=== PATIENT | male | born 1955 | race Caucasian/White ===

== ENCOUNTER 2018-01-27 13:59 | Inpatient (IN) | payer OTHER ==
[2018-01-27] MEDS: NS 0.9% 1000 ML*IV.FLUID IV ONE ×2 (15:03→18:14)
[2018-01-27] MEDS ORDERED: Ondansetron INJ* 2 MG/ML VIAL IV ONE (15:08)
[2018-01-27] MEDS ORDERED: HYDROmorphone INJ* 1 MG/ML CARPUJECT SYRINGE IV ONE ×2 (15:08→17:27)
[2018-01-27 15:37] LABS: Hematocrit 39 % (42-52); Hemoglobin 13.3 g/dl (14.0-18.0); Mean Corpuscular HGB Conc 34 g/dl (31-36); Mean Corpuscular Hemoglobin 31 pg (27-31); Mean Corpuscular Volume 93 fL (80-94); Mean Platelet Volume 9 um3 (7.4-10.4); Platelet Count 391 10^3/ul (150-450); Red Blood Count 4.25 10^6/ul (4.0-5.4); Red Cell Distribution Width 14 % (10.5-15); White Blood Count 11.9 10^3/ul (3.5-10.8)
[2018-01-27] MEDS ORDERED: cefTRIAXone 1000 MG SYRINGE IVPB ONCE IVPB ONE ×2 (15:40)
--- NOTE | 2018-01-27 15:41 | RAD ---
INDICATION: Fever. COMPARISON: There are no prior studies available for comparison. TECHNIQUE: A portable view of the chest was obtained. FINDINGS: Cardiac and mediastinal contours appear to be within normal limits. The lungs are clear. No pleural effusion is seen. IMPRESSION: NO EVIDENCE FOR ACUTE DISEASE.
[2018-01-27 15:50] LABS: INR 1.2 (0.77-1.02)
[2018-01-27 15:58] LABS: EGFR Non-African American 92.9 (>60)
[2018-01-27 16:01] LABS: ABS Basophils 0.1 10^3/ul (0-0.2); ABS Eosinophils 0.1 10^3/ul (0-0.6); ABS Lymphocytes 1.2 10^3/ul (1.0-4.8); ABS Monocytes 2.6 10^3/ul (0-0.8); ABS Nucleated RBC 0 10^3/ul; Eosinophil % 0.5 % (0-6); Lymphocyte % 9.9 % (25-47); Nucleated Red Blood Cells % 0.1
[2018-01-27] MEDS: cefTRIAXone(*) 1 GM in NS 0.9% 50 ML* 50 ML IVPB ONE ×2 (16:02→18:57)
--- NOTE | 2018-01-27 16:11 | RAD ---
Indication: Right hand and elbow swelling. Real-time sonography of the right elbow was performed. The area of the soft tissue swelling complex fluid collection is noted measuring 3.0 x 1.0 x 4.2 cm. Ill-defined borders are noted. I cannot totally exclude olecranon bursitis. Evaluation of the dorsum of the hand demonstrates trace amount of fluid in the dorsal aspect of the hand IMPRESSION: Fluid collection presumably in the dorsal elbow measuring 3.0 x 1.0 x 4.2 cm with ill-defined borders. The possibility of olecranon bursitis should be considered although clinical correlation is suggested. Trace amount of fluid is noted in the dorsal right hand.
--- NOTE | 2018-01-27 16:13 | RAD ---
Indication: Right hand pain. 4 views of the right hand demonstrates ulnar positive variance. Degenerative changes of the radiocarpal joint is noted. No definite fracture is noted. IMPRESSION: Ulnar positive variance with radial carpal joint arthritis. No fracture is noted.
--- NOTE | 2018-01-27 16:14 | RAD ---
INDICATION: Pain and swelling COMPARISON: None TECHNIQUE: AP and lateral views were obtained. FINDINGS: There is no acute bony change. There are advanced osteocytic/post matter changes about the wrist and there are degenerative changes about the elbow with post matter changes with open reduction and internal fixation of mid shaft radial and ulnar fractures. No additional findings. IMPRESSION: DEGENERATIVE, POST TRAUMATIC, AND POSTSURGICAL CHANGES. NO ACUTE FINDINGS
[2018-01-27] MEDS: Mometasone/Formoter 100/5 MDI INH SCH (20:52)
[2018-01-27] MEDS: Methocarbamol TAB* 500 MG PO SCH (21:15)
[2018-01-27] MEDS: Gabapentin CAP(*) 300 MG PO SCH (21:16)
[2018-01-27] MEDS: Amitriptyline TAB* 25 MG PO SCH (21:16)
[2018-01-27] MEDS: HYDROmorphone INJ* 2 MG/ML CARPUJECT SYRINGE IV SLOW PU PRN (21:16)
--- NOTE | 2018-01-27 22:54 | HP ---
HISTORY AND PHYSICAL: DATE OF ADMISSION: 01/27/18 ADMITTING PROVIDER: Catracho Khoury MD PRIMARY CARE PHYSICIAN: Nasra Bradley MD CHIEF COMPLAINT: Three days of progressive right elbow and hand pain, erythema , stiffness. 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 He worked overnight Thursday night 3 days prior to admission and had to lift twice as heavy trash cans than he usually he has to do. He started to develop fevers and pain for the past next 3 days prior to admission, which has been progressive. He occasionally does get swelling in his right elbow every 6 to 12 months, which typically does resolve. This has now returned, but now he has also developed swelling and stiffness in the right hand along with erythema and warmth, which is completely new. He followed with Dr. Nasra Bradley, his primary care physician, was noted to have fever of either 101 or 102 degrees and was sent directly for admission for concern for cellulitis, sepsis versus septic joints. He was afebrile in the emergency room , but with a white count of 11.9 and imaging including soft tissue ultrasound suggestive of a 3.0 x 1.0 x 4.2 cm complex fluid collection with ill-defined borders in the dorsal elbow of the right side with question of possible olecranon bursitis. There was also trace amount of fluid noted in the dorsal right hand. Dr. Manuel of Orthopedics was consulted by Dr. Levine of emergency room, who recommended hospitalist service admission with orthopedic consultation services available. He also had a hand x-ray with no fracture noted in the forearm x-ray, which demonstrated degenerative posttraumatic and postsurgical changes, but no acute findings. He was started on ceftriaxone and IV fluids along with IV Dilaudid for pain control. He reports that he has also had increased neck stiffness for the last few days after the IV lifting, which is actually somewhat improved currently. He denies any shortness of breath, coughing, chest pain, chest tightness, pain in the right hand is 8.5/10. He is actually somewhat ambidextrous given the numerous surgeries including one on his right forearm. PAST MEDICAL HISTORY: Includes: 1. Hypertension. 2. GERD. 3. Chronic back pains, on muscle relaxers and p.r.n. opioids. 4. Depression. 5. Anxiety. 6. Hepatitis C status post treatment. 7. History of ischemic colitis. PAST SURGICAL HISTORY: Includes: 1. Intramedullary nail to left tibia fracture. 2. Hardware in the right forearm 30 years ago, which also necessitated a bone graft from his left hip. 3. Multiple surgeries on his bilateral rotator cuffs and knees. MEDICATIONS: Include: 1. Methocarbamol 500 mg p.o. q.6 hours. 2. Amlodipine 5 mg p.o. daily. 3. Gabapentin 300 mg p.o. t.i.d. 4. Amitriptyline 25 mg p.o. at bedtime. 5. Losartan 50 mg p.o. daily. 6. Advair 1 puff inhaled b.i.d. 7. Diflunisal 500 mg p.o. daily. 8. Bupropion 300 mg p.o. daily. 9. Omeprazole 20 mg p.o. daily. 10. Oxycodone 15 mg p.r.n. nightly (he received 10 pills per month limit). ALLERGIES: Include SULFA, gives hives; LISINOPRIL, gives itchy throat; and MORPHINE, gives nausea and vomiting. SOCIAL HISTORY: The patient is a self admitted former alcoholic for about 10 years, but not recently. He attests to two 6-packs a week currently of beer. He is a former smoker of 8-pack years, quit 39 years ago. No other drug use. Medical surrogate is his , Manisha Johnson. He is a full code. FAMILY HISTORY: Dad with hypertension, of melanoma. Mother with hepatitis C and heart attack. REVIEW OF SYSTEMS: A complete 14-point review of systems was negative except as per HPI. He denies any abdominal pain, nausea, vomiting, diarrhea, constipation, or headaches. PHYSICAL EXAMINATION GENERAL APPEARANCE: No acute distress, sitting in the hospital bed. VITAL SIGNS: Temperature 98.4, reportedly either 101 or 102 at outpatient office, blood pressure 149/85, satting 95% to 100% on room air, respiratory rate 19 to 20, pulse mid 80s. HEENT: Normocephalic, atraumatic. Pupils are equal, round, and reactive to light. Extraocular motions are intact. No scleral icterus. Moist mucous membranes. No oropharynx lesions. NECK: Supple, but with reduced range of motion to either side approximately 35 degrees bilaterally. PULMONARY: Clear to auscultation bilaterally with no wheezing, rales, or rhonchi. CARDIOVASCULAR: Regular rate and rhythm. No murmurs, rubs, or gallops. ABDOMEN: Soft, nontender, nondistended, though slightly obese (BMI of 35.2). EXTREMITIES: Warm, well perfused. No peripheral edema. Right foot with some plantar deviated toes and flat foot. Right forearm with scar with no drainage, but slight erythema and reduced range of motion at the right elbow. Also significant erythema and swelling of the right dorsum of the hand. NEUROLOGIC: Cranial nerves II through XII intact. Moving all extremities. LABORATORY DATA: White count 11.9, hemoglobin 13.3, hematocrit 39, MCV 93, platelets 391, neutrophils 67.3%. INR 1.20. Sodium 130, potassium 2.7, chloride 96, carbon dioxide 23, BUN 19, creatinine 0.84, glucose of 120, lactic acid 1.7. Total bili 1.50. Troponin 0.01. AST 24, ALT 22, alk phos 44. CRP 204. Albumin 4.0. IMAGING: As per HPI. EKG with poor R-wave progression, normal sinus rhythm. ASSESSMENT AND PLAN: Ang Johnson is a 62-year-old male with past medical history of chronic back pain, hypertension, multiple fractures and hardware most prominently in his right forearm, presenting with concern for cellulitis of the right hand with trace dorsal hand fluid as well as a 3 x 1 x 4.2 cm complex fluid collection of the right elbow with inability to rule out olecranon bursitis versus septic joint. Dr. Manuel of orthopedics was consulted , who recommended IV antibiotics and will be seen in the maintenance worker swimming pool for further evaluation if need for drainage. The patient's pain will be controlled with Dilaudid IV. I started her on ceftriaxone. We will continue that versus switch to cefazolin. Does not have risk factors for methicillin-resistant Staphylococcus aureus, though with the retained hardware, we will have to keep a close eye on nonprogression and consider an ID consult in the morning. He is getting IV fluids per sepsis protocol, though currently afebrile and his lactic acid was within normal limits at 1.7, CRP was 204. We will continue his antihypertensives for now, losartan 50 and amlodipine 5 at low threshold, to stop if his blood pressures falls overnight. Continue his gabapentin 300 mg t.i.d., his amitriptyline 25 mg q.h.s., his bupropion 300 mg daily, his omeprazole 20 mg daily, and Advair 2 puffs inhaled b.i.d. His neck pain seems secondary to the heavy lifting, low threshold to get additional imaging if it does not continue to progress. He is a full code. Medical surrogate is Manisha Johnson, his . He can eat a heart healthy diet with decaf coffee. He is being admitted to observation status on medical service. [id number]/[facility] #: [id number] ANYI
--- NOTE | 2018-01-27 23:01 | ED ---
Milton Lawton Gabriel, scribed for Manoj Levine MD on 01/27/18 at 1509 . Upper Extremity Pain - HPI Summary HPI Summary: This patient is a 62 year old M presenting to [facility] with a chief complaint of RUE pain that began 3 days ago. Pt saw his PCP today and they sent him here with a concern of a septic joint. The patient rates the pain 7/10 in severity Patient reports mild neck pain, elbow swelling that limits ROM, and a fever of 102. Patient denies CP, SOB, and congestion. The patient had surgery in this same wrist in 1972. - History of Current Complaint Chief Complaint: EDExtremityUpper Stated Complaint: RT WRIST PAIN Time Seen by Provider: 01/27/18 14:56 Hx Obtained From: Patient Onset/Duration: Started Days Ago - 3, Still Present Timing: Constant Severity Initially: Moderate Severity Currently: Moderate Pain Location: Elbow, Wrist, Hand Associated Signs & Symptoms: Positive: Swelling, Redness, Other - mild neck pain , elbow swelling that limits ROM, and a fever of 102 - Allergies/Home Medications Allergies/Adverse Reactions: Allergies Allergy/AdvReac Type Severity Reaction Status Date / Time lisinopril Allergy Coughing Verified 01/27/18 15:36 Sulfa (Sulfonamide Allergy Hives Verified 01/27/18 15:36 Antibiotics) morphine AdvReac Nausea And Verified 01/27/18 15:37 Vomiting Home Medications: Home Medications Amitriptyline TAB* [Elavil TAB*] 25 mg PO BEDTIME 01/27/18 [History Confirmed ] Gabapentin 300 mg PO TID 01/27/18 [History Confirmed 01/27/18] Methocarbamol 500 mg PO Q6H 01/27/18 [History Confirmed 01/27/18] amLODIPine TAB* [Norvasc 5 mg TAB*] 5 mg PO DAILY 01/27/18 [History Confirmed ] PMH/Surg Hx/FS Hx/Imm Hx Endocrine/Hematology History: Denies: Hx Sickle Cell Disease Cardiovascular History: Reports: Hx Hypertension - WELL CONTROLLED WITH MEDICATION Respiratory History: Reports: Hx Asthma - ASTHMATIC ALLERGY UNKNOWN TO WHAT TAKES ADVAIR GI History: Reports: Hx Gastroesophageal Reflux Disease - TAKES MEDICATION ONLY HAPPENS WHEN OVER FULL History: Denies: Other Problems/Disorders Musculoskeletal History: Denies: Other Musculoskeletal History Sensory History: Reports: Hx Contacts or Glasses - READING Denies: Hx Cataracts, Hx Glaucoma, Hx Hearing Aid Opthamlomology History: Reports: Hx Contacts or Glasses - READING Denies: Hx Cataracts, Hx Glaucoma Neurological History: Denies: Other Neuro Impairments/Disorders - Cancer History Hx Chemotherapy: No - Surgical History Surgery Procedure, Year, and Place: RIGHT SHOULDER - 2012 [employer]. RIGHT KNEE. BACK. RIGHT ARM. LEFT SHOULDER Hx Anesthesia Reactions: No - WAKES UP VERY FAST, WOKE UP IN MIDDLE OF OPERATION - Immunization History Date of Tetanus Vaccine: 03/2017 Date of Influenza Vaccine: never Infectious Disease History: No Infectious Disease History: Denies: Traveled Outside the [place] in Last 30 Days - Family History Known Family History: Negative: Blood Disorder - Social History Alcohol Use: Rare Substance Use Type: Reports: None Smoking Status (MU): Former Smoker Review of Systems Positive: Fever Cardiovascular: Negative Respiratory: Negative Gastrointestinal: Negative Genitourinary: Negative Positive: Other - RUE pain and swelling, mild neck pain, elbow pain and swelling Positive: Other - RT HAND AND ELBOW ERYHEMA Neurological: Negative Psychological: Normal All Other Systems Reviewed And Are Negative: Yes Physical Exam - Summary Physical Exam Summary: General: mildly ill appearing. Skin: warm, color reflects adequate perfusion, dry Head: normal Eyes: EOMI, SARY ENT: normal Neck: supple, nontender Respiratory: CTA, breath sounds present Cardiovascular: RRR Abdomen: soft, nontender Bowel: present Musculoskeletal: strength/ROM intact, the right hand and wrist are erythematous , swollen and TTP. The lateral aspect of the right elbow is erythematous. Neurological: normal, sensory/motor intact, A&O x3 Psychological: affect/mood appropriate Triage Information Reviewed: Yes Vital Signs On Initial Exam: Initial Vitals Pulse Pulse Ox 96 94 01/27/18 14:11 01/27/18 14:11 Vital Signs Reviewed: Yes Diagnostics - Vital Signs Vital Signs Temp Pulse Resp BP Pulse Ox 01/27/18 14:13 95 149/85 98 01/27/18 14:12 98.4 F 89 14 149/85 95 01/27/18 14:11 96 94 - Laboratory Lab Results: Lab Results 01/27/18 01/27/18 01/27/18 Range/Units 15:13 15:13 15:13 WBC 11.9 H (3.5-10.8) 10^3/ul RBC 4.25 (4.0-5.4) 10^6/ul Hgb 13.3 L (14.0-18.0) g/dl Hct 39 L (42-52) % MCV 93 (80-94) fL MCH 31 (27-31) pg MCHC 34 (31-36) g/dl RDW 14 (10.5-15) % Plt Count 391 (150-450) 10^3/ul MPV 9 (7.4-10.4) um3 Neut % (Auto) 67.3 (38-83) % Lymph % (Auto) 9.9 L (25-47) % [place] % (Auto) 21.8 H (0-7) % Eos % (Auto) 0.5 (0-6) % Baso % (Auto) 0.5 (0-2) % Absolute Neuts (auto) 8.0 H (1.5-7.7) 10^3/ul Absolute Lymphs (auto) 1.2 (1.0-4.8) 10^3/ul Absolute Monos (auto) 2.6 H (0-0.8) 10^3/ul Absolute Eos (auto) 0.1 (0-0.6) 10^3/ul Absolute Basos (auto) 0.1 (0-0.2) 10^3/ul Absolute Nucleated RBC 0 10^3/ul Nucleated RBC % 0.1 INR (Anticoag Therapy) 1.20 H (0.77-1.02) APTT 29.3 (26.0-36.3) seconds Sodium 130 L (133-145) mmol/L Potassium 3.7 (3.5-5.0) mmol/L Chloride 96 L (101-111) mmol/L Carbon Dioxide 23 (22-32) mmol/L Anion Gap 11 (2-11) mmol/L BUN 19 (6-24) mg/dL Creatinine 0.84 (0.67-1.17) mg/dL Est GFR ( Amer) 119.5 (>60) Est GFR (Non-Af Amer) 92.9 (>60) BUN/Creatinine Ratio 22.6 H (8-20) Glucose 120 H (70-100) mg/dL Lactic Acid (0.5-2.0) mmol/L Calcium 9.6 (8.6-10.3) mg/dL Total Bilirubin 1.50 H (0.2-1.0) mg/dL AST 24 (13-39) U/L ALT 22 (7-52) U/L Alkaline Phosphatase 44 (34-104) U/L Troponin I 0.01 (<0.04) ng/mL C-Reactive Protein 204.47 H (< 5.00) mg/L Total Protein 7.8 (6.4-8.9) g/dL Albumin 4.0 (3.2-5.2) g/dL Globulin 3.8 (2-4) g/dL Albumin/Globulin Ratio 1.1 (1-3) 03//18 Range/Units 15:13 WBC (3.5-10.8) 10^3/ul RBC (4.0-5.4) 10^6/ul Hgb (14.0-18.0) g/dl Hct (42-52) % MCV (80-94) fL MCH (27-31) pg MCHC (31-36) g/dl RDW (10.5-15) % Plt Count (150-450) 10^3/ul MPV (7.4-10.4) um3 Neut % (Auto) (38-83) % Lymph % (Auto) (25-47) % [place] % (Auto) (0-7) % Eos % (Auto) (0-6) % Baso % (Auto) (0-2) % Absolute Neuts (auto) (1.5-7.7) 10^3/ul Absolute Lymphs (auto) (1.0-4.8) 10^3/ul Absolute Monos (auto) (0-0.8) 10^3/ul Absolute Eos (auto) (0-0.6) 10^3/ul Absolute Basos (auto) (0-0.2) 10^3/ul Absolute Nucleated RBC 10^3/ul Nucleated RBC % INR (Anticoag Therapy) (0.77-1.02) APTT (26.0-36.3) seconds Sodium (133-145) mmol/L Potassium (3.5-5.0) mmol/L Chloride (101-111) mmol/L Carbon Dioxide (22-32) mmol/L Anion Gap (2-11) mmol/L BUN (6-24) mg/dL Creatinine (0.67-1.17) mg/dL Est GFR ( Amer) (>60) Est GFR (Non-Af Amer) (>60) BUN/Creatinine Ratio (8-20) Glucose (70-100) mg/dL Lactic Acid 1.7 (0.5-2.0) mmol/L Calcium (8.6-10.3) mg/dL Total Bilirubin (0.2-1.0) mg/dL AST (13-39) U/L ALT (7-52) U/L Alkaline Phosphatase (34-104) U/L Troponin I (<0.04) ng/mL C-Reactive Protein (< 5.00) mg/L Total Protein (6.4-8.9) g/dL Albumin (3.2-5.2) g/dL Globulin (2-4) g/dL Albumin/Globulin Ratio (1-3) Result Diagrams: 01/27/18 15:13 01/27/18 15:13 Lab Statement: Any lab studies that have been ordered have been reviewed, and results considered in the medical decision making process. - Radiology CXR Radiology Interpretation Completed By: Radiologist - NO EVIDENCE FOR ACUTE DISEASE. ED physician has reviewed this radiology report. forearm xray Radiology Interpretation Completed By: Radiologist - DEGENERATIVE, POST TRAUMATIC, AND POSTSURGICAL CHANGES. NO ACUTE FINDINGS. ED physician has reviewed this report hand xray Radiology Interpretation Completed By: Radiologist - Ulnar positive variance with radial carpal joint arthritis. No fracture is noted. ED physician has reviewed this report - EKG 1 EKG Interpretation: 14:46 - SR @ [address], no ectopy - Additional Comments Diagnostic Additional Comments: Soft tissue US reveals, Fluid collection presumably in the dorsal elbow measuring 3.0 x 1.0 x 4.2 cm with ill-defined borders. The possibility of olecranon bursitis should be considered although clinical correlation is suggested. Trace amount of fluid is noted in the dorsal right hand. ED physician has reviewed this report Course/Dx - Course Course Of Treatment: Dr. Manuel 17:45 - will consult admission. Dr. Khoury 17:53 - agrees to admit. - Diagnoses Provider Diagnoses: Cellulitis of right arm - Physician Notifications Discussed Care of Patient With: Catracho Khoury Time Discussed With Above Provider: 17:37 Instructed by Provider To: Other - call ortho Discharge - Discharge Plan Condition: Stable Disposition: ADMITTED TO [facility] The documentation as recorded by the Milton root Gabriel accurately reflects the service I personally performed and the decisions made by me, Manoj Levine MD.
[2018-01-28] MEDS: Methocarbamol TAB* 500 MG PO SCH ×4 (01:24→23:06)
[2018-01-28] MEDS: HYDROmorphone INJ* 2 MG/ML CARPUJECT SYRINGE IV SLOW PU PRN ×9 (01:32→23:05)
[2018-01-28 06:10] LABS: Hematocrit 38 % (42-52); Hemoglobin 13.1 g/dl (14.0-18.0); Mean Corpuscular HGB Conc 34 g/dl (31-36); Mean Corpuscular Hemoglobin 32 pg (27-31); Mean Corpuscular Volume 93 fL (80-94); Mean Platelet Volume 8 um3 (7.4-10.4); Platelet Count 344 10^3/ul (150-450); Red Blood Count 4.09 10^6/ul (4.0-5.4); Red Cell Distribution Width 14 % (10.5-15); White Blood Count 7.5 10^3/ul (3.5-10.8)
[2018-01-28 06:12] LABS: ABS Basophils 0.1 10^3/ul (0-0.2); ABS Eosinophils 0.2 10^3/ul (0-0.6); ABS Lymphocytes 1.5 10^3/ul (1.0-4.8); ABS Monocytes 1.7 10^3/ul (0-0.8); ABS Neutrophils 4.1 10^3/ul (1.5-7.7); ABS Nucleated RBC 0 10^3/ul; Eosinophil % 2.2 % (0-6); Lymphocyte % 19.5 % (25-47); Nucleated Red Blood Cells % 0.1
[2018-01-28 06:27] LABS: EGFR Non-African American 105.9 (>60)
[2018-01-28] MEDS: Mometasone/Formoter 100/5 MDI INH SCH ×2 (07:38→19:34)
[2018-01-28] MEDS: Losartan TAB* 25 MG PO SCH (08:31)
[2018-01-28] MEDS: Gabapentin CAP(*) 300 MG PO SCH ×3 (08:31→23:07)
[2018-01-28] MEDS: amLODIPine TAB* 5 MG PO SCH (08:32)
[2018-01-28] MEDS: BuPROPion XL* 300 MG TAB.XL PO SCH (08:32)
[2018-01-28] MEDS: Omeprazole CAP* 20 MG PO SCH (08:32)
[2018-01-28] MEDS ORDERED: BuPROPion XL* 300 MG TAB.XL PO SCH (09:00)
[2018-01-28] MEDS ORDERED: DIFLUNISAL 500 MG PO SCH (09:00)
[2018-01-28 13:16] LABS: Urine Appearance Clear; Urine Blood Negative (Negative); Urine Color Yellow; Urine Ketones Negative (Negative); Urine Protein Negative (Negative); Urine Specific Gravity 1.025 (1.010-1.030); Urine Urobilinogen Positive (Negative)
--- NOTE | 2018-01-28 13:28 | RAD ---
Indication: Pain and swelling at the RIGHT wrist and elbow. Question infection. Remote previous internal fixation for diaphyseal fractures of the radius and ulna. Comparison: January 27, 2018 radiographs. Technique: Le[employer] [place] 1.5 Tracey [id number] with GEM suite. Noncontrast MRI RIGHT elbow and wrist including T1 and inversion recovery series as well as [place] SL metallic artifact suppression technique. Report: RIGHT elbow: Artifact from the cortical plates at the forearm. No compelling bone marrow edema to raise concern for osteomyelitis. Negative for fracture. Large joint effusion without fat fluid level. Suggestion of synovitis. Diffuse osteophytosis. Advanced partial and full-thickness degeneration of the hyaline articular cartilage most prominent at the humeral radial articulation. Subcutaneous edema and interstitial edema at the distal upper arm and proximal forearm skeletal musculature without significant focality. No loculated soft tissue plane fluid collection evident. RIGHT wrist: Diffuse advanced osteoarthritis. Osteophytosis is marked at the distal radioulnar joint. Diffuse advanced high-grade partial and full-thickness degeneration of the hyaline articular cartilage. Mild scapholunate diastases with suggestion of tear of the scapholunate ligament. Associated increased scapholunate angle. Mild bone marrow edema at the distal pole of the scaphoid, throughout the trapezium, and volar distal aspect of the capitate without discrete macroscopic fracture plane most likely reflecting reactive edema secondary to degenerative arthropathy. Mild proximal migration of the capitate consistent with early scapholunate advanced collapse. Moderate distal radial ulnar and mild radiocarpal and midcarpal joint effusions. Significant fluid within the flexor tendon sheaths of the fourth and fifth fingers at the distal forearm and metacarpal level. Diffuse soft tissue edema. IMPRESSION: 1. No compelling evidence for osteomyelitis at the wrist or elbow. 2. 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 3. Severe tenosynovitis at the flexor tendons of the fourth and fifth fingers. 4. 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 Associated large elbow joint effusion. 5. If there is high clinical index of suspicion based on clinical presentation and laboratory data for infection then consider elbow joint aspiration and potential aspiration of fluid from the flexor tendon sheaths.
--- NOTE | 2018-01-28 13:28 | RAD ---
Indication: Pain and swelling at the RIGHT wrist and elbow. Question infection. Remote previous internal fixation for diaphyseal fractures of the radius and ulna. Comparison: January 27, 2018 radiographs. Technique: Tier[employer] [place] 1.5 Tracey [id number] with GEM suite. Noncontrast MRI RIGHT elbow and wrist including T1 and inversion recovery series as well as [place] SL metallic artifact suppression technique. Report: RIGHT elbow: Artifact from the cortical plates at the forearm. No compelling bone marrow edema to raise concern for osteomyelitis. Negative for fracture. Large joint effusion without fat fluid level. Suggestion of synovitis. Diffuse osteophytosis. Advanced partial and full-thickness degeneration of the hyaline articular cartilage most prominent at the humeral radial articulation. Subcutaneous edema and interstitial edema at the distal upper arm and proximal forearm skeletal musculature without significant focality. No loculated soft tissue plane fluid collection evident. RIGHT wrist: Diffuse advanced osteoarthritis. Osteophytosis is marked at the distal radioulnar joint. Diffuse advanced high-grade partial and full-thickness degeneration of the hyaline articular cartilage. Mild scapholunate diastases with suggestion of tear of the scapholunate ligament. Associated increased scapholunate angle. Mild bone marrow edema at the distal pole of the scaphoid, throughout the trapezium, and volar distal aspect of the capitate without discrete macroscopic fracture plane most likely reflecting reactive edema secondary to degenerative arthropathy. Mild proximal migration of the capitate consistent with early scapholunate advanced collapse. Moderate distal radial ulnar and mild radiocarpal and midcarpal joint effusions. Significant fluid within the flexor tendon sheaths of the fourth and fifth fingers at the distal forearm and metacarpal level. Diffuse soft tissue edema. IMPRESSION: 1. No compelling evidence for osteomyelitis at the wrist or elbow. 2. 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 3. Severe tenosynovitis at the flexor tendons of the fourth and fifth fingers. 4. 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 Associated large elbow joint effusion. 5. If there is high clinical index of suspicion based on clinical presentation and laboratory data for infection then consider elbow joint aspiration and potential aspiration of fluid from the flexor tendon sheaths.
--- NOTE | 2018-01-28 15:47 | CONS ---
CONSULTATION REPORT: DATE OF CONSULTATION: 01/28/18 Thank you for this orthopedic consultation. CHIEF COMPLAINT: Right hand and elbow pain. HISTORY OF PRESENT ILLNESS: Mr. Johnson is 62-year-old right-hand dominant male who notes 3 days of increasingly severe right hand and elbow pain with warmth and redness. 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 He was lifting more items than usual. He is unsure whether he scraped his arm. He is unaware of any open wounds. He started to develop redness and warmth along his dorsal hand and elbow. This redness increased, then he went to his primary care doctor who thought he was febrile and sent him to the emergency room for further evaluation. Patient was admitted for cellulitis and I am consulted to evaluate further for a possible septic joint. He has been on IV ceftriaxone and has had 2 doses. Patient reports he occasionally develops what sounds like olecranon bursitis every 6 to 12 months, but it resolves on its own without treatment. Patient reports some recent fever. He reports 6/10 pain in the dorsal hand and wrist. He notes decreased movement in the wrist and increased pain when he tries to move the wrist. He reports a loss of extension in the elbow due to pain and swelling. PAST MEDICAL HISTORY: Hepatitis C status post treatment, ischemic colitis, depression, anxiety, chronic back pain, GERD, hypertension, history of multiple fractures including right forearm and left tibia. PAST SURGICAL HISTORY: IM nail of the left tibia. ORIF of the right forearm fracture. Multiple surgeries on his knees and bilateral rotator cuffs. HOME MEDICATIONS: 1. Methocarbamol 500 mg p.o. q.6 hours. 2. Amlodipine 5 mg p.o. daily. 3. Gabapentin 300 mg p.o. t.i.d. 4. Amitriptyline 25 mg p.o. q.h.s. 5. Losartan 50 mg p.o. daily. 6. Advair 1 puff inhaled b.i.d. 7. Diflunisal 500 mg p.o. daily. 8. Bupropion 300 mg p.o. daily. 9. Omeprazole 20 mg p.o. daily. 10. Oxycodone 50 mg p.r.n. q.h.s. ALLERGIES: SULFA, LISINOPRIL and MORPHINE. FAMILY HISTORY: Paternal, melanoma and hypertension. Maternal, heart disease and hepatitis C. 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 He has a remote history of tobacco use. He drinks 2 six packs of beer per week, but is a self- admitted former alcoholic. No recreational drug use. Lives with his . REVIEW OF SYSTEMS: Fourteen systems are reviewed with the patient. Positive for right wrist pain, right forearm pain, right elbow pain, right elbow stiffness, right wrist stiffness, recent fevers. Negative for chest pain, shortness of breath, nausea, vomiting, headache, dizziness, diarrhea or constipation. Otherwise, review of systems is negative or not relevant. PHYSICAL EXAMINATION: Vitals: Temperature 98.1, pulse 84, blood pressure 134/ 58. General: Patient is a well-nourished male in no apparent distress, alert and oriented x3. Pleasant mood and appropriate affect. HEENT: Atraumatic, normocephalic. Pupils are equal and reactive to light. Chest: Unlabored breathing. Abdomen: Soft, nontender, nondistended. Right upper extremity: Patient's skin is intact. No visible abrasion or open wound. He has arrhythmia and warmth along the entire upper extremity up to his mid upper arm. At the elbow, there is minimal pain with range of motion. He is locked and lacks 30 degrees from full extension. Flexion to 120 degrees with minimal pain. I cannot palpate if he has a localized olecranon bursitis. He does have an effusion at the elbow. Forearm is relatively nontender to palpation. At his wrist, he is swollen generally, but no palpable fluid collections. He has no pain with passive stretch of his fingers. He has full range of motion of the fingers except lacking 20 degrees from full extension due to swelling. He has 2 + palpable radial pulse. Full sensation to light touch in all nerve distributions. Limited wrist motion because of pain and swelling. LABORATORY VALUES: Show white blood cell 11.1, decreased this morning to 7.8; hematocrit 39; platelets 391. Sodium 130, up to 134 this morning; potassium 3.7 , up to 4.5 this morning. BUN and creatinine 14 and 0.75 respectively. Glucose 104, lactic acid 1.7 and CRP 204. RADIOGRAPHS: Multiple radiographs were reviewed on the PACS system. 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 He has plate and screws on both the radius and ulna in the forearm. No obvious signs of osteomyelitis. Soft tissue ultrasound read by Dr. Alas on 01/27/18 shows trace amount of fluid in the dorsal right hand as well as a fluid collection in the region of the olecranon bursa 3 x 1 x 4 cm. ASSESSMENT AND PLAN: Mr. Johnson is a 62-year-old gentleman with 3 days of increasingly severe erythema, warmth and developing cellulitis in the right upper extremity. I am not seeing the discrete olecranon bursitis at this point. I am concerned about a septic wrist or elbow. I would consider adding a broader spectrum antibiotic at this point in addition to ceftriaxone. I recommend an MRI of the right upper extremity to look for significant effusion in the wrist or elbow. He should continue on IV antibiotics. He is no longer febrile. He does not appear to be septic. Ortho to follow and we will obtain the MRI this morning. [id number]/[id number] #: [id number] MTDD
[2018-01-28] MEDS ORDERED: cefTRIAXone 1000 MG SYRINGE IVPB Q24H IVPB SCH ×2 (16:00)
[2018-01-28] MEDS ORDERED: cefTRIAXone(*) 1 GM in NS 0.9% 50 ML* 50 ML IVPB SCH (16:00)
[2018-01-28] MEDS: STERILE WATER FOR INJ IVPB SCH (16:28)
[2018-01-28] MEDS: CEFTRIAXONE IVPB SCH (16:28)
--- NOTE | 2018-01-28 17:53 | PN ---
Subjective Date of Service: 01/28/18 Interval History: MRI with significant fluid in the 4th and 5th flexor tendon sheaths. Discussed with Dr. Manuel. Dr. Joyce to see patient today. elbow feeling improved but lateral right wrist started to have worsened shooting pains this afternoon. Diluadid had been changed from 1 q3 to 2 q2 this AM. neck range of motion improved. Objective Active Medications: Acetaminophen (Tylenol Tab*) 650 mg PO Q6H PRN PRN Reason: FEVER/HEADACHE Amitriptyline HCl (Elavil Tab*) 25 mg PO BEDTIME [facility] Last Admin: 01/27/18 21:16 Dose: 25 mg Amlodipine Besylate (Norvasc Tab*) 5 mg PO DAILY [facility] Last Admin: 01/28/18 08:32 Dose: 5 mg Bupropion HCl (Bupropion Xl*) 300 mg PO DAILY [facility] Last Admin: 01/28/18 08:32 Dose: 300 mg Diflunisal (Dolobid Tab*) 500 mg PO DAILY [facility] Last Admin: 01/28/18 08:31 Dose: 500 mg Gabapentin (Neurontin Cap(*)) 300 mg PO TID [facility] Last Admin: 01/28/18 14:39 Dose: 300 mg Hydromorphone HCl (Dilaudid Inj*) 2 mg IV SLOW PU Q2H PRN PRN Reason: PAIN Last Admin: 01/28/18 16:34 Dose: 2 mg Ceftriaxone Sodium 2,000 mg/ (Sterile Water) 20 mls @ 80 mls/hr IVPB Q24H [facility] Last Admin: 01/28/18 16:28 Dose: 80 mls/hr Losartan Potassium (Cozaar Tab*) 50 mg PO DAILY [facility] Last Admin: 01/28/18 08:31 Dose: 50 mg Methocarbamol (Robaxin Tab*) 500 mg PO Q6H [facility] Last Admin: 01/28/18 14:39 Dose: 500 mg Mometasone Furoate/Formoterol Fumar (Dulera 100/5 Mdi*) 2 puff INH BID [facility] Last Admin: 01/28/18 07:38 Dose: 2 puff Omeprazole (Prilosec Cap*) 20 mg PO DAILY@0800 [facility] Last Admin: 01/28/18 08:32 Dose: 20 mg Vital Signs - 8 hr 01/28/18 01/28/18 01/28/18 10:36 12:35 14:37 Respiratory 18 16 16 Rate 01/28/18 01/28/18 01/28/18 14:38 14:39 16:34 Respiratory 16 16 16 Rate 01/28/18 17:25 Respiratory 16 Rate Oxygen Devices in Use Now: None Appearance: NAD Eyes: No Scleral Icterus, PERRLA Neck: NL Appearance and Movements; NL JVP Respiratory: Symmetrical Chest Expansion and Respiratory Effort, Clear to Auscultation Cardiovascular: NL Sounds; No Murmurs; No JVD, RRR Extremities: No Edema, No Clubbing, Cyanosis, - - right wrist with resolved erythema but continued induration and warmth. range of motion right elbow improved. Neurological: Alert and Oriented x 3, NL Sensation, NL Muscle Strength and Tone Result Diagrams: 01/28/18 05:58 01/28/18 05:58 Additional Lab and Data: Laboratory Results - last 24 hr 01/28/18 01/28/18 01/28/18 05:58 05:58 12:40 WBC 7.5 RBC 4.09 Hgb 13.1 L Hct 38 L MCV 93 MCH 32 H MCHC 34 RDW 14 Plt Count 344 MPV 8 Neut % (Auto) 55.4 Lymph % (Auto) 19.5 L [place] % (Auto) 22.2 H Eos % (Auto) 2.2 Baso % (Auto) 0.7 Absolute Neuts (auto) 4.1 Absolute Lymphs (auto) 1.5 Absolute Monos (auto) 1.7 H Absolute Eos (auto) 0.2 Absolute Basos (auto) 0.1 Absolute Nucleated RBC 0 Nucleated RBC % 0.1 Sodium 134 Potassium 4.5 Chloride 102 Carbon Dioxide 26 Anion Gap 6 BUN 14 Creatinine 0.75 Est GFR ( Amer) 136.2 Est GFR (Non-Af Amer) 105.9 BUN/Creatinine Ratio 18.7 Glucose 104 H Calcium 8.9 Magnesium 2.2 Urine Color Yellow Urine Appearance Clear Urine pH 5.0 Ur Specific [place] 1.025 Urine Protein Negative Urine Ketones Negative Urine Blood Negative Urine Nitrate Negative Urine Bilirubin Negative Urine Urobilinogen Positive A Ur Leukocyte Esterase Negative Urine Glucose Negative Microbiology and Other Data: Microbiology 01/27/18 15:13 Blood Venous Aerobic Blood Culture - Preliminary No Growth Day 1 01/27/18 15:13 Blood Venous Anaerobic Blood Culture - Preliminary No Growth Day 1 Assess/Plan/Problems-Billing Assessment: 62 yo male PMH right forearm fracture w/ hardware, multiple joint surgeries, HTN , anxiety, depression, Hepatitis C s/p tx presenting with right wrist and elbow pain, swelling, erythema, loss of range of motion. soft tissue US with wrist fluid and MRI with significant 4th and 5th tendon flexor sheath fluid. Ortho hand to evaluate. on ceftriaxone and diluadid. - Patient Problems (1) Cellulitis of right hand Current Visit: Yes Status: Acute Code(s): L03.113 - CELLULITIS OF RIGHT UPPER LIMB SNOMED Code(s): 15467550 Comment: change ceftriaxone to 2g q24 from 1g given 109kg. improving erythema but concern for tendon sheath infection given MRI findings. Discussed with Dr. Manuel. Dr. Joyce to see. pt made npo. BCx BGTD. (2) Tenosynovitis of right hand Current Visit: Yes Status: Acute Code(s): M65.9 - SYNOVITIS AND TENOSYNOVITIS, UNSPECIFIED SNOMED Code(s): 2729528327141118 Comment: plan as above. likely will need OR. (3) Effusion of elbow joint, right Current Visit: Yes Status: Acute Code(s): M25.421 - EFFUSION, RIGHT ELBOW SNOMED Code(s): 652759684 Comment: continue cftx. pt chronically gets swelling q6-12 months in this joint. ROM improving. f/u ortho recs. consideration for arthrocentesis. (4) HTN (hypertension) Current Visit: Yes Status: Acute Code(s): I10 - ESSENTIAL (PRIMARY) HYPERTENSION SNOMED Code(s): 71964121 Comment: amlodipine 5mg losartan 50mg (5) Anxiety and depression Current Visit: Yes Status: Acute Code(s): F41.9 - ANXIETY DISORDER, UNSPECIFIED; F32.9 - MAJOR DEPRESSIVE DISORDER, SINGLE EPISODE, UNSPECIFIED SNOMED Code(s): 752114750 Comment: buproprion 300mg amitriptyline (6) Chronic joint pain Current Visit: Yes Status: Acute Code(s): M25.50 - PAIN IN UNSPECIFIED JOINT ; G89.29 - OTHER CHRONIC PAIN SNOMED Code(s): 07675693 Comment: was using oxycodone 15mg prn qhs (but only is allowed 15 pills a month). currently on dilaudid continue other home meds for muscle/nerve pain(robaxin, gabapentin). (7) GERD (gastroesophageal reflux disease) Current Visit: Yes Status: Acute Code(s): K21.9 - GASTRO-ESOPHAGEAL REFLUX DISEASE WITHOUT ESOPHAGITIS SNOMED Code(s): 341080374 Comment: omeprazole Status and Disposition: medicine inpatient.
[2018-01-28] MEDS ORDERED: Bupivacaine 0.25% SDV* 30 ML ONE (19:26)
[2018-01-28] MEDS ORDERED: KETAMINE HCL* 50 MG/ML 10 ML VIAL ONE (20:05)
[2018-01-28] MEDS ORDERED: fentaNYL* 50 MCG/ML 2 ML VIAL (100 MCG VIAL) ONE ×3 (20:05→21:47)
[2018-01-28] MEDS ORDERED: Midazolam* 1 MG/ML 5 ML VIAL (5 MG) ONE (20:05)
[2018-01-28] MEDS ORDERED: Dexamethasone IV* 4 MG/ML 1 ML (4 MG) ONE (20:31)
[2018-01-28] MEDS ORDERED: Ondansetron INJ* 2 MG/ML VIAL ONE (20:31)
[2018-01-28] MEDS ORDERED: Propofol* 10 MG/ML 20 ML BTL IV PUSH ONE (20:31)
[2018-01-28] MEDS ORDERED: HYDROmorphone INJ* 1 MG/ML CARPUJECT SYRINGE ONE (20:36)
[2018-01-28] MEDS ORDERED: oxyCODONE/Acetamin 5/325 MG* TAB PO PRN (20:40)
[2018-01-28] MEDS ORDERED: HYDROmorphone INJ* 1 MG/ML CARPUJECT SYRINGE IV PRN (20:40)
[2018-01-28] MEDS ORDERED: diPHENhydraMINE IV* 50 MG/ML 1 ml VIAL (BENADRYL) IV PRN (20:40)
[2018-01-28] MEDS ORDERED: DiMENhydriNATE IV* 50 MG/ML VIAL IV PUSH PRN (20:40)
[2018-01-28] MEDS ORDERED: Naloxone* 0.4 MG/ML 1 ML VIAL IV PRN (20:40)
[2018-01-28] MEDS: fentaNYL* 50 MCG/ML 2 ML VIAL (100 MCG VIAL) IV PRN ×4 (21:48→21:57)
[2018-01-28] MEDS: Amitriptyline TAB* 25 MG PO SCH (23:07)
[2018-01-28] MEDS: Acetaminophen TAB* 325 MG PO PRN (23:08)
[2018-01-29] MEDS: HYDROmorphone INJ* 2 MG/ML CARPUJECT SYRINGE IV SLOW PU PRN ×9 (00:50→21:35)
[2018-01-29] MEDS: Methocarbamol TAB* 500 MG PO SCH ×4 (00:51→19:19)
[2018-01-29] MEDS: Acetaminophen TAB* 325 MG PO PRN ×2 (04:54→21:35)
[2018-01-29 07:29] LABS: ABS Basophils 0 10^3/ul (0-0.2); ABS Eosinophils 0 10^3/ul (0-0.6); ABS Lymphocytes 0.5 10^3/ul (1.0-4.8); ABS Monocytes 0.5 10^3/ul (0-0.8); ABS Nucleated RBC 0 10^3/ul; Eosinophil % 0 % (0-6); Hematocrit 37 % (42-52); Hemoglobin 12.8 g/dl (14.0-18.0); Lymphocyte % 7.7 % (25-47); Mean Corpuscular HGB Conc 35 g/dl (31-36); Mean Corpuscular Hemoglobin 32 pg (27-31); Mean Corpuscular Volume 93 fL (80-94); Mean Platelet Volume 9 um3 (7.4-10.4); Nucleated Red Blood Cells % 0.1; Platelet Count 385 10^3/ul (150-450); Red Blood Count 3.98 10^6/ul (4.0-5.4); Red Cell Distribution Width 14 % (10.5-15)
[2018-01-29 07:49] LABS: EGFR Non-African American 104.3 (>60)
[2018-01-29] MEDS: Mometasone/Formoter 100/5 MDI INH SCH ×2 (08:09→20:25)
[2018-01-29] MEDS: Losartan TAB* 25 MG PO SCH (08:28)
[2018-01-29] MEDS: DIFLUNISAL 500 MG PO SCH ×2 (08:28→20:57)
[2018-01-29] MEDS: Gabapentin CAP(*) 300 MG PO SCH ×3 (08:29→20:56)
[2018-01-29] MEDS: Omeprazole CAP* 20 MG PO SCH (08:29)
[2018-01-29] MEDS: BuPROPion XL* 300 MG TAB.XL PO SCH (08:30)
[2018-01-29] MEDS: amLODIPine TAB* 5 MG PO SCH (08:30)
--- NOTE | 2018-01-29 09:24 | PN ---
Subjective Date of Service: 01/29/18 Interval History: Pt is feeling ok. Pain in his wrist is his biggest complaint today. He states he always feels the worse on the day after surgery. He states his elbow discomfort is improved some today but he still feels like he can not fully extend his arm. Objective Active Medications: Acetaminophen (Tylenol Tab*) 650 mg PO Q6H PRN PRN Reason: FEVER/HEADACHE Last Admin: 01/29/18 04:54 Dose: 650 mg Amitriptyline HCl (Elavil Tab*) 25 mg PO BEDTIME [facility] Last Admin: 01/28/18 23:07 Dose: 25 mg Amlodipine Besylate (Norvasc Tab*) 5 mg PO DAILY [facility] Last Admin: 01/29/18 08:30 Dose: 5 mg Bupropion HCl (Bupropion Xl*) 300 mg PO DAILY [facility] Last Admin: 01/29/18 08:30 Dose: 300 mg Diflunisal (Dolobid Tab*) 500 mg PO BID [facility] Last Admin: 01/29/18 08:28 Dose: 500 mg Gabapentin (Neurontin Cap(*)) 300 mg PO TID [facility] Last Admin: 01/29/18 08:29 Dose: 300 mg Hydromorphone HCl (Dilaudid Inj*) 2 mg IV SLOW PU Q2H PRN PRN Reason: PAIN Last Admin: 01/29/18 07:13 Dose: 2 mg Ceftriaxone Sodium 2,000 mg/ (Sterile Water) 20 mls @ 80 mls/hr IVPB Q24H [facility] Last Admin: 01/28/18 16:28 Dose: 80 mls/hr Losartan Potassium (Cozaar Tab*) 50 mg PO DAILY [facility] Last Admin: 01/29/18 08:28 Dose: 50 mg Methocarbamol (Robaxin Tab*) 500 mg PO Q6H [facility] Last Admin: 01/29/18 08:30 Dose: 500 mg Mometasone Furoate/Formoterol Fumar (Dulera 100/5 Mdi*) 2 puff INH BID [facility] Last Admin: 01/29/18 08:09 Dose: 2 puff Omeprazole (Prilosec Cap*) 20 mg PO DAILY@0800 [facility] Last Admin: 01/29/18 08:29 Dose: 20 mg Vital Signs - 8 hr 01/29/18 01/29/18 01/29/18 01:19 02:16 02:28 Temperature 97.5 F Pulse Rate 36 Respiratory 18 18 Rate Blood Pressure 130/63 (mmHg) O2 Sat by Pulse 92 93 Oximetry 01/29/18 01/29/18 01/29/18 03:57 04:52 06:26 Temperature Pulse Rate 69 Respiratory 16 18 18 Rate Blood Pressure 144/69 (mmHg) O2 Sat by Pulse 100 Oximetry 01/29/18 01/29/18 01/29/18 07:13 07:22 08:11 Temperature 97.7 F Pulse Rate 31 63 Respiratory 18 18 16 Rate Blood Pressure 158/72 (mmHg) O2 Sat by Pulse 100 98 Oximetry 01/29/18 01/29/18 01/29/18 08:13 08:29 08:30 Temperature Pulse Rate 60 Respiratory 16 18 Rate Blood Pressure (mmHg) O2 Sat by Pulse Oximetry Oxygen Devices in Use Now: Nasal Cannula - 98%-2L Appearance: Middle aged male sitting up in bed, eating breakfast, NAD Eyes: No Scleral Icterus Ears/Nose/Mouth/Throat: Mucous Membranes Moist Respiratory: Symmetrical Chest Expansion and Respiratory Effort, Clear to Auscultation Cardiovascular: NL Sounds; No Murmurs; No JVD, RRR, No Edema Abdominal: NL Sounds; No Tenderness; No Distention Extremities: No Clubbing, Cyanosis, - - R forearm/hand in surgical cast/dressing Skin: No Nodules or Sclerosis Neurological: Alert and Oriented x 3 Result Diagrams: 01/29/18 06:49 01/29/18 06:48 Additional Lab and Data: Laboratory Results - last 24 hr 01/28/18 01/28/18 01/28/18 05:58 05:58 12:40 WBC 7.5 RBC 4.09 Hgb 13.1 L Hct 38 L MCV 93 MCH 32 H MCHC 34 RDW 14 Plt Count 344 MPV 8 Neut % (Auto) 55.4 Lymph % (Auto) 19.5 L [place] % (Auto) 22.2 H Eos % (Auto) 2.2 Baso % (Auto) 0.7 Absolute Neuts (auto) 4.1 Absolute Lymphs (auto) 1.5 Absolute Monos (auto) 1.7 H Absolute Eos (auto) 0.2 Absolute Basos (auto) 0.1 Absolute Nucleated RBC 0 Nucleated RBC % 0.1 Sodium 134 Potassium 4.5 Chloride 102 Carbon Dioxide 26 Anion Gap 6 BUN 14 Creatinine 0.75 Est GFR ( Amer) 136.2 Est GFR (Non-Af Amer) 105.9 BUN/Creatinine Ratio 18.7 Glucose 104 H Calcium 8.9 Magnesium 2.2 Urine Color Yellow Urine Appearance Clear Urine pH 5.0 Ur Specific [place] 1.025 Urine Protein Negative Urine Ketones Negative Urine Blood Negative Urine Nitrate Negative Urine Bilirubin Negative Urine Urobilinogen Positive A Ur Leukocyte Esterase Negative Urine Glucose Negative Microbiology and Other Data: Microbiology 01/27/18 15:13 Blood Venous Aerobic Blood Culture - Preliminary No Growth Day 1 01/27/18 15:13 Blood Venous Anaerobic Blood Culture - Preliminary No Growth Day 1 Assess/Plan/Problems-Billing Mr Johnson is a 62 yo M with a PMHx of right forearm fracture w/ hardware, multiple joint surgeries, HTN, anxiety, depression, Hepatitis C s/p tx presenting with right wrist and elbow pain, swelling, erythema, loss of range of motion. - Patient Problems (1) Cellulitis of right hand Current Visit: Yes Status: Acute Code(s): L03.113 - CELLULITIS OF RIGHT UPPER LIMB SNOMED Code(s): 21585772 Comment: The patient remains on ceftriaxone 2g IV daily. His hand is now wrapped and I can not inspect for erythema. ID consult today. (2) Tenosynovitis of right hand Current Visit: Yes Status: Acute Code(s): M65.9 - SYNOVITIS AND TENOSYNOVITIS, UNSPECIFIED SNOMED Code(s): 9872410598994460 Comment: Pt is s/p debridement in the OR yesterday. ID consult today. For now continue ceftriaxone . (3) Olecranon bursitis Current Visit: Yes Status: Acute Code(s): M70.20 - OLECRANON BURSITIS, UNSPECIFIED ELBOW SNOMED Code(s): 045138782 Comment: Dr. Manuel did not think the patient had a septic olecranon bursitis. The patient states that when he overuses the arm he will develop swelling and pain in the R elbow. (4) HTN (hypertension) Current Visit: Yes Status: Acute Code(s): I10 - ESSENTIAL (PRIMARY) HYPERTENSION SNOMED Code(s): 29259508 Comment: BP has been moderately elevated. Continue amlodipine 5mg daily and losartan 50mg daily. (5) GERD (gastroesophageal reflux disease) Current Visit: Yes Status: Acute Code(s): K21.9 - GASTRO-ESOPHAGEAL REFLUX DISEASE WITHOUT ESOPHAGITIS SNOMED Code(s): 234201339 Comment: Continue omeprazole. (6) Anxiety and depression Current Visit: Yes Status: Acute Code(s): F41.9 - ANXIETY DISORDER, UNSPECIFIED; F32.9 - MAJOR DEPRESSIVE DISORDER, SINGLE EPISODE, UNSPECIFIED SNOMED Code(s): 747874170 Comment: Continue buproprion and amitriptyline. (7) DVT prophylaxis Current Visit: Yes Status: Acute Code(s): [id number] - SNOMED Code(s): 581003596 Comment: SCDs-will need to discuss with ortho about starting SQ heparin (8) Full code status Current Visit: Yes Status: Acute Code(s): Z78.9 - OTHER SPECIFIED HEALTH STATUS SNOMED Code(s): 261444568 Status and Disposition: .
[2018-01-29] MEDS ORDERED: oxyCODONE TAB* 5 MG TAB PO PRN (10:04)
[2018-01-29] MEDS: oxyCODONE TAB* 5 MG TAB PO PRN ×3 (11:14→20:55)
--- NOTE | 2018-01-29 14:41 | PN ---
Progress Note - Progress Note Date of Service: 01/29/18 SOAP: Subjective: Patient reports having pain, controlled mildly with pain medication however discussing with hospiatlists need for increased amounts due to prior use of narcotics. no questions re: surgery Objective: General- Well appearing, NAD, AO MSK- spint intact, no drainage noted, full ROM or fingers, thumbs, cap refill < 2secs. Vital Signs Temp 97.7 F 01/29/18 07:22 Pulse 60 01/29/18 08:13 Resp 18 01/29/18 14:31 BP 158/72 01/29/18 07:22 Pulse Ox 98 01/29/18 08:11 Intake & Output 01/28/18 01/29/18 01/29/18 18:59 06:59 18:59 Intake Total 360 0 1510 Output Total 200 Balance 360 0 1310 Intake: Oral 360 0 1510 Output: Urine 200 Other: Estimated Void Medium # Bowel Movements 0 # Voids 1 3 Assessment: Stablet s/p washout L wrist 01/28 Plan: - ABX per ID- no cindy prulence infection seen on washout. - Follow up with DR. Joyce within 10 days, dressing to remain until that time - pin controll per hospitalists. Acetaminophen (Tylenol Tab*) 650 mg PO Q6H PRN PRN Reason: FEVER/HEADACHE Last Admin: 01/29/18 04:54 Dose: 650 mg Amitriptyline HCl (Elavil Tab*) 25 mg PO BEDTIME [facility] Last Admin: 01/28/18 23:07 Dose: 25 mg Amlodipine Besylate (Norvasc Tab*) 5 mg PO DAILY [facility] Last Admin: 01/29/18 08:30 Dose: 5 mg Bupropion HCl (Bupropion Xl*) 300 mg PO DAILY [facility] Last Admin: 01/29/18 08:30 Dose: 300 mg Diflunisal (Dolobid Tab*) 500 mg PO BID [facility] Last Admin: 01/29/18 08:28 Dose: 500 mg Gabapentin (Neurontin Cap(*)) 300 mg PO TID [facility] Last Admin: 01/29/18 14:31 Dose: 300 mg Hydromorphone HCl (Dilaudid Inj*) 2 mg IV SLOW PU Q2H PRN PRN Reason: PAIN Last Admin: 01/29/18 14:31 Dose: 2 mg Ceftriaxone Sodium 2,000 mg/ (Sterile Water) 20 mls @ 80 mls/hr IVPB Q24H [facility] Last Admin: 01/28/18 16:28 Dose: 80 mls/hr Losartan Potassium (Cozaar Tab*) 50 mg PO DAILY [facility] Last Admin: 01/29/18 08:28 Dose: 50 mg Methocarbamol (Robaxin Tab*) 500 mg PO Q6H [facility] Last Admin: 01/29/18 14:31 Dose: 500 mg Mometasone Furoate/Formoterol Fumar (Dulera 100/5 Mdi*) 2 puff INH BID [facility] Last Admin: 01/29/18 08:09 Dose: 2 puff Omeprazole (Prilosec Cap*) 20 mg PO DAILY@0800 [facility] Last Admin: 01/29/18 08:29 Dose: 20 mg Oxycodone HCl (Roxycodone Tab*) 5 mg PO Q4H PRN PRN Reason: pain 1-5 Oxycodone HCl (Roxycodone Tab*) 10 mg PO Q4H PRN PRN Reason: pain 6-10 Last Admin: 01/29/18 11:14 Dose: 10 mg
--- NOTE | 2018-01-29 16:27 | CONS ---
CONSULTATION REPORT: DATE OF CONSULTATION: 01/29/18 REQUESTING PHYSICIAN: Dr. Harden. CONSULTING SERVICE: Infectious Disease. REASON FOR CONSULTATION: Suppurative tenosynovitis. IMPRESSION: 1. Suppurative tenosynovitis of the flexor tendons of the right wrist, status post incision and debridement, usually staph and strep. He does have a history of fixation and bone graft of the right wrist, but did not look to be an abscess on MRI at least extending from the flexor tendons to the area of the hardware. 2. SULFA allergy. 3. Obesity. RECOMMENDATIONS: Continue ceftriaxone. We will add a dose of vancomycin while waiting for the culture results. Unfortunately, there is some relapse when using oral antibiotics for suppurative tenosynovitis, so we will likely plan on a short course of IV antibiotics. The Gram stain was negative. Cultures pending. I asked microbiology to add a PCR to the specimen they have which they will do today. We will await the cultures and the PCR result. HISTORY OF PRESENT ILLNESS: This is a 62-year-old male with obesity, history of right forearm fixation in the , who developed a few days of right wrist pain, swelling and immobility started last weekend. 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 It became progressively more swollen, painful and to the point that he could not move his arm, so he came to the emergency room last night because his pain medicine was not helping, he had a white blood cell count 12,000, CRP of 200 and MRI that showed suppurative tenosynovitis of the flexor tendons 4th and 5th fingers. There was no evidence of osteomyelitis. There was also an elbow joint effusion with osteoarthritis of the elbow. He was taken by Dr. Joyce to the OR last night for incision and debridement. The wound cultures showed 4+ polys, no organisms. The blood cultures are negative. He does not have pain elsewhere. He has had no fever, chills or sweats at home. PAST MEDICAL HISTORY: 1. Hypertension. 2. Gastroesophageal reflux disease. 3. Chronic back pain. 4. Depression. 5. Anxiety. 6. Obesity. 7. Cured hepatitis C. 8. History of ischemic colitis. 9. Intramedullary nail to left tibia fracture. 10. Status post right forearm fixation and subsequent bone graft from left hip. MEDICATIONS: 1. Tylenol. 2. Amitriptyline. 3. Amlodipine. 4. Bupropion. 5. Ceftriaxone 2 g a day. 6. Diflunisal. 7. Gabapentin. 8. Losartan. 9. Methocarbamol. 10. Omeprazole. 11. Oxycodone. ALLERGIES: SULFA, LISINOPRIL, MORPHINE. FAMILY HISTORY: No recurrent infections. SOCIAL HISTORY: He lives in [place]. 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 He had no glassware injuries or exposures there. REVIEW OF SYSTEMS: All negatives to 14-point review of systems except as noted above. PHYSICAL EXAM: Vital Signs: Temperature 36.5, heart rate is 60, respiratory rate 18, blood pressure 158/72, oxygen saturation 98% on room air. In general, he is awake, not in distress. Neurologic: He is oriented x3, follows all commands. HEENT: There is no conjunctival hemorrhage. Oropharynx without lesions. Neck: Supple without mass. Lymph Nodes: There is no cervical, supraclavicular, inguinal, axillary or epitrochlear lymphadenopathy. Heart is regular rate and rhythm without rubs or gallops. Lungs are clear to auscultation bilaterally. Abdomen is soft, nontender, nondistended. There are bowel sounds present. Skin: There is no rash or splinter hemorrhages. Musculoskeletal: Right wrist is casted. He can move his fingers, they are warm. LABORATORY DATA: Creatinine 0.7, white blood cell count 6, hemoglobin 12, platelets 385,000. Urinalysis; no protein or red cells. INR 1.2. Please see impressions and recommendations outlined above which I have discussed with Dr. Harden. Thank you for asking me to see Mr. Johnson in consultation. [id number]/[facility] #: [id number] [facility]
[2018-01-29] MEDS: CEFTRIAXONE IVPB SCH (16:40)
[2018-01-29] MEDS: STERILE WATER FOR INJ IVPB SCH (16:40)
[2018-01-29] MEDS: Amitriptyline TAB* 25 MG PO SCH (20:56)
[2018-01-30] MEDS: HYDROmorphone INJ* 2 MG/ML CARPUJECT SYRINGE IV SLOW PU PRN ×8 (00:15→23:01)
[2018-01-30] MEDS: Methocarbamol TAB* 500 MG PO SCH ×4 (04:00→20:07)
[2018-01-30 07:03] LABS: ABS Basophils 0 10^3/ul (0-0.2); ABS Eosinophils 0.1 10^3/ul (0-0.6); ABS Lymphocytes 1.5 10^3/ul (1.0-4.8); ABS Monocytes 1.3 10^3/ul (0-0.8); ABS Neutrophils 5.1 10^3/ul (1.5-7.7); ABS Nucleated RBC 0 10^3/ul; Eosinophil % 1.4 % (0-6); Hematocrit 36 % (42-52); Hemoglobin 12.5 g/dl (14.0-18.0); Lymphocyte % 18.7 % (25-47); Mean Corpuscular HGB Conc 34 g/dl (31-36); Mean Corpuscular Hemoglobin 32 pg (27-31); Mean Corpuscular Volume 93 fL (80-94); Mean Platelet Volume 8 um3 (7.4-10.4); Nucleated Red Blood Cells % 0.1; Platelet Count 397 10^3/ul (150-450); Red Blood Count 3.93 10^6/ul (4.0-5.4); Red Cell Distribution Width 14 % (10.5-15)
[2018-01-30] MEDS: Acetaminophen TAB* 325 MG PO PRN (07:15)
[2018-01-30] MEDS: oxyCODONE TAB* 5 MG TAB PO PRN ×3 (07:16→21:59)
[2018-01-30 07:19] LABS: EGFR Non-African American 120.6 (>60)
[2018-01-30] MEDS: amLODIPine TAB* 5 MG PO SCH (07:44)
[2018-01-30] MEDS: Losartan TAB* 25 MG PO SCH (07:44)
[2018-01-30] MEDS: Gabapentin CAP(*) 300 MG PO SCH ×3 (07:44→21:58)
[2018-01-30] MEDS: Omeprazole CAP* 20 MG PO SCH (07:45)
[2018-01-30] MEDS: BuPROPion XL* 300 MG TAB.XL PO SCH (07:45)
[2018-01-30] MEDS: DIFLUNISAL 500 MG PO SCH ×2 (07:46→22:00)
[2018-01-30] MEDS: Mometasone/Formoter 100/5 MDI INH SCH ×2 (07:53→20:08)
--- NOTE | 2018-01-30 12:04 | PN ---
Subjective Date of Service: 01/30/18 Interval History: Pt is feeling ok. He states his pain is minimally less today. He states he has been trying to space out his use of his pain medications today. He denies any constipation, diarrhea or abdominal pain. No CP or SOB. Objective Active Medications: Acetaminophen (Tylenol Tab*) 650 mg PO Q6H PRN PRN Reason: FEVER/HEADACHE Last Admin: 01/30/18 07:15 Dose: 650 mg Amitriptyline HCl (Elavil Tab*) 25 mg PO BEDTIME [facility] Last Admin: 01/29/18 20:56 Dose: 25 mg Amlodipine Besylate (Norvasc Tab*) 5 mg PO DAILY [facility] Last Admin: 01/30/18 07:44 Dose: 5 mg Bupropion HCl (Bupropion Xl*) 300 mg PO DAILY [facility] Last Admin: 01/30/18 07:45 Dose: 300 mg Diflunisal (Dolobid Tab*) 500 mg PO BID [facility] Last Admin: 01/30/18 07:46 Dose: 500 mg Gabapentin (Neurontin Cap(*)) 300 mg PO TID [facility] Last Admin: 01/30/18 07:44 Dose: 300 mg Hydromorphone HCl (Dilaudid Inj*) 2 mg IV SLOW PU Q3H PRN PRN Reason: PAIN Ceftriaxone Sodium 2,000 mg/ (Sterile Water) 20 mls @ 80 mls/hr IVPB Q24H [facility] Last Admin: 01/29/18 16:40 Dose: 80 mls/hr Losartan Potassium (Cozaar Tab*) 50 mg PO DAILY [facility] Last Admin: 01/30/18 07:44 Dose: 50 mg Methocarbamol (Robaxin Tab*) 500 mg PO Q6H [facility] Last Admin: 01/30/18 07:45 Dose: 500 mg Mometasone Furoate/Formoterol Fumar (Dulera 100/5 Mdi*) 2 puff INH BID [facility] Last Admin: 01/30/18 07:53 Dose: 2 puff Omeprazole (Prilosec Cap*) 20 mg PO DAILY@0800 [facility] Last Admin: 01/30/18 07:45 Dose: 20 mg Oxycodone HCl (Roxycodone Tab*) 5 mg PO Q4H PRN PRN Reason: pain 1-5 Oxycodone HCl (Roxycodone Tab*) 10 mg PO Q4H PRN PRN Reason: pain 6-10 Last Admin: 01/30/18 07:16 Dose: 10 mg Vital Signs - 8 hr 01/30/18 01/30/18 01/30/18 04:00 05:33 07:16 Temperature Pulse Rate Respiratory 18 18 18 Rate Blood Pressure (mmHg) O2 Sat by Pulse Oximetry 01/30/18 01/30/18 01/30/18 07:27 07:44 07:45 Temperature 97.6 F Pulse Rate 62 Respiratory 16 16 18 Rate Blood Pressure 168/88 (mmHg) O2 Sat by Pulse 100 Oximetry 01/30/18 01/30/18 01/30/18 07:54 07:56 10:16 Temperature Pulse Rate Respiratory 18 18 Rate Blood Pressure (mmHg) O2 Sat by Pulse 99 95 Oximetry 01/30/18 01/30/18 10:40 11:37 Temperature 97.8 F Pulse Rate 69 Respiratory 18 Rate Blood Pressure 161/92 (mmHg) O2 Sat by Pulse 100 Oximetry Oxygen Devices in Use Now: None Appearance: Middle aged male sitting up in bed, NAD Eyes: No Scleral Icterus Ears/Nose/Mouth/Throat: Mucous Membranes Moist Respiratory: Symmetrical Chest Expansion and Respiratory Effort, Clear to Auscultation Cardiovascular: NL Sounds; No Murmurs; No JVD, RRR, No Edema Abdominal: NL Sounds; No Tenderness; No Distention Extremities: No Clubbing, Cyanosis Skin: No Nodules or Sclerosis, - - R forearm/hand in post op dressing Neurological: Alert and Oriented x 3 Result Diagrams: 01/30/18 06:49 01/30/18 06:49 Additional Lab and Data: Laboratory Results - last 24 hr 01/28/18 01/28/18 01/28/18 05:58 05:58 12:40 WBC 7.5 RBC 4.09 Hgb 13.1 L Hct 38 L MCV 93 MCH 32 H MCHC 34 RDW 14 Plt Count 344 MPV 8 Neut % (Auto) 55.4 Lymph % (Auto) 19.5 L [place] % (Auto) 22.2 H Eos % (Auto) 2.2 Baso % (Auto) 0.7 Absolute Neuts (auto) 4.1 Absolute Lymphs (auto) 1.5 Absolute Monos (auto) 1.7 H Absolute Eos (auto) 0.2 Absolute Basos (auto) 0.1 Absolute Nucleated RBC 0 Nucleated RBC % 0.1 Sodium 134 Potassium 4.5 Chloride 102 Carbon Dioxide 26 Anion Gap 6 BUN 14 Creatinine 0.75 Est GFR ( Amer) 136.2 Est GFR (Non-Af Amer) 105.9 BUN/Creatinine Ratio 18.7 Glucose 104 H Calcium 8.9 Magnesium 2.2 Urine Color Yellow Urine Appearance Clear Urine pH 5.0 Ur Specific [place] 1.025 Urine Protein Negative Urine Ketones Negative Urine Blood Negative Urine Nitrate Negative Urine Bilirubin Negative Urine Urobilinogen Positive A Ur Leukocyte Esterase Negative Urine Glucose Negative Microbiology and Other Data: Microbiology 01/27/18 15:13 Blood Venous Aerobic Blood Culture - Preliminary No Growth Day 1 01/27/18 15:13 Blood Venous Anaerobic Blood Culture - Preliminary No Growth Day 1 Assess/Plan/Problems-Billing Mr Johnson is a 62 yo M with a PMHx of right forearm fracture w/ hardware, multiple joint surgeries, HTN, anxiety, depression, Hepatitis C s/p tx presenting with right wrist and elbow pain, swelling, erythema, loss of range of motion. - Patient Problems (1) Cellulitis of right hand Current Visit: Yes Status: Acute Code(s): L03.113 - CELLULITIS OF RIGHT UPPER LIMB SNOMED Code(s): 18838925 Comment: The patient remains on ceftriaxone 2g IV daily. As of now the plan will be for 2-3 weeks of IV Abx. (2) Tenosynovitis of right hand Current Visit: Yes Status: Acute Code(s): M65.9 - SYNOVITIS AND TENOSYNOVITIS, UNSPECIFIED SNOMED Code(s): 1122131837108840 Comment: Pt is s/p debridement in the OR 01/28/18. ID consult recommended continuing the IV Abx now. Await final decision on Thursday about how long to stay on the IV abx. (3) Olecranon bursitis Current Visit: Yes Status: Acute Code(s): M70.20 - OLECRANON BURSITIS, UNSPECIFIED ELBOW SNOMED Code(s): 835593469 Comment: Improving but likely not a septic bursitis. (4) HTN (hypertension) Current Visit: Yes Status: Acute Code(s): I10 - ESSENTIAL (PRIMARY) HYPERTENSION SNOMED Code(s): 21565117 Comment: BP moderately elevated. Increase amlodipine to 10mg daily. Continue losartan. (5) GERD (gastroesophageal reflux disease) Current Visit: Yes Status: Acute Code(s): K21.9 - GASTRO-ESOPHAGEAL REFLUX DISEASE WITHOUT ESOPHAGITIS SNOMED Code(s): 860932218 Comment: Continue omeprazole. (6) Anxiety and depression Current Visit: Yes Status: Acute Code(s): F41.9 - ANXIETY DISORDER, UNSPECIFIED; F32.9 - MAJOR DEPRESSIVE DISORDER, SINGLE EPISODE, UNSPECIFIED SNOMED Code(s): 227899079 Comment: Continue buproprion and amitriptyline. (7) DVT prophylaxis Current Visit: Yes Status: Acute Code(s): RUK7248 - SNOMED Code(s): 542503042 Comment: SCDs/ambulation (8) Full code status Current Visit: Yes Status: Acute Code(s): Z78.9 - OTHER SPECIFIED HEALTH STATUS SNOMED Code(s): 178775388 Status and Disposition: .
[2018-01-30] MEDS ORDERED: amLODIPine TAB* 5 MG PO ONE (12:10)
--- NOTE | 2018-01-30 13:35 | PN ---
Progress Note - Progress Note Date of Service: 01/30/18 SOAP: Subjective: Pt resting comfortably in bed. Complaint of pain in left wrist. Pain controlled with pain meds. No new issues overnight. Denies F/C. Vital Signs: Temp Pulse Resp BP Pulse Ox 97.8 F 69 18 161/92 100 01/30/18 11:37 01/30/18 11:37 01/30/18 12:20 01/30/18 11:37 01/30/18 11:37 Laboratory Last Values WBC 8.0 10^3/ul (3.5-10.8) 01/30/18 06:49 RBC 3.93 10^6/ul (4.0-5.4) L 01/30/18 06:49 Hgb 12.5 g/dl (14.0-18.0) L 01/30/18 06:49 Hct 36 % (42-52) L 01/30/18 06:49 MCV 93 fL (80-94) 01/30/18 06:49 MCH 32 pg (27-31) H 01/30/18 06:49 MCHC 34 g/dl (31-36) 01/30/18 06:49 RDW 14 % (10.5-15) 01/30/18 06:49 Plt Count 397 10^3/ul (150-450) 01/30/18 06:49 MPV 8 um3 (7.4-10.4) 01/30/18 06:49 Neut % (Auto) 63.4 % (38-83) 01/30/18 06:49 Lymph % (Auto) 18.7 % (25-47) L 01/30/18 06:49 [place] % (Auto) 15.9 % (0-7) H 01/30/18 06:49 Eos % (Auto) 1.4 % (0-6) 01/30/18 06:49 Baso % (Auto) 0.6 % (0-2) 01/30/18 06:49 Absolute Neuts (auto) 5.1 10^3/ul (1.5-7.7) 01/30/18 06:49 Absolute Lymphs (auto) 1.5 10^3/ul (1.0-4.8) 01/30/18 06:49 Absolute Monos (auto) 1.3 10^3/ul (0-0.8) H 01/30/18 06:49 Absolute Eos (auto) 0.1 10^3/ul (0-0.6) 01/30/18 06:49 Absolute Basos (auto) 0 10^3/ul (0-0.2) 01/30/18 06:49 Absolute Nucleated RBC 0 10^3/ul 01/30/18 06:49 Nucleated RBC % 0.1 01/30/18 06:49 INR (Anticoag Therapy) 1.20 (0.77-1.02) H 01/27/18 15:13 APTT 29.3 seconds (26.0-36.3) 01/27/18 15:13 Sodium 137 mmol/L (133-145) 01/30/18 06:49 Potassium 4.2 mmol/L (3.5-5.0) 01/30/18 06:49 Chloride 102 mmol/L (101-111) 01/30/18 06:49 Carbon Dioxide 30 mmol/L (22-32) 01/30/18 06:49 Anion Gap 5 mmol/L (2-11) 01/30/18 06:49 BUN 15 mg/dL (6-24) 01/30/18 06:49 Creatinine 0.67 mg/dL (0.67-1.17) 01/30/18 06:49 Est GFR ( Amer) 155.1 (>60) 01/30/18 06:49 Est GFR (Non-Af Amer) 120.6 (>60) 01/30/18 06:49 BUN/Creatinine Ratio 22.4 (8-20) H 01/30/18 06:49 Glucose 132 mg/dL (70-100) H 01/30/18 06:49 Lactic Acid 1.7 mmol/L (0.5-2.0) 01/27/18 15:13 Calcium 9.1 mg/dL (8.6-10.3) 01/30/18 06:49 Magnesium 2.1 mg/dL (1.9-2.7) 01/30/18 06:49 Total Bilirubin 1.50 mg/dL (0.2-1.0) H 01/27/18 15:13 AST 24 U/L (13-39) 01/27/18 15:13 ALT 22 U/L (7-52) 01/27/18 15:13 Alkaline Phosphatase 44 U/L (34-104) 01/27/18 15:13 Troponin I 0.01 ng/mL (<0.04) 01/27/18 15:13 C-Reactive Protein 61.79 mg/L (< 5.00) H 01/30/18 06:49 Total Protein 7.8 g/dL (6.4-8.9) 01/27/18 15:13 Albumin 4.0 g/dL (3.2-5.2) 01/27/18 15:13 Globulin 3.8 g/dL (2-4) 01/27/18 15:13 Albumin/Globulin Ratio 1.1 (1-3) 01/27/18 15:13 Urine Color Yellow 01/28/18 12:40 Urine Appearance Clear 01/28/18 12:40 Urine pH 5.0 (5-9) 01/28/18 12:40 Ur Specific [place] 1.025 (1.010-1.030) 01/28/18 12:40 Urine Protein Negative (Negative) 01/28/18 12:40 Urine Ketones Negative (Negative) 01/28/18 12:40 Urine Blood Negative (Negative) 01/28/18 12:40 Urine Nitrate Negative (Negative) 01/28/18 12:40 Urine Bilirubin Negative (Negative) 01/28/18 12:40 Urine Urobilinogen Positive (Negative) A 01/28/18 12:40 Ur Leukocyte Esterase Negative (Negative) 01/28/18 12:40 Urine Glucose Negative (Negative) 01/28/18 12:40 Objective: Splint intact LUE. No drainage noted. Able to flex and extend fingers. Sensation intact. Assessment: 62 yo male s/p left wrist washout 01/28/[address] Joyce Plan: Abx per ID Pain control per Hospitalists
[2018-01-30] MEDS: STERILE WATER FOR INJ IVPB SCH (15:16)
[2018-01-30] MEDS: CEFTRIAXONE IVPB SCH (15:16)
[2018-01-30] MEDS: Amitriptyline TAB* 25 MG PO SCH (21:58)
[2018-01-31] MEDS: Methocarbamol TAB* 500 MG PO SCH ×4 (03:12→19:22)
[2018-01-31] MEDS: HYDROmorphone INJ* 2 MG/ML CARPUJECT SYRINGE IV SLOW PU PRN ×6 (03:13→22:19)
[2018-01-31] MEDS: oxyCODONE TAB* 5 MG TAB PO PRN ×3 (05:16→14:52)
[2018-01-31 05:46] LABS: ABS Basophils 0.1 10^3/ul (0-0.2); ABS Eosinophils 0.4 10^3/ul (0-0.6); ABS Lymphocytes 2.1 10^3/ul (1.0-4.8); ABS Monocytes 1.2 10^3/ul (0-0.8); ABS Neutrophils 3.9 10^3/ul (1.5-7.7); ABS Nucleated RBC 0 10^3/ul; Eosinophil % 4.6 % (0-6); Hematocrit 39 % (42-52); Hemoglobin 13.1 g/dl (14.0-18.0); Lymphocyte % 27.5 % (25-47); Mean Corpuscular HGB Conc 34 g/dl (31-36); Mean Corpuscular Hemoglobin 31 pg (27-31); Mean Corpuscular Volume 92 fL (80-94); Mean Platelet Volume 8 um3 (7.4-10.4); Nucleated Red Blood Cells % 0.2; Platelet Count 445 10^3/ul (150-450); Red Blood Count 4.18 10^6/ul (4.0-5.4); Red Cell Distribution Width 14 % (10.5-15); White Blood Count 7.6 10^3/ul (3.5-10.8)
[2018-01-31 05:56] LABS: EGFR Non-African American 104.3 (>60)
[2018-01-31] MEDS: Mometasone/Formoter 100/5 MDI INH SCH ×2 (07:36→19:20)
--- NOTE | 2018-01-31 07:55 | PN ---
Subjective Date of Service: 01/31/18 Interval History: Pt is feeling well. He states with spacing out the dilaudid yesterday he did have periods of increased pain but overall they were manageable. He denies any CP, SOB, constipation or diarrhea. Objective Active Medications: Acetaminophen (Tylenol Tab*) 650 mg PO Q6H PRN PRN Reason: FEVER/HEADACHE Last Admin: 01/30/18 07:15 Dose: 650 mg Amitriptyline HCl (Elavil Tab*) 25 mg PO BEDTIME [facility] Last Admin: 01/30/18 21:58 Dose: 25 mg Amlodipine Besylate (Norvasc Tab*) 10 mg PO DAILY [facility] Bupropion HCl (Bupropion Xl*) 300 mg PO DAILY [facility] Last Admin: 01/30/18 07:45 Dose: 300 mg Diflunisal (Dolobid Tab*) 500 mg PO BID [facility] Last Admin: 01/30/18 22:00 Dose: 500 mg Gabapentin (Neurontin Cap(*)) 300 mg PO TID [facility] Last Admin: 01/30/18 21:58 Dose: 300 mg Hydromorphone HCl (Dilaudid Inj*) 2 mg IV SLOW PU Q3H PRN PRN Reason: PAIN Last Admin: 01/31/18 07:33 Dose: 2 mg Ceftriaxone Sodium 2,000 mg/ (Sterile Water) 20 mls @ 80 mls/hr IVPB Q24H [facility] Last Admin: 01/30/18 15:16 Dose: 80 mls/hr Losartan Potassium (Cozaar Tab*) 50 mg PO DAILY [facility] Last Admin: 01/30/18 07:44 Dose: 50 mg Methocarbamol (Robaxin Tab*) 500 mg PO Q6H [facility] Last Admin: 01/31/18 03:12 Dose: 500 mg Mometasone Furoate/Formoterol Fumar (Dulera 100/5 Mdi*) 2 puff INH BID [facility] Last Admin: 01/31/18 07:36 Dose: 2 puff Omeprazole (Prilosec Cap*) 20 mg PO DAILY@0800 [facility] Last Admin: 01/30/18 07:45 Dose: 20 mg Oxycodone HCl (Roxycodone Tab*) 5 mg PO Q4H PRN PRN Reason: pain 1-5 Oxycodone HCl (Roxycodone Tab*) 10 mg PO Q4H PRN PRN Reason: pain 6-10 Last Admin: 01/31/18 05:16 Dose: 10 mg Vital Signs - 8 hr 01/31/18 01/31/18 01/31/18 03:12 03:13 03:23 Temperature Pulse Rate Respiratory 16 16 15 Rate Blood Pressure (mmHg) O2 Sat by Pulse Oximetry 01/31/18 01/31/18 01/31/18 03:24 03:25 04:15 Temperature Pulse Rate Respiratory 15 15 15 Rate Blood Pressure (mmHg) O2 Sat by Pulse Oximetry 01/31/18 01/31/18 01/31/18 05:15 05:16 05:30 Temperature Pulse Rate 95 Respiratory 16 16 16 Rate Blood Pressure 149/90 (mmHg) O2 Sat by Pulse 96 Oximetry 01/31/18 01/31/18 01/31/18 07:07 07:24 07:33 Temperature 97.7 F Pulse Rate 30 62 Respiratory 18 18 Rate Blood Pressure 162/87 (mmHg) O2 Sat by Pulse 100 Oximetry 01/31/18 07:36 Temperature Pulse Rate Respiratory 18 Rate Blood Pressure (mmHg) O2 Sat by Pulse Oximetry Oxygen Devices in Use Now: None Appearance: Middle aged male sitting up in bed, NAD Eyes: No Scleral Icterus Ears/Nose/Mouth/Throat: Mucous Membranes Moist Respiratory: Symmetrical Chest Expansion and Respiratory Effort, Clear to Auscultation Cardiovascular: NL Sounds; No Murmurs; No JVD, RRR, No Edema Abdominal: NL Sounds; No Tenderness; No Distention Extremities: No Clubbing, Cyanosis, - - able to wiggle R fingers, R forearm/ hand in post surgical dressing Skin: No Nodules or Sclerosis Neurological: Alert and Oriented x 3 Result Diagrams: 01/31/18 05:11 01/31/18 05:11 Additional Lab and Data: Laboratory Results - last 24 hr 01/28/18 01/28/18 01/28/18 05:58 05:58 12:40 WBC 7.5 RBC 4.09 Hgb 13.1 L Hct 38 L MCV 93 MCH 32 H MCHC 34 RDW 14 Plt Count 344 MPV 8 Neut % (Auto) 55.4 Lymph % (Auto) 19.5 L [place] % (Auto) 22.2 H Eos % (Auto) 2.2 Baso % (Auto) 0.7 Absolute Neuts (auto) 4.1 Absolute Lymphs (auto) 1.5 Absolute Monos (auto) 1.7 H Absolute Eos (auto) 0.2 Absolute Basos (auto) 0.1 Absolute Nucleated RBC 0 Nucleated RBC % 0.1 Sodium 134 Potassium 4.5 Chloride 102 Carbon Dioxide 26 Anion Gap 6 BUN 14 Creatinine 0.75 Est GFR ( Amer) 136.2 Est GFR (Non-Af Amer) 105.9 BUN/Creatinine Ratio 18.7 Glucose 104 H Calcium 8.9 Magnesium 2.2 Urine Color Yellow Urine Appearance Clear Urine pH 5.0 Ur Specific [place] 1.025 Urine Protein Negative Urine Ketones Negative Urine Blood Negative Urine Nitrate Negative Urine Bilirubin Negative Urine Urobilinogen Positive A Ur Leukocyte Esterase Negative Urine Glucose Negative Microbiology and Other Data: Microbiology 01/27/18 15:13 Blood Venous Aerobic Blood Culture - Preliminary No Growth Day 1 01/27/18 15:13 Blood Venous Anaerobic Blood Culture - Preliminary No Growth Day 1 Assess/Plan/Problems-Billing Mr Johnson is a 62 yo M with a PMHx of right forearm fracture w/ hardware, multiple joint surgeries, HTN, anxiety, depression, Hepatitis C s/p tx presenting with right wrist and elbow pain, swelling, erythema, loss of range of motion. - Patient Problems (1) Cellulitis of right hand Current Visit: Yes Status: Acute Code(s): L03.113 - CELLULITIS OF RIGHT UPPER LIMB SNOMED Code(s): 69126979 Comment: The patient remains on ceftriaxone 2g IV daily. As of now the plan will be for 2-3 weeks of IV Abx. Will discuss with Dr. Harrington 02/01/18. (2) Tenosynovitis of right hand Current Visit: Yes Status: Acute Code(s): M65.9 - SYNOVITIS AND TENOSYNOVITIS, UNSPECIFIED SNOMED Code(s): 3831695278354992 Comment: Pt is s/p debridement in the OR 01/28/18. ID consult recommended continuing the IV Abx now. Await final decision on Thursday about how long to stay on the IV abx. Overall pt appears to be improving. His CRP has decreased dramatically. (3) Olecranon bursitis Current Visit: Yes Status: Acute Code(s): M70.20 - OLECRANON BURSITIS, UNSPECIFIED ELBOW SNOMED Code(s): 141249025 Comment: Improving but likely not a septic bursitis. (4) HTN (hypertension) Current Visit: Yes Status: Acute Code(s): I10 - ESSENTIAL (PRIMARY) HYPERTENSION SNOMED Code(s): 81893300 Comment: BP remains elevated. Will monitor today on increased amlodipine dose and if no better will increase losartan. (5) GERD (gastroesophageal reflux disease) Current Visit: Yes Status: Acute Code(s): K21.9 - GASTRO-ESOPHAGEAL REFLUX DISEASE WITHOUT ESOPHAGITIS SNOMED Code(s): 057783764 Comment: Continue omeprazole. (6) Anxiety and depression Current Visit: Yes Status: Acute Code(s): F41.9 - ANXIETY DISORDER, UNSPECIFIED; F32.9 - MAJOR DEPRESSIVE DISORDER, SINGLE EPISODE, UNSPECIFIED SNOMED Code(s): 828026035 Comment: Continue buproprion and amitriptyline. (7) DVT prophylaxis Current Visit: Yes Status: Acute Code(s): KRK3857 - SNOMED Code(s): 875839234 Comment: SCDs/ambulation (8) Full code status Current Visit: Yes Status: Acute Code(s): Z78.9 - OTHER SPECIFIED HEALTH STATUS SNOMED Code(s): 788432245 Status and Disposition: .
[2018-01-31] MEDS: amLODIPine TAB* 5 MG PO SCH (07:58)
[2018-01-31] MEDS: DIFLUNISAL 500 MG PO SCH ×2 (07:58→20:47)
[2018-01-31] MEDS: Gabapentin CAP(*) 300 MG PO SCH ×3 (07:59→20:47)
[2018-01-31] MEDS: Losartan TAB* 25 MG PO SCH (07:59)
[2018-01-31] MEDS: Omeprazole CAP* 20 MG PO SCH (08:00)
[2018-01-31] MEDS: BuPROPion XL* 300 MG TAB.XL PO SCH (08:00)
[2018-01-31] MEDS: STERILE WATER FOR INJ IVPB SCH (15:49)
[2018-01-31] MEDS: CEFTRIAXONE IVPB SCH (15:49)
[2018-01-31] MEDS: Amitriptyline TAB* 25 MG PO SCH (20:47)
--- NOTE | 2018-01-31 22:43 | PN ---
Progress Note - Progress Note Date of Service: 01/31/18 SOAP: Subjective: Pt lying comfortably in bed. Reports less pain today. No new complaints or questions. Vital Signs: Temp Pulse Resp BP Pulse Ox 97.8 F 64 18 164/85 100 01/31/18 19:28 01/31/18 19:28 01/31/18 22:19 01/31/18 19:28 01/31/18 20:00 Laboratory Last Values WBC 7.6 10^3/ul (3.5-10.8) 01/31/18 05:11 RBC 4.18 10^6/ul (4.0-5.4) 01/31/18 05:11 Hgb 13.1 g/dl (14.0-18.0) L 01/31/18 05:11 Hct 39 % (42-52) L 01/31/18 05:11 MCV 92 fL (80-94) 01/31/18 05:11 MCH 31 pg (27-31) 01/31/18 05:11 MCHC 34 g/dl (31-36) 01/31/18 05:11 RDW 14 % (10.5-15) 01/31/18 05:11 Plt Count 445 10^3/ul (150-450) 01/31/18 05:11 MPV 8 um3 (7.4-10.4) 01/31/18 05:11 Neut % (Auto) 50.7 % (38-83) 01/31/18 05:11 Lymph % (Auto) 27.5 % (25-47) 01/31/18 05:11 [place] % (Auto) 16.0 % (0-7) H 01/31/18 05:11 Eos % (Auto) 4.6 % (0-6) 01/31/18 05:11 Baso % (Auto) 1.2 % (0-2) 01/31/18 05:11 Absolute Neuts (auto) 3.9 10^3/ul (1.5-7.7) 01/31/18 05:11 Absolute Lymphs (auto) 2.1 10^3/ul (1.0-4.8) 01/31/18 05:11 Absolute Monos (auto) 1.2 10^3/ul (0-0.8) H 01/31/18 05:11 Absolute Eos (auto) 0.4 10^3/ul (0-0.6) 01/31/18 05:11 Absolute Basos (auto) 0.1 10^3/ul (0-0.2) 01/31/18 05:11 Absolute Nucleated RBC 0 10^3/ul 01/31/18 05:11 Nucleated RBC % 0.2 01/31/18 05:11 INR (Anticoag Therapy) 1.20 (0.77-1.02) H 01/27/18 15:13 APTT 29.3 seconds (26.0-36.3) 01/27/18 15:13 Sodium 134 mmol/L (133-145) 01/31/18 05:11 Potassium 4.2 mmol/L (3.5-5.0) 01/31/18 05:11 Chloride 99 mmol/L (101-111) L 01/31/18 05:11 Carbon Dioxide 30 mmol/L (22-32) 01/31/18 05:11 Anion Gap 5 mmol/L (2-11) 01/31/18 05:11 BUN 16 mg/dL (6-24) 01/31/18 05:11 Creatinine 0.76 mg/dL (0.67-1.17) 01/31/18 05:11 Est GFR ( Amer) 134.1 (>60) 01/31/18 05:11 Est GFR (Non-Af Amer) 104.3 (>60) 01/31/18 05:11 BUN/Creatinine Ratio 21.1 (8-20) H 01/31/18 05:11 Glucose 102 mg/dL (70-100) H 01/31/18 05:11 Lactic Acid 1.7 mmol/L (0.5-2.0) 01/27/18 15:13 Calcium 9.6 mg/dL (8.6-10.3) 01/31/18 05:11 Magnesium 2.1 mg/dL (1.9-2.7) 01/31/18 05:11 Total Bilirubin 1.50 mg/dL (0.2-1.0) H 01/27/18 15:13 AST 24 U/L (13-39) 01/27/18 15:13 ALT 22 U/L (7-52) 01/27/18 15:13 Alkaline Phosphatase 44 U/L (34-104) 01/27/18 15:13 Troponin I 0.01 ng/mL (<0.04) 01/27/18 15:13 C-Reactive Protein 61.79 mg/L (< 5.00) H 01/30/18 06:49 Total Protein 7.8 g/dL (6.4-8.9) 01/27/18 15:13 Albumin 4.0 g/dL (3.2-5.2) 01/27/18 15:13 Globulin 3.8 g/dL (2-4) 01/27/18 15:13 Albumin/Globulin Ratio 1.1 (1-3) 01/27/18 15:13 Urine Color Yellow 01/28/18 12:40 Urine Appearance Clear 01/28/18 12:40 Urine pH 5.0 (5-9) 01/28/18 12:40 Ur Specific [place] 1.025 (1.010-1.030) 01/28/18 12:40 Urine Protein Negative (Negative) 01/28/18 12:40 Urine Ketones Negative (Negative) 01/28/18 12:40 Urine Blood Negative (Negative) 01/28/18 12:40 Urine Nitrate Negative (Negative) 01/28/18 12:40 Urine Bilirubin Negative (Negative) 01/28/18 12:40 Urine Urobilinogen Positive (Negative) A 01/28/18 12:40 Ur Leukocyte Esterase Negative (Negative) 01/28/18 12:40 Urine Glucose Negative (Negative) 01/28/18 12:40 Objective: Splint intact RUE. Sensation intact. Able to flex and extend fingers. Assessment: 62 yo male s/p right wrist washout by Dr. Joyce on 01/28/18 Plan: Iv abx per ID Pain control per Hospitalist
[2018-02-01] MEDS: HYDROmorphone INJ* 2 MG/ML CARPUJECT SYRINGE IV SLOW PU PRN ×2 (02:11→09:03)
[2018-02-01] MEDS: Methocarbamol TAB* 500 MG PO SCH ×2 (02:11→07:59)
[2018-02-01] MEDS: oxyCODONE TAB* 5 MG TAB PO PRN (05:45)
[2018-02-01 05:59] LABS: ABS Basophils 0.1 10^3/ul (0-0.2); ABS Eosinophils 0.5 10^3/ul (0-0.6); ABS Lymphocytes 2.2 10^3/ul (1.0-4.8); ABS Monocytes 1.1 10^3/ul (0-0.8); ABS Neutrophils 3.3 10^3/ul (1.5-7.7); ABS Nucleated RBC 0 10^3/ul; Eosinophil % 7.3 % (0-6); Hematocrit 40 % (42-52); Hemoglobin 13.5 g/dl (14.0-18.0); Lymphocyte % 30.8 % (25-47); Mean Corpuscular HGB Conc 34 g/dl (31-36); Mean Corpuscular Hemoglobin 32 pg (27-31); Mean Corpuscular Volume 92 fL (80-94); Mean Platelet Volume 8 um3 (7.4-10.4); Nucleated Red Blood Cells % 0.1; Platelet Count 473 10^3/ul (150-450); Red Cell Distribution Width 14 % (10.5-15); White Blood Count 7.2 10^3/ul (3.5-10.8)
[2018-02-01 06:17] LABS: EGFR Non-African American 99.7 (>60)
[2018-02-01] MEDS: BuPROPion XL* 300 MG TAB.XL PO SCH (07:58)
[2018-02-01] MEDS: Losartan TAB* 25 MG PO SCH (07:58)
[2018-02-01] MEDS: Omeprazole CAP* 20 MG PO SCH (07:58)
[2018-02-01] MEDS: amLODIPine TAB* 5 MG PO SCH (07:58)
[2018-02-01] MEDS: DIFLUNISAL 500 MG PO SCH (07:59)
[2018-02-01] MEDS: Gabapentin CAP(*) 300 MG PO SCH (07:59)
[2018-02-01] MEDS: Mometasone/Formoter 100/5 MDI INH SCH (08:29)
--- NOTE | 2018-02-01 10:30 | PN ---
Progress Note - Progress Note Date of Service: 02/01/18 SOAP: Subjective: 62 y/o male s/p L wrist washout by Dr. Joyce 01/28. Patient feeling well, pain improved, able to move fingers well. Eager for D/C. VSS, afebrile. Objective: General- Well appearing, resting in bed comfortably. MSK- L wrist- Dressing intact, no drainage, odor noted. fingers + flexion, extension. no erythema. Vital Signs Temp 97.5 F 02/01/18 07:17 Pulse 84 02/01/18 08:29 Resp 18 02/01/18 10:02 BP 152/78 02/01/18 07:17 Pulse Ox 97 02/01/18 08:00 Intake & Output 01/31/18 02/01/18 02/01/18 18:59 06:59 18:59 Intake Total 3010 680 Balance 3010 680 Intake: Oral 3010 680 Other: # Voids 1 Assessment: Stable s/p washout L wrist 01/28 Plan: - Cultures--> negative - IV ABX- Per ID Ceftriaxone. ? 2 weeks IV ABX - Likely D/C to home- Dressing to be removed 7-10 days post-op - Follow up with DR. Joyce this week if D/C'd - Pain control per hospitalists Acetaminophen (Tylenol Tab*) 650 mg PO Q6H PRN PRN Reason: FEVER/HEADACHE Last Admin: 01/30/18 07:15 Dose: 650 mg Amitriptyline HCl (Elavil Tab*) 25 mg PO BEDTIME [facility] Last Admin: 01/31/18 20:47 Dose: 25 mg Amlodipine Besylate (Norvasc Tab*) 10 mg PO DAILY [facility] Last Admin: 02/01/18 07:58 Dose: 10 mg Bupropion HCl (Bupropion Xl*) 300 mg PO DAILY [facility] Last Admin: 02/01/18 07:58 Dose: 300 mg Diflunisal (Dolobid Tab*) 500 mg PO BID [facility] Last Admin: 02/01/18 07:59 Dose: 500 mg Gabapentin (Neurontin Cap(*)) 300 mg PO TID [facility] Last Admin: 02/01/18 07:59 Dose: 300 mg Hydromorphone HCl (Dilaudid Inj*) 2 mg IV SLOW PU Q3H PRN PRN Reason: PAIN Last Admin: 02/01/18 09:03 Dose: 2 mg Ceftriaxone Sodium 2,000 mg/ (Sterile Water) 20 mls @ 80 mls/hr IVPB 1030 [facility] Losartan Potassium (Cozaar Tab*) 50 mg PO DAILY [facility] Last Admin: 02/01/18 07:58 Dose: 50 mg Methocarbamol (Robaxin Tab*) 500 mg PO Q6H [facility] Last Admin: 02/01/18 07:59 Dose: 500 mg Mometasone Furoate/Formoterol Fumar (Dulera 100/5 Mdi*) 2 puff INH BID [facility] Last Admin: 02/01/18 08:29 Dose: 2 puff Omeprazole (Prilosec Cap*) 20 mg PO DAILY@0800 [facility] Last Admin: 02/01/18 07:58 Dose: 20 mg Oxycodone HCl (Roxycodone Tab*) 5 mg PO Q4H PRN PRN Reason: pain 1-5 Oxycodone HCl (Roxycodone Tab*) 10 mg PO Q4H PRN PRN Reason: pain 6-10 Last Admin: 02/01/18 05:45 Dose: 10 mg
[2018-02-01 11:15] VITALS: BP 160/87
--- NOTE | 2018-02-01 11:32 | PN ---
Progress Note - Progress Note Date of Service: 02/01/18 SOAP: Subjective: CC: tenosynovitis HPI: 62 year old man with right forearm tenosysnovitis s/p I&D; pain and swelling are improved, no fever, rash or diarrhea. Objective: Vital Signs Temp 36.8 C 02/01/18 10:36 Pulse 70 02/01/18 10:36 Resp 16 02/01/18 10:36 BP 160/87 02/01/18 10:36 Pulse Ox 95 02/01/18 10:36 Intake & Output 01/31/18 02/01/18 02/01/18 18:59 06:59 18:59 Intake Total 3010 680 Balance 3010 680 Intake: Oral 3010 680 Other: # Voids 1 Gen:awake, no distress HEENT:PERRL, MMM Heart:RRR no murmur Lungs:CTA BL Abd:+BS NTND soft Skin: no rash MSK: no spine tenderness; R forearm wrapped; decr finger edema Microbiology 01/28/18 20:39 Skin and Soft Tissue MRSA/MSSA (PCR - Final Wrist Right Mrsa Negative S.aureus Negative Gram Stain - Final Wound Culture - Final No Growth Day 4 01/28/18 20:39 Anaerobic Culture - Final Wound - Wrist Right No Growth Day 4 01/28/18 00:08 Aerobic Blood Culture - Preliminary Blood Venous No Growth Day 4 Anaerobic Blood Culture - Preliminary No Growth Day 4 01/27/18 15:13 Aerobic Blood Culture - Preliminary Blood Venous No Growth Day 4 Anaerobic Blood Culture - Preliminary No Growth Day 4 Assessment: 1. R forearm tenosynovitis, culture negative, was not on antibiotics before procedure 2. obesity 3. sulfa allergy Plan: 1. doxycycline 100 mg po bid for 14 days, fu with me 1-2 week; add crystal studies to fluid if available
--- NOTE | 2018-02-02 01:44 | OP ---
DATE OF OPERATION: 01/28/18 - ROOM #414 DATE OF : 57 SURGEON: Natividad Joyce MD ANESTHESIOLOGIST: Calvin Aguilar MD ANESTHESIA: General. PRE-OP DIAGNOSIS: Cellulitis and rule out abscess of the right wrist. POST-OP DIAGNOSIS: Tenosynovitis of the right wrist. OPERATIVE PROCEDURE: Extensive tenosynovectomy of flexor tendons of the right wrist. ESTIMATED BLOOD LOSS: Zero. TOURNIQUET TIME: About 30 minutes. INDICATIONS FOR PROCEDURE: Ang is a 62-year-old male who has developed severe swelling, pain and redness in his right upper extremity. This has responded somewhat to IV antibiotics; however, he has persistent significant swelling on the volar ulnar aspect of his right wrist and MRI shows a large fluid collection running through the carpal tunnel and along the flexor tendon in the right wrist up into the flexor tendon sheath of the small and ring finger. He also has a fluid collection of his right elbow joint; however, is having much less pain in his elbow and moving his elbow well. 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 These to me are consistent with an inflammatory arthritis. DESCRIPTION OF PROCEDURE: The patient was brought to the operating room, was given general anesthetic, placed in supine position on the operating table with tourniquet around his right upper arm. Skin of his right upper extremity was prepped and draped in usual sterile fashion. The hand and forearm were exsanguinated and the tourniquet elevated to 250 mmHg. An extensile incision was made from the center aspect of the palm across the wrist creases in zig-zag fashion and up along the obviously swollen flexor tendon sheath. There was no purulent material; however, cultures were obtained. We dissected sharply through the transverse carpal ligament exposing all of the flexor tendons. There was abundant tenosynovitis surrounding the flexor tendons from the distal aspect of the forearm all the way into the center of the palm. This was carefully debrided protecting the median nerve during the procedure. The wound was copiously irrigated with saline. A [place] drain was placed and the skin edges were reapproximated with 4-0 nylon suture. The wound was dressed with Xeroform, 4x4, Webril, ABD and an Scotty wrap. The patient tolerated the procedure well and was brought to the recovery room in good condition. [id number]/[facility] #: [id number] ANYI
[2018-02-02] MEDS ORDERED: CEFTRIAXONE IVPB SCH (10:30)
[2018-02-02] MEDS ORDERED: STERILE WATER FOR INJ IVPB SCH (10:30)
--- NOTE | 2018-02-02 13:06 | DS ---
CC: Dr. Bradley * DISCHARGE SUMMARY: DATE OF ADMISSION: 01/27/18 DATE OF DISCHARGE: 02/01/18 PRIMARY CARE PROVIDER: Dr. Bradley. INFECTIOUS DISEASE SPECIALIST: Dr. Harrington. ORTHOPEDIC SURGEON: Dr. Joyce. PRINCIPAL DIAGNOSIS: Right hand tenosynovitis and associated cellulitis. SECONDARY DIAGNOSES: 1. Hypertension. 2. Gastroesophageal reflux disease. 3. Depression/anxiety. DISCHARGE MEDICATIONS: 1. Methocarbamol 500 mg p.o. q. 6 hours. 2. Amlodipine 5 mg p.o. daily. 3. Gabapentin 300 mg p.o. t.i.d. 4. Amitriptyline 25 mg p.o. q.h.s. 5. Losartan 50 mg p.o. daily. 6. Advair 150/50 one puff inhaled twice daily. 7. Dolobid 500 mg p.o. daily. 8. Bupropion XL 300 mg p.o. daily. 9. Omeprazole 20 mg p.o. daily. 10. Oxycodone 5 to 10 mg p.o. q. 4 hours p.r.n. pain, dispensed 60 tablets. 11. Doxycycline 100 mg p.o. twice daily x14 days. HOSPITAL COURSE: Mr. Johnson is a 62-year-old male who presented to the emergency room on 01/27/18 with complaints of 3 days of progressive right elbow and right hand pain with associated stiffness and erythema. The patient was found to have cellulitis of the right hand and concern for tenosynovitis involving the hand and possible olecranon bursitis versus septic joint about the elbow. The patient was seen in consultation by Dr. Manuel who recommended MRI. 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 Severe tenosynovitis at the flexor tendons of the 4th and 5th digits. 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 The patient was ultimately taken to the OR on the evening of 01/28/18 where severe tenosynovitis was noted. Dr. Harrington saw the patient in consultation on . He recommended IV antibiotics through the weekend while awaiting cultures from the OR. Ultimately, the cultures were negative and the patient was felt to be able to be discharged on doxycycline 100 mg p.o. twice daily for another 14 days. Of note, there was concern by Dr. Joyce that the patient had signs of rheumatoid arthritis or inflammatory arthritis when she was performing the operation. He has not had any workup for this as far as I can tell. This can be done as an outpatient. In terms of the elbow, this began to resolve on its own. The patient had much more ability to extend the elbow fully. No aspiration was ever performed. I questioned if the effusion was secondary to overuse. At this time, the patient was felt to be stable for discharge home. Of note, his blood pressure is now under optimal control. He will need further management of his blood pressure by his primary care provider. PHYSICAL EXAMINATION: On the day of discharge, the patient is awake, alert, and oriented, walking around in his room in no acute distress. Cardiac exam reveals a normal S1, S2 with a regular rate rhythm. Lungs are clear. Abdomen is soft, nontender, and nondistended. The right forearm and hand are in postsurgical dressing. FOLLOWUP CONCERNS: The patient is being discharged home today, 02/01/18. He is to follow up with Dr. Bradley at his already scheduled appointment. He is also to follow up with Dr. Joyce in the next 7 to 10 days. The patient will be contacted by Dr. Harrington's office for reevaluation in the next couple of weeks. ACTIVITY LEVEL: As tolerated. DIET: Regular. CONDITION ON DISCHARGE: Stable. TIME SPENT: Thirty-five minutes was spent discharging this patient. [id number]/[facility] #: [id number] MTDD
== END 2018-02-01 11:25 | disposition home or self-care (01) | DRG 513 ==
LOC: ED 13:59 → MED 17:55 → OBSVTOIN 18:55
PROVIDERS: ADMIT Internal Medicine; ATTEND Hospitalist
PROC: 0LB70ZZ Excision of Right Hand Tendon, Open Approach (ICD-10-PCS; principal; 2018-01-28 19:47)
DX: M65.841 Other synovitis and tenosynovitis, right hand (principal); L03.113 Cellulitis of right upper limb; E66.9 Obesity, unspecified; F10.21 Alcohol dependence, in remission; M70.21 Olecranon bursitis, right elbow; M25.421 Effusion, right elbow; I10 Essential (primary) hypertension; K21.9 Gastro-esophageal reflux disease without esophagitis; M19.031 Primary osteoarthritis, right wrist; F41.9 Anxiety disorder, unspecified; F32.9 Major depressive disorder, single episode, unspecified; M19.021 Primary osteoarthritis, right elbow; M54.9 Dorsalgia, unspecified; J45.909 Unspecified asthma, uncomplicated; Z79.891 Long term (current) use of opiate analgesic; Z79.899 Other long term (current) drug therapy; Z88.5 Allergy status to narcotic agent; Z88.0 Allergy status to penicillin; Z88.8 Allergy status to other drugs, medicaments and biological substances; Z87.891 Personal history of nicotine dependence; Z82.49 Family history of ischemic heart disease and other diseases of the circulatory system; Z80.8 Family history of malignant neoplasm of other organs or systems; Z68.34 Body mass index [BMI] 34.0-34.9, adult; Z87.81 Personal history of (healed) traumatic fracture
CPT/HCPCS: 36415; 71045; 80048; 80053; 81003; 83605; 83735; 84484; 85025; 85610; 85730; 86140; 87040; 87070; 87073; 87205; 87640; 87641; 88304; 93005; 94640; 94760; 99285; A9270-GY; J0696; J1100; J1170; J2250; J2405; J2704; J3010

== ENCOUNTER 2018-04-12 12:27 | Emergency (ER) | payer OTHER ==
[2018-04-12] MEDS ORDERED: HYDROcodone/ACETAMIN 5-325 MG* 1 TAB PO ONE (13:04)
[2018-04-12] MEDS ORDERED: Cyclobenzaprine TAB* 10 MG PO ONE (13:04)
--- NOTE | 2018-04-12 13:22 | ED ---
Back Pain - HPI Summary HPI Summary: patient is a 62-year-old male presenting to the ED with a chief complaint of right-sided low back pain. He states the ipsilateral leg is numb and tingling without feeling in his foot. He strained the back at work 2 days ago. Denies any bladder or bowel dysfunction. He endorses 10/10 pain, constant and stabbing. He endorses a herniated disc with back surgery 20 years ago and states this feels similar. Denies any pain directly over the spine however. He endorses weakness to the right leg and states he has difficulty walking. He has not been taking anything [id number] for relief and states he has been lying flat in bed to try to alleviate the symptoms but this has not helped. He has not tried stretching. - History of Current Complaint Chief Complaint: EDBackInjuryPain Stated Complaint: RT HIP PAIN Time Seen by Provider: 04/12/18 12:34 Hx Obtained From: Patient Onset/Duration: Sudden Onset Onset/Duration: Started Days Ago Timing: Constant Back Pain Location: Is Discrete @ - R low back pain over the SI joint Severity Initially: Severe Severity Currently: Severe Pain Intensity: 10 Pain Scale Used: 0-10 Numeric Character: Sharp Aggravating Symptom(s): Movement Alleviating Symptom(s): Rest Associated Signs And Symptoms: Positive: Weakness, Numbness, Tingling, Pain with Weight Bearing. Negative: Bladder Incontinence, Bowel Incontinence - Risk Factors AAA Risk Factors: Negative TAD Risk Factors: Negative Cauda Equina Risk Factors: Negative Epidural Abscess Risk Factors: Negative - Allergies/Home Medications Allergies/Adverse Reactions: Allergies Allergy/AdvReac Type Severity Reaction Status Date / Time lisinopril Allergy Coughing Verified 01/27/18 15:36 Sulfa (Sulfonamide Allergy Hives Verified 01/27/18 15:36 Antibiotics) morphine AdvReac Nausea And Verified 01/27/18 15:37 Vomiting PMH/Surg Hx/FS Hx/Imm Hx Previously Healthy: Yes Cardiovascular History: Reports: Hx Hypertension - WELL CONTROLLED WITH MEDICATION Respiratory History: Reports: Hx Asthma - ASTHMATIC ALLERGY UNKNOWN TO WHAT TAKES ADVAIR GI History: Reports: Hx Gastroesophageal Reflux Disease - TAKES MEDICATION ONLY HAPPENS WHEN OVER FULL History: Denies: Other Problems/Disorders Musculoskeletal History: Denies: Other Musculoskeletal History Sensory History: Reports: Hx Contacts or Glasses - READING Denies: Hx Cataracts, Hx Glaucoma, Hx Hearing Aid Opthamlomology History: Reports: Hx Contacts or Glasses - READING Denies: Hx Cataracts, Hx Glaucoma Neurological History: Denies: Other Neuro Impairments/Disorders - Cancer History Hx Chemotherapy: No - Surgical History Surgery Procedure, Year, and Place: RIGHT SHOULDER - 2012 [employer]. RIGHT KNEE. LUMBAR SX. RIGHT ARM. LEFT SHOULDER Hx Anesthesia Reactions: No - WAKES UP VERY FAST, WOKE UP IN MIDDLE OF OPERATION - Immunization History Date of Tetanus Vaccine: 03/2017 Date of Influenza Vaccine: never Hx Pertussis Vaccination: No Immunizations Up to Date: No Infectious Disease History: No Infectious Disease History: Denies: Traveled Outside the [place] in Last 30 Days - Family History Known Family History: Negative: Blood Disorder - Social History Occupation: Employed Full-time Lives: With Family Alcohol Use: Rare Hx Substance Use: No Substance Use Type: Reports: None Hx Tobacco Use: Yes Smoking Status (MU): Former Smoker Review of Systems Constitutional: Negative Negative: Fever, Chills, Fatigue Negative: Palpitations, Chest Pain Negative: Shortness Of Breath, Cough Negative: Abdominal Pain, Vomiting, Diarrhea Genitourinary: Negative Positive: no symptoms reported, see HPI Positive: Arthralgia, Myalgia Positive: Weakness, Paresthesia Psychological: Normal All Other Systems Reviewed And Are Negative: Yes Physical Exam Triage Information Reviewed: Yes Vital Signs On Initial Exam: Initial Vitals Temp Pulse Resp BP Pulse Ox 98.2 F 77 16 174/120 98 04/12/18 12:31 04/12/18 12:31 04/12/18 12:31 04/12/18 12:31 04/12/18 12:31 Vital Signs Reviewed: Yes Appearance: Positive: Well-Appearing, Well-Nourished Skin: Positive: Warm, Skin Color Reflects Adequate Perfusion Head/Face: Positive: Normal Head/Face Inspection Eyes: Positive: EOMI, SARY, Conjunctiva Clear Neck: Positive: Supple, No Lymphadenopathy Respiratory/Lung Sounds: Positive: Clear to Auscultation, Breath Sounds Present Cardiovascular: Positive: RRR, Pulses are Symmetrical in both Upper and Lower Extremities Musculoskeletal: Positive: Pain @ - R sided low back pain over SI joint. Negative: Basilia Sign Left, Basilia Sign Right, Edema Left, Edema Right Neurological: Positive: Speech Normal Psychiatric: Positive: Normal, Affect/Mood Appropriate Diagnostics - Vital Signs Vital Signs Temp Pulse Resp BP Pulse Ox 04/12/18 12:37 82 164/122 98 04/12/18 12:31 98.2 F 77 16 174/120 98 - Laboratory Lab Statement: Any lab studies that have been ordered have been reviewed, and results considered in the medical decision making process. Back Pain Course/Dx - Course Course Of Treatment: Patient is a 62-year-old male presenting to the ED with right-sided low back pain after he strained it at work 2 days ago. Endorses 10/ 10 pain. He is in severe distress on arrival and appears very anxious. He is requesting pain medications. He states he had a herniated disc with surgery several years ago and states this feels similar. IMPRESSION: 1. DEGENERATIVE DISC DISEASE AND OSTEOARTHRITIS. 2. THERE IS MODERATE NARROWING OF CENTRAL CANAL AT L2-L3, L3-L4, WITH MILD NARROWING AT. L4-L5. 3. THERE IS MULTILEVEL NEURAL FORAMINAL NARROWING DESCRIBED ABOVE. - Diagnoses Provider Diagnoses: Sciatica Discharge - Sign-Out/Discharge Documenting (check all that apply): Discharge/Admit/Transfer - Discharge Plan Condition: Stable Disposition: HOME Prescriptions: Cyclobenzaprine TAB* [Flexeril TAB*] 10 mg PO BID PRN #14 tab PRN Reason: Spasms Hydrocodone/Acetamin 10/325(NF [[place] 10/325 (NF)] 1 tab PO Q6H #16 tab MDD 4 predniSONE TAB* [Deltasone TAB*] 50 mg PO DAILY #5 tab MDD 1 Patient Education Materials: Sciatica (ED), Lower Back Exercises (ED) Forms: *Work Release Referrals: Nasra Bradley MD [Primary Care Provider] - Additional Instructions: Ibuprofen 600 mg 3 times daily For pain not well controlled on ibuprofen, use hydrocodone/acetaminophen 1 tab every 6 hours Use alongside ibuprofen, however intermittently Heat to the area as much as possible Low back exercises Flexeril should be taken morning and night as needed for any muscle pain/spasms Prednisone once daily in the morning - Billing Disposition and Condition Condition: STABLE Disposition: HOME
--- NOTE | 2018-04-12 13:47 | RAD ---
HISTORY: Pain lumbar spine, right-sided COMPARISONS: CT abdomen and pelvis dated May 27, 2010 TECHNIQUE: Multiple contiguous axial CT scans were obtained of the lumbar spine without intravenous contrast, with coronal and sagittal multiplanar reformations. FINDINGS: SPINAL CANAL: Evaluation of the central canal is limited on CT technique; however, there is no obvious canalicular mass or epidural hemorrhage. ALIGNMENT: There is mild scoliotic curvature of the spine. VERTEBRAL BODIES: There is diffuse osteopenia. There is multilevel anterolateral marginal osteophyte formation. The vertebral bodies are preserved in height. JOINTS: There is diffuse facet osteoarthritis. MUSCULATURE: There is mild fatty infiltration. INTERVERTEBRAL DISCS: There is diffuse loss of intervertebral disc height throughout the spine. AXIAL IMAGES: T10-T11: There is no osseous neural foraminal narrowing or central canal stenosis. T11-T12: There is no osseous neural foraminal narrowing or central canal stenosis. T12-L1: There is no osseous neural foraminal narrowing or central canal stenosis. L1-L2: There is mild disc bulge. There is no osseous neural foraminal narrowing or central canal stenosis. L2-L3: There is posterior osteophytic ridging. There is bilateral facet hypertrophy. There is moderate bilateral neural foraminal narrowing. There is moderate narrowing of the central canal. L3-L4: There is mild disc bulge. There is marginal osteophyte formation at the neural foramina bilaterally. There is mild right and moderate left neural foraminal narrowing. There is moderate narrowing of the central canal. L4-L5: There is broad-based disc bulge with facet hypertrophy. There is moderate right neural foraminal narrowing. There is mild narrowing of the central canal. L5-S1: There is bilateral facet hypertrophy. There is marginal osteophyte formation at the neural foramina bilaterally. There is severe bilateral neural foraminal narrowing. There is no osseous central canal stenosis. SOFT TISSUES: The visualized soft tissues of the abdomen are unremarkable. OTHER: None IMPRESSION: 1. DEGENERATIVE DISC DISEASE AND OSTEOARTHRITIS. 2. THERE IS MODERATE NARROWING OF CENTRAL CANAL AT L2-L3, L3-L4, WITH MILD NARROWING AT L4-L5. 3. THERE IS MULTILEVEL NEURAL FORAMINAL NARROWING DESCRIBED ABOVE.
[2018-04-12 15:05] VITALS: BP 135/85
== END 2018-04-12 15:04 | disposition home or self-care (01) ==
LOC: ED 12:27
DX: M54.41 Lumbago with sciatica, right side (principal); I10 Essential (primary) hypertension; J45.909 Unspecified asthma, uncomplicated; Z88.5 Allergy status to narcotic agent; Z88.2 Allergy status to sulfonamides; Z88.8 Allergy status to other drugs, medicaments and biological substances; K21.9 Gastro-esophageal reflux disease without esophagitis; Z87.891 Personal history of nicotine dependence
CPT/HCPCS: 72131; 99283; A9270-GY

== ENCOUNTER 2018-09-24 15:46 | Emergency (ER) | payer OTHER ==
[2018-09-24 21:43] LABS: Hematocrit 43 % (42-52); Hemoglobin 14.7 g/dl (14.0-18.0); Mean Corpuscular HGB Conc 34 g/dl (31-36); Mean Corpuscular Hemoglobin 33 pg (27-31); Mean Corpuscular Volume 95 fL (80-94); Mean Platelet Volume 8.2 fL (7.4-10.4); Platelet Count 297 10^3/ul (150-450); Red Blood Count 4.53 10^6/ul (4.00-5.40); Red Cell Distribution Width 14 % (10.5-15); White Blood Count 13.7 10^3/ul (3.5-10.8)
[2018-09-24 23:10] LABS: ABS Basophils 0.1 10^3/ul (0-0.2); ABS Eosinophils 0 10^3/ul (0-0.6); ABS Lymphocytes 1.8 10^3/ul (1.0-4.8); ABS Monocytes 2.4 10^3/ul (0-0.8); ABS Neutrophils 9.4 10^3/ul (1.5-7.7); ABS Nucleated RBC 0 10^3/ul; Eosinophil % 0.2 % (0-6); Lymphocyte % 12.8 % (25-47); Nucleated Red Blood Cells % 0.2
[2018-09-24] MEDS ORDERED: HYDROcodone/ACETAMIN 5-325 MG* 1 TAB PO ONE (23:30)
[2018-09-24] MEDS ORDERED: cefTRIAXone(*) 1 GM in NS 0.9% 50 ML* 50 ML IVPB ONE (23:30)
--- NOTE | 2018-09-25 00:50 | ED ---
Upper Extremity Pain - HPI Summary HPI Summary: Patient is 63-year-old male presenting to the ED with right wrist tenderness. 2 previous surgeries on the ipsilateral wrist. He also had an extensive tenosynovectomy of the flexor tendons of the right wrist approximately [address] Joyce after enduring 1 week worsening redness, warmth, pain and swelling with elbow swelling as well. He returns today feeling similar symptoms from when this started with slight erythema and pain, however no swelling. Slight warmth is noted. He states it was much worse last time and wanted to come to get antibiotics early. He denies any fevers, sweats, chills. He denies any forearm pain. Pain is located both over the volar and dorsal aspect of the wrist without radiation into the forearm and fingertips. - History of Current Complaint Chief Complaint: EDExtremityUpper Stated Complaint: POSS INFECTION Time Seen by Provider: 09/24/18 21:10 Hx Obtained From: Patient Onset/Duration: Started Hours Ago Timing: Constant Severity Initially: Moderate Severity Currently: Moderate Pain Location: Wrist Character: Throbbing Aggravating Factor(s): Movement, Lifting, Flexion, Extension Alleviating Factor(s): Rest, Ice Associated Signs & Symptoms: Positive: Swelling, Redness. Negative: Weakness, Numbness/Tingling Related History: Dominant Hand Right - Risk Factors Non-Orthopedic Risk Factor: Negative DVT Risk Factors: Negative Septic Arthritis Risk Factor: Negative Compartment Syndrome Risk Factors: Pain - Allergies/Home Medications Allergies/Adverse Reactions: Allergies Allergy/AdvReac Type Severity Reaction Status Date / Time lisinopril Allergy Coughing Verified 01/27/18 15:36 Sulfa (Sulfonamide Allergy Hives Verified 01/27/18 15:36 Antibiotics) morphine AdvReac Nausea And Verified 01/27/18 15:37 Vomiting PMH/Surg Hx/FS Hx/Imm Hx Previously Healthy: Yes Endocrine/Hematology History: Denies: Hx Sickle Cell Disease Cardiovascular History: Reports: Hx Hypertension - WELL CONTROLLED WITH MEDICATION Respiratory History: Reports: Hx Asthma - ASTHMATIC ALLERGY UNKNOWN TO WHAT TAKES ADVAIR GI History: Reports: Hx Gastroesophageal Reflux Disease - TAKES MEDICATION ONLY HAPPENS WHEN OVER FULL History: Denies: Other Problems/Disorders Musculoskeletal History: Denies: Other Musculoskeletal History Sensory History: Reports: Hx Contacts or Glasses - READING Denies: Hx Cataracts, Hx Glaucoma, Hx Hearing Aid Opthamlomology History: Reports: Hx Contacts or Glasses - READING Denies: Hx Cataracts, Hx Glaucoma Neurological History: Denies: Other Neuro Impairments/Disorders - Cancer History Hx Chemotherapy: No - Surgical History Surgery Procedure, Year, and Place: RIGHT SHOULDER - 2012 [employer]. RIGHT KNEE. BACK. RIGHT ARM. LEFT SHOULDER Hx Anesthesia Reactions: No - WAKES UP VERY FAST, WOKE UP IN MIDDLE OF OPERATION - Immunization History Date of Tetanus Vaccine: 03/2017 Date of Influenza Vaccine: never Hx Pertussis Vaccination: No Immunizations Up to Date: Yes Infectious Disease History: No Infectious Disease History: Denies: Traveled Outside the [place] in Last 30 Days - Family History Known Family History: Negative: Blood Disorder - Social History Occupation: Unemployed Lives: With Family Alcohol Use: Rare Hx Substance Use: No Substance Use Type: Reports: None Hx Tobacco Use: Yes Smoking Status (MU): Former Smoker Review of Systems Negative: Fever, Chills, Fatigue, Skin Diaphoresis Negative: Palpitations, Chest Pain Negative: Shortness Of Breath, Cough Genitourinary: Negative Positive: no symptoms reported, see HPI Positive: Myalgia. Negative: Arthralgia Positive: Other - erythema, warmth Negative: Headache, Weakness Psychological: Normal All Other Systems Reviewed And Are Negative: Yes Physical Exam Triage Information Reviewed: Yes Vital Signs On Initial Exam: Initial Vitals Temp Pulse Resp BP Pulse Ox 98.1 F 82 20 160/98 98 09/24/18 16:00 09/24/18 16:00 09/24/18 16:00 09/24/18 16:00 09/24/18 16:00 Vital Signs Reviewed: Yes Appearance: Positive: Well-Appearing, Well-Nourished Skin: Positive: Skin Color Reflects Adequate Perfusion, Other - erythema and warmth Eyes: Positive: EOMI, SARY, Conjunctiva Clear Neck: Positive: Supple, No Lymphadenopathy Respiratory/Lung Sounds: Positive: Clear to Auscultation, Breath Sounds Present Cardiovascular: Positive: RRR, Pulses are Symmetrical in both Upper and Lower Extremities Musculoskeletal: Positive: Pain @ - volar and dorsal wrist pain Neurological: Positive: Speech Normal Psychiatric: Positive: Normal, Affect/Mood Appropriate AVPU Assessment: Alert Diagnostics - Vital Signs Vital Signs Temp Pulse Resp BP Pulse Ox 09/24/18 23:13 164/82 09/24/18 22:43 86 169/86 97 09/24/18 22:13 87 145/85 99 09/24/18 22:00 89 99 09/24/18 21:43 88 158/93 98 09/24/18 21:13 88 140/92 100 09/24/18 21:12 86 99 09/24/18 20:24 99.7 F 96 18 148/89 99 09/24/18 18:00 99.6 F 86 16 138/76 100 09/24/18 16:00 98.1 F 82 20 160/98 98 - Laboratory Lab Results: Lab Results 09/24/18 09/24/18 Range/Units 21:26 21:26 WBC 13.7 H (3.5-10.8) 10^3/ul RBC 4.53 (4.00-5.40) 10^6/ul Hgb 14.7 (14.0-18.0) g/dl Hct 43 (42-52) % MCV 95 H (80-94) fL MCH 33 H (27-31) pg MCHC 34 (31-36) g/dl RDW 14 (10.5-15) % Plt Count 297 (150-450) 10^3/ul MPV 8.2 (7.4-10.4) fL Neut % (Auto) 68.5 (38-83) % Lymph % (Auto) 12.8 L (25-47) % Towner % (Auto) 17.8 H (0-7) % Eos % (Auto) 0.2 (0-6) % Baso % (Auto) 0.7 (0-2) % Absolute Neuts (auto) 9.4 H (1.5-7.7) 10^3/ul Absolute Lymphs (auto) 1.8 (1.0-4.8) 10^3/ul Absolute Monos (auto) 2.4 H (0-0.8) 10^3/ul Absolute Eos (auto) 0 (0-0.6) 10^3/ul Absolute Basos (auto) 0.1 (0-0.2) 10^3/ul Absolute Nucleated RBC 0 10^3/ul Nucleated RBC % 0.2 ESR 24 H (0-20) mm/Hr C-Reactive Protein 105.14 H (<8.01) mg/L Result Diagrams: 09/24/18 21:26 Lab Statement: Any lab studies that have been ordered have been reviewed, and results considered in the medical decision making process. Course/Dx - Course Course Of Treatment: During the course treatment, the patient's evaluated for a possible wrist cellulitis versus septic bursitis versus other etiology. He has had surgeries to the right wrist 2 with hardware placed. He has also had a tenosynovectomy of the flexor tendons of the right wrist approximately [address] Joyce. He is endorsing some volar and dorsal right wrist tenderness with a small amount of erythema and warmth. Denies any fevers, chills sweats, chills. He is able to flex and extend to about the wrist. Denies any numbness or tingling. Denies any color temperature changes. Refill is somewhat diminished, however radial pulses intact bilaterally. He is given ceftriaxone IM in the ED as well as doxycycline 100 mg twice a day 10 days is given. He is also encouraged his at home medications of oxycodone as well as ibuprofen and ice. He will call Dr. Joyce on Thursday and follow-up right away. He is also given strict return precautions as this may be an early tenosynovitis again. He will return if he has any streaking up the arm, worsening erythema or warmth or he develops any fevers. - Diagnoses Differential Diagnosis/HQI/PQRI: Positive: Osteomyelitis, Septic Arthritis Provider Diagnoses: Cellulitis Discharge - Sign-Out/Discharge Documenting (check all that apply): Patient Departure - Discharge Plan Condition: Stable Disposition: HOME Prescriptions: DOXYcycline CAP(*) [DOXYcycline 100MG CAP(*)] 100 mg PO BID #20 cap Patient Education Materials: Cellulitis (ED) Referrals: Nasra Bradley MD [Primary Care Provider] - Natividad Joyce MD [Medical Doctor] - Additional Instructions: If you develop any worsening redness or swelling, return to the ED immediately If you develop any streaking to the arm, return to the ED immediately Please call Dr. Jyoce on Thursday to make an appointment May continue your at home pain medication Doxycycline 100 mg twice daily - Billing Disposition and Condition Condition: STABLE Disposition: Home
[2018-09-25 00:54] VITALS: BP 153/83
== END 2018-09-25 00:50 | disposition home or self-care (01) ==
LOC: ED 15:46
DX: L03.113 Cellulitis of right upper limb (principal); Z87.891 Personal history of nicotine dependence; I10 Essential (primary) hypertension
CPT/HCPCS: 36415; 85025; 85652; 86140; 96365; 99283; J0696

== ENCOUNTER 2019-04-09 14:37 | Inpatient (IN) | payer OTHER ==
[2019-04-09] MEDS ORDERED: Propofol* 500 MG/50 ML BTL ONE (14:44)
[2019-04-09] MEDS ORDERED: NS 0.9% 1000 ML** 1,000 ML IV ONE (14:52)
--- NOTE | 2019-04-09 14:52 | ED ---
Cardiac Resuscitation - HPI Summary HPI Summary: LEVEL 5 CAVEAT The patient is a 63 y/o M presenting to [facility] arriving by ambulance with a chief complaint of becoming unresponsive with cardiac arrest activity occurring before EMS arrival. Pt had ROSC by EMS before presentation to ED. Bystanders who witnessed the unconscious patient reported that the patient had no recent hx of heroin abuse, but is a former user, so it was a possible cause of the arrest.Pt was reortedly down for about 25 minutes prior to CPR. EMS reports that one epi was administered, then 4mg of Narcan with no response, then two more epi, one round of bicarb, intubation, 2.5mg Versed for sedation. CPR was given for about 15-20 minutes on scene as he had no pulse and wasn't breathing. No shock was administered. Per EMS the initial rhythm was asystole, but after epinephrine x 3 and above medications, patient was in sinus rhythm and had BP of 155/49. 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 Hx is limited but known hx of HTN, GERD, asthma. Home medications reviewed from previous hx and allergies noted. Vital signs while in room: HR 100 bpm, BP 132/110, O2 sat 100%, RR 28. Pt is intubated. Dr. Randy Latham is present in the room, and confirms tube placement by auscultation and oximetry and capnography. No family members or friends are present for additional history. Home Medications Medication Instructions Recorded Confirmed Type Bupropion HCl [Bupropion HCl Xl] 300 mg PO DAILY 09/08/13 01/27/18 History Diflunisal TAB* [Dolobid TAB*] 500 mg PO DAILY 09/08/13 01/27/18 History Fluticasone-Salmeterol 100-50* 1 puff INH BID 09/08/13 01/27/18 History [Advair Diskus 100-50*] Losartan Potassium 50 mg PO DAILY 09/08/13 01/27/18 History Omeprazole 20 mg PO DAILY 09/08/13 01/27/18 History Amitriptyline TAB* [Elavil TAB*] 25 mg PO BEDTIME 01/27/18 01/27/18 History Gabapentin 300 mg PO TID 01/27/18 01/27/18 History Methocarbamol 500 mg PO Q6H 01/27/18 01/27/18 History amLODIPine TAB* [Norvasc 5 mg TAB*] 5 mg PO DAILY 01/27/18 01/27/18 History DOXYcycline CAP(*) [DOXYcycline 100 mg PO BID #28 cap 02/01/18 Rx 100MG CAP(*)] oxyCODONE TAB* [Roxycodone TAB 5 5 - 10 mg PO Q4H PRN #60 tab MDD 02/01/18 Rx mg*] 12 tabs Cyclobenzaprine TAB* [Flexeril 10 mg PO BID PRN #14 tab 04/12/18 Rx TAB*] Hydrocodone/Acetamin 10/325(NF 1 tab PO Q6H #16 tab MDD 4 04/12/18 Rx [Bend 10/325 (NF)] predniSONE TAB* [Deltasone TAB*] 50 mg PO DAILY #5 tab MDD 1 04/12/18 Rx DOXYcycline CAP(*) [DOXYcycline 100 mg PO BID #20 cap 09/24/18 Rx 100MG CAP(*)] - History of Current Complaint Chief Complaint: EDCardiacArrest Stated Complaint: OVERDOSE/CARDIAC ARREST PER EMS Hx Obtained From: EMS Hx From Patient Unobtainable Due To: Extremis - patient is unresponsive, S/P cardiac arrest with ROSC at time of arrival Arrest Witnessed: Yes Down-time Before Basic Life Support Initiated: Down-time before BLS initiated: - 25 minutes Was AED Placed on Patient: No - Prehospital Findings Airway: Gag Reflex Absent Breathing: Apnea Circulation/Rhythm: Asystole Disability/Neurologic: Unresponsive - Prehospital Intervention Breathing: ETT Cuffed, Intubation: Circulation/Rhythm: Chest Compressions, Epinephrine: - Prehospital Response Airway: Gag Reflex Absent Breathing: ETT in Airway: Circulation/Rhythm: Sinus - after asystole, then epinephrine - Additional Pertinent History Primary Care Physician: [id number] - Allergies/Home Medications Allergies/Adverse Reactions: Allergies Allergy/AdvReac Type Severity Reaction Status Date / Time lisinopril Allergy Coughing Verified 01/27/18 15:36 Sulfa (Sulfonamide Allergy Hives Verified 01/27/18 15:36 Antibiotics) morphine AdvReac Nausea And Verified 01/27/18 15:37 Vomiting - Past Medical History Past Medical History: Unobtainable Due to Extremis, Other: - HTN, asthma, GERD, alcohol abuse from [facility] records - Family History Family History: Unobtainable Due to Extremis - Social History Social History: Unobtainable Due to Extremis - Review of Systems Review of Systems: Unobtainable Due to Extremis - level 5 caveat, unresponsive after cardiac arrest and ROSC Physical Examination - Summary Physical Exam Summary: Appearance: Ill-appearing, moderate pain distress, well-nourished, unresponsive and intubated Skin: Warm, color reflects adequate perfusion, dry Head: Normal Head/Face inspection, atraumatic Eyes: Conjunctiva clear ENT: Normal inspection Neck: Supple, no nodes, no JVD Respiratory: Lungs clear, decreased breath sounds, no respiratory distress Cardio: RRR, No murmur, pulses normal, brisk capillary refill Abdomen: Soft, nontender, protuberant abdomen that is not distended, no guarding Bowel sounds: Present Musculoskeletal: Strength Intact/ROM intact, no calf tenderness, no edema. Psychological: Normal Neuro: Unresponsive, muscle tone normal, no focal deficit - Physical Examination Triage Information Reviewed: Yes Resuscitation: Successful - ED Findings Airway: Patent Breathing: Breath Sounds Equal - with ET tube in place Circulation/Rhythm: Sinus Tachycardia, Spontaneous Pulses Present Disability/Neurological: Unresponsive, Pupils Reactive - not pinpoint or dilated - ED Intervention Breathing: Intubation: - continued, done by EMS - ED Response Airway: Patent Breathing: ETT in Airway:, Placement Confirmed by Auscultation, Placement Confirmed by Capnometer, Other: - CXR done Circulation/Rhythm: Sinus, Spontaneous Pulses Present - ED Additional Pertinent Findings Additional Pertinent Findings: Other: - no evidence of trauma, no puncture pierce or tracks to indicate recent IV drug injection - Glascow Coma Score Eye Openin - To Pain Motor: 4 - Withdraws Verbal: 1 - Intubated Coma Scale Total: 7 T Diagnostics - Vital Signs Vital Signs Temp Pulse Resp BP Pulse Ox 04/09/19 14:39 96.2 F 103 23 132/110 100 - Laboratory Result Diagrams: 04/11/19 22:48 04/11/19 22:48 Lab Statement: Any lab studies that have been ordered have been reviewed, and results considered in the medical decision making process. - Radiology CXR Radiology Interpretation Completed By: Radiologist Summary of Radiographic Findings: 1. Pulmonary vascular congestion and mild interstitial edema. 2. The endotracheal tube needs to be pulled back approximately 4 cm. ED physician has reviewed this report. - CT Brain CT CT Interpretation Completed By: Radiologist Summary of CT Findings: No CT evidence for intracranial hemorrhage or other acute intracranial process. ED physician has reviewed this report. - EKG 1432 Cardiac Rate: Tachycardia - 102 BPM EKG Rhythm: Sinus Tachycardia Cardiac Resus. Course/Dx - Course Course Of Treatment: LEVEL 5 CAVEAT. The patient is a 63 y/o M [facility] arriving by ambulance with a chief complaint of becoming unresponsive with cardiac arrest activity occurring before EMS arrival. Bystanders who witnessed the unconscious patient reported that the patient had no recent hx of heroin abuse, but is a former user, so it was a possible cause of the arrest. He was down for about 25 minutes. EMS reports that one epi was administered, then 4mg of Narcan with no response, two more epi, one round of bicarb, intubation, 2.5mg Versed for sedation. CPR was given for about 15-20 minutes on scene as he had no pulse and wasn't breathing. No shock was administered. On arrival, the patient was in asystole, but after epis, patient was in sinus rhythm and had BP of 155/49. 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 Hx is limited but known hx of HTN, GERD, asthma, alcohol abuse per [facility] records. No family or friends accompanied pt to the ED. Home medications reviewed from previous hx and allergies noted. Vital signs while in room: HR 100 bpm, BP 132/110, O2 sat 100% , RR 28. Nurses notes reviewed. Physical exam in the ED, the patient is unresponsive and intubated with decreased breath sounds, and protuberant abdomen that is not distended without guarding. Pupils are not pinpoint or dilated. Pt has pulses, and BP. Pt has no track pierce or injection pierce. Pt withdraws to pain. Eyes open to pain. In the ED course, the patient was administered 1L Ns, 500mg Propofol, 50mg Rocuronium [place], and Famotidine 20mg. Blood work reveals abnormalities of WBC of 13.6, Hgb of 13.3, Hct of 41, RDW of 19, abs monos (auto) of 1.5, abs eos of 1.1, nucleated RBCs of 1.0, INR of 1.12, potassium of 3.3, carbon dioxide of 20, anion gap of 15, glucose of 233 , lactic acid of 5.4, and TSH of 7.85, and otherwise levels are in the normal range. UA reveals protein of 1+, squamous epithelial cells, hyaline casts, and ascorbic acid. EKG reveals sinus tachycardia of [address] is negative for intracranial hemorrhage or other acute intracranial process. CXR reveals pulmonary vascular congestion and mild interstitial edema with need for endotracheal tube to be moved approximately 4cm. Dr. Randy Latham, cold mill operator, was present upon patient arrival at 1440, and he accepts the patient for admission at this time. The patient is diagnosed with ROSC after cardiac arrest , and will be cooled in the ICU. Pt was taken from the ED to CT and then ICU. - Cardiac Resuscitation Differential Dx/HPI/PQRI: Acute Myocardial Infarct, Asystole, Drug Overdose, Respiratory Failure - Diagnoses Provider Diagnoses: Signs of return of spontaneous circulation, Cardiac arrest, Asystole During the Visit The Following Alert/Code Occurred: ABC Alert - Called at 1440 - Provider Notifications Discussed Care Of Patient With: Randy Latham - cold mill operator Time Discussed With Above Provider: 14:40 Instructed by Provider To: Other - Dr. Randy Latham was in the ED upon patient arrival. The patient is accepted for admission at 1450. Discharge - Sign-Out/Discharge Documenting (check all that apply): Patient Departure - Patient is admitted to ICU by Dr. Randy Latham for further evaluation and treatment. He will be cooled per protocol after ROSC. Patient Received Moderate/Deep Sedation with Procedure: No - Discharge Plan Condition: Stable Disposition: ADMITTED TO [facility] - Billing Disposition and Condition Condition: STABLE Disposition: Admitted to [facility] - Attestation Statements Document Initiated by Scribe: Yes Documenting Scribe: Lynette Cheema Provider For Whom Braeden is Documenting (Include Credential): Dr. Alea Archibald MD Scribe Attestation: Lynette Lawton scribed for Dr. Alea Archibald MD on 04/12/19 at 0005. Scribe Documentation Reviewed: Yes Provider Attestation: The documentation as recorded by the Lynette root accurately reflects the service I personally performed and the decisions made by me, Dr. Alea Archibald MD Status of Scribe Document: Viewed
[2019-04-09 15:07] LABS: Hematocrit 41 % (42-52); Hemoglobin 13.3 g/dL (14.0-18.0); Mean Corpuscular HGB Conc 32 g/dL (31-36); Mean Corpuscular Hemoglobin 29 pg (27-31); Mean Corpuscular Volume 89 fL (80-94); Platelet Count 415 10^3/uL (150-450); Red Blood Count 4.59 10^6 /uL (4.18-5.48); Red Cell Distribution Width 19 % (10.5-15); White Blood Count 13.6 10^3/uL (3.5-10.8)
[2019-04-09] MEDS ORDERED: Rocuronium* 10 MG/ML VIAL IV ONE (15:10)
[2019-04-09 15:18] LABS: Activated Partial Thrombo Time 28.7 seconds (26.0-36.3); INR 1.12 (0.82-1.09)
[2019-04-09 15:23] LABS: Albumin 3.9 g/dL (3.2-5.2); Albumin/Globulin Ratio 1.1 (1-3); BUN/Creatinine Ratio 14.9 (8-20); Calcium 8.6 mg/dL (8.6-10.3); EGFR African American 78.8 (>60); EGFR Non-African American 65.1 (>60); Globulin 3.6 g/dL (2-4); Magnesium 2.2 mg/dL (1.9-2.7); Potassium 3.3 mmol/L (3.5-5.0); Total Bilirubin 0.8 mg/dL (0.2-1.0); Total Protein 7.5 g/dL (6.4-8.9)
[2019-04-09 15:25] LABS: Troponin I 0.03 ng/mL (<0.04)
[2019-04-09 15:26] LABS: CKMB ng/mL 5.3 ng/mL (0.6-6.3)
[2019-04-09 15:32] LABS: ABS Basophils 0.1 10^3/ul (0-0.2); ABS Eosinophils 1.1 10^3/ul (0-0.6); ABS Lymphocytes 4.1 10^3/ul (1.0-4.8); ABS Monocytes 1.5 10^3/ul (0-0.8); ABS Neutrophils 6.8 10^3/ul (1.5-7.7); ABS Nucleated RBC 0.1 10^3/ul; Nucleated Red Blood Cells % 0.6; Polychromasia 1+
[2019-04-09 15:58] LABS: TSH (Thyroid Stimulating Horm) 7.85 mcIU/mL (0.34-5.60)
[2019-04-09 16:10] LABS: Urine Appearance Clear; Urine Bacteria Absent (Absent); Urine Bilirubin Negative (Negative); Urine Blood Negative (Negative); Urine Color Yellow; Urine Glucose Negative (Negative); Urine Ketones Negative (Negative); Urine Nitrite Negative (Negative); Urine Protein 1+(30 mg/dL) (Negative); Urine Red Blood Cell Trace(0-2/hpf) (Absent); Urine Squamous Epithelial Cell Present (Absent); Urine Urobilinogen Negative (Negative); Urine White Blood Cell Trace(0-5/hpf) (Absent)
[2019-04-09] MEDS: Propofol* 100 ML IV SCH ×2 (16:11→22:04)
[2019-04-09] MEDS ORDERED: Lorazepam PYXIS KEY ONE (16:48)
[2019-04-09] MEDS ORDERED: LORazepam INJ* 2 MG/ML 1 ML VIAL ONE (16:49)
[2019-04-09] MEDS: Chlorhexidine MOUTHWASH 0.12%* 15 ML UDC TOPICAL SCH ×2 (17:00→21:57)
[2019-04-09 17:11] LABS: Urine Benzodiazepine Screen Presumptive Positive (None Detect); Urine Opiates Screen Presumptive Positive (None Detect)
--- NOTE | 2019-04-09 18:14 | HP ---
ADMISSION HISTORY AND PHYSICAL: DATE OF ADMISSION: 04/09/19 REASON FOR ADMISSION: Cardiac arrest. HISTORY OF PRESENT ILLNESS: 63 Y/O male brought to the emergency department by EMS after suffering an asystolic cardiac arrest in the field, which was successfully resuscitated after only a few minutes. EMS was also told that patient had been using heroin, and he was then given narcan (4 mg) without a response. In the ED, the patient was unresponsive, but pupils were not pinpoint , and there were no puncture pierce. ECG showed no ST elevations, and CT scan of the head revealed no active hemorrhage. Recent history per EMS only (no one came to ED with patient). Only other Hx available is a [place] [facility] [place] for tenosynovitis of the right elbow - at that time, there was a history of hypertension and alcohol abuse. MEDICATIONS: Discharge medications after the last hospitalization [place] [facility] included: 1. Amlodipine 5 mg daily. 2. Gabapentin 300 mg 3 times daily. 3. Amitriptyline 25 mg at bedtime. 4. Losartan 50 mg daily. 5. Advair 1 puff b.i.d. 6. Bupropion 300 mg daily. 7. Omeprazole 20 mg daily. 8. Oxycodone 15 mg p.r.n. pain. 9. Methocarbamol 500 mg q.6 hours. DRUG ALLERGIES: SULFA, which produces hives; LISINOPRIL, which produces an itchy throat; and MORPHINE, which causes nausea and vomiting. 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 He is currently on disability. He is a former smoker and has Hx ETOH abuse. REVIEW OF SYSTEMS: Unobtainable. PHYSICAL EXAMINATION GENERAL: The patient was intubated and unresponsive on propofol sedation. VITAL SIGNS: Temp 96.9, heart rate 102 and regular, respirations 14, O2 sat 100 % on mechanical ventilation with an FiO2 of 40%, blood pressure 147/95. HEENT: Pupils were mid position and reactive. Corneal reflexes were intact. There was no facial asymmetry. NECK: Supple. CHEST: The lungs were clear. CARDIAC: Exam revealed no murmurs or rubs. ABDOMEN: Nondistended. EXTREMITIES: Warm. Not cyanotic and not edematous. DIAGNOSTIC STUDIES/LAB DATA: Admission laboratory data: White count was 13.6 , hemoglobin 13.3, hematocrit 41, platelet count 415. Electrolytes were normal except for a potassium of 3.3, CO2 of 20, anion gap of 15, glucose 233, lactic acid of 5.4, and TSH = 7.85. INR was normal. Urine tox screen is positive for opiates, cocaine, and benzodiazepines. Chest x-ray showed presence of an endotracheal tube with a tip in the right mainstem bronchus and the tip was pulled back 3 cm. EKG showed sinus tachycardia with no acute ST or T-wave changes. IMPRESSION: 1. Asystolic cardiac arrest in the field with continuing coma after ROSC. Is hemodynamically stable post-arrest. 2. Possible drug overdose (opiates, benzos, cocaine) as a precipitating event for the cardiac arrest. 3. History of ETOH abuse. MANAGEMENT PLAN: Will institute targeted temperature management (at 36 degrees Celsius) for 24 hours, and keep sedated with propofol during this time. Hemodynamic support is not necessary at this time, but will monitor serum lactate levels for prognostic purposes. CRITICAL CARE TIME: 70 minutes. [id number]/[facility] #: [id number] ANYI
[2019-04-09] MEDS ORDERED: fentaNYL* 50 MCG/ML 2 ML VIAL (100 MCG VIAL) IV SLOW PU ONE (19:21)
[2019-04-09] MEDS: fentaNYL INFUSION 50 MCG/ML* 2,500 MCG/50 ML BAG IV SCH (19:32)
[2019-04-09] MEDS: Lactated Ringers 1000 ML Bag* 1,000 ML IV SCH (19:48)
--- NOTE | 2019-04-09 20:00 | PRO ---
PROCEDURE NOTE: DATE OF PROCEDURE: 04/09/19 PROCEDURE: Insertion of triple-lumen central venous catheter. INDICATIONS: This patient is a 63-year-old male, who was admitted following an asystolic cardiac arr est in the field and is presently on propofol and requiring targeted temperature management. A centr al line was deemed necessary. DESCRIPTION OF PROCEDURE: Under ultrasound guidance, a catheter was inserted in the right internal j ugular vein and advanced 20 cm without difficulty and sutured into the skin. There were no apparent adverse effects and a post-insertion chest x- ray has been ordered. [id number]/[facility] #: [id number]
[2019-04-09] MEDS: Norepinephrine 16MCG/ML IVPRE* 4,000 MCG/250 ML BAG IV SCH (20:02)
[2019-04-09] MEDS: Heparin VIAL(*) 5000 UNITS/ML VIAL (FIVE THOUSAND) SUBCUT SCH (21:57)
[2019-04-10] MEDS: Chlorhexidine MOUTHWASH 0.12%* 15 ML UDC TOPICAL SCH ×6 (00:20→20:18)
[2019-04-10] MEDS: Propofol* 100 ML IV SCH ×10 (00:23→23:41)
[2019-04-10 05:48] LABS: Hematocrit 36 % (42-52); Hemoglobin 11.9 g/dL (14.0-18.0); Mean Corpuscular HGB Conc 33 g/dL (31-36); Mean Corpuscular Hemoglobin 29 pg (27-31); Mean Corpuscular Volume 88 fL (80-94); Mean Platelet Volume 7.9 fL (7.4-10.4); Platelet Count 352 10^3/uL (150-450); Red Blood Count 4.11 10^6 /uL (4.18-5.48); Red Cell Distribution Width 19 % (10.5-15); White Blood Count 9.1 10^3/uL (3.5-10.8)
[2019-04-10 06:53] LABS: Potassium 3.8 mmol/L (3.5-5.0)
[2019-04-10 06:54] LABS: BUN/Creatinine Ratio 16.7 (8-20); Calcium 8.3 mg/dL (8.6-10.3); EGFR African American 133.8 (>60); EGFR Non-African American 110.6 (>60)
[2019-04-10] MEDS: Heparin VIAL(*) 5000 UNITS/ML VIAL (FIVE THOUSAND) SUBCUT SCH ×2 (08:45→20:18)
[2019-04-10] MEDS: Famotidine IV* 10 MG/ML 2 ML (20 mg) IV SCH (08:45)
[2019-04-10] MEDS ORDERED: Famotidine IV * 20 MG in NS 0.9% 100 ML* 100 ML IVPB SCH (09:00)
[2019-04-10] MEDS: Norepinephrine 16MCG/ML IVPRE* 4,000 MCG/250 ML BAG IV SCH (10:41)
--- NOTE | 2019-04-10 12:57 | PN ---
Date of Service: 04/10/19 Critical Care Services: Continues on targeted temp management at 36 degrees Celsius. No shivering. Is sedated with propofol. Vital Signs: Temp Pulse Resp BP SpO2 FiO2 97.7 F 63 14 113/61 98 30 Physical Exam: Gen:Unresponsive HEENT:Pupils midposition and reactive Lungs: Clear Cardiac: Reg rhythm Extremities:Cool. No cyanosis or edema. Fluid Balance (Past 24 Hours): 04/10/19 06:59 Intake Total 1695 Output Total 1935 Balance -240 Weight 251 lb Intake: IV Fluids 1010 LR 1010 Medicated IV 685 levophed 186 propofol 499 Output: [place] 193 Labs: 04/09/19 04/09/19 04/09/19 14:40 14:40 14:40 WBC 13.6 H RBC 4.59 Hgb 13.3 L Hct 41 L MCV 89 MCH 29 MCHC 32 RDW 19 H Plt Count 415 MPV 8.0 Absolute Neuts (auto) 6.8 Absolute Lymphs (auto) 4.1 Absolute Monos (auto) 1.5 H Absolute Eos (auto) 1.1 H Absolute Basos (auto) 0.1 Absolute Nucleated RBC 0.1 Immature Gran % 3.0 Neutrophils % 48.0 Band Neutrophils % 1.0 Lymphocytes % 30.0 Monocytes % 10.0 Eosinophils % 8.0 Basophils % 1.0 Metamyelocytes % 1.0 Myelocytes % 1.0 Nucleated RBC % 0.6 Nucleated RBCs/100 WBC 1.0 H Sodium 136 Potassium 3.3 L Chloride 101 Carbon Dioxide 20 L Anion Gap 15 H BUN 17 Creatinine 1.14 Est GFR ( Amer) 78.8 Est GFR (Non-Af Amer) 65.1 BUN/Creatinine Ratio 14.9 Glucose 233 H Lactic Acid 5.4 Calcium 8.6 Magnesium 2.2 Total Bilirubin 0.80 AST 27 ALT 19 Alkaline Phosphatase 90 Total Creatine Kinase 198 CK-MB (CK-2) 5.3 Troponin I 0.03 B-Natriuretic Peptide Total Protein 7.5 Albumin 3.9 Globulin 3.6 Albumin/Globulin Ratio 1.1 TSH 7.85 H Urine Color Urine Appearance Urine pH Ur Specific [place] Urine Protein Urine Ketones Urine Blood Urine Nitrate Urine Bilirubin Urine Urobilinogen Ur Leukocyte Esterase Urine WBC (Auto) Urine RBC (Auto) Ur Squamous Epith Cells Urine Bacteria Hyaline Casts Urine Glucose Urine Ascorbic Acid Urine Opiates Screen Ur Barbiturates Screen Ur Phencyclidine Scrn Ur Amphetamines Screen U Benzodiazepines Scrn Urine Cocaine Screen U Cannabinoids Screen 04/09/19 04/09/19 04/09/19 14:40 14:40 15:58 WBC RBC Hgb Hct MCV MCH MCHC RDW Plt Count MPV Neut % (Auto) Lymph % (Auto) [place] % (Auto) Eos % (Auto) Baso % (Auto) Absolute Neuts (auto) Absolute Lymphs (auto) Absolute Monos (auto) Absolute Eos (auto) Absolute Basos (auto) Absolute Nucleated RBC Immature Gran % Neutrophils % Band Neutrophils % Lymphocytes % Monocytes % Eosinophils % Basophils % Metamyelocytes % Myelocytes % Nucleated RBC % Nucleated RBCs/100 WBC Normal RBC Morphology Polychromasia Anisocytosis INR (Anticoag Therapy) 1.12 H APTT 28.7 Sodium Potassium Chloride Carbon Dioxide Anion Gap BUN Creatinine Est GFR ( Amer) Est GFR (Non-Af Amer) BUN/Creatinine Ratio Glucose Lactic Acid Calcium Magnesium Total Bilirubin AST ALT Alkaline Phosphatase Total Creatine Kinase CK-MB (CK-2) Troponin I B-Natriuretic Peptide 79 Total Protein Albumin Globulin Albumin/Globulin Ratio TSH Urine Color Yellow Urine Appearance Clear Urine pH 5.0 Ur Specific [place] 1.020 Urine Protein 1+(30 mg/dl) A Urine Ketones Negative Urine Blood Negative Urine Nitrate Negative Urine Bilirubin Negative Urine Urobilinogen Negative Ur Leukocyte Esterase Negative Urine WBC (Auto) Trace(0-5/hpf) Urine RBC (Auto) Trace(0-2/hpf) Ur Squamous Epith Cells Present A Urine Bacteria Absent Hyaline Casts Present A Urine Glucose Negative Urine Ascorbic Acid * A Urine Opiates Screen Ur Barbiturates Screen Ur Phencyclidine Scrn Ur Amphetamines Screen U Benzodiazepines Scrn Urine Cocaine Screen U Cannabinoids Screen 04/09/19 04/10/19 04/10/19 16:33 05:38 05:38 WBC 9.1 Hgb 11.9 L Hct 36 L Plt Count 352 Sodium 138 Potassium 3.8 Chloride 106 Carbon Dioxide 25 Anion Gap 7 BUN 12 Creatinine 0.72 Glucose 126 H Lactic Acid 1.1 Calcium 8.3 L Magnesium Total Bilirubin AST ALT Alkaline Phosphatase Total Creatine Kinase CK-MB (CK-2) Troponin I B-Natriuretic Peptide Total Protein Albumin Globulin Albumin/Globulin Ratio TSH Urine Color Urine Appearance Urine pH Ur Specific [place] Urine Protein Urine Ketones Urine Blood Urine Nitrate Urine Bilirubin Urine Urobilinogen Ur Leukocyte Esterase Urine WBC (Auto) Urine RBC (Auto) Ur Squamous Epith Cells Urine Bacteria Hyaline Casts Urine Glucose Urine Ascorbic Acid Urine Opiates Screen Presumptive positive Ur Barbiturates Screen None detected Ur Phencyclidine Scrn None detected Ur Amphetamines Screen None detected U Benzodiazepines Scrn Presumptive positive Urine Cocaine Screen Presumptive positive U Cannabinoids Screen None detected Studies: CXR: NAD Nutrition: None Impression: Clinically stable. Lactic acidosis has resolved, which is encouraging. Plan: Complete 24 hours of TTM and rewarm passively, then d/c propofol and assess mental status. in earlier today, and is aware of the current situation. Critical Care Time: 35 minutes
[2019-04-10] MEDS: Lactated Ringers 1000 ML Bag* 1,000 ML IV SCH ×2 (13:12→23:08)
[2019-04-10] MEDS ORDERED: Meperidine Ampule* 100 MG/2 ML AMPUL IV SLOW PU PRN (18:09)
[2019-04-11] MEDS: Chlorhexidine MOUTHWASH 0.12%* 15 ML UDC TOPICAL SCH ×6 (00:52→20:31)
[2019-04-11] MEDS: Propofol* 100 ML IV SCH ×6 (02:41→18:38)
[2019-04-11] MEDS: Famotidine IV* 10 MG/ML 2 ML (20 mg) IV SCH (09:30)
[2019-04-11] MEDS: fentaNYL INFUSION 50 MCG/ML* 2,500 MCG/50 ML BAG IV SCH (09:30)
[2019-04-11] MEDS: Heparin VIAL(*) 5000 UNITS/ML VIAL (FIVE THOUSAND) SUBCUT SCH ×2 (09:30→20:30)
[2019-04-11] MEDS ORDERED: oxyCODONE ORAL.SOLN* 5 MG/5 ML UDC PO SCH ×2 (10:00→14:00)
[2019-04-11] MEDS: Dexmedetomidine* 1,000 MCG in NS 0.9% 250 ML* 240 ML IVPB SCH ×2 (10:17→20:26)
--- NOTE | 2019-04-11 12:51 | PN ---
Date of Service: 04/11/19 Critical Care Services: 63 yo M being managed in the ICU after suffering cardiac arrest s/p ACLS and ROSC and TTM, intubated and mechanically ventilated during the course of event Patient seen and evaluated at the bedside -able to maintain on PS of 10 with good volumes - unable to weane off sedation due to agitation - currently on propofol and fentanyl. Precedex started today Vital Signs: Temp Pulse Resp BP SpO2 FiO2 98.8 F 83 12 92/43 95 30 04/11/19 11:00 04/11/19 11:00 04/11/19 11:04 04/11/19 11:00 04/11/19 11:00 04/11 08:00 Physical Exam: Gen:Sedated, intubated/mechanically ventilated, NAD HEENT:NCAT, PERRL, neck supple, no thyromegaly, ETT in oral orifice Lungs:CTAB Cardiac: +S1, S2, RRR Abdomen:obese, soft NT/ND Extremities:no edema, cyanosis, or clubbing Neuro:non focal, on sedation Fluid Balance (Past 24 Hours): I= O= Net Intake & Output 04/09/19 04/10/19 04/11/19 04/12/19 06:59 06:59 06:59 06:59 Intake Total 1695 2665 Output Total 1935 1083 140 Balance -240 1582 -140 Weight 251 lb 15.814 oz 246 lb 14.684 oz Intake: IV Fluids 1010 924 LR 1010 924 IVPB 760 LR 760 Medicated IV 685 968 levophed 186 88 propofol 499 880 IV Narcotic Infusion 13 Fentanyl 13 Output: [place] 1935 1083 140 ADLs: Meal Record Start: 04/09/19 15: 27 Freq: Status: Active Protocol: Created 04/09/19 15:27 System (Rec: 04/09/19 15:27 System ICU-C25) Document 04/09/19 18:00 [id number] (Rec: 04/09/19 18:35 VNK0068 ICU-L03) Document 04/10/19 09:00 EOO9859 (Rec: 04/10/19 11:10 ZNN0751 ICU-C15) Document 04/10/19 13:00 BWT1299 (Rec: 04/10/19 14:06 BRB2099 ICU-C15) Document 04/10/19 18:00 IFD1261 (Rec: 04/10/19 18:10 [id number] ICU-C15) Intake and Output Start: 04/09/19 14: 42 Freq: Status: Active Protocol: Created 04/09/19 14:42 System (Rec: 04/09/19 14:42 System EDRM-C14) Intake and Output Start: 04/09/19 15: 27 Freq: Q1HR Status: Active Protocol: Created 04/09/19 15:27 System (Rec: 04/09/19 15:27 System ICU-C25) Document 04/09/19 18:32 [id number] (Rec: 04/09/19 18:32 [id number] ICU-L03) Document 04/09/19 19:00 VEW8594 (Rec: 04/09/19 19:45 PDR2147 ICU-M33) Document 04/09/19 20:00 HQQ9084 (Rec: 04/09/19 21:30 RKE3615 ICU-C15) Document 04/09/19 21:00 YKO1824 (Rec: 04/09/19 21:30 ILI1927 ICU-C15) Document 04/09/19 22:00 JRC3601 (Rec: 04/09/19 22:03 QMA9206 ICU-M33) Document 04/09/19 23:00 HMJ9645 (Rec: 04/10/19 00:28 QEC2158 ICU-M33) Document 04/10/19 00:00 SES8948 (Rec: 04/10/19 00:28 YUD7759 ICU-M33) Document 04/10/19 01:00 FLX9797 (Rec: 04/10/19 03:05 HAJ9030 ICU-M33) Document 04/10/19 02:00 FMJ7275 (Rec: 04/10/19 03:05 BJS6152 ICU-M33) Document 04/10/19 03:00 WXP1481 (Rec: 04/10/19 03:05 KQQ8594 ICU-M33) Document 04/10/19 04:00 XID7935 (Rec: 04/10/19 05:56 IZT4899 ICU-C15) Document 04/10/19 05:00 PSO2869 (Rec: 04/10/19 05:56 EMG8702 ICU-C15) Document 04/10/19 06:00 AXC3513 (Rec: 04/10/19 06:49 DBD6285 ICU-M33) Document 04/10/19 06:48 YKQ4501 (Rec: 04/10/19 06:48 DEW9858 ICU-M33) Document 04/10/19 08:00 FQC6075 (Rec: 04/10/19 08:57 VRW1795 ICU-C15) Document 04/10/19 08:57 TVE5587 (Rec: 04/10/19 08:57 SGV3577 ICU-C15) Document 04/10/19 10:00 PJW4905 (Rec: 04/10/19 11:19 AAI8517 ICU-C15) Document 04/10/19 11:00 MVV3804 (Rec: 04/10/19 11:19 DWR2843 ICU-C15) Document 04/10/19 12:00 PNC5175 (Rec: 04/10/19 13:17 FMP9774 ICU-C15) Document 04/10/19 13:00 LVL5721 (Rec: 04/10/19 13:17 RSN7634 ICU-C15) Document 04/10/19 14:00 DFI3106 (Rec: 04/10/19 14:13 IRC2703 ICU-M33) Document 04/10/19 15:00 MJQ0904 (Rec: 04/10/19 16:19 JEQ8553 ICU-M33) Document 04/10/19 16:00 LFN0752 (Rec: 04/10/19 16:19 YUS6258 ICU-M33) Document 04/10/19 17:00 ZHM9540 (Rec: 04/10/19 18:05 DMZ4535 ICU-M33) Document 04/10/19 18:00 DWZ2181 (Rec: 04/10/19 18:05 POG7864 ICU-M33) Document 04/10/19 19:26 KCC5765 (Rec: 04/10/19 19:26 URJ7011 ICU-M33) Document 04/10/19 20:55 WIH0166 (Rec: 04/10/19 20:55 QCL7519 ICU-M33) Document 04/10/19 22:00 ZCG3465 (Rec: 04/10/19 22:21 MTK7999 ICU-L03) Document 04/10/19 22:59 NGC6339 (Rec: 04/10/19 22:59 OHV0130 ICU-M33) Document 04/11/19 00:00 OEM8543 (Rec: 04/11/19 00:04 YCS1843 ICU-L03) Document 04/11/19 03:00 KVJ2376 (Rec: 04/11/19 03:03 KTM5791 ICU-L03) Document 04/11/19 04:00 EID8067 (Rec: 04/11/19 04:17 BEY5989 ICU-L03) Document 04/11/19 05:00 BIE3206 (Rec: 04/11/19 05:05 JGJ5062 ICU-L03) Document 04/11/19 06:00 UZI3927 (Rec: 04/11/19 06:01 WHS4553 ICU-M33) Document 04/11/19 07:00 DBE7332 (Rec: 04/11/19 08:20 RHC2902 ICU-C15) Document 04/11/19 08:00 OIP9595 (Rec: 04/11/19 08:20 KLT7016 ICU-C15) Document 04/11/19 09:00 OJK7800 (Rec: 04/11/19 09:34 UWV4154 ICU-M33) Document 04/11/19 10:00 YVB7995 (Rec: 04/11/19 10:37 XON8727 ICU-C15) Document 04/11/19 11:00 UBM1078 (Rec: 04/11/19 11:26 QRC5925 ICU-M33) Nutrition: Promote at goal of 60cc/h Impression: 63 yo M being managed in the ICU after suffering cardiac arrest s/p ACLS and ROSC and TTM, intubated and mechanically ventilated during the course of event Plan: # Cardiac arrest- asystole # Polysubstance abuse- opiate, BZD, cocaine, heroine # hx/o mood d/o # chronic pain syndrome # acute respiratory failure requiring acute ventilator dependance # systemic steroid chronic vs acute # acute encephalopathy- r/o ICU delirium vs acute alcohol withdrawal - status post ACLS with ROSC - s/p TTM and rewarming 04/10 - suspect cardiac arrest by cocaine and heroine use - Resumed home meds for mood d/o, pain at lower or home doses: bupropion, amitriptyline, diflunisal, gabapentin - prn oxycodone scheduled - start seroquel 25 mg BID for ICU delirium - maintain RASS 0- -1 with propofol, precedex, fentanyl - bowel regimen with colace - banana bag - alcohol withdrawal precautions - restarted prednisone at 40 mg daily for now - home med reconcilation pending - started tube feeds PPX -DVT- SQH -GI- H2B Prognosis: critical Dispo: monitor in the ICU Discussed plan with nurse, and daughter Critical care issues: s/p cardiac arrest, acute respiratory failure, mechanical ventilation, AMS Critical Care Time: 45 MINUTES
[2019-04-11] MEDS ORDERED: Thiamine IV 100 MG, Folic Acid IV* 1 MG, Multiple Vitamin IV ADULT* 10 ML in D5NS 0.9% ... IV ONE (13:29)
[2019-04-11] MEDS ORDERED: Gabapentin CAP(*) 100 MG PO SCH (14:00)
[2019-04-11] MEDS: Gabapentin CAP(*) 100 MG SCH ×2 (16:09→20:30)
[2019-04-11] MEDS: oxyCODONE ORAL.SOLN* 5 MG/5 ML UDC SCH ×3 (16:10→23:51)
[2019-04-11] MEDS ORDERED: NS 0.9% 500 ML* 500 ML IV ONE (20:14)
[2019-04-11] MEDS ORDERED: NS 0.9% 1000 ML** 1,000 ML IV SCH (20:15)
[2019-04-11] MEDS: Amitriptyline TAB* 25 MG G TUBE SCH (20:30)
[2019-04-11] MEDS: Docusate LIQ* 100 MG/10 ML UDC G TUBE SCH (20:30)
[2019-04-11] MEDS: QUEtiapine TAB* 25 MG G TUBE SCH (20:30)
[2019-04-11] MEDS: DIFLUNISAL 500 MG G TUBE SCH (20:30)
[2019-04-11] MEDS: buPROPion TAB* 100 MG G TUBE SCH (20:30)
[2019-04-11] MEDS ORDERED: NS 0.9% 1000 ML** 1,000 ML IV ONE ×2 (22:34→23:30)
[2019-04-11 22:59] LABS: Hematocrit 33 % (42-52); Hemoglobin 10.8 g/dL (14.0-18.0); Mean Corpuscular HGB Conc 33 g/dL (31-36); Mean Corpuscular Hemoglobin 29 pg (27-31); Mean Corpuscular Volume 88 fL (80-94); Mean Platelet Volume 8.3 fL (7.4-10.4); Platelet Count 269 10^3/uL (150-450); Red Blood Count 3.73 10^6 /uL (4.18-5.48); Red Cell Distribution Width 18 % (10.5-15); White Blood Count 8.5 10^3/uL (3.5-10.8)
[2019-04-11 23:15] LABS: ALT 11 U/L (7-52); AST 16 U/L (13-39); Albumin 3.1 g/dL (3.2-5.2); Albumin/Globulin Ratio 1.1 (1-3); Alkaline Phosphatase 61 U/L (34-104); Anion Gap 5 mmol/L (2-11); BUN/Creatinine Ratio 11.1 (8-20); Blood Urea Nitrogen 8 mg/dL (6-24); CO2 Carbon Dioxide 27 mmol/L (22-32); Calcium 8.1 mg/dL (8.6-10.3); Chloride 105 mmol/L (101-111); Creatine Kinase 200 U/L (10-223); EGFR African American 133.8 (>60); EGFR Non-African American 110.6 (>60); Globulin 2.9 g/dL (2-4); Glucose 113 mg/dL (70-100); Phosphorus 3.4 mg/dL (2.5-5.0); Potassium 3.8 mmol/L (3.5-5.0); Sodium 137 mmol/L (135-145)
[2019-04-11 23:20] LABS: CKMB ng/mL 1.5 ng/mL (0.6-6.3)
[2019-04-11 23:21] LABS: Troponin I 0.04 ng/mL (<0.04)
[2019-04-12] MEDS: Propofol* 100 ML IV SCH ×4 (00:57→21:35)
[2019-04-12] MEDS: Chlorhexidine MOUTHWASH 0.12%* 15 ML UDC TOPICAL SCH ×6 (01:21→20:26)
[2019-04-12] MEDS ORDERED: Norepinephrine 16MCG/ML IVPRE* 4,000 MCG/250 ML BAG IV ONE (01:53)
--- NOTE | 2019-04-12 01:54 | PN ---
Hospitalist Progress Note Date of Service: 04/12/19 Pt bolused total of 2 L. No change in CXR and EKG only mild saadia. Bolused w/ 2L total and currently on IVF. BP improved but after a few hours, MAP started to decrease. Concern for pulmonary edema in the setting of recent cardiac arrest is concerning for possible cardiogenic shock. Previously on Levophed. Will place pt back on low dose Levophed and titrate to MAP >/=65. 2D echo ordered in AM. Mildly elevated troponins noted possibly due to demand. 2D echo pending as described.
[2019-04-12] MEDS ORDERED: Norepinephrine 16MCG/ML IVPRE* 4,000 MCG/250 ML BAG IV SCH ×2 (02:00→13:00)
[2019-04-12] MEDS: oxyCODONE ORAL.SOLN* 5 MG/5 ML UDC SCH ×6 (03:15→21:10)
[2019-04-12 05:02] LABS: ABS Basophils 0.1 10^3/ul (0-0.2); ABS Eosinophils 0.3 10^3/ul (0-0.6); ABS Lymphocytes 1.3 10^3/ul (1.0-4.8); ABS Monocytes 1.5 10^3/ul (0-0.8); ABS Neutrophils 6.1 10^3/ul (1.5-7.7); ABS Nucleated RBC 0.1 10^3/ul; Eosinophil % 3.4 %; Hematocrit 32 % (42-52); Hemoglobin 10.6 g/dL (14.0-18.0); Lymphocyte % 13.6 %; Mean Corpuscular HGB Conc 33 g/dL (31-36); Mean Corpuscular Hemoglobin 29 pg (27-31); Mean Corpuscular Volume 89 fL (80-94); Mean Platelet Volume 8.4 fL (7.4-10.4); Nucleated Red Blood Cells % 0.6; Platelet Count 286 10^3/uL (150-450); Red Blood Count 3.64 10^6 /uL (4.18-5.48); Red Cell Distribution Width 18 % (10.5-15); White Blood Count 9.2 10^3/uL (3.5-10.8)
[2019-04-12 05:13] LABS: BUN/Creatinine Ratio 12.3 (8-20); Calcium 7.9 mg/dL (8.6-10.3); EGFR African American 150.6 (>60); EGFR Non-African American 124.5 (>60); Phosphorus 3.1 mg/dL (2.5-5.0)
[2019-04-12 05:17] LABS: Troponin I 0.03 ng/mL (<0.04)
[2019-04-12 05:19] LABS: CKMB ng/mL 1.2 ng/mL (0.6-6.3)
[2019-04-12] MEDS: Dexmedetomidine* 1,000 MCG in NS 0.9% 250 ML* 240 ML IVPB SCH ×5 (06:02→22:41)
[2019-04-12] MEDS: Docusate LIQ* 100 MG/10 ML UDC G TUBE SCH ×2 (08:11→20:27)
[2019-04-12] MEDS: DIFLUNISAL 500 MG G TUBE SCH ×2 (08:11→20:27)
[2019-04-12] MEDS: Famotidine IV* 10 MG/ML 2 ML (20 mg) IV SCH (08:11)
[2019-04-12] MEDS: Heparin VIAL(*) 5000 UNITS/ML VIAL (FIVE THOUSAND) SUBCUT SCH ×2 (08:11→20:28)
[2019-04-12] MEDS: QUEtiapine TAB* 25 MG G TUBE SCH ×2 (08:11→20:29)
[2019-04-12] MEDS: Gabapentin CAP(*) 100 MG SCH ×3 (08:11→20:25)
[2019-04-12] MEDS: predniSONE TAB* 20 MG G TUBE SCH (08:11)
[2019-04-12] MEDS: buPROPion TAB* 100 MG G TUBE SCH ×2 (08:11→21:10)
[2019-04-12] MEDS ORDERED: QUEtiapine TAB* 25 MG PO ONE (09:54)
[2019-04-12] MEDS ORDERED: Calcium Gluconate INJ* 1 GM in NS 0.9% 50 ML* 50 ML IVPB ONE (10:30)
[2019-04-12] MEDS ORDERED: Perflutren Lipid Microsphere* 3 ML VIAL ONE (11:05)
[2019-04-12] MEDS: Polyethylene Glycol 3350* 17 GM PACKET PO SCH (11:46)
--- NOTE | 2019-04-12 13:05 | PN ---
Date of Service: 04/12/19 Critical Care Services: 63 yo M being managed in the ICU after suffering cardiac arrest s/p ACLS and ROSC and TTM, intubated and mechanically ventilated during the course of event Patient seen and evaluated at the bedside -able to maintain on PS of 10 with good volumes - unable to weane off sedation due to agitation - currently on propofol and fentanyl. Precedex started 04/12 Vital Signs: Temp Pulse Resp BP SpO2 FiO2 100.4 F 65 18 138/75 95 30 04/12/19 12:30 04/12/19 12:30 04/12/19 11:46 04/12/19 12:30 04/12/19 12:30 04/12 11:27 Physical Exam: Gen:Sedated, intubated/mechanically ventilated, NAD HEENT:NCAT, PERRL, neck supple, no thyromegaly, ETT in oral orifice Lungs:CTAB Cardiac: +S1, S2, RRR Abdomen:obese, soft NT/ND Extremities:no edema, cyanosis, or clubbing Neuro:non focal, on sedation Fluid Balance (Past 24 Hours): I= O= Net Intake & Output 04/10/19 04/11/19 04/12/19 04/13/19 06:59 06:59 06:59 06:59 Intake Total 1695 2665 5825 242 Output Total 1935 1083 1965 765 Balance -240 1582 3860 -523 Weight 251 lb 15.814 oz 246 lb 14.684 oz 252 lb 10.396 oz Intake: IV Fluids 0665 046 0100 LR 1010 924 322 NS (0.9%) 3012 IVPB 760 1023 LR 760 VITAMIN BAG 1023 Medicated IV 685 968 810 CC - Dexmedetomidine/ 182 Precedex levophed 186 88 22 propofol 499 880 606 IV Narcotic Infusion 13 Fentanyl 13 Tube Feeding 368 192 Tube Feeding Flush Amount 290 50 Output: [place] 1934 1083 1965 765 ADLs: Meal Record Start: 04/09/19 15: 27 Freq: Status: Active Protocol: Created 04/09/19 15:27 System (Rec: 04/09/19 15:27 System ICU-C25) Document 04/09/19 18:00 [id number] (Rec: 04/09/19 18:35 WAJ5722 ICU-L03) Document 04/10/19 09:00 LIM6955 (Rec: 04/10/19 11:10 LAI3616 ICU-C15) Document 04/10/19 13:00 PHM5228 (Rec: 04/10/19 14:06 WRG8433 ICU-C15) Document 04/10/19 18:00 ZMH5930 (Rec: 04/10/19 18:10 RSF2393 ICU-C15) Intake and Output Start: 04/09/19 14: 42 Freq: Status: Active Protocol: Created 04/09/19 14:42 System (Rec: 04/09/19 14:42 System EDRM-C14) Intake and Output Start: 04/09/19 15: 27 Freq: Q1HR Status: Active Protocol: Created 04/09/19 15:27 System (Rec: 04/09/19 15:27 System ICU-C25) Document 04/09/19 18:32 QOR1381 (Rec: 04/09/19 18:32 LFR0409 ICU-L03) Document 04/09/19 19:00 LLF9258 (Rec: 04/09/19 19:45 PKJ3857 ICU-M33) Document 04/09/19 20:00 IDC4505 (Rec: 04/09/19 21:30 MXP2745 ICU-C15) Document 04/09/19 21:00 TIW2912 (Rec: 04/09/19 21:30 OOQ4793 ICU-C15) Document 04/09/19 22:00 AAY7483 (Rec: 04/09/19 22:03 VSW0969 ICU-M33) Document 04/09/19 23:00 MMW7061 (Rec: 04/10/19 00:28 RGK1361 ICU-M33) Document 04/10/19 00:00 CFZ3832 (Rec: 04/10/19 00:28 ZYA6306 ICU-M33) Document 04/10/19 01:00 RPD1053 (Rec: 04/10/19 03:05 XLD3409 ICU-M33) Document 04/10/19 02:00 AQR3561 (Rec: 04/10/19 03:05 NFH9464 ICU-M33) Document 04/10/19 03:00 ALR4244 (Rec: 04/10/19 03:05 TKK4436 ICU-M33) Document 04/10/19 04:00 JNE2001 (Rec: 04/10/19 05:56 PYV5543 ICU-C15) Document 04/10/19 05:00 CKK2884 (Rec: 04/10/19 05:56 TGD8220 ICU-C15) Document 04/10/19 06:00 YRL9657 (Rec: 04/10/19 06:49 KVW0995 ICU-M33) Document 04/10/19 06:48 CMD4905 (Rec: 04/10/19 06:48 IQO3727 ICU-M33) Document 04/10/19 08:00 VTG6221 (Rec: 04/10/19 08:57 BUY5960 ICU-C15) Document 04/10/19 08:57 LYU2059 (Rec: 04/10/19 08:57 MAJ5908 ICU-C15) Document 04/10/19 10:00 VMZ2207 (Rec: 04/10/19 11:19 FHT3931 ICU-C15) Document 04/10/19 11:00 QUI2887 (Rec: 04/10/19 11:19 RGF6084 ICU-C15) Document 04/10/19 12:00 KRT5091 (Rec: 04/10/19 13:17 OUT6525 ICU-C15) Document 04/10/19 13:00 ZOA2846 (Rec: 04/10/19 13:17 MLE4282 ICU-C15) Document 04/10/19 14:00 HJP8010 (Rec: 04/10/19 14:13 WLS8751 ICU-M33) Document 04/10/19 15:00 BET3128 (Rec: 04/10/19 16:19 BBT4414 ICU-M33) Document 04/10/19 16:00 UQM9714 (Rec: 04/10/19 16:19 JAO8977 ICU-M33) Document 04/10/19 17:00 QOG3686 (Rec: 04/10/19 18:05 IGM0240 ICU-M33) Document 04/10/19 18:00 AJK9043 (Rec: 04/10/19 18:05 VBD7094 ICU-M33) Document 04/10/19 19:26 HNI1853 (Rec: 04/10/19 19:26 OAQ7306 ICU-M33) Document 04/10/19 20:55 ODK1166 (Rec: 04/10/19 20:55 VFK8180 ICU-M33) Document 04/10/19 22:00 VTT6153 (Rec: 04/10/19 22:21 KGB7810 ICU-L03) Document 04/10/19 22:59 AFP9188 (Rec: 04/10/19 22:59 JEC3220 ICU-M33) Document 04/11/19 00:00 NJH7974 (Rec: 04/11/19 00:04 BBT8465 ICU-L03) Document 04/11/19 03:00 YXP3642 (Rec: 04/11/19 03:03 JDS3732 ICU-L03) Document 04/11/19 04:00 QBE9376 (Rec: 04/11/19 04:17 FKH5245 ICU-L03) Document 04/11/19 05:00 UIR7255 (Rec: 04/11/19 05:05 YKK1880 ICU-L03) Document 04/11/19 06:00 JTY4355 (Rec: 04/11/19 06:01 FMP9057 ICU-M33) Document 04/11/19 07:00 HWB1642 (Rec: 04/11/19 08:20 SJR8146 ICU-C15) Document 04/11/19 08:00 DZS5468 (Rec: 04/11/19 08:20 FNG6178 ICU-C15) Document 04/11/19 09:00 KHD7508 (Rec: 04/11/19 09:34 TFP5605 ICU-M33) Document 04/11/19 10:00 RUJ2392 (Rec: 04/11/19 10:37 XWP4824 ICU-C15) Document 04/11/19 11:00 BYC0639 (Rec: 04/11/19 11:26 PSN0039 ICU-M33) Document 04/11/19 11:00 KDR0985 (Rec: 04/11/19 15:02 PVS0711 ICU-C15) Document 04/11/19 12:00 DVY6297 (Rec: 04/11/19 14:25 BUC3133 ICU-C15) Document 04/11/19 13:00 ANL3826 (Rec: 04/11/19 14:25 WTR3001 ICU-C15) Document 04/11/19 14:00 YRG8368 (Rec: 04/11/19 14:25 DOT7215 ICU-C15) Document 04/11/19 15:00 RGP3156 (Rec: 04/11/19 15:00 SAF5023 ICU-C15) Document 04/11/19 16:00 WLG2121 (Rec: 04/11/19 16:17 PAU5030 ICU-M33) Document 04/11/19 17:00 UWQ0978 (Rec: 04/11/19 17:30 JBZ3163 ICU-M33) Document 04/11/19 18:00 FBY2432 (Rec: 04/11/19 18:35 NMT3219 ICU-M33) Document 04/11/19 19:00 CAU1037 (Rec: 04/11/19 19:03 YSW1257 ICU-C15) Document 04/11/19 20:00 SPJ1034 (Rec: 04/11/19 20:01 KKQ3546 ICU-M33) Document 04/11/19 20:56 VUS3776 (Rec: 04/11/19 20:56 XVT6904 ICU-M33) Document 04/11/19 21:55 XDF3417 (Rec: 04/11/19 21:55 VOQ4696 ICU-M33) Document 04/11/19 23:00 QAN2934 (Rec: 04/11/19 23:13 SWV2221 ICU-L03) Document 04/12/19 00:00 YBE3345 (Rec: 04/12/19 00:04 MME7464 ICU-M33) Document 04/12/19 01:00 TAC1747 (Rec: 04/12/19 01:20 AUK9409 ICU-M33) Document 04/12/19 02:00 DCM2389 (Rec: 04/12/19 02:11 IMO6703 ICU-M33) Document 04/12/19 03:00 PWV4678 (Rec: 04/12/19 03:02 FJK9046 ICU-M33) Document 04/12/19 04:00 EWH3073 (Rec: 04/12/19 04:05 PVO2897 ICU-L03) Document 04/12/19 04:56 QBS0915 (Rec: 04/12/19 04:56 JDX4228 ICU-M33) Document 04/12/19 05:18 UKY2847 (Rec: 04/12/19 05:18 DHD2118 ICU-M33) Document 04/12/19 06:00 QAS4944 (Rec: 04/12/19 06:03 AEM6955 ICU-M33) Document 04/12/19 07:00 TYN6919 (Rec: 04/12/19 07:13 RGQ1898 ICU-M33) Document 04/12/19 08:00 QES4230 (Rec: 04/12/19 08:10 WCD3157 ICU-M33) Document 04/12/19 09:00 OMW1893 (Rec: 04/12/19 09:07 PBL8932 ICU-C15) Document 04/12/19 10:00 LEN3260 (Rec: 04/12/19 12:32 MHZ2848 ICU-C15) Document 04/12/19 11:00 QDL9880 (Rec: 04/12/19 12:32 PUC4613 ICU-C15) Document 04/12/19 12:00 KWO1081 (Rec: 04/12/19 12:32 GFM2882 ICU-C15) Labs: Laboratory Results - last 24 hr 04/11/19 04/11/19 04/11/19 22:47 22:48 22:48 WBC RBC Hgb Hct MCV MCH MCHC RDW Plt Count MPV Neut % (Auto) Lymph % (Auto) [place] % (Auto) Eos % (Auto) Baso % (Auto) Absolute Neuts (auto) Absolute Lymphs (auto) Absolute Monos (auto) Absolute Eos (auto) Absolute Basos (auto) Absolute Nucleated RBC Nucleated RBC % Patient Temperature Not Reportable ABG pH 7.39 ABG pH (Temp Correct) Not Reportable ABG pCO2 45 ABG pCO2 (Temp Corrct Not Reportable ABG pO2 82 ABG pO2 (Temp Correct Not Reportable ABG HCO3 26.2 ABG O2 Saturation 98.0 ABG Base Excess 1.7 Respiration Rate Not Reportable O2 Delivery Device vent Ventilator Type Not Reportable Vent Mode spont FiO2 30 Inspiratory Time Not Reportable PEEP 8 Pressure Support 10 Pressure Control Not Reportable EPAP Not Reportable IPAP Not Reportable BiPAP Not Reportable Sodium 137 Potassium 3.8 Chloride 105 Carbon Dioxide 27 Anion Gap 5 BUN 8 Creatinine 0.72 Est GFR ( Amer) 133.8 Est GFR (Non-Af Amer) 110.6 BUN/Creatinine Ratio 11.1 Glucose 113 H Lactic Acid 0.6 Uric Acid 4.0 L Calcium 8.1 L Phosphorus 3.4 Magnesium 2.0 Total Bilirubin 0.60 AST 16 ALT 11 Alkaline Phosphatase 61 Total Creatine Kinase 200 CK-MB (CK-2) 1.5 Troponin I 0.04 H* Total Protein 6.0 L Albumin 3.1 L Globulin 2.9 Albumin/Globulin Ratio 1.1 04/11/19 04/12/19 04/12/19 22:48 04:45 04:45 WBC 8.5 9.2 RBC 3.73 L 3.64 L Hgb 10.8 L 10.6 L Hct 33 L 32 L MCV 88 89 MCH 29 29 MCHC 33 33 RDW 18 H 18 H Plt Count 269 286 MPV 8.3 8.4 Neut % (Auto) 66.4 Lymph % (Auto) 13.6 [place] % (Auto) 15.8 Eos % (Auto) 3.4 Baso % (Auto) 0.8 Absolute Neuts (auto) 6.1 Absolute Lymphs (auto) 1.3 Absolute Monos (auto) 1.5 H Absolute Eos (auto) 0.3 Absolute Basos (auto) 0.1 Absolute Nucleated RBC 0.1 Nucleated RBC % 0.6 Patient Temperature ABG pH ABG pH (Temp Correct) ABG pCO2 ABG pCO2 (Temp Corrct ABG pO2 ABG pO2 (Temp Correct ABG HCO3 ABG O2 Saturation ABG Base Excess Respiration Rate O2 Delivery Device Ventilator Type Vent Mode FiO2 Inspiratory Time PEEP Pressure Support Pressure Control EPAP IPAP BiPAP Sodium 138 Potassium 4.0 Chloride 109 Carbon Dioxide 26 Anion Gap 3 BUN 8 Creatinine 0.65 L Est GFR ( Amer) 150.6 Est GFR (Non-Af Amer) 124.5 BUN/Creatinine Ratio 12.3 Glucose 118 H Lactic Acid Uric Acid Calcium 7.9 L Phosphorus 3.1 Magnesium 2.0 Total Bilirubin AST ALT Alkaline Phosphatase Total Creatine Kinase 164 CK-MB (CK-2) 1.2 Troponin I 0.03 Total Protein Albumin Globulin Albumin/Globulin Ratio 04/12/19 11:30 WBC RBC Hgb Hct MCV MCH MCHC RDW Plt Count MPV Neut % (Auto) Lymph % (Auto) [place] % (Auto) Eos % (Auto) Baso % (Auto) Absolute Neuts (auto) Absolute Lymphs (auto) Absolute Monos (auto) Absolute Eos (auto) Absolute Basos (auto) Absolute Nucleated RBC Nucleated RBC % Patient Temperature Not Reportable ABG pH 7.36 ABG pH (Temp Correct) Not Reportable ABG pCO2 44 ABG pCO2 (Temp Corrct Not Reportable ABG pO2 106 H ABG pO2 (Temp Correct Not Reportable ABG HCO3 24.3 ABG O2 Saturation 99.7 H ABG Base Excess -0.8 Respiration Rate Not Reportable O2 Delivery Device Ventilator Type Not Reportable Vent Mode Not Reportable FiO2 30 Inspiratory Time Not Reportable PEEP 8 Pressure Support 10 Pressure Control Not Reportable EPAP Not Reportable IPAP Not Reportable BiPAP Not Reportable Sodium Potassium Chloride Carbon Dioxide Anion Gap BUN Creatinine Est GFR ( Amer) Est GFR (Non-Af Amer) BUN/Creatinine Ratio Glucose Lactic Acid Uric Acid Calcium Phosphorus Magnesium Total Bilirubin AST ALT Alkaline Phosphatase Total Creatine Kinase CK-MB (CK-2) Troponin I Total Protein Albumin Globulin Albumin/Globulin Ratio Nutrition: Promote at goal of 60cc/h-->Jevity Impression: 63 yo M being managed in the ICU after suffering cardiac arrest s/p ACLS and ROSC and TTM, intubated and mechanically ventilated during the course of event Plan: # Cardiac arrest- asystole # Polysubstance abuse- opiate, BZD, cocaine, heroine # hx/o mood d/o # chronic pain syndrome # acute respiratory failure requiring acute ventilator dependance # systemic steroid chronic vs acute # acute encephalopathy- r/o ICU delirium vs acute alcohol withdrawal # Constipation - status post ACLS with ROSC - s/p TTM and rewarming 04/10 - suspect cardiac arrest by cocaine and heroine use - Resumed home meds for mood d/o, pain at lower or home doses: bupropion, amitriptyline, diflunisal, gabapentin - prn oxycodone scheduled - Seroquel 25 mg BID for ICU delirium. Increase dose of seroquel to 50 mg BID - maintain RASS 0- -1 with propofol, precedex, fentanyl - bowel regimen with colace, Senna, miralax - banana bag - alcohol withdrawal precautions - prednisone at 40 mg daily for now - home med reconcilation pending PPX -DVT- SQH -GI- H2B Prognosis: critical Dispo: monitor in the ICU Discussed plan with nurse, and daughter Critical care issues: s/p cardiac arrest, acute respiratory failure, mechanical ventilation, AMS Critical Care Time: 40 MINUTES
--- NOTE | 2019-04-12 13:42 | ECHO ---
*[facility]* [place] [address] Fax #: [phone] Transthoracic Echocardiogram Patient: Alex, Height: 60 in / Ang Rojas 152.4 cm : 1955 Weight: 245.5 lb / Study Date: 04/12/2019 111.6 kg Age: 63 BP: 104 / 65 Gender: M BMI/BSA: 48 kg/m^2 HR: 65 bpm / 2.25 m^2 *Bank Secrecy Act Officer: * Iqra Rosario RDCS RN *Referring Physician: * Nghia Wooten *Reading Physician: * Gordo Arvizu MD Indications: Cardiac Arrest. Hypotension. History: Risk factors: Former tobacco use. Obese. ETOH use. Conclusions Summary: 1. Left ventricle: Wall thickness is mildly increased. The estimated ejection fraction is 50-55%. 2. Left atrium: The atrium is mildly dilated. 3. Mitral valve: There is mild regurgitation. 4. Tricuspid valve: There is trace regurgitation. 5. Pulmonary arteries: The PAP is estimated at 39mmHg. There is mild pulmonary hypertension. 6. No previous echocardiogram available. Study data: Transthoracic echocardiogram. Procedure: Transthoracic echocardiography was performed. Image quality was fair. The study was technically limited due to body habitus and Patient on ventilator. A total of 4 ml of Definity was administered IV. Image enhancement administered by Antonietta Kebede RN. Complete 2D, spectral Doppler, and color flow Doppler. Patient status: Inpatient. Patient room number: ICU 3. Rhythm: Normal sinus rhythm with PAC's. Findings Left ventricle: Wall thickness is mildly increased. The estimated ejection fraction is 50-55%. There are no regional wall motion abnormalities. There is no consistent Doppler evidence of clinically significant diastolic dysfunction. Right ventricle: The cavity size is normal. Systolic function is low normal. Left atrium: The atrium is mildly dilated. Right atrium: The atrium is normal in size. Mitral valve: The leaflets are mildly thickened. There is no evidence of stenosis. There is mild regurgitation. Aortic valve: The leaflets are normal thickness. There is no evidence of stenosis. There is no regurgitation. Tricuspid valve: The valve is structurally normal. There is no evidence of stenosis. There is trace regurgitation. Pulmonic valve: The valve is structurally normal. There is no evidence of stenosis. There is trivial regurgitation. Aorta: Aortic root: The aortic root is not dilated. Ascending aorta: The ascending aorta is not dilated. Aortic arch: The aortic arch is not dilated. Pericardium: There is no pericardial effusion. Pulmonary arteries: The main pulmonary artery is normal-sized. The PAP is estimated at 39mmHg. There is mild pulmonary hypertension. Systemic veins: Inferior vena cava: The vessel cannot be well evaluated since the patient is on mechanical ventilation. Measurements Left ventricle Value Ref Right atrium Value Ref MUSTAPHA, LAX 4.9 cm 4.2 - ML dim, ES, A4C (H) 4.7 cm 2.6 - 4.4 5.8 SI dim, ES, A4C 5.1 cm 3.4 - 5.3 ESD, LAX 3.7 cm 2.5 - 4.0 Aortic valve Value Ref FS, LAX 25 % 25 - 43 Peak v, S 1.07 m/sec --------- PW, ED, LAX (H) 1.1 cm 0.6 - VTI, S 21.7 cm --------- 1.0 Mean grad, S 3.0 mm Hg --------- PW, ED (H) 1.1 cm 0.6 - Peak grad, S 4.6 mm Hg --------- 1.0 LVOT/AV, VTI ratio 0.88 --------- IVS/PW, ED 0.97 -------- PW/ID, ED 0.22 -------- Mitral valve Value Ref E', lat ross, TDI 11.9 cm/sec >=10.0 Peak E 1.2 m/sec --- ------ E/e', lat ross, 10 -------- Peak A 0.77 m/sec ------ --- TDI Decel time 153 ms --------- E', med ross, TDI 13.7 cm/sec >=7.0 Peak grad, D 5.7 mm Hg --- ------ E/e', med ross, 9 -------- Peak E/A ratio 1.56 ------ --- TDI E', avg, TDI 12.8 cm/sec -------- Pulmonic valve Value Ref E/e', avg, TDI 9 <=14 Peak v, S 0.79 m/sec --- ------ Peak grad, S 2.5 mm Hg --------- LVOT Value Ref Peak kaitlin, S 0.95 m/sec -------- Tricuspid valve Value Ref VTI, S 19.1 cm -------- TR peak v 2.8 m/sec <=2.8 Peak grad, S 4 mm Hg -------- Peak RV-RA grad, S 31 mm Hg --------- Mean grad, S 2 mm Hg -------- Aortic root Value Ref Ventricular septum Value Ref Root diam 3.3 cm <4.3 IVS, ED (H) 1.1 cm 0.6 - 1.0 Ascending aorta Value Ref AAo AP diam, S 3.3 cm --------- Right ventricle Value Ref MUSTAPHA, LAX 3.5 cm -------- Inferior vena cava Value Ref MUSTAPHA major ax, A4C (L) 3.9 cm 5.9 - Diam 2.4 cm --------- 8.3 Left atrium Value Ref LA ID 4.7 cm -------- SI dim ES, LAX 4.7 cm -------- ML dim, A4C 4.6 cm -------- SI dim, A4C 5.9 cm -------- Vol, ES, 2-p 82 ml -------- Vol/bsa, ES, 2-p (H) 36 ml/m^2 16 - 34 Legend: (L) and (H) taniya values outside specified reference range. Prepared and electronically signed by Gordo Arvizu MD 04/12/2019 13:42
[2019-04-12] MEDS: Diazepam TAB(*) 5 MG PO SCH (15:57)
[2019-04-12] MEDS: Senna TAB PO SCH (20:26)
[2019-04-12] MEDS: Amitriptyline TAB* 25 MG G TUBE SCH (20:26)
[2019-04-12] MEDS: hydrALAZINE IV* 20 MG/ML VIAL IV SLOW PU PRN (21:07)
[2019-04-13] MEDS: Chlorhexidine MOUTHWASH 0.12%* 15 ML UDC TOPICAL SCH ×4 (00:01→13:13)
[2019-04-13] MEDS: oxyCODONE ORAL.SOLN* 5 MG/5 ML UDC SCH ×2 (02:15→05:58)
[2019-04-13] MEDS: Dexmedetomidine* 1,000 MCG in NS 0.9% 250 ML* 240 ML IVPB SCH ×4 (05:08→23:06)
[2019-04-13] MEDS: Propofol* 100 ML IV SCH (05:49)
[2019-04-13] MEDS: fentaNYL INFUSION 50 MCG/ML* 2,500 MCG/50 ML BAG IV SCH (07:12)
[2019-04-13] MEDS: Heparin VIAL(*) 5000 UNITS/ML VIAL (FIVE THOUSAND) SUBCUT SCH ×2 (08:28→21:09)
[2019-04-13] MEDS: Famotidine IV* 10 MG/ML 2 ML (20 mg) IV SCH (08:28)
[2019-04-13] MEDS: Diazepam TAB(*) 5 MG PO SCH ×3 (08:28→16:11)
[2019-04-13] MEDS: Docusate LIQ* 100 MG/10 ML UDC G TUBE SCH ×2 (08:28→21:08)
[2019-04-13] MEDS: buPROPion TAB* 100 MG G TUBE SCH ×2 (08:29→21:08)
[2019-04-13] MEDS: predniSONE TAB* 20 MG G TUBE SCH (08:29)
[2019-04-13] MEDS: Gabapentin CAP(*) 100 MG SCH ×3 (08:29→21:09)
[2019-04-13] MEDS: Polyethylene Glycol 3350* 17 GM PACKET PO SCH (08:29)
[2019-04-13] MEDS: QUEtiapine TAB* 25 MG G TUBE SCH (08:29)
[2019-04-13] MEDS: DIFLUNISAL 500 MG G TUBE SCH ×2 (08:53→21:08)
[2019-04-13] MEDS ORDERED: Piperacillin/Tazobac ADVAN(*) 3.375 GM in NS 0.9% 100 ML* 100 ML IVPB ONE (09:02)
--- NOTE | 2019-04-13 09:14 | PN ---
Date of Service: 04/13/19 Critical Care Services: 63 yo M being managed in the ICU after suffering cardiac arrest s/p ACLS and ROSC and TTM, intubated and mechanically ventilated during the course of event Patient seen and evaluated at the bedside -able to maintain on PS of 10 with good volumes X >24 hours - unable to weane off sedation due to agitation, yesterday. Off propofol and precedex since this AM. Fentanyl turned off yesterday afternoon. Receiving oral scheduled valium and oxycodone since yesterday. No BM since hospitalization. Unknown last BM. - Persistently febrile since noon yesterday. Stable hemodynamics - Purulent sputum, now Vital Signs: Temp Pulse Resp BP SpO2 FiO2 100.4 F 86 21 131/74 95 40 04/13/19 07:31 04/13/19 07:31 04/13/19 08:28 04/13/19 07:31 04/13/19 07:31 04/13 07:47 Physical Exam: Gen:Sedated, intubated/mechanically ventilated, NAD HEENT:NCAT, PERRL, neck supple, no thyromegaly, ETT in oral orifice Lungs:CTAB Cardiac: +S1, S2, RRR Abdomen:obese, soft NT/ND Extremities:no edema, cyanosis, or clubbing Neuro:Unable to access optimally but grossly nonfocal, sedated Fluid Balance (Past 24 Hours): I= O= Net Intake & Output 04/11/19 04/12/19 04/13/19 04/14/19 06:59 06:59 06:59 06:59 Intake Total 2665 5825 2733 Output Total 1081964 2368 90 Balance 1582 3860 365 -90 Weight 246 lb 14.684 oz 252 lb 10.396 oz 253 lb 4.978 oz Intake: IV Fluids 924 3334 130 LR 924 322 NS (0.9%) 3012 130 IVPB 760 1023 65 LR 760 PB - Calcium G 65 VITAMIN BAG 1023 Medicated IV 675 132 7987 CC - Dexmedetomidine/ 182 863 Precedex levophed 88 22 propofol 880 606 231 IV Narcotic Infusion 13 31 Fentanyl 13 31 Tube Feeding 368 923 Tube Feeding Flush Amount 290 490 Output: [place] 1083 1965 2368 90 ADLs: Meal Record Start: 04/09/19 15: 27 Freq: Status: Active Protocol: Created 04/09/19 15:27 System (Rec: 04/09/19 15:27 System ICU-C25) Document 04/09/19 18:00 [id number] (Rec: 04/09/19 18:35 FFT1374 ICU-L03) Document 04/10/19 09:00 GMN3591 (Rec: 04/10/19 11:10 WUV1583 ICU-C15) Document 04/10/19 13:00 CUG9457 (Rec: 04/10/19 14:06 ERT0944 ICU-C15) Document 04/10/19 18:00 FTS9455 (Rec: 04/10/19 18:10 WKP5545 ICU-C15) Intake and Output Start: 04/09/19 14: 42 Freq: Status: Active Protocol: Created 04/09/19 14:42 System (Rec: 04/09/19 14:42 System EDRM-C14) Intake and Output Start: 04/09/19 15: 27 Freq: Q1HR Status: Active Protocol: Created 04/09/19 15:27 System (Rec: 04/09/19 15:27 System ICU-C25) Document 04/09/19 18:32 NUI7193 (Rec: 04/09/19 18:32 ECU2633 ICU-L03) Document 04/09/19 19:00 BNP2342 (Rec: 04/09/19 19:45 RVW7737 ICU-M33) Document 04/09/19 20:00 BBA8710 (Rec: 04/09/19 21:30 DTG6146 ICU-C15) Document 04/09/19 21:00 GTT2919 (Rec: 04/09/19 21:30 LNB4598 ICU-C15) Document 04/09/19 22:00 UTL9810 (Rec: 04/09/19 22:03 BPV4964 ICU-M33) Document 04/09/19 23:00 CZC0238 (Rec: 04/10/19 00:28 QIR8744 ICU-M33) Document 04/10/19 00:00 YFP4172 (Rec: 04/10/19 00:28 BQD6856 ICU-M33) Document 04/10/19 01:00 OCZ4216 (Rec: 04/10/19 03:05 BQX0384 ICU-M33) Document 04/10/19 02:00 FYC0343 (Rec: 04/10/19 03:05 XDT2501 ICU-M33) Document 04/10/19 03:00 MBM7984 (Rec: 04/10/19 03:05 NPL7959 ICU-M33) Document 04/10/19 04:00 YMP3791 (Rec: 04/10/19 05:56 XVG2388 ICU-C15) Document 04/10/19 05:00 HQC8015 (Rec: 04/10/19 05:56 LHZ0917 ICU-C15) Document 04/10/19 06:00 NDK4455 (Rec: 04/10/19 06:49 UYU4567 ICU-M33) Document 04/10/19 06:48 TMX1563 (Rec: 04/10/19 06:48 SER7068 ICU-M33) Document 04/10/19 08:00 WJE7845 (Rec: 04/10/19 08:57 HTU6678 ICU-C15) Document 04/10/19 08:57 LLR9965 (Rec: 04/10/19 08:57 KQU4754 ICU-C15) Document 04/10/19 10:00 BME6011 (Rec: 04/10/19 11:19 FCZ1535 ICU-C15) Document 04/10/19 11:00 KHP0624 (Rec: 04/10/19 11:19 WSE4644 ICU-C15) Document 04/10/19 12:00 YWM7144 (Rec: 04/10/19 13:17 GUX7843 ICU-C15) Document 04/10/19 13:00 YUA9204 (Rec: 04/10/19 13:17 SZM4809 ICU-C15) Document 04/10/19 14:00 ZZF9071 (Rec: 04/10/19 14:13 OGE5717 ICU-M33) Document 04/10/19 15:00 BBU5402 (Rec: 04/10/19 16:19 FLP3591 ICU-M33) Document 04/10/19 16:00 ZZP4138 (Rec: 04/10/19 16:19 KWR3839 ICU-M33) Document 04/10/19 17:00 AUU3787 (Rec: 04/10/19 18:05 HIV4316 ICU-M33) Document 04/10/19 18:00 VPR3178 (Rec: 04/10/19 18:05 LXP8029 ICU-M33) Document 04/10/19 19:26 GLR1630 (Rec: 04/10/19 19:26 UYB9433 ICU-M33) Document 04/10/19 20:55 YRG7061 (Rec: 04/10/19 20:55 MVW2234 ICU-M33) Document 04/10/19 22:00 ARZ3576 (Rec: 04/10/19 22:21 YFT2325 ICU-L03) Document 04/10/19 22:59 FET5392 (Rec: 04/10/19 22:59 DWR1259 ICU-M33) Document 04/11/19 00:00 HEW3811 (Rec: 04/11/19 00:04 YQP2208 ICU-L03) Document 04/11/19 03:00 NLF3988 (Rec: 04/11/19 03:03 JWS1676 ICU-L03) Document 04/11/19 04:00 VEL9305 (Rec: 04/11/19 04:17 TZX3561 ICU-L03) Document 04/11/19 05:00 RDT0441 (Rec: 04/11/19 05:05 FPF4736 ICU-L03) Document 04/11/19 06:00 JQV1541 (Rec: 04/11/19 06:01 HXP9065 ICU-M33) Document 04/11/19 07:00 HGQ7572 (Rec: 04/11/19 08:20 IET4278 ICU-C15) Document 04/11/19 08:00 VBQ8471 (Rec: 04/11/19 08:20 NEB8889 ICU-C15) Document 04/11/19 09:00 VAO6836 (Rec: 04/11/19 09:34 YCZ4883 ICU-M33) Document 04/11/19 10:00 JNU1938 (Rec: 04/11/19 10:37 YPY2182 ICU-C15) Document 04/11/19 11:00 VXX5694 (Rec: 04/11/19 11:26 ZXF9511 ICU-M33) Document 04/11/19 11:00 EPF7435 (Rec: 04/11/19 15:02 CFN3969 ICU-C15) Document 04/11/19 12:00 XTG7773 (Rec: 04/11/19 14:25 DHU8300 ICU-C15) Document 04/11/19 13:00 BVB6777 (Rec: 04/11/19 14:25 UQE5832 ICU-C15) Document 04/11/19 14:00 WXT5348 (Rec: 04/11/19 14:25 FME1770 ICU-C15) Document 04/11/19 15:00 HDE1642 (Rec: 04/11/19 15:00 OLD2944 ICU-C15) Document 04/11/19 16:00 PCZ2044 (Rec: 04/11/19 16:17 FLV6915 ICU-M33) Document 04/11/19 17:00 TOT1912 (Rec: 04/11/19 17:30 PYC6011 ICU-M33) Document 04/11/19 18:00 IWW8053 (Rec: 04/11/19 18:35 GPS0784 ICU-M33) Document 04/11/19 19:00 PWT1719 (Rec: 04/11/19 19:03 BDR2026 ICU-C15) Document 04/11/19 20:00 YAZ4820 (Rec: 04/11/19 20:01 OTH8023 ICU-M33) Document 04/11/19 20:56 CUA3812 (Rec: 04/11/19 20:56 VEB3797 ICU-M33) Document 04/11/19 21:55 HSB3549 (Rec: 04/11/19 21:55 GIK3637 ICU-M33) Document 04/11/19 23:00 QPU9713 (Rec: 04/11/19 23:13 GRW9271 ICU-L03) Document 04/12/19 00:00 JMU6336 (Rec: 04/12/19 00:04 UKQ4136 ICU-M33) Document 04/12/19 01:00 NSD3459 (Rec: 04/12/19 01:20 PYK9549 ICU-M33) Document 04/12/19 02:00 TWB9283 (Rec: 04/12/19 02:11 WMQ6692 ICU-M33) Document 04/12/19 03:00 SIF6812 (Rec: 04/12/19 03:02 CFA9200 ICU-M33) Document 04/12/19 04:00 CAY7654 (Rec: 04/12/19 04:05 DOV7153 ICU-L03) Document 04/12/19 04:56 PQC8797 (Rec: 04/12/19 04:56 DKM9447 ICU-M33) Document 04/12/19 05:18 EED3139 (Rec: 04/12/19 05:18 IUL0093 ICU-M33) Document 04/12/19 06:00 NQO1921 (Rec: 04/12/19 06:03 IXY9855 ICU-M33) Document 04/12/19 07:00 DEA5877 (Rec: 04/12/19 07:13 FDE7775 ICU-M33) Document 04/12/19 08:00 GFO8272 (Rec: 04/12/19 08:10 HWI9038 ICU-M33) Document 04/12/19 09:00 CDC7249 (Rec: 04/12/19 09:07 FSZ1955 ICU-C15) Document 04/12/19 10:00 OGE4830 (Rec: 04/12/19 12:32 GLR7243 ICU-C15) Document 04/12/19 11:00 AIZ6316 (Rec: 04/12/19 12:32 FYE8095 ICU-C15) Document 04/12/19 12:00 UGF9387 (Rec: 04/12/19 12:32 HGA5579 ICU-C15) Document 04/12/19 13:00 LEL6934 (Rec: 04/12/19 14:08 LUR1777 ICU-M33) Document 04/12/19 14:00 NMP6136 (Rec: 04/12/19 14:08 TUC7272 ICU-M33) Document 04/12/19 15:12 JPP0593 (Rec: 04/12/19 15:12 SXR6569 ICU-C15) Document 04/12/19 17:00 SEP8822 (Rec: 04/12/19 17:56 RIB1456 ICU-C15) Document 04/12/19 17:58 OCM6842 (Rec: 04/12/19 17:58 ACD9126 ICU-C15) Document 04/12/19 19:00 RNB8288 (Rec: 04/12/19 20:13 OQI9825 ICU-C15) Document 04/12/19 20:00 MFQ6677 (Rec: 04/12/19 21:45 HAS9268 ICU-M33) Document 04/12/19 21:00 NQK5864 (Rec: 04/12/19 21:46 DEG6242 ICU-M33) Document 04/12/19 21:48 ZPS0136 (Rec: 04/12/19 21:48 PLA6589 ICU-M33) Document 04/12/19 22:00 YIZ5034 (Rec: 04/13/19 00:04 OZI1832 ICU-M33) Document 04/12/19 22:45 ZDC8825 (Rec: 04/12/19 22:47 CRY7162 ICU-M33) Document 04/13/19 00:00 MCO0327 (Rec: 04/13/19 00:05 YCT4911 ICU-M33) Document 04/13/19 00:50 NSB2179 (Rec: 04/13/19 00:51 PKU0560 ICU-M33) Document 04/13/19 02:00 ZNE2595 (Rec: 04/13/19 02:09 AKK9459 ICU-M33) Document 04/13/19 03:00 APQ4832 (Rec: 04/13/19 03:11 QNS5281 ICU-M33) Document 04/13/19 04:00 GHH1206 (Rec: 04/13/19 05:35 MRE6003 ICU-M33) Document 04/13/19 05:00 XYG4610 (Rec: 04/13/19 05:35 KUK9639 ICU-M33) Document 04/13/19 05:35 WFI2646 (Rec: 04/13/19 05:36 TWC1479 ICU-M33) Document 04/13/19 07:00 FGK8894 (Rec: 04/13/19 09:00 KQW5274 ICU-C15) Document 04/13/19 08:00 GAK8226 (Rec: 04/13/19 09:01 HGE6893 ICU-C15) Document 04/13/19 09:00 BQW0085 (Rec: 04/13/19 09:01 WOH4719 ICU-C15) Labs: Laboratory Results - last 24 hr 04/12/19 11:30 Patient Temperature Not Reportable ABG pH 7.36 ABG pH (Temp Correct) Not Reportable ABG pCO2 44 ABG pCO2 (Temp Corrct Not Reportable ABG pO2 106 H ABG pO2 (Temp Correct Not Reportable ABG HCO3 24.3 ABG O2 Saturation 99.7 H ABG Base Excess -0.8 Respiration Rate Not Reportable Ventilator Type Not Reportable Vent Mode Not Reportable FiO2 30 Inspiratory Time Not Reportable PEEP 8 Pressure Support 10 Pressure Control Not Reportable EPAP Not Reportable IPAP Not Reportable BiPAP Not Reportable Studies: IV. Image enhancement administered by Antonietta Kebede RN. Complete 2D, spectral Doppler, and color flow Doppler. Patient status: Inpatient. Patient room number: ICU 3. Rhythm: Normal sinus rhythm with PAC's. Findings Left ventricle: Wall thickness is mildly increased. The estimated ejection fraction is 50-55%. There are no regional wall motion abnormalities. There is no consistent Doppler evidence of clinically significant diastolic dysfunction. Right ventricle: The cavity size is normal. Systolic function is low normal. Left atrium: The atrium is mildly dilated. Right atrium: The atrium is normal in size. Mitral valve: The leaflets are mildly thickened. There is no evidence of stenosis. There is mild regurgitation. Aortic valve: The leaflets are normal thickness. There is no evidence of stenosis. There is no regurgitation. Tricuspid valve: The valve is structurally normal. There is no evidence of stenosis. There is trace regurgitation. Pulmonic valve: The valve is structurally normal. There is no evidence of stenosis. There is trivial regurgitation. Aorta: Aortic root: The aortic root is not dilated. Ascending aorta: The ascending aorta is not dilated. Aortic arch: The aortic arch is not dilated. Pericardium: There is no pericardial effusion. Pulmonary arteries: The main pulmonary artery is normal-sized. The PAP is estimated at 39mmHg. There is mild pulmonary hypertension. Systemic veins: Inferior vena cava: The vessel cannot be well evaluated since the patient is on mechanical ventilation. Measurements Left ventricle Value Ref Right atrium Value Ref MUSTAPHA, LAX 4.9 cm 4.2 - ML dim, ES, A4C (H) 4.7 cm 2.6 - 4.4 5.8 SI dim, ES, A4C 5.1 cm 3.4 - 5.3 ESD, LAX 3.7 cm 2.5 - 4.0 Aortic valve Value Ref FS, LAX 25 % 25 - 43 Peak v, S 1.07 m/sec --------- PW, ED, LAX (H) 1.1 cm 0.6 - VTI, S 21.7 cm --------- 1.0 Mean grad, S 3.0 mm Hg --------- PW, ED (H) 1.1 cm 0.6 - Peak grad, S 4.6 mm Hg --------- This report is only to be considered final once signed by the Provider(s) as displayed in the "<Electronically Signed by >" field (s). Absence of a signature indicates the report is in a draft status and still needs to be finalized. In the event this document was created by someone other than the signing Provider, the individual initiating the document will be listed in the "Entered by:" or "Dictated by:" davis. Patient Name: MAURISIO BOLES Medical Record#: [id number] Ordering Physician: Mayela Sellers MD Acct.#: [id number] : 1955 Age: 63 Sex: M Location: [facility] Exam Date: 04/12/19599 ADM Status: ADM IN Order Information: CHEST AP OR PORT Accession Number: [id number] CPT: 13006 HISTORY: intubated, acute respiratory failure COMPARISONS: April 11, 2019 VIEWS: 1: frontal AP view of the chest at 6:05 AM FINDINGS: LINES AND TUBES: An endotracheal tube is noted with the tip overlying the trachea between the clavicles and the miguel angel. A gastric tube is noted, with the tip in a postpyloric position.. A right internal jugular venous catheter is noted with the tip overlying the right atrium. CARDIOMEDIASTINAL SILHOUETTE: The cardiac silhouette is enlarged. The cardiomediastinal silhouette is otherwise normal for portable technique. PLEURA: There is blunting of the left costophrenic angle. LUNG PARENCHYMA: The lung volumes are low. The lungs are clear accounting for the phase of respiration. There is prominence of the central pulmonary vasculature. ABDOMEN: The upper abdomen is clear. There is no subphrenic gas. BONES AND SOFT TISSUES: No bone or soft tissue abnormalities are noted. IMPRESSION: 1. LINES AND TUBES ABOVE. 2. CARDIOMEGALY. 3. SMALL LEFT PLEURAL EFFUSION. 4. PULMONARY VASCULAR CONGESTION R1NF Preliminary Imaging Read R1NF <Electronically signed by Max Bacon MD in [facility]> 04/12/19732 Dictated By: Max Bacon MD Dictated Date/Time: 04/12/19732 Transcribed Date/Time: 04/12/19730 Copy to: CC:Mayela Sellers MD; Randy Latham MD; Nasra Bradley MD This report is only to be considered final once signed by the Provider(s) as displayed in the "<Electronically Signed by >" field (s). Absence of a signature indicates the report is in a draft status and still needs to be finalized. In the event this document was created by someone other than the signing Provider, the individual initiating the document will be listed in the "Entered by:" or "Dictated by:" davis. 1 of 2 Nutrition: TF Jevity at 20cc/h. Impression: 63 yo M being managed in the ICU after suffering cardiac arrest s/p ACLS and ROSC and TTM, intubated and mechanically ventilated during the course of event Plan: # Cardiac arrest- asystole # Polysubstance abuse- opiate, BZD, cocaine, heroine # hx/o mood d/o # chronic pain syndrome # acute respiratory failure requiring acute ventilator dependance # systemic steroid chronic vs acute # acute encephalopathy- r/o ICU delirium vs acute alcohol withdrawal # Constipation, likely opiate induced # Pneumonia with fever # Pulmonary edema - status post ACLS with ROSC 04/09 - s/p TTM and rewarming 04/10 - suspect cardiac arrest by cocaine and heroine use - Resumed home meds for mood d/o, pain at lower or home doses: bupropion, amitriptyline, diflunisal, gabapentin - prn oxycodone scheduled but due to constipation with change from q4h to q6h - Started on scheduled Valium for possible ETOH w/d - Seroquel 25 mg BID for ICU delirium. - maintain RASS 0- -1 if needed with propofol, precedex, fentanyl - daily SWT/SBT - bowel regimen with colace, Senna, miralax. Started lactulose - KUB to rule out ileus/obstruction - ammonia level pending - banana bag - alcohol withdrawal precautions - prednisone at 40 mg daily. Will lower to 30 mg and taper by 10 mg every 3 days and maintain at 10 mg daily. - home med reconciliation pending - Blood cultures x 2, RCx - Start Vanc and Zosyn 04/13 empirically for PNA - Lasix 40 mg x 1 PPX -DVT- SQH -GI- H2B Prognosis: critical Dispo: monitor in the ICU Discussed plan with nurse and Critical care issues: s/p cardiac arrest, acute respiratory failure, mechanical ventilation, AMS Critical Care Time: 40 MINUTES
[2019-04-13] MEDS ORDERED: Vancomycin(*) 1,000 MG in NS 0.9% 250 ML* 250 ML IVPB ONE (09:30)
[2019-04-13] MEDS ORDERED: Furosemide IV* 10 MG/ML VIAL (40 MG) IV ONE (09:45)
[2019-04-13] MEDS ORDERED: Bisacodyl SUPP* 10 MG SUPP ONE (09:50)
[2019-04-13] MEDS: Bisacodyl SUPP* 10 MG SUPP PR SCH (09:58)
[2019-04-13] MEDS ORDERED: Vancomycin(*) 0 MG in NS 0.9% 250 ML* 250 ML IVPB SCH (10:00)
[2019-04-13] MEDS ORDERED: Zosyn per Pharmacy* NOTE FOLLOW UP SCH (10:00)
[2019-04-13] MEDS ORDERED: oxyCODONE ORAL.SOLN* 5 MG/5 ML UDC SCH (10:00)
[2019-04-13] MEDS ORDERED: Vancomycin(*) 1,500 MG in NS 0.9% 250 ML* 250 ML IVPB ONE (10:18)
[2019-04-13] MEDS ORDERED: Vancomycin per Pharmacy* NOTE FOLLOW UP PRN (10:39)
[2019-04-13] MEDS: ZOSYN 3.375 GM Q8H per EXTENDED INFUSION IVPB SCH ×4 (14:03→21:09)
[2019-04-13] MEDS: hydrALAZINE IV* 20 MG/ML VIAL IV SLOW PU PRN (14:07)
[2019-04-13] MEDS: Lidocaine Patch REMOVE* 1 NOTE MISC PATCH OFF SCH (15:34)
[2019-04-13] MEDS ORDERED: Lidocaine PATCH 5%* 1 PATCH TRANSDERM SCH (16:00)
[2019-04-13] MEDS: oxyCODONE ORAL.SOLN* 5 MG/5 ML UDC PRN (16:11)
[2019-04-13] MEDS: HYDROmorphone INJ* 0.5 MG/0.5 ML SYRINGE IV SLOW PU PRN ×2 (17:42→23:58)
[2019-04-13] MEDS: Vancomycin(*) 1,000 MG in NS 0.9% 250 ML* 250 ML IVPB SCH ×2 (17:42→22:52)
[2019-04-13] MEDS: Amitriptyline TAB* 25 MG G TUBE SCH (21:08)
[2019-04-13] MEDS: Senna TAB PO SCH (21:09)
[2019-04-14] MEDS: Diazepam TAB(*) 5 MG PO SCH ×2 (03:20→16:17)
[2019-04-14] MEDS: Lidocaine Patch REMOVE* 1 NOTE MISC PATCH OFF SCH (03:21)
[2019-04-14] MEDS: Vancomycin(*) 1,000 MG in NS 0.9% 250 ML* 250 ML IVPB SCH ×4 (04:47→22:50)
[2019-04-14] MEDS: ZOSYN 3.375 GM Q8H per EXTENDED INFUSION IVPB SCH ×6 (05:24→22:50)
[2019-04-14] MEDS: oxyCODONE ORAL.SOLN* 5 MG/5 ML UDC PRN (06:35)
[2019-04-14] MEDS: buPROPion TAB* 100 MG G TUBE SCH ×2 (08:17→20:09)
[2019-04-14] MEDS: Heparin VIAL(*) 5000 UNITS/ML VIAL (FIVE THOUSAND) SUBCUT SCH ×2 (08:18→20:15)
[2019-04-14] MEDS: predniSONE TAB* 20 MG G TUBE SCH (08:18)
[2019-04-14] MEDS: Gabapentin CAP(*) 100 MG SCH ×3 (08:18→20:09)
[2019-04-14] MEDS: Famotidine IV* 10 MG/ML 2 ML (20 mg) IV SCH (08:18)
[2019-04-14] MEDS: DIFLUNISAL 500 MG G TUBE SCH ×2 (08:19→20:14)
[2019-04-14] MEDS: Polyethylene Glycol 3350* 17 GM PACKET PO SCH (08:19)
[2019-04-14] MEDS: Bisacodyl SUPP* 10 MG SUPP PR SCH (08:19)
[2019-04-14] MEDS: Docusate LIQ* 100 MG/10 ML UDC G TUBE SCH (08:19)
[2019-04-14] MEDS: HYDROmorphone INJ* 0.5 MG/0.5 ML SYRINGE IV SLOW PU PRN (08:27)
[2019-04-14] MEDS ORDERED: HYDROmorphone INJ* 0.5 MG/0.5 ML SYRINGE IV SLOW PU ONE (09:57)
[2019-04-14] MEDS ORDERED: Magnesium CITRATE* 300 ML BTL PO ONE (09:58)
[2019-04-14] MEDS ORDERED: Vancomycin Trough Check NOTE FOLLOW UP ONE (10:30)
[2019-04-14] MEDS: Acetaminophen TAB* 325 MG PO SCH ×4 (10:33→22:51)
[2019-04-14] MEDS: Lidocaine PATCH 5%* 1 PATCH TRANSDERM SCH (10:34)
--- NOTE | 2019-04-14 10:41 | PN ---
Date of Service: 04/14/19 - TRANSFER SUMMARY Critical Care Services: 63 yo M being managed in the ICU after suffering cardiac arrest s/p ACLS and ROSC and TTM, intubated and mechanically ventilated during the course of event Hospital course: 04/09: date of admission; date intubated/mechanical ventilation, and Target temperature management 04/10: warming to normothermia 04/12: scheduled valium and oxycodone; Unable to weane off sedation due to agitation 04/13: extubated Patient seen and evaluated at the bedside - extubated yesterday - remains emotional and apologetic about events leading to his hospitalization - Now on room air and hemodynamically stable; Weak cough, therefore, on metanebs for secretion mobilization - Remained on precedex till this AM - Complains of suboptimal pain control mainly in his back which is chronic and new constant chest pain associated with chest compression - Afebrile since 5pm yesterday. - No BM during this hospitalization; Unknown date of last BM - No other significant overnight events or other current complains Vital Signs: Temp Pulse Resp BP SpO2 FiO2 98.1 F 87 20 148/86 96 40 04/14/19 09:00 04/14/19 09:00 04/14/19 10:03 04/14/19 08:30 04/14/19 09:00 04/13 07:47 Physical Exam: Gen:NAD HEENT:NCAT, PERRL, neck supple, no thyromegaly Lungs:CTAB Cardiac: +S1, S2, RRR Abdomen:obese, soft NT/ND, normoactive bowel sounds Extremities:no edema, cyanosis, or clubbing Neuro:AAO x 3, nonfocal Fluid Balance (Past 24 Hours): I= O= Net Intake & Output 04/12/19 04/13/19 04/14/19 04/15/19 06:59 06:59 06:59 06:59 Intake Total 5428 2733 1739 Output Total 0542 8867 7695 60 Balance 8490 365 -2856 -60 Weight 252 lb 10.396 oz 253 lb 4.978 oz 238 lb 8.642 oz Intake: IV Fluids 3334 130 445 LR 322 NS (0.9%) 3012 130 30 Vancomycin 357 Zosyn 58 IVPB 1023 65 748 NS (0.9%) 373 PB - Calcium G 65 VITAMIN BAG 1023 Vancomycin 265 Zosyn 110 Medicated IV 810 1094 366 CC - Dexmedetomidine/ 182 863 314 Precedex levophed 22 propofol 606 231 52 IV Narcotic Infusion 31 Fentanyl 31 Oral 180 Tube Feeding 368 923 Tube Feeding Flush Amount 290 490 Output: [place] 1964 1910 4595 60 ADLs: Meal Record Start: 04/09/19 15: 27 Freq: Status: Active Protocol: Created 04/09/19 15:27 System (Rec: 04/09/19 15:27 System ICU-C25) Document 04/09/19 18:00 [id number] (Rec: 04/09/19 18:35 HPB5674 ICU-L03) Document 04/10/19 09:00 MMQ6381 (Rec: 04/10/19 11:10 ITE7105 ICU-C15) Document 04/10/19 13:00 VDI1606 (Rec: 04/10/19 14:06 LNA5314 ICU-C15) Document 04/10/19 18:00 NAF9306 (Rec: 04/10/19 18:10 XPW7374 ICU-C15) Intake and Output Start: 04/09/19 14: 42 Freq: Status: Active Protocol: Created 04/09/19 14:42 System (Rec: 04/09/19 14:42 System EDRM-C14) Intake and Output Start: 04/09/19 15: 27 Freq: Q2HR Status: Active Protocol: Created 04/09/19 15:27 System (Rec: 04/09/19 15:27 System ICU-C25) Document 04/09/19 18:32 JPY3877 (Rec: 04/09/19 18:32 SPJ0528 ICU-L03) Document 04/09/19 19:00 OWA6347 (Rec: 04/09/19 19:45 BMG7938 ICU-M33) Document 04/09/19 20:00 LWS8631 (Rec: 04/09/19 21:30 OKS3258 ICU-C15) Document 04/09/19 21:00 FEG1903 (Rec: 04/09/19 21:30 AQA4055 ICU-C15) Document 04/09/19 22:00 IUH2236 (Rec: 04/09/19 22:03 UDF2146 ICU-M33) Document 04/09/19 23:00 NRS4761 (Rec: 04/10/19 00:28 GMM1437 ICU-M33) Document 04/10/19 00:00 QVK6961 (Rec: 04/10/19 00:28 PBT0713 ICU-M33) Document 04/10/19 01:00 BJV2841 (Rec: 04/10/19 03:05 JZN8879 ICU-M33) Document 04/10/19 02:00 ERM3454 (Rec: 04/10/19 03:05 GLE6427 ICU-M33) Document 04/10/19 03:00 OIE3124 (Rec: 04/10/19 03:05 DYY7108 ICU-M33) Document 04/10/19 04:00 KOH5396 (Rec: 04/10/19 05:56 KVZ3281 ICU-C15) Document 04/10/19 05:00 FMH5233 (Rec: 04/10/19 05:56 PUU1001 ICU-C15) Document 04/10/19 06:00 OBE1279 (Rec: 04/10/19 06:49 HCS6801 ICU-M33) Document 04/10/19 06:48 YNB6182 (Rec: 04/10/19 06:48 IQU3395 ICU-M33) Document 04/10/19 08:00 CNZ8442 (Rec: 04/10/19 08:57 VVK4835 ICU-C15) Document 04/10/19 08:57 INP9566 (Rec: 04/10/19 08:57 AYE5428 ICU-C15) Document 04/10/19 10:00 IUF6538 (Rec: 04/10/19 11:19 MFH6655 ICU-C15) Document 04/10/19 11:00 DJA2605 (Rec: 04/10/19 11:19 YBN0111 ICU-C15) Document 04/10/19 12:00 VQH5174 (Rec: 04/10/19 13:17 IUC8358 ICU-C15) Document 04/10/19 13:00 WWT6206 (Rec: 04/10/19 13:17 UNV2205 ICU-C15) Document 04/10/19 14:00 GHX8724 (Rec: 04/10/19 14:13 UGA0173 ICU-M33) Document 04/10/19 15:00 MDL8406 (Rec: 04/10/19 16:19 UNJ1109 ICU-M33) Document 04/10/19 16:00 UJD9951 (Rec: 04/10/19 16:19 TXH7923 ICU-M33) Document 04/10/19 17:00 NOJ9123 (Rec: 04/10/19 18:05 EQI0075 ICU-M33) Document 04/10/19 18:00 EUP1460 (Rec: 04/10/19 18:05 GRK5826 ICU-M33) Document 04/10/19 19:26 ZGK0937 (Rec: 04/10/19 19:26 RRI2265 ICU-M33) Document 04/10/19 20:55 KHK4015 (Rec: 04/10/19 20:55 DVM2920 ICU-M33) Document 04/10/19 22:00 VBG7659 (Rec: 04/10/19 22:21 IGC2551 ICU-L03) Document 04/10/19 22:59 RTM5747 (Rec: 04/10/19 22:59 LDR1457 ICU-M33) Document 04/11/19 00:00 IUU7395 (Rec: 04/11/19 00:04 FKZ8201 ICU-L03) Document 04/11/19 03:00 KRC3345 (Rec: 04/11/19 03:03 KYK4610 ICU-L03) Document 04/11/19 04:00 BDF3246 (Rec: 04/11/19 04:17 IMK0967 ICU-L03) Document 04/11/19 05:00 CQY4438 (Rec: 04/11/19 05:05 ZGS1247 ICU-L03) Document 04/11/19 06:00 LYK4251 (Rec: 04/11/19 06:01 DWR0081 ICU-M33) Document 04/11/19 07:00 WCO3426 (Rec: 04/11/19 08:20 LXP3488 ICU-C15) Document 04/11/19 08:00 JOH9557 (Rec: 04/11/19 08:20 WVL8292 ICU-C15) Document 04/11/19 09:00 NBG9314 (Rec: 04/11/19 09:34 SOP1960 ICU-M33) Document 04/11/19 10:00 QGQ2698 (Rec: 04/11/19 10:37 TBF7168 ICU-C15) Document 04/11/19 11:00 LTY7268 (Rec: 04/11/19 11:26 MYW5647 ICU-M33) Document 04/11/19 11:00 SUF0786 (Rec: 04/11/19 15:02 HLJ7718 ICU-C15) Document 04/11/19 12:00 KQL1390 (Rec: 04/11/19 14:25 RWJ9130 ICU-C15) Document 04/11/19 13:00 EXX3739 (Rec: 04/11/19 14:25 IAK6185 ICU-C15) Document 04/11/19 14:00 CLQ4106 (Rec: 04/11/19 14:25 JSI0140 ICU-C15) Document 04/11/19 15:00 EGO9893 (Rec: 04/11/19 15:00 UQM3370 ICU-C15) Document 04/11/19 16:00 DAE0620 (Rec: 04/11/19 16:17 CCU3061 ICU-M33) Document 04/11/19 17:00 ZEX1965 (Rec: 04/11/19 17:30 WRV1373 ICU-M33) Document 04/11/19 18:00 PDO5758 (Rec: 04/11/19 18:35 TFG5447 ICU-M33) Document 04/11/19 19:00 AIN0631 (Rec: 04/11/19 19:03 PFO3879 ICU-C15) Document 04/11/19 20:00 MOB8152 (Rec: 04/11/19 20:01 ZZJ7152 ICU-M33) Document 04/11/19 20:56 YHU4038 (Rec: 04/11/19 20:56 VKW9666 ICU-M33) Document 04/11/19 21:55 ZCJ7733 (Rec: 04/11/19 21:55 QNK8121 ICU-M33) Document 04/11/19 23:00 HYN4516 (Rec: 04/11/19 23:13 GJZ5653 ICU-L03) Document 04/12/19 00:00 TFC2126 (Rec: 04/12/19 00:04 NSF7954 ICU-M33) Document 04/12/19 01:00 HQT4507 (Rec: 05/28/19 01:20 TPH5761 ICU-M33) Document 04/12/19 02:00 ODJ5374 (Rec: 04/12/19 02:11 ZRL3334 ICU-M33) Document 04/12/19 03:00 GTS7253 (Rec: 04/12/19 03:02 TFP5992 ICU-M33) Document 04/12/19 04:00 DEP5307 (Rec: 04/12/19 04:05 HJH5932 ICU-L03) Document 04/12/19 04:56 KZG8478 (Rec: 04/12/19 04:56 QBU8604 ICU-M33) Document 04/12/19 05:18 EZP2141 (Rec: 04/12/19 05:18 TCQ0473 ICU-M33) Document 04/12/19 06:00 GIQ6764 (Rec: 04/12/19 06:03 LVM1276 ICU-M33) Document 04/12/19 07:00 BXA6913 (Rec: 04/12/19 07:13 FVX8811 ICU-M33) Document 04/12/19 08:00 XPJ3544 (Rec: 04/12/19 08:10 EIJ8699 ICU-M33) Document 04/12/19 09:00 YBD4942 (Rec: 04/12/19 09:07 HBH4164 ICU-C15) Document 04/12/19 10:00 QPB8881 (Rec: 04/12/19 12:32 UEJ1300 ICU-C15) Document 04/12/19 11:00 KJE0178 (Rec: 04/12/19 12:32 QCI9076 ICU-C15) Document 04/12/19 12:00 LUY4862 (Rec: 04/12/19 12:32 BVO3878 ICU-C15) Document 04/12/19 13:00 SKA6466 (Rec: 04/12/19 14:08 DYF6847 ICU-M33) Document 04/12/19 14:00 QCE9781 (Rec: 04/12/19 14:08 MQI9448 ICU-M33) Document 04/12/19 15:12 YJT9267 (Rec: 04/12/19 15:12 VEM2947 ICU-C15) Document 04/12/19 17:00 CTT0876 (Rec: 04/12/19 17:56 MAL3662 ICU-C15) Document 04/12/19 17:58 YJN5685 (Rec: 04/12/19 17:58 GCC1025 ICU-C15) Document 04/12/19 19:00 POQ8485 (Rec: 04/12/19 20:13 UBB8761 ICU-C15) Document 04/12/19 20:00 EPO1437 (Rec: 04/12/19 21:45 QVR9498 ICU-M33) Document 04/12/19 21:00 UKQ4486 (Rec: 04/12/19 21:46 HYS7875 ICU-M33) Document 04/12/19 21:48 LCB2281 (Rec: 04/12/19 21:48 EKA3265 ICU-M33) Document 04/12/19 22:00 YTX5725 (Rec: 04/13/19 00:04 BPO9728 ICU-M33) Document 04/12/19 22:45 PCZ7660 (Rec: 04/12/19 22:47 LOB3636 ICU-M33) Document 04/13/19 00:00 YBZ7148 (Rec: 04/13/19 00:05 SIR2816 ICU-M33) Document 04/13/19 00:50 KUB3369 (Rec: 04/13/19 00:51 DEB6320 ICU-M33) Document 04/13/19 02:00 RAZ0002 (Rec: 04/13/19 02:09 XFU8457 ICU-M33) Document 04/13/19 03:00 NIN0287 (Rec: 04/13/19 03:11 VNK2913 ICU-M33) Document 04/13/19 04:00 OAE3729 (Rec: 04/13/19 05:35 NRN8381 ICU-M33) Document 04/13/19 05:00 QGC0637 (Rec: 04/13/19 05:35 YWX8900 ICU-M33) Document 04/13/19 05:35 CHQ9105 (Rec: 04/13/19 05:36 BYG7210 ICU-M33) Document 04/13/19 07:00 ZOT2444 (Rec: 04/13/19 09:00 MAN7773 ICU-C15) Document 04/13/19 08:00 XKY4029 (Rec: 04/13/19 09:01 CVZ4324 ICU-C15) Document 04/13/19 09:00 YCK4060 (Rec: 04/13/19 09:01 VPG2038 ICU-C15) Document 04/13/19 10:00 FEB8782 (Rec: 04/13/19 10:15 ZEJ7414 ICU-M33) Document 04/13/19 10:30 WRZ4225 (Rec: 04/13/19 10:30 FJH3151 ICU-M33) Document 04/13/19 11:07 LYD1848 (Rec: 04/13/19 11:07 SIR1697 ICU-M33) Document 04/13/19 11:58 XJQ6447 (Rec: 04/13/19 12:02 ONG2047 ICU-C15) Document 04/13/19 12:00 SDY1410 (Rec: 04/13/19 12:58 CKT3300 ICU-M33) Document 04/13/19 12:58 CCA2911 (Rec: 04/13/19 12:58 ZUI4137 ICU-M33) Document 04/13/19 13:28 SJB4242 (Rec: 04/13/19 13:28 HYA4840 ICU-C15) Document 04/13/19 14:09 ONA5709 (Rec: 04/13/19 14:09 HED0529 ICU-M33) Document 04/13/19 15:01 KNN5885 (Rec: 04/13/19 15:01 RUU3551 ICU-M33) Document 04/13/19 15:19 CWA6663 (Rec: 04/13/19 15:19 STQ9724 ICU-M33) Document 04/13/19 16:17 PDK7537 (Rec: 04/13/19 16:17 LXS1780 ICU-M33) Document 04/13/19 17:47 NSF1439 (Rec: 04/13/19 17:47 UAA6527 ICU-M33) Document 04/13/19 18:00 NWL7422 (Rec: 04/13/19 20:33 FSE4462 ICU-M33) Document 04/13/19 19:00 INA9375 (Rec: 04/13/19 20:34 PPT4349 ICU-M33) Document 04/13/19 20:00 XLG8652 (Rec: 04/13/19 20:34 HQV9637 ICU-M33) Document 04/13/19 20:34 HRY5317 (Rec: 04/13/19 20:34 QFF3207 ICU-M33) Document 04/13/19 22:00 JXF8402 (Rec: 04/13/19 22:55 PQY0782 ICU-M33) Document 04/13/19 22:55 JNI9165 (Rec: 04/13/19 22:55 AXB0528 ICU-M33) Document 04/13/19 23:33 LFF8540 (Rec: 04/14/19 00:28 QPB3073 ICU-L03) Document 04/14/19 00:00 SIL5128 (Rec: 04/14/19 01:24 SLM1102 ICU-L03) Document 04/14/19 01:00 DZF9724 (Rec: 04/14/19 01:26 TEE4644 ICU-L03) Document 04/14/19 02:00 OZM7919 (Rec: 04/14/19 02:11 CWB1838 ICU-L03) Document 04/14/19 03:00 CIT5994 (Rec: 04/14/19 03:48 BCW3386 ICU-L03) Document 04/14/19 03:41 BHR5132 (Rec: 04/14/19 03:47 AGN0733 ICU-L03) Document 04/14/19 04:00 OTA0240 (Rec: 04/14/19 04:45 PXW6418 ICU-M33) Document 04/14/19 04:44 CEH9871 (Rec: 04/14/19 04:44 AKE4646 ICU-M33) Document 04/14/19 05:37 XZW5802 (Rec: 04/14/19 05:38 KHI8494 ICU-L03) Document 04/14/19 07:00 QTI6913 (Rec: 04/14/19 09:01 LOE2076 ICU-C15) Document 04/14/19 08:00 BUP1554 (Rec: 04/14/19 09:01 CHO6654 ICU-C15) Document 04/14/19 09:00 SUP8880 (Rec: 04/14/19 09:02 PIX0405 ICU-C15) Studies: Patient Name: MAURISIO BOLES Medical Record#: [id number] Ordering Physician: Mayela Sellers MD Acct.#: [id number] : 1955 Age: 63 Sex: M Location: [facility] Exam Date: 04/13/19903 ADM Status: ADM IN Order Information: ABDOMEN/KUB 1 VW Accession Number: [id number] CPT: 73581 HISTORY: ABD DISTENTION, CONSTIPATION COMPARISONS: None relevant available at the time of dictation. VIEWS: Frontal views of the abdomen. Evaluation is limited by positioning. FINDINGS: BOWEL: There is a nonspecific bowel gas pattern, with nondilated small bowel gas noted. There is mild gaseous of the transverse colon without significant stool burden. CALCULI: There are no abnormal calculi. BONES AND SOFT TISSUES: There are no osseous abnormalities. OTHER FINDINGS: The upper abdomen and lung bases are not visualized.. IMPRESSION: LIMITED STUDY. NONSPECIFIC BOWEL GAS PATTERN. <Electronically signed by Max Bacon MD in [place]> 04/13/19 1124 Dictated By: Max Bacon MD Dictated Date/Time: 04/13/19 112 Transcribed Date/Time: 04/13/19 1123 Copy to: CC:Mayela Sellers MD; Randy Latham MD; Nasra Bradley MD Imaging - [facility] Imaging - [facility] [address] [address] ph ([phone]) ph ([phone]) ph ([phone]) This report is only to be considered final once signed by the Provider(s) as displayed in the "<Electronically Signed by >" field (s). Absence of a signature indicates the report is in a draft status and still needs to be finalized. In the event this document was created by someone other than the signing Provider, the individual initiating the document will be listed in the "Entered by:" or "Dictated by:" davis. 1 of 1 Nutrition: Regular Diet Impression: 63 yo M with hx/o chronic pain, polysubstance abuse, chronic alcohol abuse being managed in the ICU after suffering cardiac arrest s/p ACLS and ROSC and TTM, intubated and mechanically ventilated during the course of event Plan: # Cardiac arrest- asystole 04/09 # Polysubstance abuse- opiate, BZD, cocaine, heroine # hx/o alcohol abuse and probable withdrawal with improving symptoms # hx/o mood d/o # chronic pain syndrome # acute respiratory failure requiring acute ventilator dependance # systemic steroid chronic vs acute # acute encephalopathy- r/o ICU delirium vs acute alcohol withdrawal; improving symptoms # Constipation, likely opiate induced # Pneumonia with fever # Pulmonary edema - status post ACLS with ROSC 04/09 - s/p TTM and rewarming 04/10 - suspect cardiac arrest by cocaine and heroine use - Resumed home meds for mood d/o, pain at lower or home doses: bupropion, amitriptyline, diflunisal, gabapentin - prn oxycodone. - Started on scheduled Valium for possible ETOH w/d. Will decrease from q12h to daily starting tomorrow x 2 days and then change to prn - Seroquel 25 mg daily ICU delirium. Recommend for 1 more day and restart as per indication - bowel regimen with colace, Senna, miralax. Started Mag Citrate. AXR reviewed and grossly not concerning. Improved bowel sounds - banana bag-->change to oral vitamins - alcohol withdrawal precautions - prednisone at 40 mg daily. Will lower to 30 mg and taper by 10 mg every 3 days and maintain at 10 mg daily. Unknown indication for meds. Will defer to PCP - home med reconciliation pending - Blood cultures x 2, RCx - Start Vanc and Zosyn 04/13 empirically for PNA. Deescalate as per micro results - Continue with metanebs BID PPX -DVT- SQH -GI- H2B Prognosis: guarded Dispo: Stable to transfer to Discussed plan with nurse, , and daughter Critical care issues: s/p cardiac arrest, acute respiratory failure, mechanical ventilation, AMS Critical Care Time: 40 MINUTES
[2019-04-14] MEDS ORDERED: Ketorolac INJ* 30 MG/ML 1 ML VIAL IM ONE (10:45)
[2019-04-14] MEDS: hydrALAZINE IV* 20 MG/ML VIAL IV SLOW PU PRN ×2 (11:43→20:15)
[2019-04-14] MEDS: Pantoprazole TAB * 40 MG TAB PO SCH (11:43)
[2019-04-14] MEDS ORDERED: Metoprolol Tartrate IV* 1 MG/ML 5 ML VIAL IV PRN (16:13)
[2019-04-14] MEDS ORDERED: Metoprolol Tartrate IV* 1 MG/ML 5 ML VIAL ONE (16:14)
[2019-04-14] MEDS: oxyCODONE TAB* 5 MG TAB PO PRN (18:55)
[2019-04-14] MEDS: Metoprolol Tartrate TAB* 25 MG PO SCH (20:07)
[2019-04-14] MEDS: Amitriptyline TAB* 25 MG G TUBE SCH (20:09)
[2019-04-14] MEDS: Docusate LIQ* 100 MG/10 ML UDC PO SCH (20:15)
[2019-04-14] MEDS ORDERED: QUEtiapine TAB* 25 MG G TUBE SCH (21:00)
[2019-04-15] MEDS: HYDROmorphone INJ1* 1 MG/ML SYRINGE IV SLOW PU PRN ×2 (00:35→05:24)
[2019-04-15] MEDS: oxyCODONE TAB* 5 MG TAB PO PRN ×3 (02:56→17:36)
[2019-04-15] MEDS: Acetaminophen TAB* 325 MG PO SCH ×6 (02:56→21:41)
[2019-04-15] MEDS: amLODIPine TAB* 5 MG PO SCH ×2 (03:40→09:24)
[2019-04-15] MEDS: Lidocaine Patch REMOVE* 1 NOTE MISC PATCH OFF SCH (04:00)
[2019-04-15] MEDS: hydrALAZINE IV* 20 MG/ML VIAL IV SLOW PU PRN ×2 (05:18→15:56)
[2019-04-15] MEDS: ZOSYN 3.375 GM Q8H per EXTENDED INFUSION IVPB SCH ×6 (06:05→21:37)
[2019-04-15] MEDS: Vancomycin(*) 1,000 MG in NS 0.9% 250 ML* 250 ML IVPB SCH ×4 (06:05→21:37)
[2019-04-15 06:42] LABS: BUN/Creatinine Ratio 21.2 (8-20); Calcium 8.6 mg/dL (8.6-10.3); EGFR Non-African American 122.3 (>60); Potassium 2.9 mmol/L (3.5-5.0)
[2019-04-15] MEDS ORDERED: predniSONE TAB* 10 MG G TUBE SCH (09:00)
[2019-04-15] MEDS: Docusate LIQ* 100 MG/10 ML UDC PO SCH (09:20)
[2019-04-15] MEDS: Gabapentin CAP(*) 100 MG SCH ×2 (09:20→14:20)
[2019-04-15] MEDS: Bisacodyl SUPP* 10 MG SUPP PR SCH (09:20)
[2019-04-15] MEDS: Metoprolol Tartrate TAB* 25 MG PO SCH (09:22)
[2019-04-15] MEDS: Diazepam TAB(*) 5 MG PO SCH (09:25)
[2019-04-15] MEDS: buPROPion TAB* 100 MG G TUBE SCH (09:25)
[2019-04-15] MEDS: Pantoprazole TAB * 40 MG TAB PO SCH (09:25)
[2019-04-15] MEDS: DIFLUNISAL 500 MG G TUBE SCH (09:25)
[2019-04-15] MEDS: Heparin VIAL(*) 5000 UNITS/ML VIAL (FIVE THOUSAND) SUBCUT SCH ×2 (09:26→21:38)
[2019-04-15] MEDS: Lidocaine PATCH 5%* 1 PATCH TRANSDERM SCH (09:26)
[2019-04-15] MEDS: Polyethylene Glycol 3350* 17 GM PACKET PO SCH (09:27)
[2019-04-15] MEDS: Potassium Chlor TAB* 20 MEQ TAB.ER PO SCH ×2 (10:11→14:20)
[2019-04-15] MEDS: KCL 10 MEQ/50 ML IVPREMIX* 10 MEQ/50 ML BAG IV SCH ×3 (10:12→14:19)
[2019-04-15 10:36] LABS: Magnesium 2.1 mg/dL (1.9-2.7)
[2019-04-15 10:59] LABS: Hematocrit 38 % (42-52); Hemoglobin 12.1 g/dL (14.0-18.0); Mean Corpuscular HGB Conc 32 g/dL (31-36); Mean Corpuscular Hemoglobin 29 pg (27-31); Mean Corpuscular Volume 89 fL (80-94); Platelet Count 413 10^3/uL (150-450); Red Blood Count 4.23 10^6 /uL (4.18-5.48); Red Cell Distribution Width 19 % (10.5-15); White Blood Count 12.4 10^3/uL (3.5-10.8)
[2019-04-15 11:22] LABS: BUN/Creatinine Ratio 19.4 (8-20); Calcium 8.9 mg/dL (8.6-10.3); EGFR African American 145.4 (>60); EGFR Non-African American 120.2 (>60); Magnesium 2.1 mg/dL (1.9-2.7); Phosphorus 1.7 mg/dL (2.5-5.0); Potassium 3.5 mmol/L (3.5-5.0)
[2019-04-15 11:48] LABS: ABS Basophils 0.1 10^3/ul (0-0.2); ABS Eosinophils 0.3 10^3/ul (0-0.6); ABS Lymphocytes 1.1 10^3/ul (1.0-4.8); ABS Monocytes 2.2 10^3/ul (0-0.8); ABS Neutrophils 8.6 10^3/ul (1.5-7.7); Eosinophil % 2.2 %; Lymphocyte % 9.2 %; Nucleated Red Blood Cells % 0.1
[2019-04-15 14:46] LABS: Calcium 8.9 mg/dL (8.6-10.3); EGFR African American 150.6 (>60); EGFR Non-African American 124.5 (>60); Potassium 3.8 mmol/L (3.5-5.0)
--- NOTE | 2019-04-15 14:59 | CONS ---
CONSULTATION REPORT: DATE OF CONSULT: 04/15/19 ATTENDING PHYSICIAN: Dr. Chris Hidalgo, Cardiology.* (DICTATED BY DOMITILA PACHECO NP) PRIMARY PHYSICIAN: Dr. Bradley. REASON FOR CONSULTATION: PSVT, VPCs, wide complex tachycardia with troponinemia. CHIEF COMPLAINT: Unresponsiveness. HISTORY OF PRESENT ILLNESS: This is a 63-year-old male gentleman with a notable history of hypertension, substance abuse, and alcoholism, who presented to [facility] on 04/09/19 after suffering a witnessed arrest. According to the medical records in the emergency department, the patient had positive return of spontaneous circulation before EMS had arrived on scene. He had CPR performed, was given epinephrine, Narcan, and bicarb and was intubated and taken to [facility]. While being evaluated at [facility], he was admitted to the ICU. Urine tox screen was positive for benzodiazepines, cocaine, and opioid therapy. The patient's troponin was normal on 04/09/19. On 04/10/19, it was elevated at 0.04 and has since normalized. He denies ever experiencing chest pain, palpitations, sensation of heart racing, dizziness. He does report utilizing oxycodone, both as the prescriptive drug and also as abuse prior to overdose. He also admits to utilizing cocaine. He states that his apparently buys cocaine weekly and he will typically utilize 0.5 g once a month. In reference to his alcoholism, he reports 2 to 3 vodka and club soda drinks a day; however, I am told he actually consumes 5 to 6 drinks a day. Prior to presenting, he states that he remained pretty physically active splitting wood and denied ever experiencing exertional chest pain, dizziness, syncope, or palpitations. On telemetry yesterday, he had a 20 minute episode of what appears to be supraventricular tachycardia, unfortunately his heart rate was 168 beats per minute, making it difficult to determine if there was underlying T-waves; however, R to R interval was regular. Prior to arrhythmia, the patient was having frequent VPCs with ventricular trigeminy and occasional triplets. He denies having symptoms at that time. Intermittently since then, he has been having periods of wide complex tachycardia, again is not symptomatic, although there does appear to be underlying T-waves. We were asked to see the patient in consultation due to intermittent arrhythmia with troponinemia. He denies ever having ischemic evaluation and otherwise states he has been in his usual state of health up until his overdose on 04/09/19. Unfortunately, ECG data was not available when the patient arrested; however, according to the emergency room documentation when EMS arrived, he had returned to spontaneous circulation. Last echocardiogram was on 04/11/19 and at that time, LVEF was 50% to 55% with mild regurgitation. PAST MEDICAL HISTORY: Includes: 1. Hepatitis C, which reportedly is cured. 2. Hypertension. 3. GERD. 4. Anxiety/depression. 5. Substance abuse. 6. Alcoholism. PAST SURGICAL HISTORY: Includes: 1. Right knee arthroscopy. 2. L5 disk resection. 3. Intramedullary nail to left tibial fracture. 4. Left shoulder surgery. MEDICATIONS: Home medications per med rec. ALLERGIES: Include: 1. SULFA, which causes hives. 2. LISINOPRIL, which causes itchy throat. 3. MORPHINE causes nausea and vomiting. FAMILY HISTORY: Father at the age of 79 due to myocardial infarction, otherwise no other known cardiovascular disease involved in first degree relatives. 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 He is and lives at home with his . He is a former tobacco user, quit smoking 40 years ago. He reports consuming vodka and club soda 2 to 3 beverages a day, although I am also told that he consumes 5 to 6 according to the registered nurse who is caring for him. He states that he has not used heroin in many years, but does admit to occasional cocaine use due to accessibility from his using cocaine on a weekly basis. Reports not only been prescribed oxycodone, but also abusing oxycodone and also reports occasional marijuana use. In regards to physical activity, he states the most physical activity that he does on his typical basis would be splitting wood. He did this approximately a week and half ago with no exertional symptoms. REVIEW OF SYSTEMS: All systems have been reviewed and otherwise negative except what is abovementioned in the HPI. PHYSICAL EXAM: Pulse 77, respirations 18, systolic blood pressure ranging from 160 to 170. General: The patient is lying in bed upon entering room, appears in no apparent distress, offers no complaints. HEENT: Head is atraumatic and normocephalic. Oral mucosa is moist. Tongue is midline. Neck: Supple. Trachea midline. No JVD. No carotid bruit. Cardiac: Normal S1 and S2. Regular rate and rhythm. No murmur, rub, or gallop noted. Lungs: Auscultated posteriorly. Slight inspiratory crackles noted in bibasilar region. Otherwise , no other adventitious breath sounds auscultated. /GI: Abdomen is distended , firm, nontender. Normoactive bowel sounds x4. Extremities: No pedal edema. No clubbing. No cyanosis. There is positive varicose veins noted on the right pretibial surface. Skin: Intact. DIAGNOSTIC STUDIES/LAB DATA: Blood work reviewed from 04/15/19. White count 12.4, hemoglobin 12.1, hematocrit 38, platelets 413. INR on 04/09/19 was 1.1. Sodium on 04/15/19 was 140, potassium 3.5, chloride 107, carbon dioxide 28, creatinine 0.67, glucose 122, magnesium 2.1. Troponin #3 was normal on at 0.03, although it was elevated on 04/11/19 at 0.04. TSH elevated on 04/09 at 7.85. EKG obtained on 04/14/19 demonstrates narrow complex tachycardia, rate 165 consistent with supraventricular tachycardia. There appears to be diffuse ST segment changes noted, no ST elevation appreciated. Telemetry reviewed the patient is currently in normal sinus rhythm, rate 70s with occasional VPC, no VT. Yesterday around 4:08 p.m., he did have a period of sinus rhythm with frequent PVCs. The ventricular trigeminy followed by ventricular couplets prior to going into a narrow complex tachycardia, unfortunately ventricular rate was 168 beats per minute R to R interval was regular; however, it was difficult to discern whether or not there is underlying T-wave. Chest x-ray obtained on 04/12/19 demonstrated per radiology report cardiomegaly , small left pleural effusion, pulmonary vascular congestion. ASSESSMENT AND PLAN: 1. Presumed opioid overdose with arrest. Unfortunately, information obtained through review of prior medical record and the patient, he admits to using oxycodone the day he presented to [facility] after requiring CPR for arrest. Apparently, he had a period where he required CPR administration of epinephrine, Narcan, and bicarb. According to the emergency room medical record , he had return of spontaneous circulation prior to arrival of EMS. Initial cardiac enzyme was normal. LVEF was essentially preserved at 50% to 55% on . Denies ever experiencing exertional chest pain. On 04/11/19, troponin became elevated at 0.04 and has since normalized. He had diffuse nonspecific ST segment depression yesterday with supraventricular tachycardia with no associated symptomatology. He has been having frequent PVCs with episodes of intermittent wide complex tachycardia, although again he is not symptomatic, this is likely related to hypokalemia. Although he does have notable risk factors including hypertension and positive family history we were asked to recommend risk stratifying with Lexiscan nuclear stress test, unfortunately this could not be done today. We will convert metoprolol to Cardizem therapy given history of cocaine use and paroxysmal supraventricular tachycardia. We will recommend obtaining BMP at 1 p.m. today and we will continue to follow closely. 2. Out of hospital arrest; likely related to opioid overdose, to have Lexiscan stress test given minimal troponinemia and frequent ventricular premature complexes with wide complex tachycardia. He denies chest pain. EF preserved with no focal wall motion abnormality on echocardiogram. 3. History of hypertension. We will increase Norvasc to 10 mg a day. Discontinue metoprolol given history of cocaine use and prescribe Cardizem 120 mg p.o. b.i.d. 4. Disposition, pending course. Dr. Hidalgo has personally seen and examined the patient and agrees with the above assessment and plan. We will continue to monitor on telemetry. Potassium being replaced while we stratify with nuclear stress test. Thank you for this kind consultation. Please do not hesitate to contact our service with any questions or concerns. DOMITILA OLIVER, [place] [id number]/CPS #: [id number] Chart reviewed and Patient examined on 04.15.19 d/w Ms. Pacheco. I concur with the plan and will continue to follow the patient over the weekend. I informed the patient of the lifethreatening danger of his addiction and behavior. He understands and agrees to cooperate with further evaluation and treatment and to abstain from substance abuse. JOHN DE SANTIAGO
[2019-04-15] MEDS ORDERED: Diazepam TAB(*) 5 MG PO PRN (16:21)
--- NOTE | 2019-04-15 19:51 | PN ---
Subjective Date of Service: 04/15/19 Interval History: HOSPITALIST PROGRESS NOTE Patient seen and examined at bedside. Care reviewed and d/w Abeba Caldwell RN. He feels a little better today. Chest pain is still present, but less intense. Very emotional and thankful about his survival. Had a prolonged episode of SVT yesterday, and today had bursts of wide complex tachycardia; all asymptomatic. Family History: Unchanged from Admission Social History: Unchanged from Admission Past Medical History: Unchanged from Admission Objective Active Medications: Acetaminophen (Tylenol Tab*) 650 mg PO Q4H [facility] Last Admin: 04/15/19 17:34 Dose: 650 mg Amitriptyline HCl (Elavil Tab*) 25 mg G TUBE BEDTIME [facility] Last Admin: 04/14/19 20:09 Dose: 25 mg Amlodipine Besylate (Norvasc Tab*) 10 mg PO DAILY [facility] Bisacodyl (Dulcolax Supp*) 10 mg AK DAILY [facility] Last Admin: 04/15/19 09:20 Dose: Not Given Bupropion HCl (Wellbutrin Tab*) 100 mg G TUBE BID [facility] Last Admin: 04/15/19 09:25 Dose: 100 mg Diazepam (Valium Tab(*)) 5 mg PO DAILY [facility] Stop: 04/16/19 09:01 Last Admin: 04/15/19 09:25 Dose: 5 mg Diazepam (Valium Tab(*)) 5 mg PO DAILY PRN PRN Reason: WITHDRAWAL Diflunisal (Dolobid Tab*) 500 mg G TUBE BID [facility] Last Admin: 04/15/19 09:25 Dose: 500 mg Diltiazem HCl (Cardizem Cd Cap*) 120 mg PO BID [facility] Docusate Sodium (Colace Liq*) 100 mg PO BID [facility] Last Admin: 04/15/19 09:20 Dose: Not Given Gabapentin (Neurontin Cap(*)) 300 mg .SEE ORDER TID [facility] Last Admin: 04/15/19 14:20 Dose: 300 mg Heparin Sodium (Porcine) (Heparin Vial(*)) 5,000 units SUBCUT Q12HR [facility] Last Admin: 04/15/19 09:26 Dose: 5,000 units Hydralazine HCl (Apresoline Iv*) 10 mg IV SLOW PU Q6H PRN PRN Reason: Hypertension Last Admin: 04/15/19 15:56 Dose: 10 mg Hydromorphone HCl (Dilaudid Inj1s*) 0.5 mg IV SLOW PU Q4H PRN PRN Reason: PAIN Last Admin: 04/15/19 05:24 Dose: 0.5 mg Piperacillin Sod/Tazobactam (Sod 3.375 gm/ Sodium Chloride) 100 mls @ 25 mls/ hr IVPB Q8H [facility] Last Admin: 04/15/19 14:48 Dose: 25 mls/hr Vancomycin HCl 1,000 mg/ (Sodium Chloride) 250 mls @ 166.667 mls/hr IVPB Q6H [facility] Last Admin: 04/15/19 17:34 Dose: 166.667 mls/hr Lidocaine (Lidoderm 5% Patch*) 2 patch TRANSDERM DAILY [facility] Last Admin: 04/15/19 09:26 Dose: 2 patch Metoprolol Tartrate (Lopressor Iv*) 5 mg IV Q6H PRN PRN Reason: HEART RATE/PULSE GREATER THAN: Last Admin: 04/14/19 16:19 Dose: 5 mg Oxycodone HCl (Roxycodone Tab*) 10 mg PO Q6HR PRN PRN Reason: PAIN Last Admin: 04/15/19 17:36 Dose: 10 mg Pantoprazole Sodium (Protonix Tab*) 40 mg PO DAILY [facility] Last Admin: 04/15/19 09:25 Dose: 40 mg Pharmacy Consult (Zosyn Per Pharmacy*) 1 note FOLLOW UP .ZOSYN PER PHARMACY [facility] Pharmacy Consult (Vancomycin Per Pharmacy*) 1 note FOLLOW UP . PRN PRN Reason: PER PROTOCOL Pharmacy Profile Note (Lidocaine Patch Remove*) 1 note PATCH OFF 0400 [facility] Last Admin: 04/15/19 04:00 Dose: 1 note Pharmacy Profile Note (Vancomycin Trough Check) 1 note FOLLOW UP ONCE ONE Stop: 04/16/19 10:31 Polyethylene Glycol/Electrolytes (Miralax*) 17 gm PO DAILY [facility] Last Admin: 04/15/19 09:27 Dose: Not Given Prednisone (Deltasone Tab*) 30 mg G TUBE DAILY [facility] Stop: 04/17/19 09:01 Last Admin: 04/15/19 09:23 Dose: 30 mg Prednisone (Deltasone Tab*) 20 mg G TUBE DAILY [facility] Stop: 04/20/19 09:01 Prednisone (Deltasone Tab*) 10 mg G TUBE DAILY [facility] Quetiapine Fumarate (Seroquel Tab*) 25 mg G TUBE Q24H [facility] Last Admin: 04/14/19 20:09 Dose: 25 mg Vital Signs - 8 hr 04/15/19 04/15/19 04/15/19 12:14 14:20 15:30 Temperature Pulse Rate Respiratory 18 16 Rate Blood Pressure 168/82 (mmHg) O2 Sat by Pulse Oximetry 04/15/19 04/15/19 04/15/19 15:32 16:32 17:36 Temperature 98.2 F Pulse Rate 84 Respiratory 18 18 16 Rate Blood Pressure (mmHg) O2 Sat by Pulse 99 Oximetry Oxygen Devices in Use Now: None Appearance: Elderly obese gentleman sitting up in bed in NAD. Eyes: No Scleral Icterus Ears/Nose/Mouth/Throat: Mucous Membranes Moist Neck: Trachea Midline Respiratory: Symmetrical Chest Expansion and Respiratory Effort, Clear to Auscultation Cardiovascular: RRR - Normal S1 and S2 Abdominal: NL Sounds; No Tenderness; No Distention - obese Extremities: No Edema Neurological: Alert and Oriented x 3, NL Muscle Strength and Tone Result Diagrams: 04/15/19 10:42 04/15/19 14:00 Assess/Plan/Problems-Billing Assessment: Mr Johnson is a 63yo M with PMH of obesity, hepatitis C (reportedly treated), HTN, GERD, anxiety, PSA, who presented to ED on 04/09 s/p cardiac arrest ( asystole) with ROSC and TTM. - Patient Problems (1) Cardiac arrest Comment: - s/p cardiac arrest (asystole) with ROSC and TTM. Likely caused by overdose (utox positive for cocaine, opiates, and benzos). Alcohol level not checked. (2) Tachycardia Comment: - Had episodes of SVT and Wide complex tachycardia. - Cardiology input appreciated - replete electrolytes, add Cardizem. Recommended avoiding beta-blockers due to cocaine use. (3) Elevated troponin Comment: - Minimally elevated, but has risk factors. - Cardiology input appreciated - plan for stress test next week. (4) Polysubstance abuse Comment: - Cocaine, opiates, benzos, and alcohol. - Patient is very apologetic and thankful, but not interested in inpatient drug rehab. - No signs of withdrawal at this time. (5) Mood disorder Comment: - Continue Bupropion, Amtryptiline, Seroquel. (6) Pneumonia Comment: - Possible aspiration in the setting of overdose. - Continue Vanco and Zosyn. - F/u cultures. (7) Elevated TSH Comment: - Check T3 and Free T4. (8) DVT prophylaxis Comment: - SQ heparin. (9) Full code status (10) Physical deconditioning Comment: - Will need [facility]AIL - family would prefer [facility]. Status and Disposition: Inpatient.
[2019-04-15] MEDS ORDERED: predniSONE TAB* 10 MG PO SCH (20:44)
[2019-04-15] MEDS ORDERED: Potassium Chloride* LIQUID 20 MEQ/15 ML UDC PO ONE (20:49)
[2019-04-15] MEDS: DIFLUNISAL 500 MG PO SCH (21:39)
[2019-04-15] MEDS: Docusate CAP* 100 MG PO SCH (21:39)
[2019-04-15] MEDS: Gabapentin CAP(*) 100 MG PO SCH (21:40)
[2019-04-15] MEDS: Amitriptyline TAB* 25 MG PO SCH (21:41)
[2019-04-15] MEDS: Diltiazem CD CAP* 120 MG PO SCH (21:41)
[2019-04-15] MEDS: buPROPion TAB* 100 MG PO SCH (21:41)
[2019-04-15] MEDS: Losartan TAB* 25 MG PO SCH (21:41)
[2019-04-15] MEDS: QUEtiapine TAB* 25 MG PO SCH (21:41)
[2019-04-16] MEDS: Acetaminophen TAB* 325 MG PO SCH ×6 (01:58→22:55)
[2019-04-16] MEDS: Lidocaine Patch REMOVE* 1 NOTE MISC PATCH OFF SCH (03:06)
[2019-04-16] MEDS: Heparin VIAL(*) 5000 UNITS/ML VIAL (FIVE THOUSAND) SUBCUT SCH ×2 (05:44→12:54)
[2019-04-16] MEDS: ZOSYN 3.375 GM Q8H per EXTENDED INFUSION IVPB SCH ×6 (05:44→22:51)
[2019-04-16] MEDS: Vancomycin(*) 1,000 MG in NS 0.9% 250 ML* 250 ML IVPB SCH ×2 (05:45→11:53)
[2019-04-16 06:18] LABS: Calcium 9.4 mg/dL (8.6-10.3)
[2019-04-16] MEDS: oxyCODONE TAB* 5 MG TAB PO PRN ×3 (06:19→21:32)
[2019-04-16 06:24] LABS: BUN/Creatinine Ratio 19.4 (8-20); EGFR African American 159.1 (>60); EGFR Non-African American 131.5 (>60)
[2019-04-16 06:31] LABS: ABS Basophils 0.1 10^3/ul (0-0.2); ABS Eosinophils 0.3 10^3/ul (0-0.6); ABS Lymphocytes 2.2 10^3/ul (1.0-4.8); ABS Monocytes 1.5 10^3/ul (0-0.8); ABS Neutrophils 5.1 10^3/ul (1.5-7.7); Eosinophil % 3.4 %; Hematocrit 43 % (42-52); Hemoglobin 13.6 g/dL (14.0-18.0); Lymphocyte % 23.9 %; Mean Corpuscular HGB Conc 32 g/dL (31-36); Mean Corpuscular Hemoglobin 29 pg (27-31); Mean Corpuscular Volume 91 fL (80-94); Mean Platelet Volume 8.4 fL (7.4-10.4); Platelet Count 399 10^3/uL (150-450); Red Blood Count 4.77 10^6 /uL (4.18-5.48); Red Cell Distribution Width 19 % (10.5-15); White Blood Count 9.3 10^3/uL (3.5-10.8)
[2019-04-16 06:44] LABS: Free T4 1.15 ng/dL (0.61-1.12)
[2019-04-16] MEDS: Bisacodyl SUPP* 10 MG SUPP PR SCH ×2 (07:28→07:34)
[2019-04-16] MEDS: Polyethylene Glycol 3350* 17 GM PACKET PO SCH (07:32)
[2019-04-16] MEDS: DIFLUNISAL 500 MG PO SCH ×2 (07:42→21:34)
[2019-04-16] MEDS: Losartan TAB* 25 MG PO SCH ×2 (07:43→21:33)
[2019-04-16] MEDS: Diazepam TAB(*) 5 MG PO SCH (07:43)
[2019-04-16] MEDS: Gabapentin CAP(*) 100 MG PO SCH ×3 (07:43→21:32)
[2019-04-16] MEDS: Pantoprazole TAB * 40 MG TAB PO SCH (07:43)
[2019-04-16] MEDS: Docusate CAP* 100 MG PO SCH (07:44)
[2019-04-16] MEDS: buPROPion TAB* 100 MG PO SCH ×2 (07:44→21:33)
[2019-04-16] MEDS: Diltiazem CD CAP* 120 MG PO SCH ×2 (07:45→21:34)
[2019-04-16] MEDS: Lidocaine PATCH 5%* 1 PATCH TRANSDERM SCH (07:48)
[2019-04-16] MEDS ORDERED: amLODIPine TAB* 5 MG PO SCH ×2 (09:00)
[2019-04-16] MEDS ORDERED: predniSONE TAB* 10 MG PO SCH (09:00)
[2019-04-16] MEDS ORDERED: Vancomycin Trough Check NOTE FOLLOW UP ONE (10:30)
[2019-04-16 10:48] LABS: ABS Basophils 0.1 10^3/ul (0-0.2); ABS Eosinophils 0.3 10^3/ul (0-0.6); ABS Lymphocytes 0.9 10^3/ul (1.0-4.8); ABS Neutrophils 6.1 10^3/ul (1.5-7.7); Eosinophil % 3.1 %; Hematocrit 37 % (42-52); Hemoglobin 12.1 g/dL (14.0-18.0); Lymphocyte % 10.9 %; Mean Corpuscular HGB Conc 33 g/dL (31-36); Mean Corpuscular Hemoglobin 29 pg (27-31); Mean Corpuscular Volume 89 fL (80-94); Mean Platelet Volume 7.8 fL (7.4-10.4); Nucleated Red Blood Cells % 0.1; Platelet Count 393 10^3/uL (150-450); Red Blood Count 4.12 10^6 /uL (4.18-5.48); Red Cell Distribution Width 19 % (10.5-15); White Blood Count 8.3 10^3/uL (3.5-10.8)
[2019-04-16 10:57] LABS: Magnesium 1.9 mg/dL (1.9-2.7); Phosphorus 2.1 mg/dL (2.5-5.0)
[2019-04-16] MEDS: Potassium Chloride* LIQUID 20 MEQ/15 ML UDC PO SCH (14:06)
[2019-04-16] MEDS: HYDROmorphone INJ1* 1 MG/ML SYRINGE IV SLOW PU PRN (17:51)
[2019-04-16] MEDS ORDERED: Vancomycin(*) 1,000 MG in NS 0.9% 250 ML* 250 ML IVPB SCH (18:00)
--- NOTE | 2019-04-16 20:51 | PN ---
Subjective Date of Service: 04/16/19 Interval History: No overnight events. Pt reports feeling well. Seen by cards yesterday and started on dilt. Will DC vanc given no MRSA on cultures. Family History: Unchanged from Admission Social History: Unchanged from Admission Past Medical History: Unchanged from Admission Objective Active Medications: Acetaminophen (Tylenol Tab*) 650 mg PO Q4H [facility] Last Admin: 04/16/19 19:19 Dose: 650 mg Amitriptyline HCl (Elavil Tab*) 25 mg PO BEDTIME [facility] Last Admin: 04/15/19 21:41 Dose: 25 mg Amlodipine Besylate (Norvasc Tab*) 2.5 mg PO DAILY [facility] Bupropion HCl (Wellbutrin Tab*) 100 mg PO BID [facility] Last Admin: 04/16/19 07:44 Dose: 100 mg Diflunisal (Dolobid Tab*) 500 mg PO BID [facility] Last Admin: 04/16/19 07:42 Dose: 500 mg Diltiazem HCl (Cardizem Cd Cap*) 120 mg PO BID [facility] Last Admin: 04/16/19 07:45 Dose: 120 mg Enoxaparin Sodium (Lovenox(*)) 40 mg SUBCUT Q24H [facility] Gabapentin (Neurontin Cap(*)) 300 mg PO TID [facility] Last Admin: 04/16/19 12:54 Dose: 300 mg Hydralazine HCl (Apresoline Iv*) 10 mg IV SLOW PU Q6H PRN PRN Reason: Hypertension Last Admin: 04/15/19 15:56 Dose: 10 mg Hydromorphone HCl (Dilaudid Inj1s*) 0.5 mg IV SLOW PU Q4H PRN PRN Reason: PAIN Last Admin: 04/16/19 17:51 Dose: 0.5 mg Piperacillin Sod/Tazobactam (Sod 3.375 gm/ Sodium Chloride) 100 mls @ 25 mls/ hr IVPB 0600,1400,2200 [facility] Last Admin: 04/16/19 12:53 Dose: 25 mls/hr Lidocaine (Lidoderm 5% Patch*) 2 patch TRANSDERM DAILY [facility] Last Admin: 04/16/19 07:48 Dose: 2 patch Losartan Potassium (Cozaar Tab*) 25 mg PO BID [facility] Last Admin: 04/16/19 07:43 Dose: 25 mg Metoprolol Tartrate (Lopressor Iv*) 5 mg IV Q6H PRN PRN Reason: HEART RATE/PULSE GREATER THAN: Last Admin: 04/14/19 16:19 Dose: 5 mg Oxycodone HCl (Roxycodone Tab*) 10 mg PO Q6HR PRN PRN Reason: PAIN Last Admin: 04/16/19 12:45 Dose: 10 mg Pantoprazole Sodium (Protonix Tab*) 40 mg PO DAILY [facility] Last Admin: 04/16/19 07:43 Dose: 40 mg Pharmacy Consult (Zosyn Per Pharmacy*) 1 note FOLLOW UP .ZOSYN PER PHARMACY [facility] Pharmacy Profile Note (Lidocaine Patch Remove*) 1 note PATCH OFF 0400 [facility] Last Admin: 04/16/19 03:06 Dose: 1 note Polyethylene Glycol/Electrolytes (Miralax*) 17 gm PO DAILY [facility] Last Admin: 04/16/19 07:32 Dose: Not Given Potassium Chloride (Potassium Chloride Liquid) 20 meq PO DAILY [facility] Last Admin: 04/16/19 14:06 Dose: 20 meq Vital Signs - 8 hr 04/16/19 04/16/19 04/16/19 12:45 12:54 15:20 Temperature 96.8 F Pulse Rate 84 Respiratory 22 22 20 Rate Blood Pressure 159/82 (mmHg) O2 Sat by Pulse 100 Oximetry 04/16/19 04/16/19 04/16/19 17:51 19:21 19:39 Temperature 97.4 F Pulse Rate 99 Respiratory 20 20 16 Rate Blood Pressure 176/80 (mmHg) O2 Sat by Pulse 99 Oximetry 04/16/19 20:17 Temperature Pulse Rate Respiratory 20 Rate Blood Pressure (mmHg) O2 Sat by Pulse Oximetry Oxygen Devices in Use Now: None Appearance: NAD, AOx3, interactive, pleasant Eyes: No Scleral Icterus Ears/Nose/Mouth/Throat: Clear Oropharnyx, Mucous Membranes Moist Neck: NL Appearance and Movements; NL JVP Respiratory: Symmetrical Chest Expansion and Respiratory Effort, Clear to Auscultation Cardiovascular: RRR Abdominal: NL Sounds; No Tenderness; No Distention Extremities: No Edema, No Clubbing, Cyanosis Skin: No Rash or Ulcers Neurological: Alert and Oriented x 3, NL Gait, NL Muscle Strength and Tone Result Diagrams: 04/16/19 10:33 04/16/19 05:38 Microbiology and Other Data: Microbiology 04/13/19 09:40 Gram Stain - Final Sputum Sputum Culture - Preliminary Staphylococcus Aureus Streptococcus Pneumoniae 04/13/19 09:40 Aerobic Blood Culture - Preliminary Blood Line No Growth Day 2 Anaerobic Blood Culture - Preliminary No Growth Day 2 04/13/19 09:40 Aerobic Blood Culture - Preliminary Blood Venous No Growth Day 2 Anaerobic Blood Culture - Preliminary No Growth Day 2 04/09/19 15:58 Urine Culture - Final Urine No Growth (<1,000 CFU/mL) 04/09/19 15:54 Nasal Screen MRSA (PCR) - Final Nasal Mrsa Not Detected Assess/Plan/Problems-Billing Assessment: Mr Johnson is a 63yo M with obesity, hepatitis C (reportedly treated), HTN, GERD, anxiety, PSA, who presented to ED on 04/09 s/p cardiac arrest (asystole) with ROSC and TTM. - Patient Problems (1) Cardiac arrest Comment: - s/p cardiac arrest (asystole) with ROSC and TTM. Likely caused by overdose (utox positive for cocaine, opiates, and benzos). Alcohol level not checked. Pt declines drug rehab. (2) Elevated troponin Comment: Minimally elevated, but has risk factors. - Cardiology input appreciated - plan for stress test next week. (3) Pneumonia Comment: - Possible aspiration in the setting of overdose. - Continue Zosyn (04/13 - ). Will stop vanc given no MRSA on cultures. (4) Mood disorder Comment: - Continue Bupropion, Amtryptiline - seroquel DC'ed - added in ICU for delirium (5) Polysubstance abuse Comment: - Cocaine, opiates, benzos, and alcohol. - Patient is very apologetic and thankful, but not interested in inpatient drug rehab. - No signs of withdrawal at this time. (6) Tachycardia Comment: - Had episodes of SVT and Wide complex tachycardia. - Cardiology input appreciated - replete electrolytes, add Cardizem. Recommended avoiding beta-blockers due to cocaine use. (7) Elevated TSH Comment: TSH and T4 elevated. Likely from acute illness. Will have repeated as outpatient. (8) DVT prophylaxis Current Visit: Yes Status: Acute Code(s): [id number] - SNOMED Code(s): 846960474 Comment: - SQ lovenox (9) Full code status Current Visit: Yes Status: Acute Code(s): Z78.9 - OTHER SPECIFIED HEALTH STATUS SNOMED Code(s): 864408376 (10) Physical deconditioning Code(s): R53.81 - OTHER MALAISE Comment: - Will need [facility]AIL - family would prefer [facility]. (11) HTN (hypertension) Comment: Continue amlo, dilt, and losartan. Cards is titrating medications. (12) Chronic joint pain Comment: continue home meds for muscle/nerve pain(robaxin, gabapentin). Status and Disposition: Inpatient.
[2019-04-16] MEDS: QUEtiapine TAB* 25 MG PO SCH (21:23)
[2019-04-16] MEDS: Amitriptyline TAB* 25 MG PO SCH (21:33)
[2019-04-16] MEDS: Enoxaparin(*) 40 MG/0.4 ML SYR SUBCUT SCH (21:34)
[2019-04-16] MEDS: hydrALAZINE IV* 20 MG/ML VIAL IV SLOW PU PRN (23:46)
[2019-04-17] MEDS ORDERED: amLODIPine TAB* 5 MG PO ONE (00:46)
[2019-04-17] MEDS: Acetaminophen TAB* 325 MG PO SCH ×6 (02:35→23:11)
[2019-04-17] MEDS: Lidocaine Patch REMOVE* 1 NOTE MISC PATCH OFF SCH (03:41)
[2019-04-17 05:03] LABS: BUN/Creatinine Ratio 21.2 (8-20); Calcium 9.7 mg/dL (8.6-10.3); EGFR Non-African American 122.3 (>60); Potassium 3.2 mmol/L (3.5-5.0)
[2019-04-17] MEDS: ZOSYN 3.375 GM Q8H per EXTENDED INFUSION IVPB SCH ×6 (06:05→21:59)
[2019-04-17] MEDS: Pantoprazole TAB * 40 MG TAB PO SCH (07:38)
[2019-04-17] MEDS: Polyethylene Glycol 3350* 17 GM PACKET PO SCH (07:38)
[2019-04-17] MEDS: Losartan TAB* 25 MG PO SCH ×2 (07:38→20:27)
[2019-04-17] MEDS: Diltiazem CD CAP* 120 MG PO SCH ×2 (07:38→17:27)
[2019-04-17] MEDS: predniSONE TAB* 10 MG PO SCH (07:38)
[2019-04-17] MEDS: Gabapentin CAP(*) 100 MG PO SCH ×3 (07:38→20:26)
[2019-04-17] MEDS: buPROPion TAB* 100 MG PO SCH ×2 (07:39→20:28)
[2019-04-17] MEDS: amLODIPine TAB* 5 MG PO SCH (07:39)
[2019-04-17] MEDS: oxyCODONE TAB* 5 MG TAB PO PRN ×2 (07:39→20:27)
[2019-04-17] MEDS: Lidocaine PATCH 5%* 1 PATCH TRANSDERM SCH (07:39)
[2019-04-17] MEDS: DIFLUNISAL 500 MG PO SCH ×2 (07:40→20:31)
[2019-04-17] MEDS: Potassium Chloride* LIQUID 20 MEQ/15 ML UDC PO SCH (07:42)
[2019-04-17] MEDS ORDERED: Potassium Chloride* LIQUID 20 MEQ/15 ML UDC PO ONE (08:19)
[2019-04-17] MEDS ORDERED: Diltiazem CD CAP* 240 MG PO ONE (08:25)
[2019-04-17] MEDS: KCL 20 MEQ/100 ML IVPREMIX* 20 MEQ/100 ML BAG IV SCH ×2 (08:57→10:46)
[2019-04-17] MEDS ORDERED: Diazepam TAB(*) 5 MG PO PRN (09:00)
[2019-04-17] MEDS ORDERED: amLODIPine TAB* 5 MG PO SCH (09:00)
[2019-04-17] MEDS: HYDROmorphone INJ1* 1 MG/ML SYRINGE IV SLOW PU PRN (10:49)
[2019-04-17] MEDS ORDERED: Losartan TAB* 25 MG PO ONE (11:33)
[2019-04-17 12:56] LABS: BUN/Creatinine Ratio 21.2 (8-20); Calcium 9.4 mg/dL (8.6-10.3); EGFR Non-African American 122.3 (>60); Potassium 4.5 mmol/L (3.5-5.0)
--- NOTE | 2019-04-17 16:19 | PN ---
Subjective Date of Service: 04/17/19 Interval History: No significant overnight events. Occasional short runs of NSVT, asymptomatic. Cardiology aware and following. [facility], [place] continued. Hypokalemia to 3.2 this AM, repleted. Pt reporting baseline chronic pain. No other complaints. States he'll do whatever it takes to get better again. Has been walking around the floors with assistance. Pending stress test in AM and then possible STR placement. Family History: Unchanged from Admission Social History: Unchanged from Admission Past Medical History: Unchanged from Admission Objective Active Medications: Acetaminophen (Tylenol Tab*) 650 mg PO Q4H [facility] Last Admin: 04/17/19 13:52 Dose: 650 mg Amitriptyline HCl (Elavil Tab*) 25 mg PO BEDTIME [facility] Last Admin: 04/16/19 21:33 Dose: 25 mg Amlodipine Besylate (Norvasc Tab*) 5 mg PO DAILY [facility] Last Admin: 04/17/19 07:39 Dose: 5 mg Bupropion HCl (Wellbutrin Tab*) 100 mg PO BID [facility] Last Admin: 04/17/19 07:39 Dose: 100 mg Diflunisal (Dolobid Tab*) 500 mg PO BID [facility] Last Admin: 04/17/19 07:40 Dose: 500 mg Diltiazem HCl (Cardizem Cd Cap*) 240 mg PO DAILY [facility] Diltiazem HCl (Cardizem Cd Cap*) 120 mg PO QPM [facility] Stop: 05/17/19 17:59 Enoxaparin Sodium (Lovenox(*)) 40 mg SUBCUT Q24H [facility] Last Admin: 04/16/19 21:34 Dose: 40 mg Gabapentin (Neurontin Cap(*)) 300 mg PO TID [facility] Last Admin: 04/17/19 13:52 Dose: 300 mg Hydralazine HCl (Apresoline Iv*) 10 mg IV SLOW PU Q6H PRN PRN Reason: Hypertension Last Admin: 04/16/19 23:46 Dose: 10 mg Hydromorphone HCl (Dilaudid Inj1s*) 0.5 mg IV SLOW PU Q4H PRN PRN Reason: PAIN Last Admin: 04/17/19 10:49 Dose: 0.5 mg Piperacillin Sod/Tazobactam (Sod 3.375 gm/ Sodium Chloride) 100 mls @ 25 mls/ hr IVPB 0600,1400,2200 [facility] Last Admin: 04/17/19 13:53 Dose: 25 mls/hr Lidocaine (Lidoderm 5% Patch*) 2 patch TRANSDERM DAILY [facility] Last Admin: 04/17/19 07:39 Dose: 2 patch Losartan Potassium (Cozaar Tab*) 25 mg PO BID [facility] Last Admin: 04/17/19 07:38 Dose: 25 mg Metoprolol Tartrate (Lopressor Iv*) 5 mg IV Q6H PRN PRN Reason: HEART RATE/PULSE GREATER THAN: Last Admin: 04/14/19 16:19 Dose: 5 mg Oxycodone HCl (Roxycodone Tab*) 10 mg PO Q6HR PRN PRN Reason: PAIN Last Admin: 04/17/19 07:39 Dose: 10 mg Pantoprazole Sodium (Protonix Tab*) 40 mg PO DAILY [facility] Last Admin: 04/17/19 07:38 Dose: 40 mg Pharmacy Consult (Zosyn Per Pharmacy*) 1 note FOLLOW UP .ZOSYN PER PHARMACY [facility] Pharmacy Profile Note (Lidocaine Patch Remove*) 1 note PATCH OFF 0400 [facility] Last Admin: 04/17/19 03:41 Dose: Not Given Polyethylene Glycol/Electrolytes (Miralax*) 17 gm PO DAILY [facility] Last Admin: 04/17/19 07:38 Dose: 17 gm Potassium Chloride (Potassium Chloride Liquid) 20 meq PO DAILY [facility] Last Admin: 04/17/19 07:42 Dose: 20 meq Prednisone (Deltasone Tab*) 10 mg PO DAILY [facility] Last Admin: 04/17/19 07:38 Dose: 10 mg Vital Signs - 8 hr 04/17/19 04/17/19 04/17/19 09:10 09:13 10:49 Temperature Pulse Rate Respiratory 20 20 Rate Blood Pressure 158/76 (mmHg) O2 Sat by Pulse Oximetry 04/17/19 04/17/19 04/17/19 11:23 12:02 13:52 Temperature 97.6 F Pulse Rate 84 Respiratory 24 20 20 Rate Blood Pressure 151/90 (mmHg) O2 Sat by Pulse 100 Oximetry Oxygen Devices in Use Now: None Appearance: appears stated age, alert and interactive, pleasant, NAD Eyes: No Scleral Icterus Ears/Nose/Mouth/Throat: Clear Oropharnyx, Mucous Membranes Moist Neck: NL Appearance and Movements; NL JVP Respiratory: Symmetrical Chest Expansion and Respiratory Effort, Clear to Auscultation Cardiovascular: NL Sounds; No Murmurs; No JVD, RRR Abdominal: NL Sounds; No Tenderness; No Distention Extremities: No Edema, - - warm and well perfused Skin: No Rash or Ulcers Neurological: Alert and Oriented x 3 Result Diagrams: 04/16/19 10:33 04/17/19 12:24 Microbiology and Other Data: Microbiology 04/13/19 09:40 Gram Stain - Final Sputum Sputum Culture - Preliminary Staphylococcus Aureus Streptococcus Pneumoniae 04/13/19 09:40 Aerobic Blood Culture - Preliminary Blood Line No Growth Day 2 Anaerobic Blood Culture - Preliminary No Growth Day 2 04/13/19 09:40 Aerobic Blood Culture - Preliminary Blood Venous No Growth Day 2 Anaerobic Blood Culture - Preliminary No Growth Day 2 04/09/19 15:58 Urine Culture - Final Urine No Growth (<1,000 CFU/mL) 04/09/19 15:54 Nasal Screen MRSA (PCR) - Final Nasal Mrsa Not Detected Assess/Plan/Problems-Billing Assessment: Mr Johnson is a 63yo M with obesity, hepatitis C (reportedly treated), HTN, GERD, anxiety, PSA, who presented to ED on 04/09 with cardiac arrest (asystole) , now s/p TTM. Found with opioids, cocaine, and benzo in urine. Course c/b aspiration. - Patient Problems (1) Cardiac arrest Comment: Asystole with ROSC and TTM on 04/09. Likely caused by overdose (utox positive for cocaine, opiates, and benzos). Alcohol level not checked. Pt declines drug rehab. Cardiology following. (2) Tachycardia Comment: - Had episodes of SVT and Wide complex tachycardia. - Cardiology input appreciated - replete electrolytes, add Cardizem. Recommended avoiding beta-blockers due to cocaine use. (3) Chronic joint pain Comment: on opioids at home - will continue here; cont gabapentin, TCA (4) HTN (hypertension) Comment: Continue amlo, dilt, and losartan. Cards is titrating medications. (5) Elevated troponin Comment: Minimally elevated, but has risk factors. - Cardiology input appreciated - plan for stress test tomorrow (6) Pneumonia Comment: Possible aspiration in the setting of overdose. - Continue Zosyn (04/13 - 04/19). Off vanc given no MRSA on cultures. (7) Mood disorder Comment: - Continue Bupropion, Amtryptiline - seroquel DC'ed - added in ICU for delirium (8) Steroid long-term use Comment: Unclear indication. Given high-dose in ICU and tapered to 10mg. (9) Polysubstance abuse Comment: - Cocaine, opiates, benzos, and alcohol. - Patient is very apologetic and thankful, but not interested in inpatient drug rehab. - No signs of withdrawal at this time. (10) Physical deconditioning Code(s): R53.81 - OTHER MALAISE Comment: - Will need [facility] - family would prefer [facility]. (11) Elevated TSH Comment: TSH and T4 elevated. Likely from acute illness. Will have repeated as outpatient. (12) DVT prophylaxis Current Visit: Yes Status: Acute Code(s): [id number] - SNOMED Code(s): 621535296 Comment: - SQ lovenox (13) Full code status Current Visit: Yes Status: Acute Code(s): Z78.9 - OTHER SPECIFIED HEALTH STATUS SNOMED Code(s): 968806725 Status and Disposition: Inpatient. Pending stress test, then likely STR placement.
[2019-04-17] MEDS: hydrALAZINE IV* 20 MG/ML VIAL IV SLOW PU PRN (20:26)
[2019-04-17] MEDS: Enoxaparin(*) 40 MG/0.4 ML SYR SUBCUT SCH (20:28)
[2019-04-17] MEDS: Amitriptyline TAB* 25 MG PO SCH (20:28)
[2019-04-18] MEDS: Acetaminophen TAB* 325 MG PO SCH ×6 (02:12→21:43)
[2019-04-18] MEDS: Lidocaine Patch REMOVE* 1 NOTE MISC PATCH OFF SCH (04:00)
--- NOTE | 2019-04-18 05:42 | PN ---
Progress Note - Progress Note Date of Service: 04/18/19 Note: Change in rhythm, wide complex junctional rhythm. No CP or SOB during this. Awaiting AM labs, will add on a troponin. Plans for stress test today. May need to place on hold.
[2019-04-18] MEDS: ZOSYN 3.375 GM Q8H per EXTENDED INFUSION IVPB SCH ×6 (05:49→21:44)
[2019-04-18 05:52] LABS: Hematocrit 39 % (42-52); Hemoglobin 12.6 g/dL (14.0-18.0); Mean Corpuscular HGB Conc 32 g/dL (31-36); Mean Corpuscular Hemoglobin 29 pg (27-31); Mean Corpuscular Volume 89 fL (80-94); Mean Platelet Volume 7.7 fL (7.4-10.4); Platelet Count 432 10^3/uL (150-450); Red Blood Count 4.41 10^6 /uL (4.18-5.48); Red Cell Distribution Width 19 % (10.5-15); White Blood Count 8.8 10^3/uL (3.5-10.8)
[2019-04-18 06:14] LABS: Calcium 9.3 mg/dL (8.6-10.3); EGFR African American 153.3 (>60); EGFR Non-African American 126.7 (>60); Potassium 3.5 mmol/L (3.5-5.0); Troponin I 0.01 ng/mL (<0.04)
[2019-04-18] MEDS ORDERED: Potassium Chlor TAB* 20 MEQ TAB.ER PO ONE (06:17)
[2019-04-18] MEDS: amLODIPine TAB* 5 MG PO SCH (08:57)
[2019-04-18] MEDS: Losartan TAB* 25 MG PO SCH ×2 (08:57→21:43)
[2019-04-18] MEDS: Polyethylene Glycol 3350* 17 GM PACKET PO SCH (08:57)
[2019-04-18] MEDS: predniSONE TAB* 10 MG PO SCH (08:57)
[2019-04-18] MEDS: DIFLUNISAL 500 MG PO SCH ×2 (08:57→21:43)
[2019-04-18] MEDS: buPROPion TAB* 100 MG PO SCH ×2 (08:57→21:44)
[2019-04-18] MEDS: Pantoprazole TAB * 40 MG TAB PO SCH (08:57)
[2019-04-18] MEDS: Lidocaine PATCH 5%* 1 PATCH TRANSDERM SCH (08:58)
[2019-04-18] MEDS: Gabapentin CAP(*) 100 MG PO SCH ×2 (08:58→13:40)
[2019-04-18] MEDS: Potassium Chloride* LIQUID 20 MEQ/15 ML UDC PO SCH (08:58)
[2019-04-18] MEDS ORDERED: predniSONE TAB* 20 MG PO SCH (09:00)
[2019-04-18] MEDS ORDERED: Diltiazem CD CAP* 240 MG PO SCH (09:00)
[2019-04-18] MEDS ORDERED: Vancomycin Trough Check NOTE FOLLOW UP ONE (10:00)
[2019-04-18] MEDS: oxyCODONE TAB* 5 MG TAB PO PRN (11:14)
[2019-04-18] MEDS ORDERED: Regadenoson* 0.4 MG/5 ML SYRINGE ONE (14:18)
[2019-04-18] MEDS ORDERED: Aminophylline IV* 25 MG/ML 10 ML VIAL ONE (14:19)
[2019-04-18] MEDS: HYDROmorphone INJ1* 1 MG/ML SYRINGE IV SLOW PU PRN ×2 (15:41→22:07)
[2019-04-18] MEDS: Diltiazem CD CAP* 120 MG PO SCH (17:52)
[2019-04-18] MEDS ORDERED: diPHENhydraMINE PO* 25 MG PO PRN (17:57)
[2019-04-18] MEDS ORDERED: Diazepam TAB(*) 5 MG PO PRN (17:57)
--- NOTE | 2019-04-18 19:00 | PN ---
Subjective Date of Service: 04/18/19 Interval History: Patient seen and examined. Had first part of stress test this am, pending part 2. Had runs of VT overnight and this AM. Strips evaluated by cardiology and cleared for test. Patient denies chest pain, no SOB, no dizziness. States he is feeling well. Family History: Unchanged from Admission Social History: Unchanged from Admission Past Medical History: Unchanged from Admission Objective Active Medications: Acetaminophen (Tylenol Tab*) 650 mg PO Q4H [facility] Last Admin: 04/18/19 17:51 Dose: 650 mg Amitriptyline HCl (Elavil Tab*) 25 mg PO BEDTIME [facility] Last Admin: 04/17/19 20:28 Dose: 25 mg Amlodipine Besylate (Norvasc Tab*) 5 mg PO DAILY [facility] Last Admin: 04/18/19 08:57 Dose: 5 mg Bupropion HCl (Wellbutrin Tab*) 100 mg PO BID [facility] Last Admin: 04/18/19 08:57 Dose: 100 mg Diazepam (Valium Tab(*)) 5 mg PO ONCE PRN PRN Reason: 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 [employer] Diflunisal (Dolobid Tab*) 500 mg PO BID [facility] Last Admin: 04/18/19 08:57 Dose: 500 mg Diphenhydramine HCl (Benadryl Po*) 25 mg PO ONCE PRN PRN Reason: 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 [employer] Enoxaparin Sodium (Lovenox(*)) 40 mg SUBCUT Q24H [facility] Last Admin: 04/17/19 20:28 Dose: 40 mg Gabapentin (Neurontin Cap(*)) 300 mg PO TID [facility] Hydralazine HCl (Apresoline Iv*) 10 mg IV SLOW PU Q6H PRN PRN Reason: Hypertension Last Admin: 04/17/19 20:26 Dose: 10 mg Hydromorphone HCl (Dilaudid Inj1s*) 0.5 mg IV SLOW PU Q4H PRN PRN Reason: PAIN Last Admin: 04/18/19 15:41 Dose: 0.5 mg Piperacillin Sod/Tazobactam (Sod 3.375 gm/ Sodium Chloride) 100 mls @ 25 mls/ hr IVPB 0600,1400,2200 [facility] Last Admin: 04/18/19 13:42 Dose: 25 mls/hr Sodium Chloride (Ns 0.9% 1000 Ml) 1,000 mls @ 100 mls/hr IV .per rate [facility] Lidocaine (Lidoderm 5% Patch*) 2 patch TRANSDERM DAILY [facility] Last Admin: 04/18/19 08:58 Dose: 2 patch Losartan Potassium (Cozaar Tab*) 25 mg PO BID [facility] Last Admin: 04/18/19 08:57 Dose: 25 mg Metoprolol Tartrate (Lopressor Iv*) 5 mg IV Q6H PRN PRN Reason: HEART RATE/PULSE GREATER THAN: Last Admin: 04/14/19 16:19 Dose: 5 mg Metoprolol Tartrate (Lopressor Tab*) 50 mg PO BID [facility] Oxycodone HCl (Roxycodone Tab*) 10 mg PO Q6HR PRN PRN Reason: PAIN Last Admin: 04/18/19 11:14 Dose: 10 mg Pantoprazole Sodium (Protonix Tab*) 40 mg PO DAILY [facility] Last Admin: 04/18/19 08:57 Dose: 40 mg Pharmacy Consult (Zosyn Per Pharmacy*) 1 note FOLLOW UP .ZOSYN PER PHARMACY [facility] Pharmacy Profile Note (Lidocaine Patch Remove*) 1 note PATCH OFF 0400 [facility] Last Admin: 04/18/19 04:00 Dose: 1 note Polyethylene Glycol/Electrolytes (Miralax*) 17 gm PO DAILY [facility] Last Admin: 04/18/19 08:57 Dose: 17 gm Potassium Chloride (Potassium Chloride Liquid) 20 meq PO DAILY [facility] Last Admin: 04/18/19 08:58 Dose: 20 meq Prednisone (Deltasone Tab*) 10 mg PO DAILY [facility] Last Admin: 04/18/19 08:57 Dose: 10 mg Vital Signs - 8 hr 04/18/19 04/18/19 04/18/19 11:14 11:56 13:40 Temperature 98.3 F Pulse Rate 71 Respiratory 20 20 20 Rate Blood Pressure 175/79 (mmHg) O2 Sat by Pulse 100 Oximetry 04/18/19 04/18/19 04/18/19 15:41 15:47 17:00 Temperature 98.2 F Pulse Rate 74 Respiratory 20 20 18 Rate Blood Pressure 152/73 (mmHg) O2 Sat by Pulse 99 Oximetry Oxygen Devices in Use Now: None Appearance: alert, NAD Eyes: No Scleral Icterus, PERRLA Ears/Nose/Mouth/Throat: NL Teeth, Lips, Gums, Mucous Membranes Moist Neck: NL Appearance and Movements; NL JVP, Trachea Midline Respiratory: Symmetrical Chest Expansion and Respiratory Effort, Clear to Auscultation Cardiovascular: NL Sounds; No Murmurs; No JVD, RRR, No Edema Abdominal: NL Sounds; No Tenderness; No Distention Extremities: No Edema, No Clubbing, Cyanosis Skin: No Rash or Ulcers Neurological: Alert and Oriented x 3, NL Muscle Strength and Tone Nutrition: - - NPO for test Result Diagrams: 04/18/19 05:19 04/18/19 05:19 Microbiology and Other Data: Microbiology 04/13/19 09:40 Gram Stain - Final Sputum Sputum Culture - Preliminary Staphylococcus Aureus Streptococcus Pneumoniae 04/13/19 09:40 Aerobic Blood Culture - Preliminary Blood Line No Growth Day 2 Anaerobic Blood Culture - Preliminary No Growth Day 2 04/13/19 09:40 Aerobic Blood Culture - Preliminary Blood Venous No Growth Day 2 Anaerobic Blood Culture - Preliminary No Growth Day 2 04/09/19 15:58 Urine Culture - Final Urine No Growth (<1,000 CFU/mL) 04/09/19 15:54 Nasal Screen MRSA (PCR) - Final Nasal Mrsa Not Detected Assess/Plan/Problems-Billing Assessment: This is a 63yo M with obesity, hepatitis C (reportedly treated), HTN, GERD, anxiety, PSA, who presented to ED on 04/09 with cardiac arrest (asystole), now s /p TTM. Found with opioids, cocaine, and benzo in urine and post arrest aspiration. - Patient Problems (1) Cardiac arrest Code(s): I46.9 - CARDIAC ARREST, CAUSE UNSPECIFIED SNOMED Code(s): 491797223 Comment: - Asystole with ROSC and TTM on 04/09. Likely caused by overdose (utox positive for cocaine, opiates, and benzos). - Cardiology following - stress test today, follow results - Arrythmias noted, continue tele (2) Elevated troponin Code(s): R74.8 - ABNORMAL LEVELS OF OTHER SERUM ENZYMES SNOMED Code(s): 638132941 Comment: - Post stress today, follow results, appreciate cardiology recs (3) Polysubstance abuse Code(s): F19.10 - OTHER PSYCHOACTIVE SUBSTANCE ABUSE, UNCOMPLICATED SNOMED Code(s): 901982375 Comment: - Multiple drugs found on urine tox screen, patient declines rehab (4) HTN (hypertension) Code(s): I10 - ESSENTIAL (PRIMARY) HYPERTENSION SNOMED Code(s): 44858236 Comment: - Continue amlodipine, diltiazem, and losartan (5) Mood disorder Code(s): F39 - UNSPECIFIED MOOD [AFFECTIVE] DISORDER SNOMED Code(s): 20610019 Comment: - Continue Bupropion, Amtryptiline (6) DVT prophylaxis Code(s): ZJE9507 - SNOMED Code(s): 527784934 Comment: - SQ lovenox (7) Full code status Code(s): Z78.9 - OTHER SPECIFIED HEALTH STATUS SNOMED Code(s): 042942245 Status and Disposition: Stable, inpatient. If clear by cardio, discharge planning tomorrow. STR vs other arrangements.
[2019-04-18] MEDS: Enoxaparin(*) 40 MG/0.4 ML SYR SUBCUT SCH (21:42)
[2019-04-18] MEDS: Amitriptyline TAB* 25 MG PO SCH (21:44)
[2019-04-18] MEDS: Gabapentin CAP(*) 300 MG PO SCH (21:44)
[2019-04-19] MEDS ORDERED: NS 0.9% 1000 ML** 1,000 ML IV SCH ×2 (01:00→14:15)
[2019-04-19] MEDS: Acetaminophen TAB* 325 MG PO SCH ×6 (03:27→21:01)
[2019-04-19] MEDS: ZOSYN 3.375 GM Q8H per EXTENDED INFUSION IVPB SCH ×4 (05:14→16:43)
[2019-04-19] MEDS: Lidocaine Patch REMOVE* 1 NOTE MISC PATCH OFF SCH (05:20)
[2019-04-19] MEDS: HYDROmorphone INJ1* 1 MG/ML SYRINGE IV SLOW PU PRN ×2 (05:54→14:30)
[2019-04-19] MEDS ORDERED: Metoprolol Tartrate TAB* 25 MG PO SCH (09:00)
[2019-04-19] MEDS: oxyCODONE TAB* 5 MG TAB PO PRN ×2 (09:54→16:48)
[2019-04-19] MEDS: Losartan TAB* 25 MG PO SCH ×2 (12:54→21:00)
[2019-04-19] MEDS: amLODIPine TAB* 5 MG PO SCH (12:55)
[2019-04-19] MEDS: Metoprolol Tartrate TAB* 50 mg PO SCH ×2 (12:55→21:01)
[2019-04-19] MEDS ORDERED: Heparin 2 UNITS/ML IVPREMIX* 3,000 UNIT/1,500 ML BAG IV ONE (12:56)
[2019-04-19] MEDS ORDERED: Lidocaine 1% INJ* 10 MG/ML 30 ML SDV ONE (12:56)
[2019-04-19] MEDS ORDERED: Iohexol 350 (CONTRAST) 200 ML MDV IV ONE (12:56)
[2019-04-19] MEDS ORDERED: Midazolam* 1 MG/ML 5 ML VIAL (5 MG) ONE (13:19)
[2019-04-19] MEDS ORDERED: fentaNYL* 50 MCG/ML 2 ML VIAL (100 MCG VIAL) ONE (13:19)
[2019-04-19] MEDS ORDERED: nitroGLYCERIN DRIP* 25,000 MCG/250 ML BTL ONE (13:20)
[2019-04-19] MEDS ORDERED: Heparin(*) 1000 UNIT/ML 10 ML VIAL CATH LAB IV ONE (13:20)
[2019-04-19] MEDS ORDERED: VERAPAMIL 2.5 MG/ML 2 ML VIAL ** 5 mg/2 ml ONE (13:20)
[2019-04-19] MEDS ORDERED: HYDROmorphone INJ1* 1 MG/ML SYRINGE ONE (14:21)
[2019-04-19] MEDS: Gabapentin CAP(*) 300 MG PO SCH ×3 (14:44→21:01)
[2019-04-19] MEDS: buPROPion TAB* 100 MG PO SCH ×2 (15:21→21:01)
[2019-04-19] MEDS: DIFLUNISAL 500 MG PO SCH (15:22)
[2019-04-19] MEDS: hydrALAZINE IV* 20 MG/ML VIAL IV SLOW PU PRN (15:49)
[2019-04-19] MEDS: predniSONE TAB* 10 MG PO SCH (16:16)
[2019-04-19] MEDS: Potassium Chloride* LIQUID 20 MEQ/15 ML UDC PO SCH (16:17)
[2019-04-19] MEDS: Pantoprazole TAB * 40 MG TAB PO SCH (16:17)
[2019-04-19] MEDS: Polyethylene Glycol 3350* 17 GM PACKET PO SCH (16:17)
[2019-04-19] MEDS: Lidocaine PATCH 5%* 1 PATCH TRANSDERM SCH (16:41)
[2019-04-19] MEDS ORDERED: oxyCODONE/Acetamin 5/325 MG* TAB PO PRN (17:54)
--- NOTE | 2019-04-19 18:10 | PN ---
Subjective Date of Service: 04/19/19 Interval History: Patient seen and examined. Saw patient prior to cardiac cath this morning. Denied chest pain, no SOB, no n/v, no complaints. Patient was anxious to complete the cath today and see results. Family History: Unchanged from Admission Social History: Unchanged from Admission Past Medical History: Unchanged from Admission Objective Active Medications: Acetaminophen (Tylenol Tab*) 650 mg PO Q4H [facility] Last Admin: 04/19/19 16:17 Dose: 650 mg Amitriptyline HCl (Elavil Tab*) 25 mg PO BEDTIME [facility] Last Admin: 04/18/19 21:44 Dose: 25 mg Amlodipine Besylate (Norvasc Tab*) 5 mg PO DAILY [facility] Last Admin: 04/19/19 12:55 Dose: 5 mg Bupropion HCl (Wellbutrin Tab*) 100 mg PO BID [facility] Last Admin: 04/19/19 15:21 Dose: Not Given Diazepam (Valium Tab(*)) 5 mg PO ONCE PRN PRN Reason: 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 Diphenhydramine HCl (Benadryl Po*) 25 mg PO ONCE PRN PRN Reason: 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 Enoxaparin Sodium (Lovenox(*)) 40 mg SUBCUT Q24H [facility] Last Admin: 04/18/19 21:42 Dose: 40 mg Gabapentin (Neurontin Cap(*)) 300 mg PO TID [facility] Last Admin: 04/19/19 16:16 Dose: 300 mg Hydralazine HCl (Apresoline Iv*) 10 mg IV SLOW PU Q6H PRN PRN Reason: Hypertension Last Admin: 04/19/19 15:49 Dose: 10 mg Sodium Chloride (Ns 0.9% 1000 Ml) 1,000 mls @ 100 mls/hr IV .per rate [facility] Stop: 04/19/19 18:14 Lidocaine (Lidoderm 5% Patch*) 2 patch TRANSDERM DAILY [facility] Last Admin: 04/19/19 16:41 Dose: 2 patch Losartan Potassium (Cozaar Tab*) 50 mg PO BID [facility] Metoprolol Tartrate (Lopressor Iv*) 5 mg IV Q6H PRN PRN Reason: HEART RATE/PULSE GREATER THAN: Last Admin: 04/14/19 16:19 Dose: 5 mg Metoprolol Tartrate (Lopressor Tab*) 50 mg PO BID [facility] Last Admin: 04/19/19 12:55 Dose: 25 mg Oxycodone/Acetaminophen (Percocet 5/325 Tab*) 1 tab PO Q6H PRN PRN Reason: PAIN Pantoprazole Sodium (Protonix Tab*) 40 mg PO DAILY [facility] Last Admin: 04/19/19 16:17 Dose: 40 mg Pharmacy Profile Note (Lidocaine Patch Remove*) 1 note PATCH OFF 0400 [facility] Last Admin: 04/19/19 05:20 Dose: 1 note Polyethylene Glycol/Electrolytes (Miralax*) 17 gm PO DAILY [facility] Last Admin: 04/19/19 16:17 Dose: Not Given Potassium Chloride (Potassium Chloride Liquid) 20 meq PO DAILY [facility] Last Admin: 04/19/19 16:17 Dose: 20 meq Prednisone (Deltasone Tab*) 10 mg PO DAILY [facility] Last Admin: 04/19/19 16:16 Dose: 10 mg Vital Signs - 8 hr 04/19/19 04/19/19 04/19/19 12:14 12:16 14:17 Temperature 97.6 F Pulse Rate 63 60 Respiratory 21 18 Rate Blood Pressure 169/83 176/108 (mmHg) O2 Sat by Pulse 97 99 Oximetry 04/19/19 04/19/19 04/19/19 14:30 14:44 14:59 Temperature Pulse Rate 61 60 58 Respiratory 25 23 20 Rate Blood Pressure 176/102 177/106 173/91 (mmHg) O2 Sat by Pulse 99 96 96 Oximetry 04/19/19 04/19/19 04/19/19 15:01 15:15 15:19 Temperature Pulse Rate 60 62 62 Respiratory 19 23 19 Rate Blood Pressure 183/112 176/106 (mmHg) O2 Sat by Pulse 96 96 95 Oximetry 04/19/19 04/19/19 04/19/19 15:29 15:37 15:44 Temperature Pulse Rate 58 60 61 Respiratory 17 19 23 Rate Blood Pressure 142/119 174/96 178/99 (mmHg) O2 Sat by Pulse 98 96 97 Oximetry 04/19/19 04/19/19 04/19/19 16:11 16:16 16:19 Temperature 96.6 F Pulse Rate 62 Respiratory 18 18 18 Rate Blood Pressure 155/90 (mmHg) O2 Sat by Pulse 90 Oximetry 04/19/19 04/19/19 16:48 17:20 Temperature 98 F Pulse Rate 66 Respiratory 18 20 Rate Blood Pressure 145/58 (mmHg) O2 Sat by Pulse 98 Oximetry Oxygen Devices in Use Now: None Appearance: alert, NAD Eyes: No Scleral Icterus, PERRLA Ears/Nose/Mouth/Throat: NL Teeth, Lips, Gums, Mucous Membranes Moist Neck: NL Appearance and Movements; NL JVP, Trachea Midline Respiratory: Symmetrical Chest Expansion and Respiratory Effort, Clear to Auscultation Cardiovascular: NL Sounds; No Murmurs; No JVD, RRR, No Edema Abdominal: NL Sounds; No Tenderness; No Distention Extremities: No Edema, No Clubbing, Cyanosis Skin: No Rash or Ulcers Neurological: Alert and Oriented x 3, NL Sensation, NL Gait Nutrition: - - NPO Result Diagrams: 04/18/19 05:19 04/18/19 05:19 Microbiology and Other Data: Microbiology 04/13/19 09:40 Gram Stain - Final Sputum Sputum Culture - Preliminary Staphylococcus Aureus Streptococcus Pneumoniae 04/13/19 09:40 Aerobic Blood Culture - Preliminary Blood Line No Growth Day 2 Anaerobic Blood Culture - Preliminary No Growth Day 2 04/13/19 09:40 Aerobic Blood Culture - Preliminary Blood Venous No Growth Day 2 Anaerobic Blood Culture - Preliminary No Growth Day 2 04/09/19 15:58 Urine Culture - Final Urine No Growth (<1,000 CFU/mL) 04/09/19 15:54 Nasal Screen MRSA (PCR) - Final Nasal Mrsa Not Detected Assess/Plan/Problems-Billing Assessment: This is a 63yo M with obesity, hepatitis C (reportedly treated), HTN, GERD, anxiety, PSA, who presented to ED on 04/09 with cardiac arrest (asystole), now s /p TTM. Found with opioids, cocaine, and benzo in urine and post arrest aspiration. - Patient Problems (1) Cardiac arrest Code(s): I46.9 - CARDIAC ARREST, CAUSE UNSPECIFIED SNOMED Code(s): 632282435 Comment: - Asystole with ROSC and TTM on 04/09. Likely caused by overdose (utox positive for cocaine, opiates, and benzos). - Cardiology following - Stress test 04/18/19 showed no ischemia, cardiac cath 04/19/19 showed no disease/ clean coronary arteries - Plan as per Dr. Kim is to do exercise stress tomorrow to assess for ventricular arrhythmias during exertion - Arrythmias noted, continue tele (2) Ventricular arrhythmia Code(s): I49.9 - CARDIAC ARRHYTHMIA, UNSPECIFIED SNOMED Code(s): 26284813 Comment: - Plan for exercise stress tomorrow, etiology unclear (respiratory driven 2/2 overdose and arrest?), patient has intact LV function - May need implanted loop recorder before discharge if exercise stress does not induce arrhythmia - Also possiblity for EP studies - Appreciate cardiology recommendations (3) Elevated troponin Code(s): R74.8 - ABNORMAL LEVELS OF OTHER SERUM ENZYMES SNOMED Code(s): 348743064 Comment: - Clean cath today - Elevated trop is likely demand ischemia in the setting of overdose and cardiac arrest (4) Polysubstance abuse Code(s): F19.10 - OTHER PSYCHOACTIVE SUBSTANCE ABUSE, UNCOMPLICATED SNOMED Code(s): 111355399 Comment: - Multiple drugs found on urine tox screen, patient declines rehab (5) HTN (hypertension) Code(s): I10 - ESSENTIAL (PRIMARY) HYPERTENSION SNOMED Code(s): 64139866 Comment: - Continue amlodipine and ARB, BB started (6) Mood disorder Code(s): F39 - UNSPECIFIED MOOD [AFFECTIVE] DISORDER SNOMED Code(s): 52511051 Comment: - Continue Bupropion, Amtryptiline (7) DVT prophylaxis Code(s): VTQ3090 - SNOMED Code(s): 207437965 Comment: - SQ lovenox (8) Full code status Code(s): Z78.9 - OTHER SPECIFIED HEALTH STATUS SNOMED Code(s): 017131279 Status and Disposition: Stable, inpatient, pending exercise stress and further cardiac recs. Likely dispo to STR.
[2019-04-19] MEDS: oxyCODONE/Acetamin 5/325 MG* TAB PO PRN (21:00)
[2019-04-19] MEDS: Enoxaparin(*) 40 MG/0.4 ML SYR SUBCUT SCH (21:00)
[2019-04-19] MEDS: Amitriptyline TAB* 25 MG PO SCH (21:01)
[2019-04-20] MEDS: Lidocaine Patch REMOVE* 1 NOTE MISC PATCH OFF SCH (02:08)
[2019-04-20] MEDS: Acetaminophen TAB* 325 MG PO SCH ×3 (02:08→08:00)
[2019-04-20] MEDS: Metoprolol Tartrate TAB* 50 mg PO SCH (07:55)
[2019-04-20] MEDS: predniSONE TAB* 10 MG PO SCH (07:55)
[2019-04-20] MEDS: buPROPion TAB* 100 MG PO SCH (07:55)
[2019-04-20] MEDS: Polyethylene Glycol 3350* 17 GM PACKET PO SCH (07:55)
[2019-04-20] MEDS: Potassium Chloride* LIQUID 20 MEQ/15 ML UDC PO SCH (07:55)
[2019-04-20] MEDS: amLODIPine TAB* 5 MG PO SCH (07:56)
[2019-04-20] MEDS: Pantoprazole TAB * 40 MG TAB PO SCH (07:56)
[2019-04-20] MEDS: Losartan TAB* 25 MG PO SCH (07:56)
[2019-04-20] MEDS: oxyCODONE/Acetamin 5/325 MG* TAB PO PRN (07:56)
[2019-04-20] MEDS: Gabapentin CAP(*) 300 MG PO SCH (07:56)
[2019-04-20] MEDS: Lidocaine PATCH 5%* 1 PATCH TRANSDERM SCH (07:57)
[2019-04-20 08:09] LABS: BUN/Creatinine Ratio 23.1 (8-20); Calcium 9.4 mg/dL (8.6-10.3); EGFR African American 150.6 (>60); EGFR Non-African American 124.5 (>60); Potassium 3.8 mmol/L (3.5-5.0)
--- NOTE | 2019-04-20 09:51 | CATH ---
CC: Dr. Chris Hidalgo and Dr. Estevan Kim of the [facility]; family doctor, Dr. Nasra Bradley at the [facility] on [facility] in [place] CARDIAC CATHETERIZATION REPORT: DATE OF PROCEDURE: 04/19/19 INDICATIONS FOR PROCEDURE: I was asked by Dr. Estevan Kim to perform diagnostic coronary arteriography in light of the patient's [id number] cardiac arrest with bouts of nonsustained ventricular tachycardia, rule out the presence of underlying coronary artery disease. PROCEDURE: Coronary arteriography, left heart catheterization, left ventriculography. CONSENT: The patient was interviewed and examined on the floor of the hospital with the risks and benefits were explained. He understood and wished to proceed. APPROACH UTILIZED: Of note, the right radial artery was assessed under ultrasound and found to be acceptable for an approach and as such this was approach utilized. PRE-CARDIAC CATHETERIZATION LABORATORY RESULTS: Hemoglobin and hematocrit of 12.6 and 39, platelet count 432,000. BUN and creatinine is 16 and 0.64, sodium 138, potassium 3.5, chloride 106, bicarb 25. INR was 1.12. EQUIPMENT UTILIZED: 1. Right radial artery sheath, a 6-Kyrgyz glide sheath slender. 2. Diagnostic coronary catheter was a 5-Kyrgyz TIG4 curved diagnostic coronary catheter. 3. Diagnostic guidewire was a 260 length [place] curved exchange length guidewire. 4. Left heart catheterization catheter was a 5-Kyrgyz TIG short radial catheter. 5. Closure device utilized was a regular-sized Vasc Band by [employer]. MEDICATION GIVEN: The patient received a radial artery cocktail, intraarterially, consisting of 300 mcg of nitroglycerin, 3 mg of verapamil, and 4000 units of heparin. The patient received 1 mg of Versed. DESCRIPTION OF PROCEDURE: The patient was brought to the cardiovascular laboratory, where a formal time-out was performed. He was prepped and draped in sterile fashion and under ultrasound guidance, the right radial artery was cannulated and the sheath was placed. Diagnostic coronary arteriography was performed followed by left heart catheterization and left ventriculography utilizing a total of 24 cc of Omnipaque dye at a rate of 12 cc per second. The catheter was then pulled by across the aortic valve to recheck gradient. Following this, the catheter and sheath were removed and hemostasis was obtained with the Vasc Band. The reverse Barbeau was a B. The total contrast used was 95 cc of Omnipaque dye. The radiation exposure included 4.4 minutes of fluoro time. The air kerma radiation was 1107 mGy. The DAP radiation was 6894 microgray/m2. RESULTS: HEMODYNAMIC DATA: Left heart catheterization revealed central aortic pressure 158/88 with a mean of 119, left ventricular pressure 158 over the left ventricular end diastolic pressure of 13 to 15. LEFT VENTRICULOGRAPHY: Performed in the VALDEZ projection revealed symmetrical contraction of the left ventricle with minimal mid anterior wall hypokinesis. The overall ejection fraction appeared to be approximately 50% to 55%. CORONARY ARTERIOGRAPHY: A. Right coronary artery - a dominant vessel supplying multiple acute marginal branches, the PDA and posterior left ventricular branch. There was a mild 15% to 20% narrowing seen in the proximal portion of the right coronary artery. There were mild luminal irregularities throughout the rest of the vessel but no significant lesion seen. B. Left coronary artery: 1. Left main - widely patent. 2. Left anterior descending artery - the left anterior descending artery had mild narrowing seen in the mid portion of approximately 35%. It supplied 2 moderate- sized diagonal branches. The artery extended to the apical region and minimally onto the distal inferior wall. The diagonal branches had no significant narrowing noted. 3. Circumflex artery - a nondominant vessel with a high first obtuse marginal branch/trifurcation marginal branch extending across the upper posterior lateral wall to apical region. No significant obstruction was seen in that, following that were a total of 4 obtuse marginal branches ending in a low lying obtuse marginal branch. There was no significant narrowing seen throughout the course of the vessel. OVERALL ASSESSMENT: Low normal left ventricular systolic function with minimal if any mid anterior wall hypokinesis. No significant coronary artery disease was seen. This information was shared with Dr. Estevan Kim as well as the hospitalist taking care of the patient to utilize in further management. [id number]/[facility] #: [id number] [facility]
[2019-04-20 11:37] VITALS: BP 151/93
--- NOTE | 2019-04-21 05:01 | DS ---
CC: Dr. Bradley; Dr. Brand DISCHARGE SUMMARY: DATE OF ADMISSION: DATE OF DISCHARGE: ADDENDUM: Mr. Johnson is a 64-year-old male with a past medical history of obesity, hepatitis C, hypertension, GERD, anxiety, polysubstance abuse, who presented to the emergency room on 04/09/19 with asystolic cardiac arrest, thought to be secondary to multiple drug overdose (cocaine, opiates, benzos) with return of spontaneous circulation and target temperature and management. The patient was managed in ICU initially and later on transferred to the telemetry floor. He had episodes of SVT and wide complex tachycardia. He was seen in consultation by Cardiology and a pharmacological stress test that showed no definite fixed or reversible defect. He underwent a cardiac cath that showed no significant obstructive coronary artery disease. Tentative plan was for an exercise stress test on 04/20/19 to see if ventricular arrhythmia would be induced during exertion and he may need osha inspector's evaluation. There was also plan for possible implanted loop recorder prior to discharge. Arrangements were being made for the patient to be discharged to subacute rehab, but today, the patient decided he would leave. He was initially seen by Sherry Perez, physician security assistant and I went after her to talk to the patient. I explained that his workup is not yet complete and he is still at risk for complications, further episodes of arrhythmia and at risk for cardiac arrest. The patient states that he understands the risks, but he could not stay in the hospital any longer. One of his complaints was that he has been in the hospital director multimedia and was not allowed to take a shower. I did offer the opportunity to remove his telemetries, so he could shower prior to his transfer. He declined it. He stated that he wanted to go home and he wanted to see his animals and all the family members and he would not stay in the hospital any longer. It is my evaluation that the patient has capacity to make his decisions, although I do not agree with it. He is aware of the risk of further episodes of arrhythmia, other episode of cardiac arrest, this time with permanent sequelae and disability and even possibility of . He was educated about necessity for medications and close followup as outpatient. He states that he will follow up with Dr. Bradley. The patient was discharged against medical advice. This case was reviewed and discussed with Sherry Perez physician security assistant. [id number]/[facility] #: [id number] [facility]
--- NOTE | 2019-04-21 05:01 | DS ---
ATTENDING ADDENDUM NOW INCLUDED ON THIS REPORT CC: Nasra Bradley MD; Chris Hidalgo MD; Dr. Brand * DISCHARGE SUMMARY: DATE OF ADMISSION: 04/09/19 DATE OF DISCHARGE: 04/20/19 PRIMARY CARE PROVIDER: Nasra Bradley MD. METAL LOADER: Chirs Hidalgo MD. ATTENDING PHYSICIAN: Kendal Diaz MD * (dictated by SUSANNAH Chow). PRIMARY DIAGNOSES: 1. Cardiac arrest. 2. Ventricular arrhythmia. 3. Polysubstance abuse. 4. Elevated troponin. STUDIES WHILE IN THE HOSPITAL: Transthoracic echocardiogram, 04/11/19, conclusion: Left ventricle wall thickness is mildly increased. The estimated ejection fraction is 50% to 55%. Left atrium mildly dilated. Mild mitral regurgitation. Trace tricuspid regurgitation. Pulmonary artery pressure estimated at 39. Mild pulmonary hypertension. Nuclear medicine stress test, 04/18/19, impression: No definitive fixed or reversible defects. Assessment: Low risk. Cardiac catheterization, 04/19/19, overall assessment: Low normal LV systolic function with minimal if any mid anterior wall hypokinesis. No significant CAD. DISCHARGE MEDICATIONS: Home medications: 1. Amitriptyline 25 mg p.o. at bedtime. 2. Aspirin 325 mg p.o. daily. 3. Symbicort 160/4.5 two puffs inhalation b.i.d. 4. Bupropion XL 150 mg p.o. daily. 5. Clobetasol 0.05 ointment 1 application topical b.i.d. p.r.n. rash. 6. Cyclobenzaprine 10 mg p.o. t.i.d. p.r.n. 7. Diflunisal tab 500 mg p.o. b.i.d. p.r.n. pain. 8. Gabapentin 300 mg p.o. t.i.d. 9. Lidocaine patch 5% transdermal 12 hours on and 12 hours off. 10. Losartan/hydrochlorothiazide 100/12.5 one tab p.o. daily. 11. Hydrocodone/acetaminophen 10/325 one tab p.o. q.6 hours p.r.n. back pain, MDD 4. 12. Methocarbamol 500 mg p.o. q.i.d. 13. Omeprazole 20 mg p.o. b.i.d. 14. Oxycodone 15 mg p.o. q.6 hours p.r.n. pain, MDD 60. New home medications: 1. Amlodipine 5 mg p.o. daily. 2. Metoprolol tartrate 50 mg p.o. b.i.d. HISTORY OF PRESENT ILLNESS/HOSPITAL COURSE: Mr. Johnson is a 63-year-old man who was brought into the emergency department by EMS after suffering a systolic cardiac arrest. He was resuscitated in the field. EMS was told he was using heroin. Narcan was used without response. The patient was found to have no puncture pierce in the skin. ECG showed no ST-elevation. CT of the head revealed no hemorrhage. The patient was admitted. He was noted to have urine positive for opiates, benzodiazepine, cocaine. He was placed on targeted temperature management and sedated with propofol. He was passively warmed. He was also noted to be intubated with mechanical ventilation. He did require Levophed during his stay. It was suspected that his cardiac arrest occurred due to cocaine and heroin use. He was noted to have a productive cough, for which he was started on vanco and Zosyn with cultures obtained. The patient was eventually removed off mechanical ventilation and transferred to the floor. He was noted to have an episode of SVT with wide- complex tachycardia. For this, Cardiology was consulted. He was also noted to be in a junctional rhythm. It was recommended that the patient have a stress test, which was done. The patient also underwent cardiac catheterization. The patient had a nuclear medicine stress test and it was recommended that he have an exercise stress test due to history of cardiac arrest and ventricular arrhythmias. This was scheduled for the day of discharge, but the patient refused the exam. He stated he wanted to go home and shower. He was offered shower at the hospital but again refused. He was very adamant to leave. Capacity was noted to be intact. We discussed the risks of leaving against medical advice which include worsening heart function, cardiac arrhythmias, possibility of cardiac arrest and . The patient understands this and still would like to leave against medical advice. He denies chest pain, shortness of breath, abdominal pain, nausea, vomiting, diarrhea, constipation. He denies no swelling in the lower extremities. Mr. Johnson will leave against medical advice. He will be discharged home. Condition stable. In reference to the patient's polysubstance abuse, he was offered rehabilitation but has refused. He was noted to be placed on metoprolol due to ventricular arrhythmia and also Norvasc. The patient was educated about the risks of use of metoprolol with substances such as cocaine. He expressed understanding and notes that his alcoholic beverage was spiked and that he was not using cocaine. PHYSICAL EXAMINATION: Vital signs: Temperature 98.0 oral, heart rate 62, respiratory rate 20, oxygen saturation 98% on room air, blood pressure 151/93. General: Mr. Johnson is a well-developed, well-nourished, obese, middle age male who is sitting at the edge of his bed. He is cooperative but somewhat agitated. HEENT: Visual davis grossly intact. PERRL. EOMI. No scleral icterus. Hearing grossly intact. Oral mucous membranes moist. There are no lesions. Pharynx is clear. Cardiovascular: Regular rate and rhythm with S1, S2 present without murmurs, rubs, clicks, or gallops. There is no JVD. Respiratory: Symmetrical chest expansion without use of accessory muscles. Lungs are clear to auscultation bilaterally. No rhonchi, wheezes, or rales. Abdomen: Obese. Bowel sounds noted in all quadrants. The abdomen is soft. There is no tenderness to palpation. There is no hepatosplenomegaly. Extremities: Skin is warm and smooth bilaterally without clubbing, cyanosis, or edema. Radial and pedal pulses palpable. Neuro: The patient is awake. He is alert and oriented. He is able to move all extremities. He has a steady gait with no impairments. He has capacity. DISCHARGE PLAN: Mr. Johnson will be discharged to home, against medical advice. ACTIVITY: As tolerated. CONDITION: Stable. DIET: Heart healthy. MEDICATIONS: 1. Amlodipine. 2. Metoprolol. Discussed use of cocaine with metoprolol and possibility of complications or if both are used simultaneously. The patient understands education. FOLLOWUP: 1. Follow up with Dr. Brand as scheduled. 2. Follow up with primary care provider in 4 to 7 days. 3. Call Cardiology ELISSA to set up exercise stress test as outpatient. EDUCATION: The patient is leaving AMA and is aware of the risks of leaving without completion of test. He is aware that exercise stress testing was recommended and was scheduled for today. He is aware of the risks of leaving against medical advice which include but are not limited to arrhythmias, permanent cardiac dysfunction, sudden cardiac . He understands this and has capacity to refuse and leave AMA. His Manisha has also been notified and made aware of the risks. Return to the ER or nearest hospital if he experience any worsening of symptoms , shortness of breath, chest pain, fever, chills, loss of consciousness, or any other worrisome signs or symptoms. This is a summarized report of a complex medical history and hospital stay. For further details, please see the entire medical record. TIME SPENT: Approximately 45 minutes was spent on this discharge, greater than half that time was spent [id number] with the patient discussing discharge plans and instructions. SUSANNAH MESSER ADDENDUM: Mr. Johnson is a 64-year-old male with a past medical history of obesity, hepatitis C, hypertension, GERD, anxiety, polysubstance abuse, who presented to the emergency room on 04/09/19 with asystolic cardiac arrest, thought to be secondary to multiple drug overdose (cocaine, opiates, benzos) with return of spontaneous circulation and target temperature and management. The patient was managed in ICU initially and later on transferred to the telemetry floor. He had episodes of SVT and wide complex tachycardia. He was seen in consultation by Cardiology and a pharmacological stress test that showed no definite fixed or reversible defect. He underwent a cardiac cath that showed no significant obstructive coronary artery disease. Tentative plan was for an exercise stress test on 04/20/19 to see if ventricular arrhythmia would be induced during exertion and he may need ham curer's evaluation. There was also plan for possible implanted loop recorder prior to discharge. Arrangements were being made for the patient to be discharged to subacute rehab, but today, the patient decided he would leave. He was initially seen by Sherry Perez, physician assistant teacher primary and I went after her to talk to the patient. I explained that his workup is not yet complete and he is still at risk for complications, further episodes of arrhythmia and at risk for cardiac arrest. The patient states that he understands the risks, but he could not stay in the hospital any longer. One of his complaints was that he has been in the hospital time study observer and was not allowed to take a shower. I did offer the opportunity to remove his telemetries, so he could shower prior to his transfer. He declined it. He stated that he wanted to go home and he wanted to see his animals and all the family members and he would not stay in the hospital any longer. It is my evaluation that the patient has capacity to make his decisions, although I do not agree with it. He is aware of the risk of further episodes of arrhythmia, other episode of cardiac arrest, this time with permanent sequelae and disability and even possibility of . He was educated about necessity for medications and close followup as outpatient. He states that he will follow up with Dr. Bradley. The patient was discharged against medical advice. This case was reviewed and discussed with Sherry Perez, physician assistant teacher primary. KENDAL Diaz MD [id number]/CPS #: [id number] Venkatesh [id number]/CPS #: [id number] ANYI
[2019-04-21] MEDS ORDERED: predniSONE TAB* 10 MG PO SCH (09:00)
== END 2019-04-20 11:40 | disposition left against medical advice (07) | DRG 917 ==
LOC: ED 14:37 → ICU 15:23 → MEDTELE 04-14 12:15
PROVIDERS: ADMIT Internal Medicine Critical Care Medicine; ATTEND Internal Medicine
PROC: 5A1945Z Respiratory Ventilation, 24-96 Consecutive Hours (ICD-10-PCS; 2019-04-09)
PROC: 0BH18EZ Insertion of Endotracheal Airway into Trachea, Via Natural or Artificial Opening Endoscopic (ICD-10-PCS; 2019-04-09)
PROC: 05HM33Z Insertion of Infusion Device into Right Internal Jugular Vein, Percutaneous Approach (ICD-10-PCS; 2019-04-09)
PROC: 4A02XM4 Measurement of Cardiac Total Activity, External Approach (ICD-10-PCS; 2019-04-18)
PROC: 4A023N7 Measurement of Cardiac Sampling and Pressure, Left Heart, Percutaneous Approach (ICD-10-PCS; 2019-04-19)
PROC: B2151ZZ Fluoroscopy of Left Heart using Low Osmolar Contrast (ICD-10-PCS; 2019-04-19)
PROC: B2111ZZ Fluoroscopy of Multiple Coronary Arteries using Low Osmolar Contrast (ICD-10-PCS; principal; 2019-04-19 13:45)
DX: T40.1X1A Poisoning by heroin, accidental (unintentional), initial encounter (principal); J96.01 Acute respiratory failure with hypoxia; J18.9 Pneumonia, unspecified organism; I46.8 Cardiac arrest due to other underlying condition; R40.2122 Coma scale, eyes open, to pain, at arrival to emergency department; R40.2342 Coma scale, best motor response, flexion withdrawal, at arrival to emergency department; R40.2212 Coma scale, best verbal response, none, at arrival to emergency department; G93.40 Encephalopathy, unspecified; I47.1 Supraventricular tachycardia; T40.5X1A Poisoning by cocaine, accidental (unintentional), initial encounter; T42.4X1A Poisoning by benzodiazepines, accidental (unintentional), initial encounter; F41.9 Anxiety disorder, unspecified; I10 Essential (primary) hypertension; F10.20 Alcohol dependence, uncomplicated; Y90.9 Presence of alcohol in blood, level not specified; K59.00 Constipation, unspecified; F39 Unspecified mood [affective] disorder; I08.1 Rheumatic disorders of both mitral and tricuspid valves; E66.9 Obesity, unspecified; R74.8 Abnormal levels of other serum enzymes; I49.9 Cardiac arrhythmia, unspecified; I27.20 Pulmonary hypertension, unspecified; Z87.891 Personal history of nicotine dependence; K21.9 Gastro-esophageal reflux disease without esophagitis; Z88.5 Allergy status to narcotic agent; Z88.2 Allergy status to sulfonamides; Z88.8 Allergy status to other drugs, medicaments and biological substances; Z79.82 Long term (current) use of aspirin; Z68.32 Body mass index [BMI] 32.0-32.9, adult; Y92.9 Unspecified place or not applicable
CPT/HCPCS: 36415; 36600; 70450; 71045; 74018; 76937; 78452; 80048; 80053; 80202; 80307; 81003; 81015; 82140; 82550; 82553; 82803; 83605; 83735; 83880; 84100; 84439; 84443; 84479; 84484; 84550; 85025; 85027; 85610; 85730; 87040; 87070; 87077; 87086; 87186; 87205; 87641; 93005; 93017; 93306; 93458; 94002; 94003; 94667; 94668; 99285; A9270-GY; A9502; C8929; J0280; J0360; J0610; J1170; J1644; J1650; J1885; J1940; J2060; J2250; J2543; J2704; J2785; J3010; J3370; J3411; J3480; J3490; J7512

== ENCOUNTER 2019-04-21 12:05 | Observation (INO) | payer OTHER ==
--- OUTSIDE RECORDS SUMMARY | 2019-04-21 12:20 | XMS REPORT | Continuity of Care Document ---
:1955 External Reference #:[id number] Author Name Caity Longecca Care Team Providers Name Role Phone Nasra Bradley MD Primary Care Physician Unavailable Payers Date Identification Numbers Payment Provider Subscriber Policy Number: [id number] [employer] Number: [id number] [address] PayID: [id number] [place] [address] Family History Date Family Member(s) Observation Comments General Hypertension General arthritis General Fibromyalgia Social History Type Date Description Comments Sex Unknown Lives With Alone ETOH Use Currently consumes alcohol 3-4/week Tobacco Use Start: Unknown End: Patient is a former smoker Unknown Smoking Status Reviewed: 02/16/18 Patient is a former smoker Exercise Type/Frequency Exercises regularly Allergies, Adverse Reactions, Alerts Active Allergies Reaction Severity Comments Date Sulfa Antibiotics Urticaria 09/19/2016 Morphine Nausea and Vomiting 09/19/2016 Medications Active Medications SIG Qnty Indications Ordering Provider Date Amitriptyline HCL 1 by mouth every Unknown 25mg night at bedtime Tablets Amlodipine Besylate 1 by mouth every Unknown 5mg day Tablets Budesonide-Formoterol Unknown Fumarate Bupropion HCL ER (XL) 1 by mouth every Unknown 150mg day Tablets ER 24HR Diflunisal 1 by mouth twice Unknown 500mg Tablets a day Gabapentin 1 by mouth three Unknown 300mg Capsules times a day Losartan 1 by mouth every Unknown Potassium/Hydrochloroth day iazide 100-12.5mg Tablets Methocarbamol one to two up to Unknown 500mg Tablets four times a day as needed for spasm Omeprazole 1 by mouth twice Unknown 20mg Capsules DR every day Hydrocodone-Acetaminoph Take One Tablet Unknown en By Mouth Every 6 10-325mg Tablets Hours as Needed For Back Pain Maximum Oxycodone HCL Take One Tablet Unknown 15mg Tablets By Mouth Every 6 Hours as Needed For Pain Maximum Nicolás History Medications Oxycodone HCL 1-2 tabs by 30tabs Natividad Joyce, 02/11/2018 - 5mg mouth every 4-6 M.D. 02/15/2018 Tablets hours as needed Oxycodone HCL ER Unknown - 30mg 02/15/2018 Tab ER 12H Abuse-Det Sennosides-Docusate 1 by mouth every Unknown - Sodium day 02/15/2018 8.6-50mg Tablets Oxycontin by mouth every 8 Unknown - 30mg Tab ER hours 07/24/2017 12H Abuse-Det Doxycycline Hyclate one tablet twice Unknown - daily for 10 02/15/2018 100mg Capsules days. Vital Signs Date Vital Result Comment 02/16/2018 11:28am Height 70 inches 5'10" Weight 241.00 lb Heart Rate 84 /min BP Systolic Sitting 142 mmHg BP Diastolic Sitting 90 mmHg Respiratory Rate 14 /min Body Temperature 98.5 F BMI (Body Mass Index) 34.6 kg/m2 02/15/2018 11:46am Height 70 inches 5'10" Weight 240.00 lb BP Systolic 160 mmHg BP Diastolic 90 mmHg Body Temperature 97.4 F BMI (Body Mass Index) 34.4 kg/m2 02/11/2018 9:15am Height 70 inches 5'10" Weight 260.00 lb BP Systolic 140 mmHg BP Diastolic 80 mmHg Respiratory Rate 20 /min Body Temperature 97.7 F Pain Level 4 BMI (Body Mass Index) 37.3 kg/m2 07/24/2017 2:25pm Height 70 inches 5'10" Weight 260.00 lb Heart Rate 76 /min BP Systolic 130 mmHg BP Diastolic 90 mmHg Respiratory Rate 17 /min Body Temperature 97.4 F Pain Level 7 BMI (Body Mass Index) 37.3 kg/m2 02/20/2017 1:06pm Height 70 inches 5'10" Weight 245.00 lb Heart Rate 71 /min BP Systolic 152 mmHg BP Diastolic 87 mmHg Body Temperature 97.3 F Pain Level 6 BMI (Body Mass Index) 35.1 kg/m2 11/21/2016 1:33pm Height 69 inches 5'9" Weight 242.00 lb Pain Level 6 BMI (Body Mass Index) 35.7 kg/m2 09/19/2016 2:01pm Height 69 inches 5'9" Weight 242.00 lb Heart Rate 80 /min BP Systolic 156 mmHg BP Diastolic 84 mmHg BMI (Body Mass Index) 35.7 kg/m2 Procedures Date Code Description Status 01/29/2018 91001 EKG, Interpretation Only Completed 01/28/2018 16778 Radical Excision Arm/Wrist Flexors Completed Encounters Type Date Location Provider Dx Diagnosis Office Visit 02/16/2018 [place] Harriett Rodriguez M65.131 Other infective 11:30a Infectious Diseases Walter Jerez (teno)synovitis, right wrist Office Visit 02/01/2018 [facility] Fariha Harden L03.113 Cellulitis of 10:53a donovan Lyons D.O. right upper limb Hospitalists M65.9 Synovitis and tenosynovitis, unspecified M70.21 Olecranon bursitis, right elbow Office 02/01/2018 [place] Harriett Rodriguez M65.131 Other infective Visit 10:12a Infectious Walter Jerez (teno)synovitis, Diseases right wrist Office 01/31/2018 [facility] Fariha L03.113 Cellulitis of right Visit 10:52a donovan Lyons D.O. upper limb Hospitalists M65.9 Synovitis and tenosynovitis, unspecified M70.21 Olecranon bursitis, right elbow Office Visit 01/30/2018 10:51a [facility] Fariha L03.113 Cellulitis of donovan Lyons D.O. right upper limb Hospitalists M65.9 Synovitis and tenosynovitis, unspecified M70.21 Olecranon bursitis, right elbow Office Visit 01/29/2018 10:50a [facility] Fariha L03.113 Cellulitis of donovan Lyons D.O. right upper limb Hospitalists M65.9 Synovitis and tenosynovitis, unspecified M70.21 Olecranon bursitis, right elbow G89.29 Other chronic pain Office 01/29/2018 [facility] James Rodriguez M65.131 Other infective Visit 10:06a Infectious Walter Jerez (teno)synovitis, Diseases right wrist Office 01/28/2018 [facility] Catracho Khoury MD L03.113 Cellulitis of right Visit 10:49a Assoc, upper limb Hospitalists M65.9 Synovitis and tenosynovitis, unspecified M54.5 Low back pain M25.421 Effusion, right elbow Office Visit 01/28/2018 2:28p [facility] Samantha L03.113 Cellulitis of Of Mihaela Manuel M.D. right upper limb Office Visit 01/27/2018 10:47a [facility] Catracho Khoury L03.113 Cellulitis of [facility] right upper limb Hospitalists M70.21 Olecranon bursitis, right elbow M43.6 Torticollis M54.5 Low back pain Office Visit 07/24/2017 Orthopedic M19.071 Primary 2:15p Services Of Walter Shetty osteoarthritis, C.M.A. right ankle and foot Office Visit 02/20/2017 [facility] Rodriguez M19.071 Primary 1:45p Services Of Walter Shetty osteoarthritis, C.M.A. right ankle and foot Office Visit 11/21/2016 Orthopedic M19.071 Primary 1:20p Services Of Walter Shetty osteoarthritis, C.M.A. right ankle and foot Office Visit 09/19/2016 Orthopedic M19.071 Primary 1:40p Services Of Walter Shetty osteoarthritis, C.M.A. right ankle and foot Plan of Treatment 02/16/2018 - James Jerez M.D.M65.131 Other infective (teno)synovitis, right wristComments:resolved; call if return of fever or wrist swelling; rheum eval planned
--- OUTSIDE RECORDS SUMMARY | 2019-04-21 12:20 | XMS REPORT | Continuity of Care Document ---
:1955 External Reference #:[id number] Author Name Caity Longecca Care Team Providers Name Role Phone Nasra Bradley MD Primary Care Physician Unavailable Payers Date Identification Numbers Payment Provider Subscriber Policy Number: [id number] [employer] Ang Jonhson Group Number: [id number] [address] PayID: [id number] [place] [address] Family History Date Family Member(s) Observation Comments [...] kg/m2 Procedures Date Code Description Status 01/29/2018 93914 EKG, Interpretation Only Completed 01/28/2018 21605 Radical Excision Arm/Wrist Flexors Completed Encounters Type Date Location Provider Dx Diagnosis Office Visit 02/16/2018 [place] Harriett Rodriguez M65.131 Other infective 11:30a Infectious Diseases Walter Jerez (teno)synovitis, right wrist Office Visit 02/01/2018 [facility] Fariha Harden L03.113 Cellulitis of 10:53a donovan Lyons D.O. right upper limb Hospitalists M65.9 Synovitis and tenosynovitis, unspecified M70.21 Olecranon bursitis, right elbow Office 02/01/2018 [place] Harriett Rodriguez M65.131 Other infective Visit 10:12a Infectious Walter Jerez (teno)synovitis, Diseases right wrist Office 01/31/2018 [facility] Fariha L03.113 Cellulitis of right Visit 10:52a donovan Lyons D.O. upper limb Hospitalists M65.9 Synovitis and tenosynovitis, unspecified M70.21 Olecranon bursitis, right elbow Office Visit 01/30/2018 10:51a [facility] Fariha L03.113 Cellulitis of donovan Lyons D.O. right upper limb Hospitalists M65.9 Synovitis and tenosynovitis, unspecified M70.21 Olecranon bursitis, right elbow Office Visit 01/29/2018 10:50a [facility] Fariha L03.113 Cellulitis of donovan Lyons D.O. right upper limb Hospitalists M65.9 Synovitis and tenosynovitis, unspecified M70.21 Olecranon bursitis, right elbow G89.29 Other chronic pain Office 01/29/2018 [facility] James Rodriguez M65.131 Other infective Visit 10:06a Infectious Walter Jerez (teno)synovitis, Diseases right wrist Office 01/28/2018 [facility] Catracho Khoury MD L03.113 Cellulitis of right Visit 10:49a Assoc, upper limb Hospitalists M65.9 Synovitis and tenosynovitis, unspecified M54.5 Low back pain M25.421 Effusion, right elbow Office Visit 01/28/2018 2:28p [facility] Samantha L03.113 Cellulitis of Of Mihaela Manuel M.D. right upper limb Office Visit 01/27/2018 10:47a [facility] Catracho Khoury L03.113 Cellulitis of [facility] right upper limb Hospitalists M70.21 Olecranon bursitis, [...]
[2019-04-21] MEDS ORDERED: Clobetasol 0.05% OINT* 30 GM TUBE TOPICAL PRN (13:09)
[2019-04-21] MEDS: Hydrocodone/Acetamin 10/325 1 TAB PO PRN ×2 (13:52→21:21)
[2019-04-21] MEDS: Gabapentin CAP(*) 300 MG PO SCH ×2 (13:52→21:20)
[2019-04-21] MEDS: Heparin VIAL(*) 5000 UNITS/ML VIAL (FIVE THOUSAND) SUBCUT SCH ×2 (13:53→21:41)
[2019-04-21 15:03] LABS: Hematocrit 39 % (42-52); Hemoglobin 12.7 g/dL (14.0-18.0); Mean Corpuscular HGB Conc 33 g/dL (31-36); Mean Corpuscular Hemoglobin 29 pg (27-31); Mean Corpuscular Volume 89 fL (80-94); Mean Platelet Volume 7.7 fL (7.4-10.4); Platelet Count 428 10^3/uL (150-450); Red Blood Count 4.35 10^6 /uL (4.18-5.48); Red Cell Distribution Width 19 % (10-15)
[2019-04-21 15:25] LABS: Albumin 4.1 g/dL (3.2-5.2); Calcium 9.1 mg/dL (8.6-10.3); Total Bilirubin 0.4 mg/dL (0.2-1.0)
[2019-04-21 15:31] LABS: Albumin/Globulin Ratio 1.2 (1-3); BUN/Creatinine Ratio 23.5 (8-20); EGFR African American 93.8 (>60); EGFR Non-African American 77.5 (>60); Globulin 3.4 g/dL (2-4); Total Protein 7.5 g/dL (6.4-8.9)
[2019-04-21 15:36] LABS: Potassium 3.7 mmol/L (3.5-5.0)
[2019-04-21 15:53] LABS: ABS Basophils 0.2 10^3/ul (0-0.2); ABS Eosinophils 0.7 10^3/ul (0-0.6); ABS Lymphocytes 2.5 10^3/ul (1.0-4.8); ABS Monocytes 1.3 10^3/ul (0-0.8); ABS Neutrophils 4.4 10^3/ul (1.5-7.7); Eosinophil % 7.4 %; Lymphocyte % 27.2 %; Nucleated Red Blood Cells % 0.1
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
[2019-04-21] MEDS: oxyCODONE TAB* 5 MG TAB PO PRN ×2 (17:16→23:14)
[2019-04-21] MEDS: Methocarbamol TAB* 500 MG PO SCH ×2 (17:17→21:18)
[2019-04-21] MEDS: Cephalexin CAP* 250 MG PO SCH ×2 (17:17→21:20)
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
[2019-04-21] MEDS: Mometasone/Formoter 200/5 MDI INH SCH (20:22)
[2019-04-21] MEDS ORDERED: Diltiazem TAB* 60 MG PO SCH (21:00)
[2019-04-21] MEDS ORDERED: Carvedilol TAB* 6.25 MG PO SCH (21:00)
[2019-04-21] MEDS: Carvedilol TAB* 6.25 MG PO SCH (21:19)
[2019-04-21] MEDS: Pantoprazole TAB * 40 MG TAB PO SCH (21:21)
[2019-04-22] MEDS: Heparin VIAL(*) 5000 UNITS/ML VIAL (FIVE THOUSAND) SUBCUT SCH (05:56)
[2019-04-22 05:57] LABS: ABS Basophils 0.1 10^3/ul (0-0.2); ABS Eosinophils 0.8 10^3/ul (0-0.6); ABS Monocytes 1.1 10^3/ul (0-0.8); ABS Neutrophils 4.4 10^3/ul (1.5-7.7); Eosinophil % 9.3 %; Hematocrit 39 % (42-52); Hemoglobin 12.9 g/dL (14.0-18.0); Lymphocyte % 23.8 %; Mean Corpuscular HGB Conc 33 g/dL (31-36); Mean Corpuscular Hemoglobin 30 pg (27-31); Mean Corpuscular Volume 89 fL (80-94); Mean Platelet Volume 7.6 fL (7.4-10.4); Nucleated Red Blood Cells % 0.1; Platelet Count 372 10^3/uL (150-450); Red Blood Count 4.38 10^6 /uL (4.18-5.48); Red Cell Distribution Width 19 % (10-15); White Blood Count 8.3 10^3/uL (3.5-10.8)
[2019-04-22] MEDS: oxyCODONE TAB* 5 MG TAB PO PRN ×2 (06:07→13:11)
[2019-04-22 06:14] LABS: Albumin 3.8 g/dL (3.2-5.2); Albumin/Globulin Ratio 1.3 (1-3); BUN/Creatinine Ratio 24.6 (8-20); Calcium 8.9 mg/dL (8.6-10.3); EGFR African American 140.6 (>60); EGFR Non-African American 116.2 (>60); Potassium 3.8 mmol/L (3.5-5.0); Total Bilirubin 0.5 mg/dL (0.2-1.0); Total Protein 6.8 g/dL (6.4-8.9)
[2019-04-22] MEDS: Mometasone/Formoter 200/5 MDI INH SCH (07:21)
[2019-04-22] MEDS ORDERED: Potassium Chlor TAB* 20 MEQ TAB.ER PO ONE (07:57)
--- NOTE | 2019-04-22 08:05 | PN ---
Subjective Date of Service: 04/22/19 Interval History: f/u svt, nsvt, aivr patient feels well from a cardiac standpoint. no cp, dyspnea, palpitations or lightheadedness tele: SB, pvc's. HR 50 bpm currenlty received 120 mg diltiazem and 6.25 mg coreg last night Medications Active Medications: Hydrocodone Bitart/Acetaminophen ([place] 10/325 (Nf)) 1 tab PO Q6H PRN PRN Reason: PAIN - BACK Last Admin: 04/21/19 21:21 Dose: 1 tab Bupropion HCl (Wellbutrin Xl *) 150 mg PO DAILY [facility] Carvedilol (Coreg Tab*) 6.25 mg PO BID [facility] Last Admin: 04/21/19 21:19 Dose: 6.25 mg Cephalexin HCl (Keflex Cap*) 250 mg PO QID [facility] Last Admin: 04/21/19 21:20 Dose: 250 mg Clobetasol Propionate (Clobetasol 0.05% Oint*) 1 applic TOPICAL BID PRN PRN Reason: RASH Diltiazem HCl (Cardizem Tab*) 120 mg PO DAILY [facility] Gabapentin (Neurontin Cap(*)) 300 mg PO TID [facility] Last Admin: 04/21/19 21:20 Dose: 300 mg Heparin Sodium (Porcine) (Heparin Vial(*)) 5,000 units SUBCUT Q8HR [facility] Last Admin: 04/22/19 05:56 Dose: 5,000 units Hydrochlorothiazide (Hydrodiuril Tab*) 12.5 mg PO DAILY [facility] Lidocaine (Lidoderm 5% Patch*) 1 patch TRANSDERM DAILY [facility] Losartan Potassium (Cozaar Tab*) 100 mg PO DAILY [facility] Methocarbamol (Robaxin Tab*) 500 mg PO QID [facility] Last Admin: 04/21/19 21:18 Dose: 500 mg Mometasone Furoate/Formoterol Fumar (Dulera 200/5 Mdi*) 2 puff INH BID [facility]; Protocol Last Admin: 04/22/19 07:21 Dose: 2 puff Oxycodone HCl (Roxycodone Tab*) 5 mg PO Q6H PRN PRN Reason: PAIN Last Admin: 04/22/19 06:07 Dose: 5 mg Pantoprazole Sodium (Protonix Tab*) 40 mg PO BID [facility] Last Admin: 04/21/19 21:21 Dose: 40 mg Pharmacy Profile Note (Lidocaine Patch Remove*) 1 note PATCH OFF 2099 [facility] Potassium Chloride (Klor Con Er Tab*) 40 meq PO ONCE ONE Stop: 04/22/19 07:58 Objective Vital Signs: Temp Pulse Resp BP Pulse Ox 97.3 F 73 18 137/68 100 04/22/19 03:50 04/22/19 03:50 04/22/19 06:07 04/22/19 03:50 04/22/19 03:50 Oxygen Devices in Use Now: None Appearance: nad, not toxic pleasant Ears/Nose/Mouth/Throat: Clear Oropharnyx, Mucous Membranes Moist Neck: NL Appearance and Movements; NL JVP, Trachea Midline Respiratory: Symmetrical Chest Expansion and Respiratory Effort, Clear to Auscultation Cardiovascular: NL Sounds; No Murmurs; No JVD, RRR, No Edema Abdominal: NL Sounds; No Tenderness; No Distention, - - obese Extremities: No Edema Skin: No Rash or Ulcers Neurological: Alert and Oriented x 3 Laboratory Results: 04/22/19 05:41 04/22/19 05:41 Total Bilirubin 0.50 mg/dL (0.2-1.0) 04/22/19 05:41 AST 14 U/L (13-39) 04/22/19 05:41 ALT 19 U/L (7-52) 04/22/19 05:41 Alkaline Phosphatase 102 U/L (34-104) 04/22/19 05:41 Total Protein 6.8 g/dL (6.4-8.9) 04/22/19 05:41 Albumin 3.8 g/dL (3.2-5.2) 04/22/19 05:41 Globulin 3.0 g/dL (2-4) 04/22/19 05:41 Albumin/Globulin Ratio 1.3 (1-3) 04/22/19 05:41 04/22/2019: mg 2.0 Diagnostic Imaging: STUDIES WHILE IN THE HOSPITAL: Transthoracic echocardiogram, 04/11/19, conclusion: Left ventricle wall thickness is mildly increased. The estimated ejection fraction is 50% to 55%. Left atrium mildly dilated. Mild mitral regurgitation. Trace tricuspid regurgitation. Pulmonary artery pressure estimated at 39. Mild pulmonary hypertension. Nuclear medicine stress test, 04/18/19, impression: No definitive fixed or reversible defects. Assessment: Low risk. Cardiac catheterization, 04/19/19, overall assessment: Low normal LV systolic function with minimal if any mid anterior wall hypokinesis. No significant CAD. EKG Data: ekg today shows NSR, pac, normal qtc interval ekg today shows SB 50 bpm, LVH Assessment/Plan Will change diltiazem to 120 mg po daily (ordered) given asymptomatic sinus bradycardia and continue coreg 6.25 mg po bid and give 40 k this AM (ordered) Will plan for a stress EKG later today and if without significant abnormalities patient could be discharged from a cardiac standpoint with these medication changes.
[2019-04-22] MEDS: Pantoprazole TAB * 40 MG TAB PO SCH (08:13)
[2019-04-22] MEDS: Gabapentin CAP(*) 300 MG PO SCH (08:13)
[2019-04-22] MEDS: Cephalexin CAP* 250 MG PO SCH ×2 (08:13→13:12)
[2019-04-22] MEDS: Methocarbamol TAB* 500 MG PO SCH ×2 (08:13→13:12)
[2019-04-22] MEDS: Carvedilol TAB* 6.25 MG PO SCH (08:14)
[2019-04-22] MEDS ORDERED: Lidocaine PATCH 5%* 1 PATCH TRANSDERM SCH (09:00)
[2019-04-22] MEDS ORDERED: BuPROPion XL* 150 MG TAB.XL PO SCH (09:00)
[2019-04-22] MEDS ORDERED: Hydrochlorothiazide TAB* 25 MG PO SCH (09:00)
[2019-04-22] MEDS ORDERED: Losartan TAB* 25 MG PO SCH (09:00)
[2019-04-22] MEDS: Hydrocodone/Acetamin 10/325 1 TAB PO PRN (11:10)
[2019-04-22 11:54] VITALS: BP 153/75
--- NOTE | 2019-04-22 11:58 | PN ---
Subjective Date of Service: 04/22/19 Interval History: Mr. Johnson complains today that Dr. Bradley is no longer willing to prescribe narcotics to him after he was admitted just last week with a cardiac arrest suspected secondary to polysubstance abuse. Patient denies other complaint. He specifically denies chest pain. Objective Active Medications: Hydrocodone Bitart/Acetaminophen (Benton 10/325 (Nf)) 1 tab PO Q6H PRN Bupropion HCl (Wellbutrin Xl *) 150 mg PO DAILY [facility] Carvedilol (Coreg Tab*) 6.25 mg PO BID [facility] Cephalexin HCl (Keflex Cap*) 250 mg PO QID [facility] Clobetasol Propionate (Clobetasol 0.05% Oint*) 1 applic TOPICAL BID PRN Diltiazem HCl (Cardizem Cd Cap*) 120 mg PO DAILY [facility] Gabapentin (Neurontin Cap(*)) 300 mg PO TID [facility] Heparin Sodium (Porcine) (Heparin Vial(*)) 5,000 units SUBCUT Q8HR [facility] Hydrochlorothiazide (Hydrodiuril Tab*) 12.5 mg PO DAILY [facility] Lidocaine (Lidoderm 5% Patch*) 1 patch TRANSDERM DAILY [facility] Losartan Potassium (Cozaar Tab*) 100 mg PO DAILY [facility] Methocarbamol (Robaxin Tab*) 500 mg PO QID [facility] Mometasone Furoate/Formoterol Fumar (Dulera 200/5 Mdi*) 2 puff INH BID [facility]; Protocol Oxycodone HCl (Roxycodone Tab*) 5 mg PO Q6H PRN Pantoprazole Sodium (Protonix Tab*) 40 mg PO BID [facility] Pharmacy Profile Note (Lidocaine Patch Remove*) 1 note PATCH OFF 2100 [facility] Vital Signs: Temp Pulse Resp BP Pulse Ox 97.4 F 68 16 153/75 100 04/22/19 11:32 04/22/19 11:32 04/22/19 11:32 04/22/19 11:32 04/22/19 11:32 Oxygen Devices in Use Now: None Appearance: Male sitting up in bed in NAD Eyes: No Scleral Icterus Ears/Nose/Mouth/Throat: Mucous Membranes Moist Neck: Trachea Midline Respiratory: Symmetrical Chest Expansion and Respiratory Effort, Clear to Auscultation Cardiovascular: NL Sounds; No Murmurs; No JVD, No Edema Abdominal: NL Sounds; No Tenderness; No Distention Extremities: No Edema Skin: No Rash or Ulcers Neurological: Alert and Oriented x 3, NL Muscle Strength and Tone Nutrition: Taking PO's Result Diagrams: 04/22/19 05:41 04/22/19 05:41 Assess/Plan/Problems-Billing Assessment: Mr. Johnson is a 63 yo M with a PMH of hypertension, substance abuse, hep c, and recent cardiac arrest on 04/09/19 (suspected secondary to substance abuse with negative nuc med stress test, echo with EF 50-55%) who was admitted on for a loop recorder placement with subsequent need for exercise stress testing due to noted arrhythmia per cardiology. - Patient Problems (1) Ventricular arrhythmia Comment: - Loop recorder placed, managment per cardiology - Negative exercise stress today, patient has intact LV function - Continue carvedilol and diltiazem (2) Anxiety and depression Comment: - Continue buproprion and amitriptyline. (3) HTN (hypertension) Comment: - Continue carvedilol, cardizem, hctz, losartan (4) Chronic pain Comment: - Patient states that his primary care provider, Dr. Bradley, "dropped him" after 33 years and he has no way to access narcotics for his chronic pain. - Given cardiac arrest suspected secondary to polysubstance abuse, I am not able to offer pain medication to this patient at this time - I have referred patient to the [facility] for further PCP care (5) DVT prophylaxis Comment: - SQ lovenox (6) Full code status Status and Disposition: OBV. Discharge to home to follow up closely with cardiology.
--- NOTE | 2019-04-22 15:08 | DS ---
CC: [facility] * HOSPITAL MEDICINE DISCHARGE SUMMARY: DATE OF ADMISSION: 04/21/19 DATE OF DISCHARGE: 04/22/19 ATTENDING PHYSICIAN: Dr. Fariha Harden * (dictation provided by Alexandria Green NP ). PRIMARY DIAGNOSIS: Cardiac arrhythmia. SECONDARY DIAGNOSES: 1. History of cardiac arrest suspected secondary to substance abuse, 04/09/19. 2. Hypertension. 3. Depression and anxiety. 4. Hepatitis C, reportedly post treatment with Interferon. 5. Gastroesophageal reflux disease. 6. Alcoholism. MEDICATIONS AT THE TIME OF DISCHARGE: Please note the patient was not prescribed any narcotics at the time of this discharge. He was resumed on: 1. Omeprazole 20 mg p.o. b.i.d. 2. Robaxin 500 mg p.o. four times a day. 3. Losartan/hydrochlorothiazide 100/12.5 one tablet p.o. daily. 4. Lidocaine patch p.r.n. 5. Gabapentin 300 mg p.o. t.i.d. 6. Flexeril 10 mg p.o. t.i.d., p.r.n. 7. Clobetasol 0.05 % ointment topically b.i.d., p.r.n. 8. Bupropion XL 150 mg p.o. daily. 9. Budesonide/Formoterol 160/4.5 two puffs inhale b.i.d. 10. Ondansetron 4 mg p.o. q.6 hours p.r.n. nausea if opioid withdrawal. 11. Loperamide 2 mg p.o. q.4 hours p.r.n. (if opioid withdrawal). 12. Diltiazem CD 120 mg p.o. daily (new dose). 13. Carvedilol 6.25 mg p.o. b.i.d., (new medications). HOSPITAL COURSE: Mr. Johnson is a 63-year-old male who presented to our hospital on 04/09/19, after witnessed cardiac arrest in the field of suspect that he had been taking heroin and cocaine. He was successfully resuscitated in the field. The patient was admitted to the hospital and treated. He had stress test and cardiac catheterization. Cardiac cath showed low normal left ventricular systolic function with minimal if any mid anterior wall hypokinesis. No significant coronary artery disease was seen. It was recommended that he have an exercise stress test and placement of a loop recorder. He left AMA before this could be done at the last hospitalization, but returned on 04/21/19 for loop recorder, which time it was recommended that he stay overnight for an exercise stress test. Mr. Johnson had the exercise stress test performed, he had a loop recorder placed. The exercise stress test was negative. He was seen in consultation by Dr. Latham from the cardiology team and I refer you to that for complete details , but in brief, Dr. Latham recommended that the patient have his Cardizem increased to 120 mg daily for better control and add a Coreg 6.25 mg p.o. b.i.d. Mr. Johnson will be closely following up with Cardiology and also will need to closely followup for a new primary care physician as his prior primary care physician has discontinued the relationship during the last hospitalization due to his substance abuse. The patient will be referred to the [facility]. The patient did request narcotics at the time of discharge, but I have indicated to him that is an unsafe plan given that he was just admitted for cardiac arrest suspected secondary to substance abuse. I have provided him with Zofran and Imodium, should he have any withdrawal symptoms. He states he has never experienced withdrawal symptoms and I agree that this unlikely given the low doses that he has been prescribed. DISPOSITION: Home. DIET: Low-fat, low-salt. ACTIVITY: As tolerated. FOLLOWUP PLANS: 1. Please follow up with Dr. Latham as arranged outpatient. 2. Please follow up with the [facility]. He will be called on Thursday for an appointment and he has been given the phone numbers he could call as well as need be. TIME SPENT: Approximately 60 minutes was spent in the discharge of this patient , more than half the time was spent with the patient at the bedside reviewing the events leading up to and during this hospitalization and during this hospitalization, performing the physical examination, and reviewing my plan of care. ALEXANDRIA GREEN, [place] [id number]/[facility] #: [id number] ANYI
[2019-04-22] MEDS ORDERED: Lidocaine Patch REMOVE* 1 NOTE MISC PATCH OFF SCH (21:00)
[2019-04-23] MEDS ORDERED: Diltiazem CD CAP* 120 MG PO SCH (09:00)
== END 2019-04-22 13:53 | disposition home or self-care (01) ==
LOC: MEDTELE 12:17
PROVIDERS: ADMIT Internal Medicine; ATTEND Hospitalist
DX: I49.9 Cardiac arrhythmia, unspecified (principal); I49.3 Ventricular premature depolarization; I51.7 Cardiomegaly; I25.2 Old myocardial infarction; I10 Essential (primary) hypertension; F32.9 Major depressive disorder, single episode, unspecified; F41.9 Anxiety disorder, unspecified; G89.29 Other chronic pain; K21.9 Gastro-esophageal reflux disease without esophagitis; F19.10 Other psychoactive substance abuse, uncomplicated; F10.20 Alcohol dependence, uncomplicated; Z79.899 Other long term (current) drug therapy; Z88.2 Allergy status to sulfonamides; Z88.8 Allergy status to other drugs, medicaments and biological substances; Z87.891 Personal history of nicotine dependence
CPT/HCPCS: 36415; 80053; 83735; 85025; 93005; 94640; 96372; A9270-GY; G0378; J1644

== ENCOUNTER 2019-05-05 19:52 | Emergency (ER) | payer OTHER ==
--- OUTSIDE RECORDS SUMMARY | 2019-05-05 20:36 | XMS REPORT | Continuity of Care Document ---
:1955 External Reference #:[id number] Author Name Abeba Moss Care Team Providers Name Role Phone Nasra Bradley MD Primary Care Physician Unavailable Payers Date Identification Numbers Payment Provider Subscriber Policy Number: [id number] [employer] Number: [id number] [address] PayID: [id number] [place] [address] Family History Date Family Member(s) Observation Comments General Hypertension General arthritis General Fibromyalgia Father due to Brain Cancer () Mother due to [place] () Social History Type Date Description Comments Sex Unknown Lives With Alone ETOH Use Currently consumes 3-4/week alcohol Tobacco Use Start: Unknown End: Patient is a former Unknown smoker Smoking Status Reviewed: 04/26/19 Patient is a former smoker Exercise Exercises regularly walking, cutting Type/Frequency firewood. Allergies, Adverse Reactions, Alerts Active Allergies Reaction Severity Comments Date Sulfa Antibiotics Urticaria 09/19/2016 Morphine Nausea and Vomiting 09/19/2016 Medications Active Medications SIG Qnty Indications Ordering Date Provider Lidocaine Patch 1 patch transderm Unknown every day Loperamide HCL 1 cap by mouth Unknown 2mg Tablets every 6 hours after each stool as needed Metoprolol Tartrate 1 by mouth twice Unknown 50mg a day Tablets Diflunisal Unknown 500mg Tablets Cyclobenzaprine HCL take 1 tab by Unknown 10mg mouth 2-3 times a Tablets day as needed Clobetasol Propionate Unknown 0.05% Ointment Gabapentin 1 by mouth three Unknown 300mg Capsules times a day Ondansetron HCL one by mouth Unknown 4mg Tablets every 8 hours as needed for nausea Diltiazem HCL 1 by mouth every Unknown 120mg Tablets day Carvedilol 1 by mouth twice Unknown 6.25mg Tablets a day Oxycodone HCL Take One Tablet Unknown 15mg Tablets By Mouth Every 6 Hours as Needed For Pain Maximum Nicolás Hydrocodone-Acetaminophe Take One Tablet Unknown n By Mouth Every 6 10-325mg Tablets Hours as Needed For Back Pain Maximum Omeprazole 1 by mouth twice Unknown 20mg Capsules DR every day Methocarbamol one to two up to Unknown 500mg Tablets four times a day as needed for spasm Bupropion HCL ER (XL) 1 by mouth every Unknown 150mg day Tablets ER 24HR Budesonide-Formoterol Unknown Fumarate Amlodipine Besylate 1 by mouth every Unknown 5mg day Tablets History Medications Oxycodone HCL 1-2 tabs by 30tabs Natividad Joyce, 02/11/2018 - 5mg Tablets mouth every 4-6 M.D. 02/15/2018 hours as needed Amitriptyline HCL 1 by mouth every Unknown - 25mg night at bedtime 04/25/2019 Tablets Diflunisal 1 by mouth twice Unknown - 500mg Tablets a day 04/25/2019 Gabapentin 1 by mouth three Unknown - 300mg Capsules times a day 04/25/2019 Losartan 1 by mouth every Unknown - Potassium/Hydrochloroth day 04/25/2019 iazide 100-12.5mg Tablets Oxycodone HCL ER Unknown - 30mg Tab 02/15/2018 ER 12H Abuse-Det Sennosides-Docusate 1 by mouth every Unknown - Sodium day 02/15/2018 8.6-50mg Tablets Oxycontin by mouth every 8 Unknown - 30mg Tab ER 12H hours 07/24/2017 Abuse-Det Doxycycline Hyclate one tablet twice Unknown - 100mg daily for 10 02/15/2018 Capsules days. Aloe/Lidocaine Pain apply twice Unknown - Reliever daily for pain 04/26/2019 0.5% Gel control Vital Signs Date Vital Result Comment 04/26/2019 4:03pm Height 70 inches 5'10" Weight 230.12 lb Heart Rate 76 /min regular BP Systolic Sitting 140 mmHg ule lg cuff BP Diastolic Sitting 84 mmHg ule lg cuff BMI (Body Mass Index) 33.0 kg/m2 Ejection Fraction EF 64% Stress Test 04/18/19 02/16/2018 11:28am Height 70 inches 5'10" Weight [...] 35.7 kg/m2 Procedures Date Code Description Status 04/19/2019 99261 Left Heart Cath. Incl S/I Coronaries, Angio S/I V Gram If Completed Done 04/18/2019 09256 Treadmill Interp/Report Only Completed 04/18/2019 84546 Stress Test Supervsn W/Out I/R Completed 04/12/2019 03265 ECHO Transthorasic Realtime 2D W Doppler & Color Flow Hosp Completed 04/09/2019 29924 Ultrasound Guidance For Vascular Access Completed 04/09/2019 83802 IV Catheter Introduction Completed 01/29/2018 08391 EKG, Interpretation Only Completed 01/28/2018 71029 Radical Excision Arm/Wrist Flexors Completed Encounters Type Date Location Provider Dx Diagnosis Office Visit 04/19/2019 [facility] I46.2 Cardiac arrest due 9:52a Assdonovan chen, [employer] to underlying Hospitalists cardiac condition I49.9 Cardiac arrhythmia, unspecified R74.8 Abnormal levels of other serum enzymes F19.10 Other psychoactive substance abuse, uncomplicated I10 Essential (primary) hypertension F39 Unspecified mood [affective] disorder Office Visit 04/18/2019 9:52a [facility] I46.2 Cardiac arrest Assdonovan chen [place] Dasilva, due to Hospitalists [employer] underlying cardiac condition I49.9 Cardiac arrhythmia, unspecified R74.8 Abnormal levels of other serum enzymes F19.10 Other psychoactive substance abuse, uncomplicated I10 Essential (primary) hypertension F39 Unspecified mood [affective] disorder Office Visit 04/17/2019 9:51a [facility] Lena Bertrand, I46.2 Cardiac arrest Assdonovan chen MD due to Hospitalists underlying cardiac condition R00.0 Tachycardia, unspecified M25.50 Pain in unspecified joint I10 Essential (primary) hypertension R79.89 Other specified abnormal findings of blood chemistry J18.9 Pneumonia, unspecified organism F39 Unspecified mood [affective] disorder Z79.52 care home (current) use of systemic steroids F19.10 Other psychoactive substance abuse, uncomplicated R53.81 Other malaise R94.6 Abnormal results of thyroid function studies Office Visit 04/16/2019 9:51a [facility] Lena Bertrand, I46.2 Cardiac arrest Assdonovan chen MD due to Hospitalists underlying cardiac condition R79.89 Other specified abnormal findings of blood chemistry J18.9 Pneumonia, unspecified organism F39 Unspecified mood [affective] disorder F19.10 Other psychoactive substance abuse, uncomplicated R00.0 Tachycardia, unspecified R94.6 Abnormal results of thyroid function studies R53.81 Other malaise I10 Essential (primary) hypertension Office Visit 04/15/2019 9:50a [facility] Susan I46.2 Cardiac arrest Assoc,donovan Reddy M.D. due to Hospitalists underlying cardiac condition R00.0 Tachycardia, unspecified R79.89 Other specified abnormal findings of blood chemistry F19.10 Other psychoactive substance abuse, uncomplicated F39 Unspecified mood [affective] disorder J18.9 Pneumonia, unspecified organism R94.6 Abnormal results of thyroid function studies R53.81 Other malaise Office Visit 04/14/2019 9:56a [facility] Mayela Sellers MD I46.2 Cardiac arrest due to underlying cardiac condition F19.10 Other psychoactive substance abuse, uncomplicated F39 Unspecified mood [affective] disorder G89.4 Chronic pain syndrome J96.00 Acute respiratory failure, unsp w hypoxia or hypercapnia Z99.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 Z79.52 long term care pharmacist (current) use of systemic steroids G93.40 Encephalopathy, unspecified J18.9 Pneumonia, unspecified organism Office Visit 04/13/2019 9:55a [facility] Mayela Sellers MD I46.2 Cardiac arrest due to underlying cardiac condition F19.10 Other psychoactive substance abuse, uncomplicated F39 Unspecified mood [affective] disorder G89.4 Chronic pain syndrome J96.00 Acute respiratory failure, unsp w hypoxia or hypercapnia Z99.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 Z79.52 long term care pharmacist (current) use of systemic steroids G93.40 Encephalopathy, unspecified K59.00 Constipation, unspecified J18.9 Pneumonia, unspecified organism Office Visit 04/12/2019 9:55a [facility] Mayela Sellers MD I46.2 Cardiac arrest due to underlying cardiac condition F19.10 Other psychoactive substance abuse, uncomplicated F39 Unspecified mood [affective] disorder G89.4 Chronic pain syndrome J96.00 Acute respiratory failure, unsp w hypoxia or hypercapnia Z99.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 Z79.52 long term care pharmacist (current) use of systemic steroids G93.40 Encephalopathy, unspecified K59.00 Constipation, unspecified Office Visit 04/11/2019 9:55a [facility] Mayela Sellers MD I46.2 Cardiac arrest due to underlying cardiac condition F19.10 Other psychoactive substance abuse, uncomplicated F39 Unspecified mood [affective] disorder G89.4 Chronic pain syndrome J96.00 Acute respiratory failure, unsp w hypoxia or hypercapnia Z99.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 to underlying cardiac condition Office Visit 04/09/2019 9:41a [facility] Randy Latham I46.2 Cardiac arrest due M.D. to underlying cardiac condition F10.21 Alcohol dependence, in remission Office 02/16/2018 [facility] Hillary Rodriguez M65.131 Other infective Visit 11:30a Armando Jerez M.D. (teno)synovitis, Diseases right wrist Office 02/01/2018 [facility] Fariha L03.113 Cellulitis of right Visit 10:53a Assdonovan chen D.O. upper limb Hospitalists M65.9 Synovitis and tenosynovitis, unspecified M70.21 Olecranon bursitis, right elbow Office 02/01/2018 [facility] Hillary Rodriguez M65.131 Other infective Visit 10:12a Armando Jerez M.D. (teno)synovitis, Diseases right wrist Office 01/31/2018 [facility] Fariha L03.113 Cellulitis of right Visit 10:52a donovan Lyons D.O. upper limb Hospitalists M65.9 Synovitis and tenosynovitis, unspecified M70.21 Olecranon bursitis, right elbow Office Visit 01/30/2018 10:51a [facility] Fariha L03.113 Cellulitis of donovan Lyons D.O. right upper limb Hospitalists M65.9 Synovitis and tenosynovitis, unspecified M70.21 Olecranon bursitis, right elbow Office Visit 01/29/2018 10:50a [facility] Fariha L03.113 Cellulitis of donovan Lyons D.O. right upper limb Hospitalists M65.9 Synovitis and tenosynovitis, unspecified M70.21 Olecranon bursitis, right elbow G89.29 Other chronic pain Office 01/29/2018 [facility] James Rodriguez M65.131 Other infective Visit 10:06a Armando Jerez M.D. (teno)synovitis, Diseases right wrist Office 01/28/2018 [facility] Catracho Khoury MD L03.113 Cellulitis of right Visit 10:49a Assoc,pc upper limb Hospitalists M65.9 Synovitis and tenosynovitis, unspecified M54.5 Low back pain M25.421 Effusion, right elbow Office Visit 01/28/2018 2:28p [facility] Samantha L03.113 Cellulitis of Of Mihaela Manuel M.D. right upper limb Office Visit 01/27/2018 10:47a [facility] Catracho Khoury, L03.113 [facility] upper limb Hospital[facility] M70.21 Olecranon bursitis, right elbow M43.6 Torticollis M54.5 Low back pain Office Visit 07/24/2017 [facility] M19.071 Primary 2:15p Services Of Walter Shetty osteoarthritis, C.M.A. right ankle and foot Office Visit 02/20/2017 [facility]opedic M19.071 Primary 1:45p Services Of Walter Shetty osteoarthritis, C.M.A. right ankle and foot Office Visit 11/21/2016 [facility] M19.071 Primary 1:20p Services Of Walter Shetty osteoarthritis, C.M.A. right ankle and foot Office Visit 09/19/2016 Orthopedic M19.071 Primary 1:40p Services Of Walter Shetty osteoarthritis, C.M.A. right ankle and foot Plan of Treatment Future Appointment(s):05/10/2019 11:00 am - Jose Latham DO FACC at [facility]
--- NOTE | 2019-05-05 20:40 | ED ---
HPI Chest Pain - HPI Summary HPI Summary: This pt is a 63 y/o male presenting to [facility] c/o chest pain for the past 3 weeks , worse tonight. Pt reports he had a cardiac arrest about 3 weeks ago and was admitted to the ICU. Per medical records, pt presented to the ED on 04/09/19 after being found unresponsive and asystole. He notes he was discharged home with hydrocodone for the pain and was only given "a few of them." He notes he was 10 mg to take every 4 hours, he ran out the day before yesterday. Pt describes his chest pain feels "like someone hit him in the chest with a hammer. " His pain is worse with movement. Denies fever, nausea, vomiting, SOB, palpitations. Pt does have a loop recorder that was placed during his admission on 04/21/19, per EMR. Pt had a cardiac cath on April 19, 2019 and had normal coronary arteries. He reports he still drinks alcohol, the last time was yesterday. - History of Current Complaint Chief Complaint: EDChestPainROMI Time Seen by Provider: 05/05/19 20:19 Hx Obtained From: Patient, Medical Records Onset/Duration: Started Weeks Ago - 3, Still Present Timing: Constant, Lasting Weeks - 3 Current Severity: Severe Pain Intensity: 10 Pain Scale Used: 0-10 Numeric Chest Pain Location: Diffuse Chest Pain Radiates: No Character: Dull/Aching Aggravating Factor(s): Nothing Alleviating Factor(s): Nothing Associated Signs and Symptoms: Positive: Chest Pain. Negative: Shortness of Breath, Fever, Chills, Nausea, Palpitations, Vomiting - Additional Pertinent History Primary Care Physician: SOWMYA - Allergy/Home Medications Allergies/Adverse Reactions: Allergies Allergy/AdvReac Type Severity Reaction Status Date / Time lisinopril Allergy Coughing Verified 05/05/19 20:24 Sulfa (Sulfonamide Allergy Hives Verified 05/05/19 20:24 Antibiotics) morphine AdvReac Nausea And Verified 05/05/19 20:24 Vomiting PMH/Surg Hx/FS Hx/Imm Hx Endocrine/Hematology History: Denies: Hx Diabetes, Hx Sickle Cell Disease Cardiovascular History: Reports: Hx Angina, Hx Cardiac Arrest, Hx Hypertension, Hx Pacemaker/ICD, Other Cardiovascular Problems/Disorders - loop recorder (2018) Denies: Hx Coronary Artery Disease, Hx Peripheral Vascular Disease Respiratory History: Reports: Hx Asthma - ASTHMATIC ALLERGY UNKNOWN TO WHAT TAKES ADVAIR Denies: Hx Chronic Obstructive Pulmonary Disease (COPD) GI History: Reports: Hx Gastroesophageal Reflux Disease - TAKES MEDICATION ONLY HAPPENS WHEN OVER FULL, Other GI Disorders - ischemic bowel History: Denies: Hx Chronic Renal Failure, Other Problems/Disorders Musculoskeletal History: Reports: Hx Back Problems Denies: Other Musculoskeletal History Sensory History: Denies: Hx Cataracts, Hx Contacts or Glasses, Hx Glaucoma, Hx Hearing Aid Opthamlomology History: Denies: Hx Cataracts, Hx Contacts or Glasses, Hx Glaucoma Neurological History: Denies: Other Neuro Impairments/Disorders Psychiatric History: Reports: Hx Anxiety, Hx Depression, Hx Inpatient Treatment , Hx Suicide Attempt - pt stated it was accidential, Hx Substance Abuse - etoh; heroin; cocaine; rx opiates; benzo's Denies: Hx Attention Deficit Hyperactivity Disorder, Hx Eating Disorder, Hx Panic Disorder, Hx Post Traumatic Stress Disorder, Hx Community Mental Health Tx , Hx Schizophrenia, Hx Bipolar Disorder, Hx of Violent Episodes Against Others, Other Psychiatric Issues/Disorders - Cancer History Hx Chemotherapy: No - Surgical History Surgery Procedure, Year, and Place: RIGHT SHOULDER - 2012 [employer]. RIGHT KNEE. BACK. RIGHT ARM. LEFT SHOULDER Hx Anesthesia Reactions: No - WAKES UP VERY FAST, WOKE UP IN MIDDLE OF OPERATION - Immunization History Date of Tetanus Vaccine: 03/2017 Date of Influenza Vaccine: never Immunizations Up to Date: Yes Infectious Disease History: No Infectious Disease History: Reports: Hx Hepatitis - hep C Denies: Traveled Outside the [place] in Last 30 Days - Family History Known Family History: Positive: Cardiac Disease - father and mother with MO Negative: Blood Disorder - Social History Alcohol Use: Occasionally Alcohol Amount: 2 DRINKS Hx Substance Use: No Substance Use Type: Reports: Other Substance Use Comment - Amount & Last Used: ASYSTOLE R/T TO OD Hx Tobacco Use: Yes Smoking Status (MU): Former Smoker Review of Systems Negative: Fever, Chills Positive: Chest Pain. Negative: Palpitations Negative: Shortness Of Breath Negative: Vomiting, Nausea All Other Systems Reviewed And Are Negative: Yes Physical Exam - Summary Physical Exam Summary: VITAL SIGNS: Reviewed. GENERAL: Patient is a well-developed and nourished male who is lying comfortable in the stretcher. Patient is not in any acute respiratory distress. HEAD AND FACE: No signs of trauma. No ecchymosis, hematomas or skull depressions. No sinus tenderness. EYES: PERRLA, EOMI x 2, No injected conjunctiva, no nystagmus. EARS: Hearing grossly intact. Ear canals and tympanic membranes are within normal limits. MOUTH: Oropharynx within normal limits. NECK: Supple, trachea is midline, no adenopathy, no JVD, no carotid bruit, no c- spine tenderness, neck with full ROM. CHEST: Symmetric, anterior chest wall tenderness LUNGS: Clear to auscultation bilaterally. No wheezing or crackles. CVS: Regular rate and rhythm, S1 and S2 present, no murmurs or gallops appreciated. ABDOMEN: Soft, non-tender. No signs of distention. No rebound no guarding, and no masses palpated. Bowel sounds are normal. EXTREMITIES: FROM in all major joints, no cyanosis or clubbing. Bilateral trace pedal edema. Varicose veins in the right leg. NEURO: Alert and oriented x 3. No acute neurological deficits. Speech is normal and follows commands. SKIN: Dry and warm Triage Information Reviewed: Yes Vital Signs On Initial Exam: Initial Vitals Temp Pulse Resp BP Pulse Ox 99.8 F 73 22 185/97 98 05/05/19 19:56 05/05/19 19:56 05/05/19 19:56 05/05/19 19:56 05/05/19 19:56 Vital Signs Reviewed: Yes Diagnostics - Vital Signs Vital Signs Temp Pulse Resp BP Pulse Ox 05/05/19 20:23 70 18 147/90 97 05/05/19 20:22 12 05/05/19 19:56 99.8 F 73 22 185/97 98 - Laboratory Result Diagrams: 05/05/19 20:55 05/05/19 20:55 Lab Statement: Any lab studies that have been ordered have been reviewed, and results considered in the medical decision making process. - Radiology Chest XR Radiology Interpretation Completed By: ED Physician Summary of Radiographic Findings: No acute process - EKG 20:05 Cardiac Rate: NL - at 73 bpm EKG Rhythm: Sinus Rhythm Summary of EKG Findings: LV[facility] Chest Pain Course/Dx - Course Assessment/Plan: Pt is a 63 y/o male who presents with chest pain for the past 3 weeks, worse tonight. Per medical records, pt presented to the ED on 04/09/19 after being found unresponsive and asystole. He notes he was discharged home with hydrocodone for the pain and was only given "a few of them." He notes he was 10 mg to take every 4 hours, he ran out the day before yesterday. Pt describes his chest pain feels "like someone hit him in the chest with a hammer. " His pain is worse with movement. Pt does have a loop recorder that was placed during his admission on 04/21/19, per EMR. Pt had a cardiac cath on April 19, 2019 and had normal coronary arteries. Blood work was obtained. Troponin is 0.01. Chest XR shows no acute process. Pt will be discharged home with follow up from his PCP in 2-3 days. He was given a prescription for Ashley. Return to ED precautions were given. - Diagnoses Provider Diagnoses: Chest wall pain Discharge - Sign-Out/Discharge Documenting (check all that apply): Patient Departure - Discharge home Patient Received Moderate/Deep Sedation with Procedure: No - Discharge Plan Condition: Stable Disposition: HOME Prescriptions: HYDROcodone/ACETAMIN 5-325 MG* [Ashley 5-325 TAB*] 1 tab PO Q6H PRN #7 tab MDD 4 PRN Reason: Pain Patient Education Materials: Chest Wall Pain (ED) Referrals: Nasra Bradley MD [Primary Care Provider] - Additional Instructions: Follow up with your primary care provider in 2-3 days. RETURN TO THE ED IMMEDIATELY FOR WORSENING OR CONCERNING SYMPTOMS. - Attestation Statements Document Initiated by Scribe: Yes Documenting Scribe: Lena Hansen Provider For Whom Scribe is Documenting (Include Credential): Marianna Basurto MD Scribe Attestation: Lena Lawton, scribed for Marianna Basurto MD on 05/05/19 at 2200. Status of Scribe Document: Ready
[2019-05-05] MEDS ORDERED: Ketorolac INJ* 30 MG/ML 1 ML VIAL IM ONE (20:47)
[2019-05-05] MEDS ORDERED: HYDROcodone/ACETAMIN 5-325 MG* 1 TAB PO ONE (20:47)
[2019-05-05 21:03] LABS: ABS Eosinophils 0.4 10^3/ul (0-0.6); ABS Lymphocytes 1.8 10^3/ul (1.0-4.8); ABS Monocytes 0.9 10^3/ul (0-0.8); ABS Neutrophils 3.5 10^3/ul (1.5-7.7); Eosinophil % 6.1 %; Hematocrit 40 % (42-52); Hemoglobin 13.6 g/dL (14.0-18.0); Mean Corpuscular HGB Conc 34 g/dL (31-36); Mean Corpuscular Hemoglobin 30 pg (27-31); Mean Corpuscular Volume 88 fL (80-94); Mean Platelet Volume 7.6 fL (7.4-10.4); Nucleated Red Blood Cells % 0.2; Platelet Count 482 10^3/uL (150-450); Red Blood Count 4.58 10^6 /uL (4.18-5.48); Red Cell Distribution Width 18 % (10-15); White Blood Count 6.6 10^3/uL (3.5-10.8)
[2019-05-05 21:13] LABS: Activated Partial Thrombo Time 35.5 seconds (26.0-38.0)
[2019-05-05 21:20] LABS: Albumin 4.2 g/dL (3.2-5.2); Albumin/Globulin Ratio 1.1 (1-3); BUN/Creatinine Ratio 15.6 (8-20); Calcium 9.7 mg/dL (8.6-10.3); EGFR African American 153.3 (>60); EGFR Non-African American 126.7 (>60); Globulin 3.7 g/dL (2-4); Potassium 3.6 mmol/L (3.5-5.0); Total Bilirubin 0.3 mg/dL (0.2-1.0); Total Protein 7.9 g/dL (6.4-8.9)
[2019-05-05 21:22] LABS: Troponin I 0.01 ng/mL (<0.04)
[2019-05-05 21:42] VITALS: BP 153/82
== END 2019-05-05 22:11 | disposition home or self-care (01) ==
LOC: ED 19:52
DX: R07.89 Other chest pain (principal); I10 Essential (primary) hypertension; Z95.0 Presence of cardiac pacemaker; Z87.891 Personal history of nicotine dependence
CPT/HCPCS: 36415; 71045; 80053; 84484; 85025; 85610; 85730; 93005; 96372; 99283; J1885

== ENCOUNTER 2021-01-07 08:56 | Observation (INO) ==
[2021-01-07] MEDS: NS 0.9% 1000 ml BAG 1,000 ML IV SCH ×2 (09:15→23:25)
[2021-01-07] MEDS ORDERED: ceFAZolin 2 GM PREMIX 2 GM/50 ML BAG IVPB ONE (09:30)
[2021-01-07] MEDS ORDERED: ceFAZolin VIAL 1 GM in NS *SYRINGE* 10 ML IVPB ONE (09:30)
[2021-01-07] MEDS ORDERED: fentaNYL 100 mcg/2 ml 50 MCG/ML VIAL ONE ×2 (09:50→10:21)
[2021-01-07] MEDS ORDERED: Midazolam 5 mg/5 ml VIAL 1 mg/ml 5 ml VIAL (5 mg) ONE ×2 (09:50→10:16)
[2021-01-07] MEDS ORDERED: Lidocaine 1% VIAL 10 MG/ML VIAL ONE (10:10)
[2021-01-07] MEDS: ceFAZolin VIAL 1 GM in NS 0.9% 50 ML 50 ML IVPB SCH (18:27)
[2021-01-07 19:01] LABS: ABS Basophils 0.1 10^3/ul (0-0.2); ABS Eosinophils 0.3 10^3/ul (0-0.6); ABS Lymphocytes 1.7 10^3/ul (1.0-4.8); ABS Monocytes 1.4 10^3/ul (0-0.8); ABS Neutrophils 5.7 10^3/ul (1.5-7.7); Eosinophil % 3.1 %; Hematocrit 39 % (42-52); Hemoglobin 13.5 g/dL (14.0-18.0); Lymphocyte % 18.5 %; Mean Corpuscular HGB Conc 34 g/dL (31-36); Mean Corpuscular Hemoglobin 32 pg (27-31); Mean Corpuscular Volume 94 fL (80-94); Mean Platelet Volume 8.5 fL (7.4-10.4); Platelet Count 354 10^3/uL (150-450); Red Blood Count 4.19 10^6 /uL (4.18-5.48); Red Cell Distribution Width 15 % (10-15); White Blood Count 9.1 10^3/uL (3.5-10.8)
[2021-01-07 19:16] LABS: BUN/Creatinine Ratio 21.1 (8-20); Calcium 8.9 mg/dL (8.6-10.3); EGFR African American 135.2 (>60); EGFR Non-African American 111.7 (>60); Potassium 3.3 mmol/L (3.5-5.0)
[2021-01-07] MEDS: Ondansetron ODT 4 mg TAB 4 MG TAB PO SCH (20:13)
[2021-01-07] MEDS: HYDROmorphone 0.5 MG/0.5 ML SYRINGE IV SLOW PU PRN (20:13)
[2021-01-08] MEDS: ceFAZolin VIAL 1 GM in NS 0.9% 50 ML 50 ML IVPB SCH ×2 (01:29→12:11)
[2021-01-08] MEDS: Ondansetron ODT 4 mg TAB 4 MG TAB PO SCH (08:00)
[2021-01-08] MEDS ORDERED: Potassium Chlor 10 meq TAB PO ONE (09:20)
[2021-01-08] MEDS: HYDROmorphone 0.5 MG/0.5 ML SYRINGE IV SLOW PU PRN (09:54)
[2021-01-08 12:19] VITALS: BP 134/65
== END 2021-01-08 13:20 | disposition home or self-care (01) ==
LOC: CHICATH 08:56 → MEDTELE 08:56
PROVIDERS: ADMIT Specialist; ATTEND Specialist

== ENCOUNTER 2024-07-11 19:52 | Inpatient (IN) ==
[2024-07-11 20:21] LABS: ABS Basophils 0.1 10^3/uL (0.0-0.1); ABS Eosinophils 0.3 10^3/uL (0.0-0.5); ABS Lymphocytes 1.3 10^3/uL (1.0-4.8); ABS Monocytes 1.2 10^3/uL (0.0-1.1); ABS Neutrophils 6.6 10^3/uL (1.5-7.6); ABS Nucleated RBC 0.03 10^3/ul; Eosinophil % 3.4 %; Hematocrit 36.3 % (38-53); Hemoglobin 12.1 g/dL (13.2-16.3); Lymphocyte % 13.5 %; Mean Corpuscular Hemoglobin 32.1 pg (27-33); Mean Corpuscular Hgb Conc 33.5 g/dL (31-36); Mean Platelet Volume 8.4 fL (7.5-11.2); Nucleated Red Blood Cells % 0.3 %/100WBC (0.0-0.8); Platelet Count 337 10^3/uL (150-450); Red Blood Count 3.78 10^6/uL (4.06-5.63); Red Cell Distribution Width 14.7 % (12-17); White Blood Count 9.5 10^3/uL (3.6-10.2)
[2024-07-11 20:29] LABS: INR 1.21 (0.85-1.14)
[2024-07-11] MEDS: Iodixanol (CONTRAST) 320 MG/ML 100 ML SDV IV ONE (21:07)
[2024-07-11 21:18] LABS: Albumin 4.3 g/dL (3.2-5.2); Albumin/Globulin Ratio 1.2 (1-3); Calcium 9.1 mg/dL (8.6-10.3); Creatinine, Serum 0.7 mg/dL (0.67-1.17); Globulin 3.5 g/dL (2-4); Potassium 4.4 mmol/L (3.5-5.0); Total Bilirubin 0.6 mg/dL (0.2-1.0); Total Protein 7.8 g/dL (6.4-8.9)
[2024-07-11 21:52] LABS: High Sensitivity Troponin 1 Hr 40 pg/mL (<20)
[2024-07-11] MEDS: Labetalol IV 5 MG/ML 20 ml VIAL IV PUSH ONE (21:57)
[2024-07-11] MEDS: TENECTEPLASE 50 MG VIAL KIT 5 MG/ML (reconstituted) IV ONE (22:00)
[2024-07-11 22:19] LABS: Albumin 4.2 g/dL (3.2-5.2); Albumin/Globulin Ratio 1.3 (1-3); Calcium 9.1 mg/dL (8.6-10.3); Creatinine, Serum 0.61 mg/dL (0.67-1.17); Direct Bilirubin 0.1 mg/dL (0.03-0.18); Globulin 3.2 g/dL (2-4); HDL Cholesterol 47.8 mg/dL; Indirect Bilirubin 0.5 mg/dL (0.3-1.0); Potassium 4.3 mmol/L (3.5-5.0); Total Bilirubin 0.6 mg/dL (0.2-1.0); Total Protein 7.4 g/dL (6.4-8.9); eGFR CKD-EPI 105.3 (>60)
[2024-07-11] MEDS: niCARdipine 0.1MG/ML IVPREMIX 20 MG/200 ML BAG IV SCH (22:37)
[2024-07-12] MEDS: oxyCODONE/Acetamin 5/325 mg TAB PO PRN (01:27)
[2024-07-12 04:59] LABS: ABS Basophils 0.1 10^3/uL (0.0-0.1); ABS Eosinophils 0.1 10^3/uL (0.0-0.5); ABS Lymphocytes 1.5 10^3/uL (1.0-4.8); ABS Monocytes 1.1 10^3/uL (0.0-1.1); ABS Neutrophils 5.8 10^3/uL (1.5-7.6); ABS Nucleated RBC 0.02 10^3/ul; Eosinophil % 0.6 %; Hematocrit 35.8 % (38-53); Lymphocyte % 17.6 %; Mean Corpuscular Hemoglobin 31.9 pg (27-33); Mean Corpuscular Hgb Conc 33.5 g/dL (31-36); Mean Corpuscular Volume 95.1 fL (80-97); Mean Platelet Volume 8.6 fL (7.5-11.2); Nucleated Red Blood Cells % 0.3 %/100WBC (0.0-0.8); Platelet Count 347 10^3/uL (150-450); Red Blood Count 3.76 10^6/uL (4.06-5.63); White Blood Count 8.5 10^3/uL (3.6-10.2)
[2024-07-12 05:43] LABS: Calcium 8.9 mg/dL (8.6-10.3); Creatinine, Serum 0.56 mg/dL (0.67-1.17); Potassium 4.2 mmol/L (3.5-5.0)
[2024-07-12] MEDS: niCARdipine 0.1MG/ML IVPREMIX 20 MG/200 ML BAG IV SCH (09:48)
[2024-07-12] MEDS ORDERED: Sulfur Hexaflouride MICROSPHR 25 MG VIAL ONE (10:23)
[2024-07-12] MEDS ORDERED: oxyCODONE/Acetamin 10/325(NF) TAB PO PRN (11:27)
[2024-07-12] MEDS ORDERED: Morphine 2 MG/ML SYRINGE IV PRN (16:54)
[2024-07-12] MEDS: HYDROmorphone 1 MG/1 ML SYRINGE IV SLOW PU ONE (23:23)
[2024-07-14] MEDS: HYDROmorphone 0.5 MG/0.5 ML SYRINGE IV SLOW PU ONE (03:03)
[2024-07-14] MEDS ORDERED: Senna TAB 8.6 mg TAB PO PRN (03:12)
[2024-07-14 06:03] LABS: Hemoglobin 12.8 g/dL (13.2-16.3); Mean Corpuscular Hgb Conc 34.7 g/dL (31-36); Mean Corpuscular Volume 95.2 fL (80-97); Mean Platelet Volume 8.9 fL (7.5-11.2); Platelet Count 318 10^3/uL (150-450); Red Blood Count 3.89 10^6/uL (4.06-5.63); Red Cell Distribution Width 14.9 % (12-17); White Blood Count 15.9 10^3/uL (3.6-10.2)
[2024-07-14 06:17] LABS: Creatinine, Serum 0.63 mg/dL (0.67-1.17); Magnesium 1.8 mg/dL (1.9-2.7); Potassium 4.1 mmol/L (3.5-5.0); eGFR CKD-EPI 104.3 (>60)
[2024-07-14 07:33] LABS: ABS Basophils 0.1 10^3/uL (0.0-0.1); ABS Eosinophils 0.1 10^3/uL (0.0-0.5); ABS Lymphocytes 1.3 10^3/uL (1.0-4.8); ABS Monocytes 2.9 10^3/uL (0.0-1.1); ABS Neutrophils 11.7 10^3/uL (1.5-7.6); ABS Nucleated RBC 0.02 10^3/ul; Anisocytosis 1+; Basophilic Stippling 1+; Eosinophil % 0.5 %; Lymphocyte % 7.9 %; Nucleated Red Blood Cells % 0.1 %/100WBC (0.0-0.8); Polychromasia 1+
[2024-07-14] MEDS: Magnesium Sulfate 2 gm BAG 2 GM/50 ML BAG IVPB ONE (07:39)
[2024-07-14 11:20] LABS: Urine Appearance No Cx Turbid (Clear); Urine Bilirubin No Culture Negative (Negative); Urine Blood No Culture Negative (Negative); Urine Color No Culture Yellow; Urine Glucose No Culture Negative (Negative); Urine Ketones No Culture Negative (Negative); Urine Leukocytes No Culture Negative Leu/uL (Negative); Urine Nitrite No Culture Negative (Negative); Urine Protein No Culture Negative (Negative); Urine Specific Gravity No Cx 1.015 (1.002-1.030); Urine Urobilinogen No Cx 1+ (Negative); Urine pH No Culture 6.5 (5.0-8.0)
[2024-07-14 11:38] LABS: Ur Amorph Crystals No Culture Present /HPF (Absent); Urine Bacteria No Culture Absent /HPF (Absent); Urine Red Blood Cell No Cult Trace(0-2/hpf) /HPF (0-Trace); Urine White Blood Cell No Cult Trace(0-5/hpf) /HPF (0-Trace)
[2024-07-14] MEDS ORDERED: HYDROmorphone 0.5 MG/0.5 ML SYRINGE IV SLOW PU PRN (15:18)
[2024-07-14] MEDS: HYDROmorphone 0.5 MG/0.5 ML SYRINGE IV SLOW PU PRN (16:43)
[2024-07-14] MEDS: cefTRIAXone 1 gm/50 mL D5W 1 GM/50 ML BAG IV SCH (18:21)
[2024-07-14] MEDS: Vancomycin 2,000 MG in NS 0.9% 500 ml BAG 500 ML IVPB ONE (19:22)
[2024-07-14] MEDS: Senna TAB 8.6 mg TAB PO SCH (20:54)
[2024-07-15] MEDS: Vancomycin 1,500 MG in NS 0.9% 250 ml 250 ML IVPB SCH (06:01)
[2024-07-15 06:43] LABS: Hematocrit 36.6 % (38-53); Hemoglobin 12.5 g/dL (13.2-16.3); Mean Corpuscular Hemoglobin 32.8 pg (27-33); Mean Corpuscular Hgb Conc 34.3 g/dL (31-36); Mean Corpuscular Volume 95.7 fL (80-97); Mean Platelet Volume 9.1 fL (7.5-11.2); Platelet Count 265 10^3/uL (150-450); Red Blood Count 3.82 10^6/uL (4.06-5.63); Red Cell Distribution Width 15.1 % (12-17); White Blood Count 10.9 10^3/uL (3.6-10.2)
[2024-07-15 07:03] LABS: Calcium 8.5 mg/dL (8.6-10.3); Creatinine, Serum 0.56 mg/dL (0.67-1.17); Magnesium 2.1 mg/dL (1.9-2.7); Potassium 4.2 mmol/L (3.5-5.0)
[2024-07-15 07:08] LABS: ABS Basophils 0.1 10^3/uL (0.0-0.1); ABS Eosinophils 0.1 10^3/uL (0.0-0.5); ABS Lymphocytes 1.6 10^3/uL (1.0-4.8); ABS Monocytes 2.1 10^3/uL (0.0-1.1); ABS Nucleated RBC 0.03 10^3/ul; Eosinophil % 1.3 %; Lymphocyte % 14.4 %; Nucleated Red Blood Cells % 0.3 %/100WBC (0.0-0.8)
[2024-07-15] MEDS: HYDROmorphone 0.5 MG/0.5 ML SYRINGE IV SLOW PU PRN (11:52)
[2024-07-15 13:02] LABS: C Reactive Protein 161.07 mg/L (<8.01)
[2024-07-15 14:41] LABS: Erythrocyte Sed Rate 45 mm/Hr (0-19)
[2024-07-16] MEDS: Polyethylene Glycol 3350 17 GM PACKET PO PRN (05:29)
[2024-07-16 07:08] LABS: Hematocrit 37.1 % (38-53); Hemoglobin 12.7 g/dL (13.2-16.3); Mean Corpuscular Hemoglobin 32.6 pg (27-33); Mean Corpuscular Hgb Conc 34.2 g/dL (31-36); Mean Corpuscular Volume 95.5 fL (80-97); Mean Platelet Volume 9.1 fL (7.5-11.2); Platelet Count 304 10^3/uL (150-450); Red Blood Count 3.89 10^6/uL (4.06-5.63); Red Cell Distribution Width 14.3 % (12-17); White Blood Count 11.2 10^3/uL (3.6-10.2)
[2024-07-16 07:15] LABS: Calcium 8.8 mg/dL (8.6-10.3); Creatinine, Serum 0.65 mg/dL (0.67-1.17); Potassium 4.6 mmol/L (3.5-5.0); eGFR CKD-EPI 103.3 (>60)
[2024-07-16 08:05] LABS: ABS Basophils 0.1 10^3/uL (0.0-0.1); ABS Eosinophils 0.3 10^3/uL (0.0-0.5); ABS Lymphocytes 1.3 10^3/uL (1.0-4.8); ABS Monocytes 1.9 10^3/uL (0.0-1.1); ABS Neutrophils 7.8 10^3/uL (1.5-7.6); ABS Nucleated RBC 0.02 10^3/ul; Eosinophil % 2.2 %; Lymphocyte % 11.7 %; Nucleated Red Blood Cells % 0.2 %/100WBC (0.0-0.8)
[2024-07-16] MEDS: Vancomycin 1,250 MG in NS 0.9% 250 ml 250 ML IVPB SCH (08:57)
[2024-07-16] MEDS: Vancomycin Trough Check NOTE FOLLOW UP ONE (08:58)
[2024-07-16 15:51] LABS: Uric Acid 4.7 mg/dL (4.4-7.6)
[2024-07-17 06:21] LABS: Hematocrit 37.7 % (38-53); Hemoglobin 12.7 g/dL (13.2-16.3); Mean Corpuscular Hemoglobin 32.2 pg (27-33); Mean Corpuscular Hgb Conc 33.6 g/dL (31-36); Mean Corpuscular Volume 95.9 fL (80-97); Mean Platelet Volume 9.2 fL (7.5-11.2); Platelet Count 332 10^3/uL (150-450); Red Blood Count 3.93 10^6/uL (4.06-5.63); Red Cell Distribution Width 14.6 % (12-17); White Blood Count 9.9 10^3/uL (3.6-10.2)
[2024-07-17 06:27] LABS: ABS Basophils 0.1 10^3/uL (0.0-0.1); ABS Eosinophils 0.3 10^3/uL (0.0-0.5); ABS Lymphocytes 1.6 10^3/uL (1.0-4.8); ABS Monocytes 1.6 10^3/uL (0.0-1.1); ABS Neutrophils 6.2 10^3/uL (1.5-7.6); ABS Nucleated RBC 0.01 10^3/ul; Eosinophil % 3.5 %; Lymphocyte % 16.2 %; Nucleated Red Blood Cells % 0.1 %/100WBC (0.0-0.8)
[2024-07-17 06:34] LABS: Calcium 9.1 mg/dL (8.6-10.3); Creatinine, Serum 0.66 mg/dL (0.67-1.17); Magnesium 2.1 mg/dL (1.9-2.7); Potassium 4.8 mmol/L (3.5-5.0); eGFR CKD-EPI 102.8 (>60)
[2024-07-17] MEDS ORDERED: Vancomycin Trough Check NOTE FOLLOW UP ONE (07:00)
[2024-07-17] MEDS: Senna TAB 8.6 mg TAB PO SCH (08:41)
[2024-07-17] MEDS: HYDROmorphone 1 MG/1 ML SYRINGE IV SLOW PU PRN (17:58)
[2024-07-18 05:58] LABS: Hematocrit 34.9 % (38-53); Mean Corpuscular Hemoglobin 32.7 pg (27-33); Mean Corpuscular Hgb Conc 34.4 g/dL (31-36); Mean Corpuscular Volume 95.1 fL (80-97); Mean Platelet Volume 8.8 fL (7.5-11.2); Platelet Count 321 10^3/uL (150-450); Red Blood Count 3.67 10^6/uL (4.06-5.63); White Blood Count 10.3 10^3/uL (3.6-10.2)
[2024-07-18 06:08] LABS: ABS Basophils 0.1 10^3/uL (0.0-0.1); ABS Eosinophils 0.4 10^3/uL (0.0-0.5); ABS Lymphocytes 1.4 10^3/uL (1.0-4.8); ABS Monocytes 2.1 10^3/uL (0.0-1.1); ABS Neutrophils 6.3 10^3/uL (1.5-7.6); ABS Nucleated RBC 0.01 10^3/ul; Eosinophil % 3.8 %; Lymphocyte % 13.8 %; Nucleated Red Blood Cells % 0.1 %/100WBC (0.0-0.8)
[2024-07-18 06:17] LABS: Calcium 8.7 mg/dL (8.6-10.3); Creatinine, Serum 0.6 mg/dL (0.67-1.17); Potassium 4.5 mmol/L (3.5-5.0); eGFR CKD-EPI 105.8 (>60)
[2024-07-18 10:17] LABS: Rapid COVID-19 Molecular Undetected (Undetected)
[2024-07-19 07:55] LABS: Hematocrit 34.7 % (38-53); Hemoglobin 11.7 g/dL (13.2-16.3); Mean Corpuscular Hemoglobin 31.9 pg (27-33); Mean Corpuscular Hgb Conc 33.6 g/dL (31-36); Mean Corpuscular Volume 94.9 fL (80-97); Mean Platelet Volume 8.5 fL (7.5-11.2); Platelet Count 351 10^3/uL (150-450); Red Blood Count 3.65 10^6/uL (4.06-5.63); Red Cell Distribution Width 14.1 % (12-17); White Blood Count 9.3 10^3/uL (3.6-10.2)
[2024-07-19 08:14] LABS: Calcium 8.8 mg/dL (8.6-10.3); Creatinine, Serum 0.58 mg/dL (0.67-1.17); Potassium 4.7 mmol/L (3.5-5.0); eGFR CKD-EPI 106.9 (>60)
[2024-07-19 08:35] LABS: ABS Basophils 0.1 10^3/uL (0.0-0.1); ABS Eosinophils 0.4 10^3/uL (0.0-0.5); ABS Lymphocytes 1.5 10^3/uL (1.0-4.8); ABS Monocytes 1.7 10^3/uL (0.0-1.1); ABS Neutrophils 5.7 10^3/uL (1.5-7.6); Eosinophil % 3.9 %; Lymphocyte % 15.9 %
[2024-07-19 10:21] VITALS: BP 137/68
== END 2024-07-19 11:30 | DRG 62 ==
LOC: ED 19:52 → EDHOLD 22:55 → SUATTDRO 22:55 → ICU 07-12 00:40 → MEDTELE 07-13 00:42
PROVIDERS: ADMIT Internal Medicine; ATTEND Student in an Organized Health Care Education/Training Program